=== PATIENT | male | born 1960 | race African-American/Black ===

== ENCOUNTER 2017-03-08 12:58 | Emergency (ER) | payer OTHER, MEDICAID ==
[~2017-03-08] VITALS: Ht 167.6 cm; Wt 99.8 kg
[~2017-03-08 12:58] MED LIST: CIPR-173 PO; ENAL2.5T PO; FLUO10CA15 PO; FUR40T PO; HYDR-4663 PO; TAM04C PO
[2017-03-08 13:25] LABS: Urine Bilirubin Negative (Negative); Urine Blood Negative /uL (Negative); Urine Color Yellow (Yellow); Urine Glucose Normal (Normal); Urine Ketone Negative (Negative); Urine Nitrite Negative (Negative); Urine RBC <1 /hpf (0 - 3); Urine Squamous Epithelial Cell FEW /hpf (<5); Urine Urobilinogen Normal (Negative); Urine pH 6.5 (5.0-8.0)
[2017-03-08] MEDS ORDERED: HYDROmorphone HCL 2 MG/ML VL IM ONE (16:45)
[2017-03-08] MEDS ORDERED: ONDANSETRON HCL 4 MG/2 ML VIAL IM ONE (16:45)
[2017-03-08 18:34] VITALS: BP 109/72
== END 2017-03-08 18:50 | disposition home or self-care (01) ==
LOC: ER 12:59
DX: K62.5 Hemorrhage of anus and rectum (principal); I10 Essential (primary) hypertension; R51 Headache; Z88.6 Allergy status to analgesic agent; Z79.899 Other long term (current) drug therapy
CPT/HCPCS: 74176; 81001; 96372; 99285; J1170; J2405

== ENCOUNTER 2017-06-04 14:15 | Emergency (ER) | payer OTHER, MEDICAID ==
[~2017-06-04] VITALS: Ht 167.6 cm; Wt 90.7 kg
[~2017-06-04 14:15] MED LIST changes: -HYDR-4663 PO; +HYDR-4683 PO
[2017-06-04 18:39] LABS: Basophils # (auto) 0 uL; Basophils % (auto) 0.3 % (0.0-2.0); Eosinophils # (auto) 0.1 uL; Eosinophils % (auto) 1.4 % (0.0-7.0); Hematocrit 49.2 % (41.0-53.0); Lymphocytes # (auto) 2.7 uL; Mean Corpuscular Hemoglobin 30.1 pg (28.0-32.0); Mean Corpuscular Hgb Conc. 32.6 g/dL (32.0-36.0); Mean Corpuscular Volume 92.5 fL (80.0-100.0); Monocytes # (auto) 0.9 uL; Monocytes % (auto) 9.5 % (0.0-12.0); Neutrophils # (auto) 5.9 uL; Neutrophils % (auto) 60.8 % (37.0-80.0); Nucleated Red Blood Cells % 0.1 %; Platelet Count (auto) 263 10^3/uL (140-450); Red Blood Cells 5.31 10^6/uL (4.5-5.90); Red Cell Distribution Width 14.2 % (11.8-14.3); White Blood Cell 9.7 10^3/uL (4.4-10.8)
[2017-06-04 18:58] LABS: Alanine Aminotransferase 25 U/L (16-61); Albumin 3.4 g/dL (3.4-5.0); Alkaline Phosphatase 152 U/L (45-117); Anion Gap 8 (5-15); Aspartate Aminotransferase 19 U/L (15-37); BUN/Creatinine Ratio 8.2; Bilirubin, Total 0.4 mg/dL (0.2-1.0); Blood Urea Nitrogen 7 mg/dL (7-18); Calcium 9.2 mg/dL (8.5-10.1); Carbon Dioxide 27 mmol/L (21-32); Chloride 105 mmol/L (98-107); GFR African American 119 mL/min; GFR Non-African American 99 mL/min; Glucose 89 mg/dL (74-106); Potassium 4.2 mmol/L (3.5-5.1); Sodium 140 mmol/L (136-145); Total Protein 8.5 g/dL (6.4-8.2)
[2017-06-04] MEDS ORDERED: ONDANSETRON ODT 4 MG TAB PO ONE (21:15)
[2017-06-04] MEDS ORDERED: HYDROmorphone HCL 2 MG/ML VL IM ONE ×2 (21:15→22:15)
[2017-06-04] MEDS ORDERED: HYDROcodone-ACET 10/325MG TAB PO ONE (23:00)
[2017-06-04 23:07] VITALS: BP 101/69
== END 2017-06-04 23:24 | disposition home or self-care (01) ==
LOC: ER 14:15
DX: N28.1 Cyst of kidney, acquired (principal); I10 Essential (primary) hypertension; Z88.6 Allergy status to analgesic agent
CPT/HCPCS: 36415; 71020; 74176; 80053; 84484; 85025; 96372; 99285; J1170; Q0162

== ENCOUNTER 2017-06-07 12:26 | Emergency (ER) | payer OTHER, MEDICAID ==
[~2017-06-07] VITALS: Ht 167.6 cm; Wt 91.6 kg
[2017-06-07 12:31] VITALS: BP 127/59
[2017-06-07] MEDS ORDERED: KETOROLAC TROMETH 60MG/2ML VIAL IM ONE (14:45)
[2017-06-07] MEDS ORDERED: diphenhdrAMINE HCL 50 MG/1 ML VL IM ONE (14:45)
== END 2017-06-07 15:18 | disposition home or self-care (01) ==
LOC: ER 12:26
DX: K64.9 Unspecified hemorrhoids (principal); I10 Essential (primary) hypertension; N40.0 Benign prostatic hyperplasia without lower urinary tract symptoms; Z88.8 Allergy status to other drugs, medicaments and biological substances
CPT/HCPCS: 81002; 96372; 99284; J1200; J1885

== ENCOUNTER 2017-09-28 11:19 | Inpatient (IN) | payer OTHER, MEDICAID ==
[~2017-09-28] VITALS: Ht 167.6 cm; Wt 97.8 kg
[2017-09-28 12:03] LABS: Hematocrit 47.5 % (41.0-53.0); Hemoglobin 15.5 g/dL (13.5-17.5); Mean Corpuscular Hemoglobin 29.6 pg (28.0-32.0); Mean Corpuscular Hgb Conc. 32.7 g/dL (32.0-36.0); Mean Corpuscular Volume 90.5 fL (80.0-100.0); Platelet Count (auto) 179 10^3/uL (140-450); Red Blood Cells 5.25 10^6/uL (4.5-5.90); Red Cell Distribution Width 14.5 % (11.8-14.3); White Blood Cell 3.1 10^3/uL (4.4-10.8)
[2017-09-28 12:08] LABS: Band Neutrophils % (manual) 0
[2017-09-28 12:09] LABS: Basophils % (manual) 0 (0.0-2.0); Blast Cells 0; Metamyelocytes % 0; Myelocytes % 0; Promyelocytes % 0; Reactive Lymphocytes 0
[2017-09-28 12:29] LABS: Alanine Aminotransferase 39 U/L (16-61); Alkaline Phosphatase 100 U/L (45-117); Anion Gap 8 (5-15); Aspartate Aminotransferase 38 U/L (15-37); Bilirubin, Total 0.4 mg/dL (0.2-1.0); Blood Urea Nitrogen 16 mg/dL (7-18); Calcium 8.2 mg/dL (8.5-10.1); Carbon Dioxide 24 mmol/L (21-32); Chloride 106 mmol/L (98-107); GFR African American 113 mL/min; GFR Non-African American 94 mL/min; Glucose 108 mg/dL (74-106); Magnesium 2.2 mg/dL (1.6-2.6); Potassium 4.1 mmol/L (3.5-5.1); Sodium 138 mmol/L (136-145); Total Protein 7.4 g/dL (6.4-8.2)
[2017-09-28] MEDS ORDERED: ONDANSETRON HCL 4 MG/2 ML VIAL IV ONE ×2 (13:00→16:15)
[2017-09-28] MEDS ORDERED: MORPHINE SULFATE 4 MG/ML SYR/VIAL IV ONE ×2 (13:00→16:15)
[2017-09-28] MEDS ORDERED: ASPirin 81 mg TAB PO ONE (13:00)
[2017-09-28 13:37] LABS: INR 1.02 (0.9-1.15); Partial Thromboplastin Time 31.1 sec (22.64-33.71); Prothrombin Time 11.1 sec (9.37-12.3)
[2017-09-28 14:14] LABS: Eosinophils % (manual) 3 (0-7); Lymphocytes % (manual) 36 (10.0-50.0); Monocytes % (manual) 21 (0-12)
[2017-09-28] MEDS ORDERED: HYDROcodone-ACET 10/325MG TAB PO ONE (14:30)
[2017-09-28] MEDS ORDERED: NITROGLYCERIN 0.4 MG SL TAB SL PRN (17:00)
[2017-09-28] MEDS ORDERED: PROMETHAZINE HCL 25 MG/ML 1ML IV PRN (17:00)
[2017-09-28] MEDS ORDERED: LORazepam 0.5 MG TAB PO PRN (17:00)
[2017-09-28] MEDS ORDERED: TEMAZEPAM 15 MG CAP PO PRN (17:00)
[2017-09-28] MEDS ORDERED: SODIUM CHLORIDE 0.9% 1,000 ML IV ONE (17:00)
[2017-09-28] MEDS ORDERED: ACETAMINOPHEN 500 MG TAB PO PRN (17:00)
[2017-09-28] MEDS ORDERED: LACTULOSE 20Gm/30ML SOLN PO PRN (17:00)
[2017-09-28] MEDS ORDERED: MORPHINE SULFATE 4 MG/ML SYR/VIAL IV PRN (17:00)
[2017-09-28] MEDS ORDERED: ALBUTEROL SULF 2.5 MG/0.5ML(0.5%) NEB SOLN NEB PRN (17:00)
[2017-09-28] MEDS ORDERED: OSELTAMIVIR 75 MG CAP PO ONE (17:30)
[2017-09-28 18:03] LABS: Alcohol, Urine < 3.0 mg/dL (0-5); Amphetamine Screen, Urine NEGATIVE (NEGATIVE); Barbiturate Scree,Urine NEGATIVE (NEGATIVE); Benzodiazephine Screen, Urine NEGATIVE (NEGATIVE); Cannabinoid Screen, Urine NEGATIVE (NEGATIVE); Cocaine Screen, Urine NEGATIVE (NEGATIVE); Opiate Scree,Urine NEGATIVE (NEGATIVE); Phencyclidine Screen, Urine NEGATIVE (NEGATIVE)
[2017-09-28] MEDS: DOXYCYCLINE HYC 100MG/250ML 250 ML IV SCH (18:03)
[2017-09-28] MEDS: SODIUM CHLORIDE 0.9% 1,000 ML IV SCH (18:03)
[2017-09-28] MEDS: IPRATROPIUM BROM 0.5 MG/2.5ML INH SOL NEB SCH (18:50)
[2017-09-28] MEDS: ALBUTEROL SULF 2.5 MG/0.5ML(0.5%) NEB SOLN NEB SCH (18:50)
[2017-09-28] MEDS: HYDROcodone-ACET 5/325MG TAB PO PRN (19:27)
[2017-09-28] MEDS: MORPHINE SULFATE 4 MG/ML SYR/VIAL IV PRN (21:30)
[2017-09-28] MEDS ORDERED: OSELTAMIVIR 75 MG CAP PO SCH (22:00)
[2017-09-28 22:06] LABS: CRP High Sensitivity 1.25 mg/dL (< 0.3)
[2017-09-28 22:20] VITALS: BP 133/81
[2017-09-28 22:30] VITALS: BP 133/81
[2017-09-28] MEDS: FLUoxetine HCL 10 MG CAP PO SCH (22:37)
[2017-09-28] MEDS: ATORVASTATIN 20 MG TAB PO SCH (22:37)
[2017-09-29] MEDS: ALBUTEROL SULF 2.5 MG/0.5ML(0.5%) NEB SOLN NEB SCH ×4 (00:20→18:41)
[2017-09-29] MEDS: IPRATROPIUM BROM 0.5 MG/2.5ML INH SOL NEB SCH ×4 (00:20→18:41)
[2017-09-29] MEDS: MORPHINE SULFATE 4 MG/ML SYR/VIAL IV PRN ×4 (03:28→20:10)
[2017-09-29] MEDS: SODIUM CHLORIDE 0.9% 1,000 ML IV SCH ×3 (04:35→18:15)
[2017-09-29] MEDS: DOXYCYCLINE HYC 100MG/250ML 250 ML IV SCH ×2 (04:35→17:43)
[2017-09-29 05:00] VITALS: BP 94/51
[2017-09-29 07:01] LABS: Cholesterol 81 mg/dL (< 200); HDL Cholesterol 26 mg/dL (40-59); LDL Cholesterol 52 mg/dL (< 100); Triglycerides 77 mg/dL (< 150)
[2017-09-29 08:00] VITALS: BP 97/66
[2017-09-29 08:41] VITALS: BP 101/52
[2017-09-29 09:13] VITALS: BP 101/52
[2017-09-29] MEDS: ASPirin 81 mg TAB PO SCH (09:55)
[2017-09-29] MEDS: ENOXAPARIN SOD 40 MG/0.4 ML SYRINGE SC SCH (09:55)
[2017-09-29 17:02] VITALS: BP 87/40
[2017-09-29 22:00] VITALS: BP 81/48
[2017-09-29] MEDS: DOXYCYCLINE 100 MG TAB/CAP PO SCH (22:13)
[2017-09-29] MEDS: FLUoxetine HCL 10 MG CAP PO SCH (22:13)
[2017-09-29] MEDS: ATORVASTATIN 20 MG TAB PO SCH (22:13)
[2017-09-29] MEDS: HYDROcodone-ACET 5/325MG TAB PO PRN (23:35)
[2017-09-30] VITALS (8 sets, daily range): BP systolic 87–120; BP diastolic 56–69
[2017-09-30] MEDS: ALBUTEROL SULF 2.5 MG/0.5ML(0.5%) NEB SOLN NEB SCH ×4 (00:40→18:58)
[2017-09-30] MEDS: IPRATROPIUM BROM 0.5 MG/2.5ML INH SOL NEB SCH ×4 (00:40→18:58)
[2017-09-30] MEDS: MORPHINE SULFATE 4 MG/ML SYR/VIAL IV PRN ×4 (00:42→20:11)
[2017-09-30] MEDS: SODIUM CHLORIDE 0.9% 1,000 ML IV SCH ×4 (06:00→20:15)
[2017-09-30] MEDS: HYDROcodone-ACET 5/325MG TAB PO PRN (08:57)
[2017-09-30] MEDS: ASPirin 81 mg TAB PO SCH (08:57)
[2017-09-30] MEDS: DOXYCYCLINE 100 MG TAB/CAP PO SCH ×2 (08:57→21:49)
[2017-09-30] MEDS: ENOXAPARIN SOD 40 MG/0.4 ML SYRINGE SC SCH (09:00)
[2017-09-30] MEDS ORDERED: IOHEXOL 350 MG/ML 100ML IJ ONE (11:22)
[2017-09-30] MEDS: ATORVASTATIN 20 MG TAB PO SCH (21:49)
[2017-09-30] MEDS: FLUoxetine HCL 10 MG CAP PO SCH (21:49)
[2017-10-01] MEDS: ALBUTEROL SULF 2.5 MG/0.5ML(0.5%) NEB SOLN NEB SCH ×2 (01:03→06:49)
[2017-10-01] MEDS: IPRATROPIUM BROM 0.5 MG/2.5ML INH SOL NEB SCH ×2 (01:03→06:49)
[2017-10-01] MEDS: MORPHINE SULFATE 4 MG/ML SYR/VIAL IV PRN (01:23)
[2017-10-01] MEDS: SODIUM CHLORIDE 0.9% 1,000 ML IV SCH (04:14)
[2017-10-01 04:56] VITALS: BP 110/79
[2017-10-01 08:00] VITALS: BP 91/54
[2017-10-01 09:00] VITALS: BP 91/54
[2017-10-01] MEDS: ENOXAPARIN SOD 40 MG/0.4 ML SYRINGE SC SCH (10:00)
[2017-10-01] MEDS: DOXYCYCLINE 100 MG TAB/CAP PO SCH (10:58)
[2017-10-01] MEDS: HYDROcodone-ACET 5/325MG TAB PO PRN (10:59)
[2017-10-01] MEDS: ASPirin 81 mg TAB PO SCH (10:59)
[2017-10-01 12:16] VITALS: BP 104/70
== END 2017-10-01 13:10 | disposition home or self-care (01) | DRG 177 ==
LOC: ER 11:19 → TELE 11:20 → TELE-CENTR 22:25
PROVIDERS: ADMIT Internal Medicine; ATTEND Internal Medicine Pulmonary Disease
DX: J98.51 Mediastinitis (principal); J18.9 Pneumonia, unspecified organism; I95.9 Hypotension, unspecified; J44.0 Chronic obstructive pulmonary disease with (acute) lower respiratory infection; E66.9 Obesity, unspecified; R91.1 Solitary pulmonary nodule; E78.5 Hyperlipidemia, unspecified; G89.29 Other chronic pain; I10 Essential (primary) hypertension; J20.9 Acute bronchitis, unspecified; N40.0 Benign prostatic hyperplasia without lower urinary tract symptoms; Z80.0 Family history of malignant neoplasm of digestive organs; Z82.49 Family history of ischemic heart disease and other diseases of the circulatory system; Z83.3 Family history of diabetes mellitus; Z86.711 Personal history of pulmonary embolism; Z88.5 Allergy status to narcotic agent; Z89.611 Acquired absence of right leg above knee; Z68.34 Body mass index [BMI] 34.0-34.9, adult
CPT/HCPCS: 36415; 36600; 71046; 71275; 80053; 80061; 80307; 82550; 82805; 83735; 83880; 84443; 84484; 85007; 85027; 85379; 85610; 85652; 85730; 86141; 87070; 87205; 87804; 93005; 93306; 94640; 94761; 96361; 96374; 96375; 96376; J2405; J3490

== ENCOUNTER 2018-10-01 12:20 | Emergency (ER) | payer OTHER, MEDICAID ==
[~2018-10-01] VITALS: Ht 167.6 cm; Wt 95.3 kg
[~2018-10-01 12:20] MED LIST changes: -CIPR-173 PO; -FUR40T PO; -TAM04C PO; +ZOLP10TA PO
[2018-10-01 13:17] LABS: Basophils # (auto) 0 uL; Basophils % (auto) 0.4 % (0.0-2.0); Eosinophils # (auto) 0 uL; Eosinophils % (auto) 0.7 % (0.0-7.0); Hematocrit 50.2 % (41.0-53.0); Hemoglobin 16.6 g/dL (13.5-17.5); Lymphocytes # (auto) 1.7 uL; Lymphocytes % (auto) 30.8 % (10.0-50.0); Mean Corpuscular Hemoglobin 30.2 pg (28.0-32.0); Mean Corpuscular Hgb Conc. 33.1 g/dL (32.0-36.0); Mean Corpuscular Volume 91.2 fL (80.0-100.0); Monocytes # (auto) 0.6 uL; Monocytes % (auto) 10.4 % (0.0-12.0); Neutrophils # (auto) 3.2 uL; Neutrophils % (auto) 57.7 % (37.0-80.0); Nucleated Red Blood Cells % 0.1 %; Platelet Count (auto) 259 10^3/uL (140-450); Red Blood Cells 5.51 10^6/uL (4.5-5.90); Red Cell Distribution Width 14.8 % (11.8-14.3); White Blood Cell 5.6 10^3/uL (4.4-10.8)
[2018-10-01 13:32] LABS: Albumin 3.2 g/dL (3.4-5.0); Anion Gap 7 (5-15); BUN/Creatinine Ratio 14.3; Blood Urea Nitrogen 12 mg/dL (7-18); Calcium 8.7 mg/dL (8.5-10.1); Carbon Dioxide 24 mmol/L (21-32); Chloride 106 mmol/L (98-107); GFR African American 121 mL/min; GFR Non-African American 100 mL/min; Glucose 112 mg/dL (74-106); Magnesium 2.5 mg/dL (1.6-2.6); Sodium 137 mmol/L (136-145)
[2018-10-01 13:37] LABS: Alanine Aminotransferase 24 U/L (16-61); Alkaline Phosphatase 105 U/L (45-117); Aspartate Aminotransferase 17 U/L (15-37); Bilirubin, Total 0.5 mg/dL (0.2-1.0)
[2018-10-02] MEDS ORDERED: HYDROcodone-ACET 10/325MG TAB PO ONE (00:45)
[2018-10-02] MEDS ORDERED: ONDANSETRON HCL 4 MG/2 ML VIAL IV ONE (02:00)
[2018-10-02] MEDS ORDERED: MORPHINE SULFATE 4 MG/ML SYR/VIAL IV ONE (02:00)
[2018-10-02 03:47] VITALS: BP 117/72
== END 2018-10-02 04:33 | disposition home or self-care (01) ==
LOC: ER 12:20
DX: R07.89 Other chest pain (principal); R51 Headache; R10.9 Unspecified abdominal pain; I10 Essential (primary) hypertension; E78.5 Hyperlipidemia, unspecified; I25.10 Atherosclerotic heart disease of native coronary artery without angina pectoris; Z88.6 Allergy status to analgesic agent
CPT/HCPCS: 36415; 71046; 80053; 83735; 84484; 85025; 93005; 96374; 96375; 99284; J2270; J2405

== ENCOUNTER 2018-12-11 15:48 | Emergency (ER) | payer MEDICARE, MEDICAID ==
[~2018-12-11] VITALS: Ht 167.6 cm; Wt 90.7 kg
[~2018-12-11 15:48] MED LIST changes: -ENAL2.5T PO; +GAB100C PO; +METF-370 PO
[2018-12-11 16:02] VITALS: BP 147/86
[2018-12-11 16:40] LABS: Basophils # (auto) 0 uL; Basophils % (auto) 0.3 % (0.0-2.0); Eosinophils # (auto) 0.1 uL; Eosinophils % (auto) 3.2 % (0.0-7.0); Hematocrit 48.5 % (41.0-53.0); Hemoglobin 16.2 g/dL (13.5-17.5); Lymphocytes % (auto) 23.2 % (10.0-50.0); Mean Corpuscular Hemoglobin 30.3 pg (28.0-32.0); Mean Corpuscular Hgb Conc. 33.3 g/dL (32.0-36.0); Mean Corpuscular Volume 91.1 fL (80.0-100.0); Monocytes # (auto) 0.5 uL; Monocytes % (auto) 11.1 % (0.0-12.0); Neutrophils # (auto) 2.6 uL; Neutrophils % (auto) 62.2 % (37.0-80.0); Nucleated Red Blood Cells % 0.1 %; Platelet Count (auto) 215 10^3/uL (140-450); Red Blood Cells 5.33 10^6/uL (4.5-5.90); Red Cell Distribution Width 14.3 % (11.8-14.3); White Blood Cell 4.2 10^3/uL (4.4-10.8)
[2018-12-11 16:49] LABS: INR 1.23 (0.9-1.15); Partial Thromboplastin Time 31.5 sec (23.78-33.04)
[2018-12-11 16:54] LABS: Anion Gap 4 (5-15); BUN/Creatinine Ratio 5.8; Blood Urea Nitrogen 5 mg/dL (7-18); Calcium 8.7 mg/dL (8.5-10.1); Carbon Dioxide 26 mmol/L (21-32); Chloride 110 mmol/L (98-107); GFR African American 117 mL/min; GFR Non-African American 97 mL/min; Glucose 84 mg/dL (74-106); Magnesium 1.9 mg/dL (1.6-2.6); Potassium 3.8 mmol/L (3.5-5.1); Sodium 140 mmol/L (136-145)
[2018-12-11 16:59] LABS: Alanine Aminotransferase 67 U/L (16-61); Alkaline Phosphatase 172 U/L (45-117); Aspartate Aminotransferase 108 U/L (15-37); Bilirubin, Total 0.9 mg/dL (0.2-1.0); Total Protein 7.5 g/dL (6.4-8.2)
[2018-12-11] MEDS ORDERED: HYDROcodone-ACET 10/325MG TAB PO ONE (19:00)
== END 2018-12-11 20:59 | disposition left against medical advice (07) ==
LOC: ER 15:48
DX: R07.89 Other chest pain (principal); E11.9 Type 2 diabetes mellitus without complications; I11.0 Hypertensive heart disease with heart failure; I50.9 Heart failure, unspecified; I25.2 Old myocardial infarction; Z98.61 Coronary angioplasty status; Z89.619 Acquired absence of unspecified leg above knee; Z88.6 Allergy status to analgesic agent; Z53.29 Procedure and treatment not carried out because of patient's decision for other reasons
CPT/HCPCS: 36415; 71045; 80053; 83735; 83880; 84484; 85025; 85610; 85730; 93005; 94761

== ENCOUNTER 2019-02-08 11:34 | Emergency (ER) | payer OTHER, MEDICAID ==
[~2019-02-08] VITALS: Ht 167.6 cm; Wt 90.7 kg
[2019-02-08 12:06] LABS: Basophils # (auto) 0 uL; Basophils % (auto) 0.3 % (0.0-2.0); Eosinophils # (auto) 0.2 uL; Eosinophils % (auto) 3.4 % (0.0-7.0); Hematocrit 47.3 % (41.0-53.0); Hemoglobin 15.8 g/dL (13.5-17.5); Lymphocytes # (auto) 1.3 uL; Lymphocytes % (auto) 28.6 % (10.0-50.0); Mean Corpuscular Hemoglobin 30.6 pg (28.0-32.0); Mean Corpuscular Hgb Conc. 33.5 g/dL (32.0-36.0); Mean Corpuscular Volume 91.4 fL (80.0-100.0); Monocytes # (auto) 0.4 uL; Monocytes % (auto) 9.7 % (0.0-12.0); Neutrophils # (auto) 2.7 uL; Nucleated Red Blood Cells % 0.1 %; Platelet Count (auto) 215 10^3/uL (140-450); Red Blood Cells 5.17 10^6/uL (4.5-5.90); Red Cell Distribution Width 15.1 % (11.8-14.3); White Blood Cell 4.6 10^3/uL (4.4-10.8)
[2019-02-08] MEDS ORDERED: SODIUM CHLORIDE 0.9% 1,000 ML IV ONE (12:09)
[2019-02-08 12:28] LABS: Urine Bacteria NONE SEEN /hpf (None Seen); Urine Blood Negative /uL (Negative); Urine Specific Gravity 1.017 (1.001-1.035); Urine WBC 1 /hpf (0 - 3)
[2019-02-08 12:31] LABS: Alanine Aminotransferase 21 U/L (16-61); Albumin 1.4 g/dL (3.4-5.0); Amylase 63 U/L (25-115); Anion Gap 6 (5-15); Blood Urea Nitrogen 13 mg/dL (7-18); Calcium 8.7 mg/dL (8.5-10.1); Carbon Dioxide 24 mmol/L (21-32); Chloride 108 mmol/L (98-107); Glucose 119 mg/dL (74-106); Lipase 358 U/L (73-393); Potassium 4.1 mmol/L (3.5-5.1); Sodium 138 mmol/L (136-145)
[2019-02-08 12:36] LABS: Alkaline Phosphatase 103 U/L (45-117); Aspartate Aminotransferase 15 U/L (15-37); BUN/Creatinine Ratio 17.1; Bilirubin, Total 0.3 mg/dL (0.2-1.0); GFR African American 135 mL/min; GFR Non-African American 112 mL/min; Total Protein 7.7 g/dL (6.4-8.2)
[2019-02-08] MEDS ORDERED: ACETAMINOPHEN 500 MG TAB PO ONE (13:00)
[2019-02-08 14:03] VITALS: BP 101/61
== END 2019-02-08 14:57 | disposition home or self-care (01) ==
LOC: ER 11:36
DX: R10.11 Right upper quadrant pain (principal); I25.10 Atherosclerotic heart disease of native coronary artery without angina pectoris; E11.9 Type 2 diabetes mellitus without complications; I11.0 Hypertensive heart disease with heart failure; I50.9 Heart failure, unspecified; E78.5 Hyperlipidemia, unspecified; Z86.711 Personal history of pulmonary embolism; Z98.61 Coronary angioplasty status; Z89.611 Acquired absence of right leg above knee
CPT/HCPCS: 36415; 71045; 74176; 80053; 81001; 82150; 83690; 84484; 85025; 93005; 96360; 96361; 99284; J7030

== ENCOUNTER 2019-07-03 17:12 | Inpatient (IN) | payer OTHER, MEDICAID ==
[~2019-07-03] VITALS: Ht 167.6 cm; Wt 99.3 kg
[~2019-07-03 17:12] MED LIST changes: -HYDR-4683 PO; +HYDR-4833 PO
[2019-07-03 18:45] LABS: Basophils # (auto) 0 uL; Basophils % (auto) 0.6 % (0.0-2.0); Eosinophils # (auto) 0.1 uL; Eosinophils % (auto) 1.9 % (0.0-7.0); Hematocrit 45.7 % (41.0-53.0); Hemoglobin 15.3 g/dL (13.5-17.5); Lymphocytes # (auto) 1.6 uL; Lymphocytes % (auto) 25.2 % (10.0-50.0); Mean Corpuscular Hgb Conc. 33.4 g/dL (32.0-36.0); Mean Corpuscular Volume 92.8 fL (80.0-100.0); Monocytes # (auto) 0.7 uL; Monocytes % (auto) 11.2 % (0.0-12.0); Neutrophils # (auto) 3.9 uL; Neutrophils % (auto) 61.1 % (37.0-80.0); Nucleated Red Blood Cells % 0.2 %; Platelet Count (auto) 215 10^3/uL (140-450); Red Blood Cells 4.93 10^6/uL (4.5-5.90); Red Cell Distribution Width 14.4 % (11.8-14.3); White Blood Cell 6.4 10^3/uL (4.4-10.8)
[2019-07-03 18:56] LABS: Alanine Aminotransferase 27 U/L (16-61); Albumin 3.1 g/dL (3.4-5.0); Anion Gap 9 (5-15); Aspartate Aminotransferase 15 U/L (15-37); BUN/Creatinine Ratio 16.4; Blood Urea Nitrogen 11 mg/dL (7-18); Calcium 8.4 mg/dL (8.5-10.1); Carbon Dioxide 22 mmol/L (21-32); Chloride 108 mmol/L (98-107); GFR African American 156 mL/min; GFR Non-African American 129 mL/min; Glucose 91 mg/dL (74-106); Potassium 4.2 mmol/L (3.5-5.1); Sodium 139 mmol/L (136-145)
[2019-07-03 19:01] LABS: Alkaline Phosphatase 108 U/L (45-117); Bilirubin, Total 0.3 mg/dL (0.2-1.0); Total Protein 7.4 g/dL (6.4-8.2)
[2019-07-03] MEDS ORDERED: MORPHINE SULF INJ 2 MG/ML SYRINGE 1ML IV ONE (21:00)
[2019-07-03] MEDS ORDERED: ONDANSETRON HCL 4 MG/2 ML VIAL IV ONE (21:00)
[2019-07-03] MEDS ORDERED: TEMAZEPAM 15 MG CAP PO PRN (22:45)
[2019-07-03] MEDS ORDERED: LORazepam 0.5 MG TAB PO PRN (22:45)
[2019-07-03] MEDS ORDERED: DEXTROSE (50%) 50ML SYRG IV PRN (22:45)
[2019-07-03] MEDS ORDERED: DOCUSATE SOD 100 MG CAP PO PRN (22:45)
[2019-07-03] MEDS ORDERED: ONDANSETRON HCL 4 MG/2 ML VIAL IV PRN (22:45)
[2019-07-03] MEDS ORDERED: MORPHINE SULF INJ 2 MG/ML SYRINGE 1ML IV PRN (22:45)
[2019-07-03] MEDS ORDERED: ACETAMINOPHEN 325 MG TAB PO PRN (22:45)
[2019-07-03] MEDS: SODIUM CHLORIDE 0.9% 1,000 ML IV SCH (23:14)
[2019-07-03] MEDS: HYDROcodone-ACET 5/325MG TAB PO PRN (23:14)
[2019-07-04] VITALS (7 sets, daily range): BP systolic 96–123; BP diastolic 57–78
[2019-07-04] MEDS: MORPHINE SULFATE 4 MG/ML SYR/VIAL IV PRN ×6 (00:05→21:18)
[2019-07-04] MEDS: ACCU-CHEK COMFORT CURVE STRIP VI SCH ×4 (00:21→21:22)
[2019-07-04] MEDS: InsuLIN REG 1unit/0.01ml Soln (100units/ml) SC SCH ×4 (03:31→21:22)
--- NOTE | 2019-07-04 08:00 | NUR ---
Opening Shift Note Assumed care of patient, awake, alert and oriented X4. No S/S of distress/SOB, complains of chronic chest pain, 01/05, informed will medicate with prescribed pain medication, verbalized understanding. Tele# 56, sinus rhythm @ 86 bpm. IV to right forearm, 20 gauge, patent and infusing 0.9% NS @ 60 ml/hr. 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 Patient has his own crutches at bedside, informed to call for help if he needs to get up, verbalized understanding. Bed locked, in lowest position, call light within reach. Instructed on POC and to call for assist PRN, verbalized understanding. Will continue to monitor for changes Q1hr and PRN.
[2019-07-04] MEDS ORDERED: metFORMIN HYDROCHLORIDE 500 MG TAB PO SCH (10:00)
[2019-07-04] MEDS ORDERED: InsuLIN REG 1unit/0.01ml Soln (100units/ml) SC SCH (11:30)
[2019-07-04] MEDS ORDERED: ACCU-CHEK COMFORT CURVE STRIP VI SCH (11:30)
--- NOTE | 2019-07-04 14:33 | NUR ---
ROUNDS Dr Daigle at bedside for rounds, new orders received and followed through. Patient updated on plan of care, verbalized understanding.
[2019-07-04] MEDS ORDERED: DEXTROSE (50%) 50ML SYRG IV PRN (15:15)
[2019-07-04] MEDS ORDERED: ASPirin-EC 81 mg tab PO SCH (15:18)
[2019-07-04] MEDS: SODIUM CHLORIDE 0.9% 1,000 ML IV SCH (16:23)
[2019-07-04] MEDS: ASPirin-EC 81 mg tab PO SCH (16:23)
[2019-07-04] MEDS ORDERED: GABAPENTIN 100 MG CAP PO SCH (18:00)
[2019-07-04] MEDS ORDERED: ZOLPIDEM TARTRATE 5 MG TAB PO SCH (18:00)
--- NOTE | 2019-07-04 19:06 | NUR ---
Care endorsed to NADIYA Andino, night nurse.
[2019-07-04] MEDS: FLUoxetine HCL 10 MG CAP PO SCH (21:16)
[2019-07-04] MEDS: ZOLPIDEM TARTRATE 5 MG TAB PO SCH (21:18)
[2019-07-04] MEDS: GABAPENTIN 100 MG CAP PO SCH (21:19)
[2019-07-05] MEDS: MORPHINE SULFATE 4 MG/ML SYR/VIAL IV PRN ×4 (02:29→19:40)
[2019-07-05] MEDS: ACCU-CHEK COMFORT CURVE STRIP VI SCH ×4 (04:39→20:17)
[2019-07-05] MEDS: InsuLIN REG 1unit/0.01ml Soln (100units/ml) SC SCH ×4 (04:40→20:17)
[2019-07-05 05:34] VITALS: BP 117/72
[2019-07-05] MEDS: SODIUM CHLORIDE 0.9% 1,000 ML IV SCH (05:44)
[2019-07-05 06:13] LABS: Potassium 4.7 mmol/L (3.5-5.1)
[2019-07-05 06:25] LABS: BUN/Creatinine Ratio 17.1; Calcium 8.3 mg/dL (8.5-10.1); Magnesium 2.2 mg/dL (1.6-2.6)
--- NOTE | 2019-07-05 08:00 | NUR ---
Opening Shift Note Assumed care of patient, awake, alert and oriented X4. No S/S of distress/SOB, complains of chronic chest pain, 03/07, informed will medicate with prescribed pain medication, verbalized understanding. Tele# 56, sinus rhythm @ 69 bpm. IV to right forearm, 20 gauge, patent and infusing 0.9% NS @ 60 ml/hr. 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 Patient has his own crutches at bedside, informed to call for help if he needs to get up, verbalized understanding. Bed locked, in lowest position, call light within reach. Instructed on POC and to call for assist PRN, verbalized understanding. Will continue to monitor for changes Q1hr and PRN
[2019-07-05 09:00] VITALS: BP 110/64
[2019-07-05] MEDS: ASPirin-EC 81 mg tab PO SCH (09:48)
--- NOTE | 2019-07-05 11:25 | NUR ---
ROUNDS Dr Daigle at bedside for rounds, no new orders at this time. New orders received and followed through. Patient updated on plan of care, verbalized understanding. Message left for Dr Gonzalez for Cardiac clearance for discharge, awaiting return call.
--- NOTE | 2019-07-05 12:12 | NUR ---
Per patient, he's wanting to let Dr Daigle know he's having left lower abdominal pain, 03/07. Informed Dr Daigle, stat abdominal/pelvic CT w/o contrast ordered, if normal, patient may be discharged home. Updated patient on plan of care, verbalized understanding.
[2019-07-05] MEDS ORDERED: KETOROLAC TROMETH 30 MG/ML 1ML VIAL IV ONE (12:15)
--- NOTE | 2019-07-05 12:15 | NUR ---
Call received from CT, per technical support 1 software engineer Kaylynn, patient is 62 lbs over allowed weight for CT. Paged Dr Daigle to inform, awaiting return call.
[2019-07-05 12:30] VITALS: BP 112/72
[2019-07-05] MEDS: HYDROcodone-ACET 5/325MG TAB PO PRN ×2 (15:22→22:45)
--- NOTE | 2019-07-05 16:31 | NUR ---
US Informed Dr Daigle of US results, verbalized understanding. Informed Dr Daigle patient continues to complain of left lower abdominal and back pain. Order to hold discharge until further notice. Patient updated on plan of care, verbalized understanding.
[2019-07-05 17:00] VITALS: BP 120/73
--- NOTE | 2019-07-05 19:05 | NUR ---
Care endorsed to NADIYA Andino, night nurse.
[2019-07-05] MEDS: ZOLPIDEM TARTRATE 5 MG TAB PO SCH (20:13)
[2019-07-05] MEDS: FLUoxetine HCL 10 MG CAP PO SCH (20:14)
[2019-07-05] MEDS: GABAPENTIN 100 MG CAP PO SCH (20:14)
[2019-07-05 22:00] VITALS: BP 105/66
[2019-07-06] MEDS: MORPHINE SULFATE 4 MG/ML SYR/VIAL IV PRN (03:14)
[2019-07-06 05:06] VITALS: BP 109/73
[2019-07-06] MEDS: InsuLIN REG 1unit/0.01ml Soln (100units/ml) SC SCH (05:55)
[2019-07-06] MEDS: ACCU-CHEK COMFORT CURVE STRIP VI SCH (06:00)
[2019-07-06] MEDS: HYDROcodone-ACET 5/325MG TAB PO PRN (06:04)
--- NOTE | 2019-07-06 07:51 | NUR ---
Opening Shift Note Received report on the patient. Awake lying in bed. Patient shows no signs of distress at this time. Discussed plan of care with the patient. Bed in lowest position, side rails up x2, and the call light is within reach. Will continue to monitor
[2019-07-06] MEDS: ASPirin-EC 81 mg tab PO SCH (09:02)
[2019-07-06 09:13] VITALS: BP 108/65
--- NOTE | 2019-07-06 09:45 | NUR ---
md weir rounded on patient explained to pt he is being discharged
--- NOTE | 2019-07-06 10:22 | NUR ---
pt wants to be taken down to er lobby to wait for his ride
--- NOTE | 2019-07-06 10:30 | NUR ---
pt discharged home no repsiratoryu distress noted
== END 2019-07-06 10:30 | disposition home or self-care (01) | DRG 313 ==
LOC: ER 17:12 → TELE 17:13 → TELE-WESTW 23:56
PROVIDERS: ADMIT Hospitalist; ATTEND Internal Medicine
DX: R07.89 Other chest pain (principal); I50.20 Unspecified systolic (congestive) heart failure; E66.01 Morbid (severe) obesity due to excess calories; E11.51 Type 2 diabetes mellitus with diabetic peripheral angiopathy without gangrene; Z95.5 Presence of coronary angioplasty implant and graft; N28.1 Cyst of kidney, acquired; Z88.8 Allergy status to other drugs, medicaments and biological substances; I25.10 Atherosclerotic heart disease of native coronary artery without angina pectoris; I25.2 Old myocardial infarction; Z82.49 Family history of ischemic heart disease and other diseases of the circulatory system; Z83.3 Family history of diabetes mellitus; Z89.619 Acquired absence of unspecified leg above knee; Z68.35 Body mass index [BMI] 35.0-35.9, adult; I11.0 Hypertensive heart disease with heart failure
CPT/HCPCS: 36415; 71045; 76775; 80048; 80053; 82962; 83735; 83880; 84484; 85025; 93005; G0378; J1815; J2405

== ENCOUNTER 2019-10-15 15:41 | Emergency (ER) | payer OTHER, MEDICAID ==
[~2019-10-15] VITALS: Ht 167.6 cm; Wt 108.9 kg
[~2019-10-15 15:41] MED LIST changes: +ASCO500C5 OR; +ENAL5TAB PO; +FURO1TAB33 PO; +HYDR-4798 PO; -HYDR-4833 PO
[2019-10-15 16:17] LABS: Basophils # (auto) 0 10 ^3/uL (0-0.2); Basophils % (auto) 0.5 % (0.0-2.0); Eosinophils # (auto) 0.1 10 ^3/uL (0-0.8); Eosinophils % (auto) 1.9 % (0.0-7.0); Hematocrit 45.9 % (41.0-53.0); Lymphocytes # (auto) 1.6 10 ^3/uL (0.4-5.4); Lymphocytes % (auto) 27.4 % (10.0-50.0); Mean Corpuscular Hemoglobin 30.1 pg (28.0-32.0); Mean Corpuscular Hgb Conc. 32.6 g/dL (32.0-36.0); Mean Corpuscular Volume 92.4 fL (80.0-100.0); Monocytes # (auto) 0.6 10 ^3/uL (0-1.3); Monocytes % (auto) 10.5 % (0.0-12.0); Neutrophils # (auto) 3.5 10 ^3/uL (1.6-8.6); Neutrophils % (auto) 59.7 % (37.0-80.0); Nucleated Red Blood Cells % 0.1 %; Platelet Count (auto) 252 10^3/uL (140-450); Red Blood Cells 4.97 10^6/uL (4.5-5.90); Red Cell Distribution Width 14.3 % (11.8-14.3); White Blood Cell 5.9 10^3/uL (4.4-10.8)
[2019-10-15 16:29] LABS: Albumin 3.2 g/dL (3.4-5.0); Anion Gap 7 (5-15); Blood Urea Nitrogen 28 mg/dL (7-18); Calcium 8.9 mg/dL (8.5-10.1); Carbon Dioxide 24 mmol/L (21-32); Chloride 110 mmol/L (98-107); Glucose 89 mg/dL (74-106); Potassium 4.1 mmol/L (3.5-5.1); Sodium 141 mmol/L (136-145)
[2019-10-15 16:34] LABS: Alanine Aminotransferase 24 U/L (16-61); Alkaline Phosphatase 74 U/L (45-117); Aspartate Aminotransferase 17 U/L (15-37); BUN/Creatinine Ratio 16.1; Bilirubin, Total 0.3 mg/dL (0.2-1.0); GFR African American 52 mL/min; GFR Non-African American 43 mL/min; Total Protein 7.8 g/dL (6.4-8.2)
[2019-10-15] MEDS ORDERED: ONDANSETRON HCL 4 MG/2 ML VIAL IV ONE (17:00)
[2019-10-15] MEDS ORDERED: MORPHINE SULFATE 4 MG/ML SYR/VIAL IV ONE (17:00)
[2019-10-15 17:50] VITALS: BP 130/64
== END 2019-10-15 18:12 | disposition home or self-care (01) ==
LOC: ER 15:41
DX: J20.9 Acute bronchitis, unspecified (principal); E78.5 Hyperlipidemia, unspecified; I11.0 Hypertensive heart disease with heart failure; I50.9 Heart failure, unspecified; J44.9 Chronic obstructive pulmonary disease, unspecified; R11.2 Nausea with vomiting, unspecified; R51 Headache; Z98.61 Coronary angioplasty status
CPT/HCPCS: 36415; 71046; 80053; 83735; 83880; 84484; 85025; 93005; 96374; 96375; 99285; J2270; J2405

== ENCOUNTER 2019-12-24 12:36 | Inpatient (IN) | payer OTHER, MEDICAID ==
[~2019-12-24] VITALS: Ht 165.1 cm; Wt 91.5 kg
[~2019-12-24 12:36] MED LIST changes: -ENAL5TAB PO; +ENAL5TAB10 PO
[2019-12-24] MEDS ORDERED: MORPHINE SULFATE 4 MG/ML SYR/VIAL IV ONE (13:30)
[2019-12-24] MEDS ORDERED: ONDANSETRON HCL 4 MG/2 ML VIAL IV ONE (13:30)
[2019-12-24 14:03] LABS: Basophils # (auto) 0 10 ^3/uL (0-0.2); Basophils % (auto) 0.2 % (0.0-2.0); Eosinophils # (auto) 0.1 10 ^3/uL (0-0.8); Eosinophils % (auto) 1.7 % (0.0-7.0); Hematocrit 44.8 % (41.0-53.0); Hemoglobin 14.8 g/dL (13.5-17.5); Lymphocytes % (auto) 17.1 % (10.0-50.0); Mean Corpuscular Hemoglobin 30.8 pg (28.0-32.0); Mean Corpuscular Hgb Conc. 32.9 g/dL (32.0-36.0); Mean Corpuscular Volume 93.4 fL (80.0-100.0); Monocytes # (auto) 0.5 10 ^3/uL (0-1.3); Monocytes % (auto) 9.2 % (0.0-12.0); Neutrophils # (auto) 4.1 10 ^3/uL (1.6-8.6); Neutrophils % (auto) 71.8 % (37.0-80.0); Nucleated Red Blood Cells % 0.1 %; Platelet Count (auto) 218 10^3/uL (140-450); Red Cell Distribution Width 16.6 % (11.8-14.3); White Blood Cell 5.8 10^3/uL (4.4-10.8)
[2019-12-24 14:23] LABS: Albumin 3.1 g/dL (3.4-5.0); Anion Gap 6 (5-15); Blood Urea Nitrogen 19 mg/dL (7-18); Calcium 8.7 mg/dL (8.5-10.1); Carbon Dioxide 25 mmol/L (21-32); Chloride 107 mmol/L (98-107); Glucose 115 mg/dL (74-106); Potassium 4.2 mmol/L (3.5-5.1); Sodium 138 mmol/L (136-145)
[2019-12-24 14:31] LABS: Alanine Aminotransferase 31 U/L (16-61); Alkaline Phosphatase 86 U/L (45-117); Aspartate Aminotransferase 14 U/L (15-37); BUN/Creatinine Ratio 22.1; Bilirubin, Total 0.3 mg/dL (0.2-1.0); CRP High Sensitivity 1.32 mg/dL (< 0.3); GFR African American 117 mL/min; GFR Non-African American 97 mL/min; Lactate Dehydrogenase 136 U/L (87-241); Total Protein 7.3 g/dL (6.4-8.2)
[2019-12-24 15:25] LABS: Urine Bacteria NONE SEEN /hpf (None Seen); Urine Blood TRACE /uL (Negative); Urine Specific Gravity 1.014 (1.001-1.035); Urine WBC 1 /hpf (0 - 3)
[2019-12-24] MEDS ORDERED: DEXTROSE (50%) 50ML SYRG IV PRN (16:15)
[2019-12-24] MEDS ORDERED: NITROGLYCERIN 0.4 MG SL TAB SL PRN (16:15)
[2019-12-24] MEDS ORDERED: ATOR10TA PO (16:33)
[2019-12-24] MEDS ORDERED: ZOLPIDEM TARTRATE 5 MG TAB PO PRN (16:45)
[2019-12-24] MEDS: HYDROmorphone HCL 2 MG/ML VL IV PRN ×2 (17:32→23:07)
[2019-12-24] MEDS: ACCU-CHEK COMFORT CURVE STRIP VI SCH ×2 (17:38→21:50)
[2019-12-24] MEDS: InsuLIN REG 1unit/0.01ml Soln (100units/ml) SC SCH ×2 (17:45→21:50)
[2019-12-24 17:50] VITALS: BP 123/82
--- NOTE | 2019-12-24 17:50 | NUR ---
Telemetry admit from [facility] admitted to Telemetry unit after SBAR received. Patient oriented to Bhavana Broussard, primary RN, unit, room, bed, and unit policies regarding patient care and visiting hours. Patient now on continuous telemetry monitoring, tele box #2 and telemetry reading on arrival to unit is SR @ 75 BPM. Bed set to lowest position/locked, bedside rails up x2, call light within reach. Instructed patient to call for assistance. Patient verbalized understanding. Will continue to monitor q1hr and prn.
[2019-12-24] MEDS: MORPHINE SULF INJ 2 MG/ML SYRINGE 1ML IV PRN (20:03)
--- NOTE | 2019-12-24 20:03 | NUR ---
patient complains of 8/10 chest pain. ekg done and morphine given at this time. will continue to monitor.
--- NOTE | 2019-12-24 20:17 | NUR ---
patient is negative for covid 19 at this time. patient will transfer to room 250B. report given to Cristian HEARN.
--- NOTE | 2019-12-24 20:33 | NUR ---
pain reassessment patient states pain is 3/10 and feeling better.
[2019-12-24 20:34] VITALS: BP 136/90
--- NOTE | 2019-12-24 20:46 | NUR ---
patient transferred to room 250B via wheel chair. no s/s of distress , sob or pain.
--- NOTE | 2019-12-24 20:56 | NUR ---
pt transfer to 250B. pt arrive awake, alert an oriented x4. pt able to ambulate from wheelchair to bed without issue. pt denies any pain at this time. pt updated on plan of care. pt oriented to this nurse and use of call light. pt bed locked, low and 2x rails up. pt encouraged to call as needed. this nurse to round q1hr and prn.
[2019-12-24] MEDS: PANTOPRAZOLE 40 MG/10 ML VIAL INJ IV SCH (21:50)
[2019-12-24] MEDS: ATORVASTATIN 20 MG TAB PO SCH (21:50)
[2019-12-24] MEDS: FLUoxetine HCL 10 MG CAP PO SCH (21:50)
[2019-12-24] MEDS: GABAPENTIN 100 MG CAP PO SCH (21:50)
[2019-12-24 22:00] VITALS: BP 134/71
[2019-12-25] VITALS (7 sets, daily range): BP systolic 100–119; BP diastolic 62–79
[2019-12-25] MEDS: HYDROmorphone HCL 2 MG/ML VL IV PRN ×5 (03:48→16:44)
[2019-12-25] MEDS: InsuLIN REG 1unit/0.01ml Soln (100units/ml) SC SCH ×4 (06:19→22:00)
[2019-12-25] MEDS: ACCU-CHEK COMFORT CURVE STRIP VI SCH ×4 (06:19→22:00)
--- NOTE | 2019-12-25 07:30 | NUR ---
Opening Shift Note Assumed care of patient, awake and alert. No S/S of distress/SOB or pain on 2 LPM via nasal cannula. Instructed on POC and to call for assist PRN, will continue to monitor for changes Q1hr and PRN. Bed in low and locked position, rails up x2, no-slip sock on, patient own crutches at bedside, patient stated he is independent to bathroom.
[2019-12-25] MEDS: ENALAPRIL MALEATE 2.5 MG TAB PO SCH (10:20)
[2019-12-25] MEDS: metFORMIN HYDROCHLORIDE 500 MG TAB PO SCH (10:20)
[2019-12-25] MEDS: FUROSEMIDE 20 MG TAB PO SCH (10:21)
[2019-12-25] MEDS: PANTOPRAZOLE 40 MG/10 ML VIAL INJ IV SCH (10:21)
--- NOTE | 2019-12-25 20:14 | NUR ---
Pt states that he has hemorrhoids, and that they are causing him pain with blood with BM, small amount, secondary to hemorrhoids which is normal for him. Requesting morphine for the pain, RN paged to clarify pain medication orders, morphine is ordered for CP, pt having rectal pain. Pt is awake and alert with stable VS on RA on desk monitor. NAD. No current rectal bleeding, no abd pain, WCTM.
--- NOTE | 2019-12-25 20:18 | NUR ---
Per MD Cali morphine is to be given for rectal pain. Will medicate as ordered.
[2019-12-25] MEDS: MORPHINE SULF INJ 2 MG/ML SYRINGE 1ML IV PRN (21:27)
[2019-12-25] MEDS: FLUoxetine HCL 10 MG CAP PO SCH (22:00)
[2019-12-26] VITALS (8 sets, daily range): BP systolic 97–129; BP diastolic 61–78
[2019-12-26] MEDS: HYDROmorphone HCL 2 MG/ML VL IV PRN ×7 (00:35→22:57)
[2019-12-26] MEDS: PANTOPRAZOLE 40 MG/10 ML VIAL INJ IV SCH ×3 (00:37→22:03)
[2019-12-26] MEDS: GABAPENTIN 100 MG CAP PO SCH ×2 (00:37→22:03)
[2019-12-26] MEDS: ATORVASTATIN 20 MG TAB PO SCH ×2 (00:37→22:03)
--- NOTE | 2019-12-26 01:01 | NUR ---
FSBS 106. Given sandwich as requested. Medicated as ordered for pain. Tolerated well. VSS. NSR on laboratory monitor. A&Ox4. resp unlabored. Skin warm and dry. States he is feeling more comfortable. WCEVELYN.
--- NOTE | 2019-12-26 06:55 | NUR ---
NSR VSS on monitor. A&Ox4. Respirations unlabored. Skin warm and dry. Linens and gown clean and dry. IV site clear.
[2019-12-26] MEDS: InsuLIN REG 1unit/0.01ml Soln (100units/ml) SC SCH ×4 (07:54→22:00)
[2019-12-26] MEDS: ACCU-CHEK COMFORT CURVE STRIP VI SCH ×4 (07:54→22:04)
--- NOTE | 2019-12-26 07:55 | NUR ---
RECEIVED REPORT AND ASSUMED CARE OF PT. A/OX4. DENIED S/S ACUTE DISTRESS. UPDATE PT WITH POC. BED AT LOWEST POSITION. CALL LIGHT AND BELONGINGS WITHIN REACH. WILL CONT TO MONITOR
[2019-12-26] MEDS: metFORMIN HYDROCHLORIDE 500 MG TAB PO SCH (09:41)
[2019-12-26] MEDS: FUROSEMIDE 20 MG TAB PO SCH (09:42)
[2019-12-26] MEDS: ENALAPRIL MALEATE 2.5 MG TAB PO SCH (09:43)
--- NOTE | 2019-12-26 19:18 | NUR ---
PT RESTING IN BED. NO S/S ACUTE DISTRESS NOTED.ENDORSED CARE TO NIGHT NURSE.
--- NOTE | 2019-12-26 19:25 | NUR ---
Opening Shift Note Assumed care of patient, awake and alert. No S/S of distress/SOB. Patient states 10/10 pain in scrotum due hemorrhoids. Will medicate with Dilaudid .5mg. POC discussed and questions answered. Bed is locked in lowest position with side rails up x2 for safety. Call light is within reach and patient is encouraged to call for assistance as needed, will continue to monitor for changes Q1hr and PRN.
[2019-12-26] MEDS: FLUoxetine HCL 10 MG CAP PO SCH (22:04)
[2019-12-27] MEDS: HYDROmorphone HCL 2 MG/ML VL IV PRN ×7 (02:41→22:29)
[2019-12-27 05:00] VITALS: BP 94/63
[2019-12-27] MEDS: InsuLIN REG 1unit/0.01ml Soln (100units/ml) SC SCH ×4 (06:28→22:36)
[2019-12-27] MEDS: ACCU-CHEK COMFORT CURVE STRIP VI SCH ×4 (06:28→22:06)
[2019-12-27 09:00] VITALS: BP 102/55
[2019-12-27] MEDS: PANTOPRAZOLE 40 MG/10 ML VIAL INJ IV SCH ×2 (09:06→22:18)
[2019-12-27] MEDS: FUROSEMIDE 20 MG TAB PO SCH (09:06)
[2019-12-27] MEDS: metFORMIN HYDROCHLORIDE 500 MG TAB PO SCH (09:06)
[2019-12-27] MEDS: ENALAPRIL MALEATE 2.5 MG TAB PO SCH (09:12)
[2019-12-27 13:00] VITALS: BP 109/66
[2019-12-27 17:00] VITALS: BP 117/69
--- NOTE | 2019-12-27 19:25 | NUR ---
Opening Shift Note Assumed care of patient. Patient is awake, alert, and oriented X 4. No S/S of respiratory distress noted. Patient reports pain in rectum. Pain will be addressed accordingly Dr's order. Pt is on @ LPM O2 via NC. IV in R. forearm is asymptomatic and patent. Bed in low and locked position, rails up x 2, bedside commode near the bed. tele box matches the cardiac monitor technician. Patient was instructed to call for assistance PRN. Will continue to monitor for changes Q1hr and PRN
--- NOTE | 2019-12-27 19:27 | NUR ---
PT RESTING IN BED. NO S/S ACUTE DISTRESS NOTED.ENDORSED CARE TO NIGHT NURSE.
[2019-12-27 20:00] VITALS: BP 109/62
[2019-12-27] MEDS: MORPHINE SULF INJ 2 MG/ML SYRINGE 1ML IV PRN ×2 (20:21→21:10)
[2019-12-27 22:00] VITALS: BP 109/62
--- NOTE | 2019-12-27 22:00 | NUR ---
Chest pain Patient complained on chest pain 9 out of 10 at 2020. Morphine 2 mg was [address] as dr's order states. At 2049 patient was reassessed and reported pain 5 out of 10 and stated that pain is becoming worse. Second dose of morphine 2 mg was given at 2109. At 2139 patient was reassessed for chest pain . He stated that pain is going down and now he has pain in right side of the chest 4 out of 10. At 2149 patient reported pain 2 out of 10. Will continue to monitor and assess patient at least Q1H or as needed. Patient instructed to call and report chest pain immediately.
[2019-12-27] MEDS: FLUoxetine HCL 10 MG CAP PO SCH (22:18)
[2019-12-27] MEDS: ATORVASTATIN 20 MG TAB PO SCH (22:19)
[2019-12-27] MEDS: GABAPENTIN 100 MG CAP PO SCH (22:19)
[2019-12-28] MEDS: HYDROmorphone HCL 2 MG/ML VL IV PRN ×6 (01:43→21:54)
[2019-12-28 05:00] VITALS: BP 125/76
[2019-12-28] MEDS: ACCU-CHEK COMFORT CURVE STRIP VI SCH ×4 (06:51→22:06)
[2019-12-28] MEDS: InsuLIN REG 1unit/0.01ml Soln (100units/ml) SC SCH ×4 (06:51→22:00)
--- NOTE | 2019-12-28 07:25 | NUR ---
ENDORSED CARE TO NIGHT NURSE. PT RESTING IN BED. NO S/S OF RESPIRATORY DISTRESS NOTED.
--- NOTE | 2019-12-28 07:30 | NUR ---
Opening Shift Note Assumed care of patient, patient awake and alert laying in bed in semi fowlers position. No S/S of distress/SOB or pain at this time. Pt is on 2 L NC with even and unlabored respiration. pt reports mild blood with BM yesterday, informed patient to call with next BM so this RN can visualize bloody BM. Pt verbalized understanding. Patient updated on POC, all questions answered. Bed is in lowest position, wheels are locked, side rails up x2, and call light is within reach. Pt encouraged to call for assistance as needed. Will continue to monitor for changes Q1hr and PRN.
[2019-12-28 09:00] VITALS: BP 123/86
[2019-12-28] MEDS: PANTOPRAZOLE 40 MG/10 ML VIAL INJ IV SCH ×2 (10:02→22:06)
[2019-12-28] MEDS: FUROSEMIDE 20 MG TAB PO SCH (10:02)
[2019-12-28] MEDS: metFORMIN HYDROCHLORIDE 500 MG TAB PO SCH (10:03)
[2019-12-28] MEDS: ENALAPRIL MALEATE 2.5 MG TAB PO SCH (10:03)
[2019-12-28 13:00] VITALS: BP 128/65
--- NOTE | 2019-12-28 14:53 | NUR ---
Nutrition Assessment Note please see attached link for complete assessment [employer] Energy needs ABW 77 [id number] kcals (23-25 kcal/kgBW), Est Protein needs: 77-84 gms/day (1.0-1.1 gm/kgBW). Will continue to monitor and reassess prn. Addendum: 12/28/19 at [address] Amended: Links added.
[2019-12-28 17:00] VITALS: BP 107/64
--- NOTE | 2019-12-28 19:00 | NUR ---
OPENING NOTE Received report from day shift RN. Patient is A&O X's 4 with no s/s of distress. Educated patient on POC and to use call light when in need of assistance. Patient verbalized understanding. Bed is in lowest/locked position with side rails up X's 2 and call light is within reach of patient. Crutches are at bedside. Will continue care.
[2019-12-28 22:00] VITALS: BP 95/61
[2019-12-28] MEDS: ATORVASTATIN 20 MG TAB PO SCH (22:06)
[2019-12-28] MEDS: GABAPENTIN 100 MG CAP PO SCH (22:06)
[2019-12-28] MEDS: FLUoxetine HCL 10 MG CAP PO SCH (22:06)
[2019-12-28] MEDS: WITCH HAZEL-GLYCERIN PAD TOP PRN (22:39)
[2019-12-29] MEDS: HYDROmorphone HCL 2 MG/ML VL IV PRN ×6 (03:34→21:16)
--- NOTE | 2019-12-29 04:12 | NUR ---
PAIN REASSESSMENT Patient resting in bed. no s/s of distress or discomfort.
[2019-12-29 05:00] VITALS: BP 121/74
[2019-12-29] MEDS: InsuLIN REG 1unit/0.01ml Soln (100units/ml) SC SCH ×4 (06:22→21:25)
[2019-12-29] MEDS: ACCU-CHEK COMFORT CURVE STRIP VI SCH ×4 (06:23→21:26)
--- NOTE | 2019-12-29 07:45 | NUR ---
Opening Note Received report from shift mechanic RN. Patient is awake, alert and oriented x4. No signs or symptoms of distress noted at this time. Patient complains of pain to rectum 8/10 and is requesting pain medications, will medicate per orders. Patient is on 2L NC, respirations even and unlabored. Reviewed plan of care with patient, patient verbalized understanding. Bed in low and locked position, call light within reach. Will continue to monitor Q1 hour and PRN.
--- NOTE | 2019-12-29 08:05 | NUR ---
Pain Patient states pain is 8/10 to rectum and is requesting pain medications, will medicate per orders. Will continue to monitor Q1 hour and PRN.
--- NOTE | 2019-12-29 08:35 | NUR ---
Pain reassessment Patient continues to complain of pain 8/10. Patient states he does not feel any relief from the pain medications. Offered patient ice packs, and tucks pads. Will continue to monitor Q1 hour and PRN.
[2019-12-29 09:00] VITALS: BP 110/73
[2019-12-29] MEDS: PANTOPRAZOLE 40 MG/10 ML VIAL INJ IV SCH ×2 (10:06→21:15)
[2019-12-29] MEDS: ENALAPRIL MALEATE 2.5 MG TAB PO SCH (10:07)
[2019-12-29] MEDS: FUROSEMIDE 20 MG TAB PO SCH (10:07)
[2019-12-29] MEDS: metFORMIN HYDROCHLORIDE 500 MG TAB PO SCH (10:07)
[2019-12-29 13:00] VITALS: BP 96/62
[2019-12-29 17:00] VITALS: BP 107/69
--- NOTE | 2019-12-29 19:03 | NUR ---
Closing Note Report given to night clerk auditor RN. No signs or symptoms of distress noted at this time,
[2019-12-29] MEDS: WITCH HAZEL-GLYCERIN PAD TOP PRN (19:07)
[2019-12-29] MEDS: GABAPENTIN 100 MG CAP PO SCH (21:15)
[2019-12-29] MEDS: ATORVASTATIN 20 MG TAB PO SCH (21:15)
[2019-12-29] MEDS: FLUoxetine HCL 10 MG CAP PO SCH (21:16)
[2019-12-29 21:48] VITALS: BP 100/61
[2019-12-30 05:00] VITALS: BP 107/74
[2019-12-30] MEDS: InsuLIN REG 1unit/0.01ml Soln (100units/ml) SC SCH ×4 (06:37→22:00)
[2019-12-30] MEDS: HYDROmorphone HCL 2 MG/ML VL IV PRN ×5 (06:38→22:26)
[2019-12-30] MEDS: ACCU-CHEK COMFORT CURVE STRIP VI SCH ×4 (06:38→22:26)
--- NOTE | 2019-12-30 07:28 | NUR ---
Received report from [facility] shift RN. Patient awake, alert and oriented x4. complaining of 9/10 pain. Denies chest pain or SOB. Plan of care discussed. Encouraged to call for assistance PRN. Bed in lowest and locked position. Will continue to monitor q1hr and prn.
[2019-12-30 08:00] VITALS: BP 123/70
[2019-12-30] MEDS: DOCUSATE SOD 100 MG CAP PO SCH ×2 (10:33→22:24)
[2019-12-30] MEDS: metFORMIN HYDROCHLORIDE 500 MG TAB PO SCH (10:35)
[2019-12-30] MEDS: PANTOPRAZOLE 40 MG/10 ML VIAL INJ IV SCH ×2 (10:39→22:24)
[2019-12-30] MEDS: ENALAPRIL MALEATE 2.5 MG TAB PO SCH (10:39)
[2019-12-30] MEDS: FUROSEMIDE 20 MG TAB PO SCH (10:39)
[2019-12-30] MEDS: HYDROcodone-ACET 5/325MG TAB PO PRN (11:55)
[2019-12-30 12:00] VITALS: BP 110/77
--- NOTE | 2019-12-30 14:02 | NUR ---
IV access infiltrated. will resume medications once new line is established
--- NOTE | 2019-12-30 15:15 | NUR ---
New IV: 22g Right upper chest inserted.
[2019-12-30 17:00] VITALS: BP 99/60
--- NOTE | 2019-12-30 20:00 | NUR ---
Opening Shift Note Assumed care of patient. Awake, alert and oriented. No S/S of distress/SOB or pain. Instructed on POC and to call for assist PRN. Bed locked, in lowest position, call light within reach, side rails up x2. Will continue to monitor for changes Q1hr and PRN.
[2019-12-30] MEDS: GABAPENTIN 100 MG CAP PO SCH (22:25)
[2019-12-30] MEDS: ATORVASTATIN 20 MG TAB PO SCH (22:25)
[2019-12-30] MEDS: FLUoxetine HCL 10 MG CAP PO SCH (22:25)
--- NOTE | 2019-12-30 22:26 | NUR ---
Pain assessment Patient complaining of pain 9/10 in his buttocks area. Medicated for pain as ordered. Will continue to monitor
--- NOTE | 2019-12-30 23:00 | NUR ---
Pain reassessment Patient stating his pain level is a 6/10. Will continue to monitor
[2019-12-31] VITALS (7 sets, daily range): BP systolic 90–133; BP diastolic 54–86
--- NOTE | 2019-12-31 00:03 | NUR ---
Enema completed Three tap water enema carried out as ordered. Patient tolerated procedure well. Patient had a large amount of semi solid stool after procedure. Will continue to monitor
--- NOTE | 2019-12-31 01:42 | NUR ---
Pain assessment Patient complaining of pain 04/07. Medicated for pain as ordered. Will continue to monitor
[2019-12-31] MEDS: HYDROmorphone HCL 2 MG/ML VL IV PRN ×6 (01:43→22:20)
--- NOTE | 2019-12-31 02:15 | NUR ---
Pain reassessment Patient reporting pain at 6/10. Patient resting comfortably. Will continue to monitor
[2019-12-31 06:29] LABS: Basophils # (auto) 0 10 ^3/uL (0-0.2); Basophils % (auto) 0.5 % (0.0-2.0); Eosinophils # (auto) 0.2 10 ^3/uL (0-0.8); Eosinophils % (auto) 3.1 % (0.0-7.0); Hematocrit 41.4 % (41.0-53.0); Hemoglobin 13.9 g/dL (13.5-17.5); Lymphocytes # (auto) 1.3 10 ^3/uL (0.4-5.4); Lymphocytes % (auto) 25.3 % (10.0-50.0); Mean Corpuscular Hemoglobin 31.4 pg (28.0-32.0); Mean Corpuscular Hgb Conc. 33.5 g/dL (32.0-36.0); Mean Corpuscular Volume 93.7 fL (80.0-100.0); Monocytes # (auto) 0.7 10 ^3/uL (0-1.3); Monocytes % (auto) 13.2 % (0.0-12.0); Neutrophils # (auto) 2.9 10 ^3/uL (1.6-8.6); Neutrophils % (auto) 57.9 % (37.0-80.0); Nucleated Red Blood Cells % 0.1 %; Platelet Count (auto) 232 10^3/uL (140-450); Red Blood Cells 4.42 10^6/uL (4.5-5.90); Red Cell Distribution Width 15.3 % (11.8-14.3); White Blood Cell 5.1 10^3/uL (4.4-10.8)
[2019-12-31 06:41] LABS: INR 1.07 (0.9-1.15)
[2019-12-31] MEDS: InsuLIN REG 1unit/0.01ml Soln (100units/ml) SC SCH ×4 (06:42→22:00)
[2019-12-31] MEDS: ACCU-CHEK COMFORT CURVE STRIP VI SCH ×4 (06:43→22:19)
[2019-12-31 06:50] LABS: Calcium 8.7 mg/dL (8.5-10.1); Potassium 4.2 mmol/L (3.5-5.1)
[2019-12-31 06:56] LABS: BUN/Creatinine Ratio 15.8; Bilirubin, Total 0.5 mg/dL (0.2-1.0); Total Protein 7.3 g/dL (6.4-8.2)
--- NOTE | 2019-12-31 07:24 | NUR ---
Closing Note Endorsed care to day shift nurse. No S/S of distress, SOB, or pain
--- NOTE | 2019-12-31 07:38 | NUR ---
Opening Shift Note Assumed care of patient from noc shift rn. Awake, alert and oriented x4, reports 9/10 pain, requesting for Dilaudid PRN. Denies SOB or chest pain. Plan of care discussed, encouraged to call for assistance PRN. Bed locked, in lowest position, call light within reach, side rails up x2, bed alarm on. Will continue to monitor for changes Q1hr and PRN.
[2019-12-31] MEDS ORDERED: SODIUM CHLORIDE LOCK 10 ML ONE (08:21)
[2019-12-31] MEDS ORDERED: diphenhdrAMINE HCL 50 MG/1 ML VL ONE (08:22)
--- NOTE | 2019-12-31 08:41 | NUR ---
Patient given IV Dilaudid PRN for 9/10 pain. Will continue to reassess and provide comfort.
--- NOTE | 2019-12-31 09:45 | NUR ---
PATIENT OFF UNIT FOR SIGMOIDOSCOPY PROCEDURE WITH DR. FERNANDES WILL RESUME SCHEDULED MEDICATIONS UPON RETURN TO UNIT.
[2019-12-31] MEDS: MIDAZOLAM HCL 5 MG/ML-1ML VIAL ONE ×2 (10:04→10:08)
[2019-12-31] MEDS: fentaNYL CITRATE 100 MCG/2 ML VL ONE ×2 (10:04→10:08)
[2019-12-31] MEDS: DOCUSATE SOD 100 MG CAP PO SCH ×2 (11:29→22:16)
[2019-12-31] MEDS: FUROSEMIDE 20 MG TAB PO SCH (11:29)
[2019-12-31] MEDS: PANTOPRAZOLE 40 MG/10 ML VIAL INJ IV SCH ×2 (11:29→22:16)
[2019-12-31] MEDS: metFORMIN HYDROCHLORIDE 500 MG TAB PO SCH (11:30)
[2019-12-31] MEDS: ENALAPRIL MALEATE 2.5 MG TAB PO SCH (11:30)
--- NOTE | 2019-12-31 11:36 | NUR ---
Nutrition Followup Note Wt 91.5 kg Pt is s/p colonoscopy. Pt is back on oral diet after NPO for test. Pt intake is adequate aeb pt 100% po intake 12/27-12/29 per RN doc. Est Energy needs ABW 77 [id number] kcals (23-25 kcal/kgBW), Est Protein needs: 77-84 gms/day (1.0-1.1 gm/kgBW). Will continue to monitor and reassess prn. Labs: Alb 3.0L Skins: Bs 18 mod risk BM: 1 BM 12/30 per RN doc PES: Altered nutrition related lab values r/t current chronic medical condition aeb hyperglycemia Comments 1)refer to CDE on DC 2) continue current plan of care Expected Outcomes/Goals: pt po intake >75% pt will have improved labs pt will not gain any more wt F/u mod 3-5 days
--- NOTE | 2019-12-31 18:58 | NUR ---
CARE ENDORSED TO CERTIFIED LACTATION COUNSELOR RN. PATIENT REMAINS ALERT AND ORIENTED X4.
--- NOTE | 2019-12-31 20:00 | NUR ---
Opening Shift Note Assumed care of patient. Awake, alert and oriented x4. No S/S of distress/SOB or pain. Instructed on POC and to call for assist PRN. Bed locked, in lowest position, call light within reach, side rails up x2. Will continue to monitor for changes Q1hr and PRN.
--- NOTE | 2019-12-31 22:05 | NUR ---
Dr. Cali at bedside Discussed POC with patient. Patient verbalized understanding.
[2019-12-31] MEDS: ATORVASTATIN 20 MG TAB PO SCH (22:16)
[2019-12-31] MEDS: FLUoxetine HCL 10 MG CAP PO SCH (22:17)
[2019-12-31] MEDS: GABAPENTIN 100 MG CAP PO SCH (22:17)
[2020-01-01] MEDS: HYDROmorphone HCL 2 MG/ML VL IV PRN ×2 (01:29→04:46)
[2020-01-01 05:00] VITALS: BP 106/73
[2020-01-01] MEDS: ACCU-CHEK COMFORT CURVE STRIP VI SCH ×2 (06:30→11:30)
[2020-01-01] MEDS: InsuLIN REG 1unit/0.01ml Soln (100units/ml) SC SCH ×2 (06:30→11:30)
--- NOTE | 2020-01-01 07:30 | NUR ---
Opening Shift Note Assumed care of patient, awake and alert. No S/S of distress/SOB or pain. Instructed on POC and to call for assist PRN, will continue to monitor for changes Q1hr and PRN.
[2020-01-01 09:01] VITALS: BP 127/80
[2020-01-01 09:07] VITALS: BP 112/80
[2020-01-01] MEDS: DOCUSATE SOD 100 MG CAP PO SCH (09:44)
[2020-01-01] MEDS: FUROSEMIDE 20 MG TAB PO SCH (09:44)
[2020-01-01] MEDS: ENALAPRIL MALEATE 2.5 MG TAB PO SCH (09:45)
[2020-01-01] MEDS: metFORMIN HYDROCHLORIDE 500 MG TAB PO SCH (09:45)
[2020-01-01] MEDS: PANTOPRAZOLE 40 MG/10 ML VIAL INJ IV SCH (09:46)
[2020-01-01] MEDS: HYDROcodone-ACET 5/325MG TAB PO PRN (10:26)
== END 2020-01-01 11:30 | disposition home or self-care (01) | DRG 394 ==
LOC: ER 12:36 → TELE 12:37 → TELE-EAST 18:07
PROVIDERS: ADMIT Specialist; ATTEND Specialist
PROC: 0DJD8ZZ Inspection of Lower Intestinal Tract, Via Natural or Artificial Opening Endoscopic (ICD-10-PCS; principal; 2019-12-31 10:00)
DX: K62.89 Other specified diseases of anus and rectum (principal); I24.9 Acute ischemic heart disease, unspecified; I25.10 Atherosclerotic heart disease of native coronary artery without angina pectoris; I50.9 Heart failure, unspecified; J44.9 Chronic obstructive pulmonary disease, unspecified; K64.8 Other hemorrhoids; E11.51 Type 2 diabetes mellitus with diabetic peripheral angiopathy without gangrene; E66.9 Obesity, unspecified; I11.0 Hypertensive heart disease with heart failure; K60.2 Anal fissure, unspecified; F32.9 Major depressive disorder, single episode, unspecified; F41.9 Anxiety disorder, unspecified; Z20.828 Contact with and (suspected) exposure to other viral communicable diseases; Z82.49 Family history of ischemic heart disease and other diseases of the circulatory system; Z83.3 Family history of diabetes mellitus; Z79.84 Long term (current) use of oral hypoglycemic drugs; Z68.36 Body mass index [BMI] 36.0-36.9, adult
CPT/HCPCS: 36415; 45330; 71045; 74176; 80053; 81001; 82728; 82962; 83605; 83615; 83880; 84484; 85025; 85379; 85610; 86141; 87040; 87070; 87804; 87880; 93005; 96374; 96375; 96376; C9113; G0378; J1815; J2250; J2405

== ENCOUNTER → 2020-08-18 | Emergency (ER) | payer OTHER, MEDICAID ==
[~2020-08-18] VITALS: Ht 167.6 cm; Wt 95.3 kg
[~2020-08-18] MED LIST changes: +ASPirin 81 mg TAB PO ONE; +ATOR10TA PO; +MORPHINE SULF INJ 2 MG/ML SYRINGE 1ML IV ONE
[2020-08-18 10:19] LABS: Anion Gap 4 (5-15); Blood Urea Nitrogen 16 mg/dL (7-18); Carbon Dioxide 24 mmol/L (21-32); Chloride 107 mmol/L (98-107); Glucose 111 mg/dL (74-106); Magnesium 2.3 mg/dL (1.6-2.6); Potassium 4.1 mmol/L (3.5-5.1); Sodium 135 mmol/L (136-145)
[2020-08-18 10:23] LABS: Alanine Aminotransferase 39 U/L (16-61); Alkaline Phosphatase 107 U/L (45-117); Aspartate Aminotransferase 25 U/L (15-37); Bilirubin, Total 0.4 mg/dL (0.2-1.0); GFR African American 127 mL/min; GFR Non-African American 105 mL/min; Total Protein 7.8 g/dL (6.4-8.2)
[2020-08-18 10:28] LABS: INR 1.05 (0.9-1.15)
[2020-08-18 10:44] LABS: Basophils # (auto) 0 10 ^3/uL (0-0.2); Basophils % (auto) 0.5 % (0.0-2.0); Eosinophils # (auto) 0.1 10 ^3/uL (0-0.8); Eosinophils % (auto) 1.9 % (0.0-7.0); Hematocrit 42.9 % (41.0-53.0); Hemoglobin 14.2 g/dL (13.5-17.5); Lymphocytes # (auto) 0.9 10 ^3/uL (0.4-5.4); Lymphocytes % (auto) 18.1 % (10.0-50.0); Mean Corpuscular Hemoglobin 29.6 pg (28.0-32.0); Mean Corpuscular Hgb Conc. 33.2 g/dL (32.0-36.0); Mean Corpuscular Volume 89.1 fL (80.0-100.0); Monocytes # (auto) 0.6 10 ^3/uL (0-1.3); Monocytes % (auto) 11.1 % (0.0-12.0); Neutrophils # (auto) 3.4 10 ^3/uL (1.6-8.6); Neutrophils % (auto) 68.4 % (37.0-80.0); Nucleated Red Blood Cells % 0.1 %; Platelet Count (auto) 252 10^3/uL (140-450); Red Blood Cells 4.81 10^6/uL (4.5-5.90); Red Cell Distribution Width 15.4 % (11.8-14.3)
[2020-08-18 13:30] VITALS: BP 134/77
== END | disposition home or self-care (01) ==
LOC: ER 09:02
DX: I11.0 Hypertensive heart disease with heart failure (principal); I50.9 Heart failure, unspecified; E11.65 Type 2 diabetes mellitus with hyperglycemia; J44.9 Chronic obstructive pulmonary disease, unspecified; E78.5 Hyperlipidemia, unspecified; Z88.6 Allergy status to analgesic agent
CPT/HCPCS: 36415; 71045; 80053; 83735; 84484; 85025; 85610; 93005; 96374; 96376; 99285; J2270

== ENCOUNTER 2020-10-01 10:36 | Emergency (ER) | payer OTHER, MEDICAID ==
[~2020-10-01] VITALS: Ht 170.2 cm; Wt 95.3 kg
[~2020-10-01 10:36] MED LIST changes: -ASPirin 81 mg TAB PO ONE; -MORPHINE SULF INJ 2 MG/ML SYRINGE 1ML IV ONE
[2020-10-01 10:37] VITALS: BP 136/87
[2020-10-01] MEDS ORDERED: PROMETHAZINE HCL 25 MG/ML 1ML IM ONE (12:45)
[2020-10-01] MEDS ORDERED: MORPHINE SULFATE 10 MG/ML INJ 1ML SDV IM ONE (12:45)
[2020-10-01] MEDS ORDERED: MORPHINE SULFATE 4 MG/ML SYR/VIAL ONE (12:51)
== END 2020-10-01 13:13 | disposition home or self-care (01) ==
LOC: ER 10:36
DX: S76.011A Strain of muscle, fascia and tendon of right hip, initial encounter (principal); W01.0XXA Fall on same level from slipping, tripping and stumbling without subsequent striking against object, initial encounter; Y93.89 Activity, other specified; Y92.89 Other specified places as the place of occurrence of the external cause; Y99.8 Other external cause status; S20.211A Contusion of right front wall of thorax, initial encounter; W18.39XA Other fall on same level, initial encounter; I11.0 Hypertensive heart disease with heart failure; I50.9 Heart failure, unspecified; J44.9 Chronic obstructive pulmonary disease, unspecified; E11.9 Type 2 diabetes mellitus without complications; E78.5 Hyperlipidemia, unspecified
CPT/HCPCS: 71101; 73502; 96372; 99284; J2270; J2550

== ENCOUNTER 2020-10-04 13:08 | Emergency (ER) | payer OTHER, MEDICAID ==
[~2020-10-04] VITALS: Ht 167.6 cm; Wt 95.3 kg
[2020-10-04] MEDS ORDERED: HYDROcodone-ACET 10/325MG TAB PO ONE (13:30)
[2020-10-04 13:56] LABS: Basophils # (auto) 0 10 ^3/uL (0-0.2); Basophils % (auto) 0.5 % (0.0-2.0); Eosinophils # (auto) 0.1 10 ^3/uL (0-0.8); Eosinophils % (auto) 2.2 % (0.0-7.0); Hematocrit 42.1 % (41.0-53.0); Hemoglobin 14.1 g/dL (13.5-17.5); Lymphocytes # (auto) 1.1 10 ^3/uL (0.4-5.4); Lymphocytes % (auto) 16.9 % (10.0-50.0); Mean Corpuscular Hemoglobin 30.3 pg (28.0-32.0); Mean Corpuscular Hgb Conc. 33.4 g/dL (32.0-36.0); Mean Corpuscular Volume 90.8 fL (80.0-100.0); Monocytes # (auto) 0.4 10 ^3/uL (0-1.3); Monocytes % (auto) 7.2 % (0.0-12.0); Neutrophils # (auto) 4.6 10 ^3/uL (1.6-8.6); Neutrophils % (auto) 73.2 % (37.0-80.0); Nucleated Red Blood Cells % 0.1 %; Platelet Count (auto) 232 10^3/uL (140-450); Red Blood Cells 4.64 10^6/uL (4.5-5.90); Red Cell Distribution Width 14.7 % (11.8-14.3); White Blood Cell 6.2 10^3/uL (4.4-10.8)
[2020-10-04 14:26] LABS: Albumin 3.1 g/dL (3.4-5.0); Calcium 9.4 mg/dL (8.5-10.1); Potassium 4.1 mmol/L (3.5-5.1)
[2020-10-04 14:30] LABS: BUN/Creatinine Ratio 15.6; Bilirubin, Total 0.2 mg/dL (0.2-1.0); Total Protein 7.7 g/dL (6.4-8.2)
[2020-10-04 15:29] VITALS: BP 148/80
== END 2020-10-04 15:41 | disposition home or self-care (01) ==
LOC: ER 13:08
DX: S30.0XXA Contusion of lower back and pelvis, initial encounter (principal); I11.0 Hypertensive heart disease with heart failure; I50.9 Heart failure, unspecified; E11.9 Type 2 diabetes mellitus without complications; E78.5 Hyperlipidemia, unspecified; Z79.899 Other long term (current) drug therapy; W19.XXXA Unspecified fall, initial encounter; Y93.89 Activity, other specified; Y92.89 Other specified places as the place of occurrence of the external cause; Y99.8 Other external cause status
CPT/HCPCS: 36415; 72192; 80053; 85025

== ENCOUNTER 2021-04-26 18:25 | Emergency (ER) | payer OTHER, MEDICAID ==
[~2021-04-26] VITALS: Ht 167.6 cm; Wt 95.3 kg
[2021-04-26 18:57] LABS: Basophils # (auto) 0 10 ^3/uL (0-0.2); Basophils % (auto) 0.4 % (0.0-2.0); Eosinophils # (auto) 0.1 10 ^3/uL (0-0.8); Eosinophils % (auto) 2.3 % (0.0-7.0); Hematocrit 45.6 % (41.0-53.0); Lymphocytes # (auto) 1.2 10 ^3/uL (0.4-5.4); Lymphocytes % (auto) 19.5 % (10.0-50.0); Mean Corpuscular Hemoglobin 30.4 pg (28.0-32.0); Mean Corpuscular Hgb Conc. 32.9 g/dL (32.0-36.0); Mean Corpuscular Volume 92.5 fL (80.0-100.0); Monocytes # (auto) 0.5 10 ^3/uL (0-1.3); Monocytes % (auto) 7.8 % (0.0-12.0); Neutrophils # (auto) 4.3 10 ^3/uL (1.6-8.6); Nucleated Red Blood Cells % 0.1 %; Red Blood Cells 4.93 10^6/uL (4.5-5.90); Red Cell Distribution Width 14.1 % (11.8-14.3); White Blood Cell 6.2 10^3/uL (4.4-10.8)
[2021-04-26 19:18] LABS: Chloride 107 mmol/L (98-107); Potassium 4.3 mmol/L (3.5-5.1); Sodium 140 mmol/L (136-145)
[2021-04-26 19:22] LABS: Alanine Aminotransferase 37 U/L (16-61); Albumin 2.9 g/dL (3.4-5.0); Anion Gap 8 (5-15); Aspartate Aminotransferase 22 U/L (15-37); BUN/Creatinine Ratio 15.9; Blood Urea Nitrogen 18 mg/dL (7-18); Calcium 9.2 mg/dL (8.5-10.1); Carbon Dioxide 25 mmol/L (21-32); GFR African American 85 mL/min; GFR Non-African American 70 mL/min; Glucose 153 mg/dL (74-106)
[2021-04-26 19:24] LABS: Alkaline Phosphatase 101 U/L (45-117); Bilirubin, Total 0.4 mg/dL (0.2-1.0); Total Protein 7.4 g/dL (6.4-8.2)
[2021-04-27] MEDS ORDERED: NITROGLYCERIN 0.4 MG SL TAB SL ONE (01:15)
[2021-04-27] MEDS ORDERED: ASPirin 325 MG TAB PO ONE (01:15)
[2021-04-27] MEDS ORDERED: MORPHINE SULFATE 4 MG/ML SYR/VIAL IV ONE (01:45)
[2021-04-27] MEDS ORDERED: ONDANSETRON HCL 4 MG/2 ML VIAL IV ONE (01:45)
[2021-04-27 05:14] VITALS: BP 103/51
== END 2021-04-27 05:20 | disposition home or self-care (01) ==
LOC: ER 18:27
DX: R07.89 Other chest pain (principal); E11.9 Type 2 diabetes mellitus without complications; E78.5 Hyperlipidemia, unspecified; I11.0 Hypertensive heart disease with heart failure; I50.9 Heart failure, unspecified; Z86.73 Personal history of transient ischemic attack (TIA), and cerebral infarction without residual deficits; Z98.61 Coronary angioplasty status; Z79.899 Other long term (current) drug therapy; Z88.6 Allergy status to analgesic agent
CPT/HCPCS: 36415; 71045; 80053; 84484; 85025; 93005; 96374; 96375; 99285; J2270; J2405

== ENCOUNTER 2021-05-08 11:00 | Inpatient (IN) | payer OTHER, MEDICAID ==
[~2021-05-08] VITALS: Ht 167.6 cm; Wt 99.4 kg
[2021-05-08 12:19] LABS: Basophils # (auto) 0 10 ^3/uL (0-0.2); Basophils % (auto) 0.3 % (0.0-2.0); Eosinophils # (auto) 0.1 10 ^3/uL (0-0.8); Eosinophils % (auto) 1.7 % (0.0-7.0); Hematocrit 47.6 % (41.0-53.0); Hemoglobin 15.2 g/dL (13.5-17.5); Lymphocytes # (auto) 1.1 10 ^3/uL (0.4-5.4); Lymphocytes % (auto) 17.6 % (10.0-50.0); Mean Corpuscular Hemoglobin 30.1 pg (28.0-32.0); Mean Corpuscular Volume 94.2 fL (80.0-100.0); Monocytes # (auto) 0.7 10 ^3/uL (0-1.3); Monocytes % (auto) 10.2 % (0.0-12.0); Neutrophils # (auto) 4.5 10 ^3/uL (1.6-8.6); Neutrophils % (auto) 70.2 % (37.0-80.0); Nucleated Red Blood Cells % 0.1 %; Red Blood Cells 5.05 10^6/uL (4.5-5.90); Red Cell Distribution Width 13.9 % (11.8-14.3); White Blood Cell 6.4 10^3/uL (4.4-10.8)
[2021-05-08 12:37] LABS: Anion Gap 5 (5-15); Blood Urea Nitrogen 21 mg/dL (7-18); Calcium 9.2 mg/dL (8.5-10.1); Carbon Dioxide 22 mmol/L (21-32); Chloride 109 mmol/L (98-107); Glucose 98 mg/dL (74-106); Potassium 4.5 mmol/L (3.5-5.1); Sodium 136 mmol/L (136-145)
[2021-05-08 12:40] LABS: Alanine Aminotransferase 46 U/L (16-61); Alkaline Phosphatase 135 U/L (45-117); Aspartate Aminotransferase 30 U/L (15-37); BUN/Creatinine Ratio 25.3; Bilirubin, Total 0.1 mg/dL (0.2-1.0); GFR African American 121 mL/min; GFR Non-African American 100 mL/min; Total Protein 7.7 g/dL (6.4-8.2)
[2021-05-08] MEDS ORDERED: MORPHINE SULFATE 4 MG/ML SYR/VIAL IV ONE (14:15)
[2021-05-08] MEDS ORDERED: ONDANSETRON HCL 4 MG/2 ML VIAL IV ONE (14:15)
[2021-05-08] MEDS ORDERED: NITROGLYCERIN 0.4 MG SL TAB SL PRN (18:00)
[2021-05-08] MEDS ORDERED: DEXTROSE (50%) 50ML SYRG IV PRN (18:15)
[2021-05-08] MEDS ORDERED: hydrALAZINE HCL 20 MG/ML VL IV PRN (18:15)
[2021-05-08] MEDS: InsuLIN REG 1unit/0.01ml Soln (100units/ml) SC SCH (22:00)
[2021-05-09] MEDS: ATORVASTATIN 20 MG TAB PO SCH ×2 (01:05→22:14)
[2021-05-09] MEDS: ACCU-CHEK COMFORT CURVE STRIP VI SCH ×5 (01:06→22:14)
[2021-05-09] MEDS: FLUoxetine HCL 10 MG CAP PO SCH ×2 (01:06→22:14)
[2021-05-09] MEDS: MORPHINE SULFATE INJECTION 2 MG/ML SYRG IV PRN ×2 (02:24→09:05)
[2021-05-09] MEDS ORDERED: CHOL200021 PO (05:12)
[2021-05-09] MEDS ORDERED: FLUO20CA90 PO (05:12)
[2021-05-09] MEDS ORDERED: ATOR20TA50 PO (05:12)
[2021-05-09 05:56] VITALS: BP_SYST 124; BP_SYST 138; BP_DIAS 82; BP_DIAS 84
[2021-05-09] MEDS: InsuLIN REG 1unit/0.01ml Soln (100units/ml) SC SCH ×4 (06:27→22:00)
[2021-05-09 09:00] VITALS: BP 132/83
[2021-05-09] MEDS: ENALAPRIL MALEATE 2.5 MG TAB PO SCH (10:08)
[2021-05-09] MEDS: ASCORBIC ACID 500 MG TAB PO SCH (10:09)
[2021-05-09 13:00] VITALS: BP 112/82
[2021-05-09 17:00] VITALS: BP 90/64
[2021-05-09 17:21] LABS: Urine Bacteria NONE SEEN /hpf (None Seen); Urine Blood Negative /uL (Negative); Urine Specific Gravity 1.019 (1.001-1.035); Urine WBC 1 /hpf (0 - 3)
[2021-05-09] MEDS: GABAPENTIN 100 MG CAP PO SCH (17:30)
[2021-05-09 17:50] LABS: Amphetamine Screen, Urine NEGATIVE (NEGATIVE); Barbiturate Scree,Urine NEGATIVE (NEGATIVE); Benzodiazephine Screen, Urine NEGATIVE (NEGATIVE); Cannabinoid Screen, Urine NEGATIVE (NEGATIVE); Cocaine Screen, Urine NEGATIVE (NEGATIVE); Opiate Scree,Urine POSITIVE (NEGATIVE); Phencyclidine Screen, Urine NEGATIVE (NEGATIVE)
[2021-05-09 18:12] LABS: Alcohol, Urine < 3.0 mg/dL (0-10)
[2021-05-09] MEDS: HYDROcodone-ACET 5/325MG TAB PO PRN (20:17)
[2021-05-09 22:00] VITALS: BP 95/66
[2021-05-10] MEDS: HYDROcodone-ACET 5/325MG TAB PO PRN ×3 (04:20→21:31)
[2021-05-10 05:00] VITALS: BP 121/79
[2021-05-10] MEDS: ACCU-CHEK COMFORT CURVE STRIP VI SCH ×4 (06:13→21:30)
[2021-05-10] MEDS: InsuLIN REG 1unit/0.01ml Soln (100units/ml) SC SCH ×4 (06:17→21:30)
[2021-05-10 09:00] VITALS: BP 134/86
[2021-05-10] MEDS: ENALAPRIL MALEATE 2.5 MG TAB PO SCH (09:54)
[2021-05-10] MEDS: ASCORBIC ACID 500 MG TAB PO SCH (09:54)
[2021-05-10 13:00] VITALS: BP 106/73
[2021-05-10 17:00] VITALS: BP 100/66
[2021-05-10] MEDS: GABAPENTIN 100 MG CAP PO SCH (17:14)
[2021-05-10] MEDS: FLUoxetine HCL 10 MG CAP PO SCH (21:30)
[2021-05-10 22:00] VITALS: BP 112/73
[2021-05-10] MEDS ORDERED: ATORVASTATIN 20 MG TAB PO SCH (22:00)
[2021-05-11] MEDS: MORPHINE SULFATE INJECTION 2 MG/ML SYRG IV PRN ×2 (02:26→12:16)
[2021-05-11 05:00] VITALS: BP 110/69
[2021-05-11] MEDS: InsuLIN REG 1unit/0.01ml Soln (100units/ml) SC SCH ×2 (06:32→11:30)
[2021-05-11] MEDS: ACCU-CHEK COMFORT CURVE STRIP VI SCH ×2 (06:32→11:40)
[2021-05-11] MEDS: HYDROcodone-ACET 5/325MG TAB PO PRN (08:54)
[2021-05-11 09:00] VITALS: BP 118/58
[2021-05-11] MEDS ORDERED: ASPirin-EC 81 mg tab PO SCH (10:00)
[2021-05-11] MEDS: ASCORBIC ACID 500 MG TAB PO SCH (10:00)
[2021-05-11] MEDS: ENALAPRIL MALEATE 2.5 MG TAB PO SCH (10:01)
[2021-05-11 13:00] VITALS: BP 100/69
[2021-05-11 13:41] LABS: Basophils # (auto) 0 10 ^3/uL (0-0.2); Basophils % (auto) 0.8 % (0.0-2.0); Eosinophils # (auto) 0.2 10 ^3/uL (0-0.8); Eosinophils % (auto) 4.4 % (0.0-7.0); Lymphocytes # (auto) 1.2 10 ^3/uL (0.4-5.4); Lymphocytes % (auto) 21.6 % (10.0-50.0); Mean Corpuscular Hemoglobin 30.4 pg (28.0-32.0); Mean Corpuscular Hgb Conc. 32.7 g/dL (32.0-36.0); Mean Corpuscular Volume 92.9 fL (80.0-100.0); Monocytes # (auto) 0.5 10 ^3/uL (0-1.3); Monocytes % (auto) 8.9 % (0.0-12.0); Neutrophils # (auto) 3.7 10 ^3/uL (1.6-8.6); Neutrophils % (auto) 64.3 % (37.0-80.0); Nucleated Red Blood Cells % 0.2 %; Red Blood Cells 4.96 10^6/uL (4.5-5.90); White Blood Cell 5.7 10^3/uL (4.4-10.8)
[2021-05-11 15:51] VITALS: BP 100/69
== END 2021-05-11 17:00 | disposition home or self-care (01) | DRG 303 ==
LOC: ER 11:00 → TELE 17:50 → TELE-WESTW 05-09 04:57
PROVIDERS: ADMIT Nurse Practitioner Acute Care; ATTEND Internal Medicine
DX: I25.110 Atherosclerotic heart disease of native coronary artery with unstable angina pectoris (principal); E66.9 Obesity, unspecified; E11.9 Type 2 diabetes mellitus without complications; E78.5 Hyperlipidemia, unspecified; G89.4 Chronic pain syndrome; I11.0 Hypertensive heart disease with heart failure; Z20.822 Contact with and (suspected) exposure to COVID-19; F32.A Depression, unspecified; I50.9 Heart failure, unspecified; F41.9 Anxiety disorder, unspecified; Z80.9 Family history of malignant neoplasm, unspecified; Z82.49 Family history of ischemic heart disease and other diseases of the circulatory system; Z83.3 Family history of diabetes mellitus; Z89.611 Acquired absence of right leg above knee; Z95.5 Presence of coronary angioplasty implant and graft; Z88.8 Allergy status to other drugs, medicaments and biological substances; Z68.33 Body mass index [BMI] 33.0-33.9, adult; Z79.84 Long term (current) use of oral hypoglycemic drugs
CPT/HCPCS: 36415; 71045; 80053; 80307; 81001; 82962; 83036; 83880; 84484; 85025; 87081; 87426; 93005; 93306; 96374; 96375; G0378; J1815; J2405

== ENCOUNTER 2021-05-28 18:33 | Emergency (ER) | payer OTHER, MEDICAID ==
[~2021-05-28] VITALS: Ht 167.6 cm; Wt 95.3 kg
[~2021-05-28 18:33] MED LIST changes: +ATOR20TA50 PO; +CHOL200021 PO; +FLUO20CA90 PO
[2021-05-28 20:26] LABS: Hemoglobin 15.5 g/dL (13.5-17.5); Mean Corpuscular Hemoglobin 30.4 pg (28.0-32.0); Mean Corpuscular Hgb Conc. 32.4 g/dL (32.0-36.0); Red Blood Cells 5.11 10^6/uL (4.5-5.90); Red Cell Distribution Width 14.6 % (11.8-14.3)
[2021-05-28 20:32] LABS: Band Neutrophils % (manual) 0; Basophils % (manual) 0 (0.0-2.0); Blast Cells 0; Metamyelocytes % 0; Myelocytes % 0; Promyelocytes % 0; Reactive Lymphocytes 0
[2021-05-28 20:44] LABS: Albumin 3.1 g/dL (3.4-5.0); Calcium 9.1 mg/dL (8.5-10.1); Potassium 4.7 mmol/L (3.5-5.1)
[2021-05-28 20:48] LABS: Bilirubin, Total 0.3 mg/dL (0.2-1.0); Total Protein 7.8 g/dL (6.4-8.2)
[2021-05-28] MEDS ORDERED: HYDROcodone-ACET 10/325MG TAB PO ONE (21:00)
[2021-05-28 21:30] LABS: Eosinophils % (manual) 2 (0-7); Lymphocytes % (manual) 34 (10.0-50.0); Monocytes % (manual) 9 (0-12)
[2021-05-28 23:00] VITALS: BP 154/69
== END 2021-05-29 00:22 | disposition home or self-care (01) ==
LOC: ER 18:34
DX: R07.89 Other chest pain (principal); I11.0 Hypertensive heart disease with heart failure; I50.9 Heart failure, unspecified; J44.9 Chronic obstructive pulmonary disease, unspecified; E11.9 Type 2 diabetes mellitus without complications; E78.5 Hyperlipidemia, unspecified; Z88.6 Allergy status to analgesic agent
CPT/HCPCS: 36415; 80053; 84484; 85007; 85027; 93005

== ENCOUNTER 2021-05-29 12:38 | Inpatient (IN) | payer OTHER, MEDICAID ==
[~2021-05-29] VITALS: Ht 162.6 cm; Wt 99.2 kg
[2021-05-29] MEDS ORDERED: MORPHINE SULFATE 4 MG/ML SYR/VIAL IV ONE (13:30)
[2021-05-29] MEDS ORDERED: ONDANSETRON HCL 4 MG/2 ML VIAL IV ONE (13:30)
[2021-05-29] MEDS ORDERED: ASPirin 81 mg TAB PO ONE (13:30)
[2021-05-29 15:30] LABS: Basophils # (auto) 0 10 ^3/uL (0-0.2); Basophils % (auto) 0.4 % (0.0-2.0); Eosinophils # (auto) 0.1 10 ^3/uL (0-0.8); Eosinophils % (auto) 1.8 % (0.0-7.0); Hemoglobin 14.8 g/dL (13.5-17.5); Lymphocytes # (auto) 1.2 10 ^3/uL (0.4-5.4); Lymphocytes % (auto) 18.7 % (10.0-50.0); Mean Corpuscular Hemoglobin 30.3 pg (28.0-32.0); Mean Corpuscular Hgb Conc. 32.9 g/dL (32.0-36.0); Mean Corpuscular Volume 92.3 fL (80.0-100.0); Monocytes # (auto) 0.7 10 ^3/uL (0-1.3); Neutrophils # (auto) 4.5 10 ^3/uL (1.6-8.6); Neutrophils % (auto) 68.1 % (37.0-80.0); Red Blood Cells 4.87 10^6/uL (4.5-5.90); Red Cell Distribution Width 14.1 % (11.8-14.3); White Blood Cell 6.6 10^3/uL (4.4-10.8)
[2021-05-29 15:34] LABS: Albumin 2.9 g/dL (3.4-5.0); Calcium 9.1 mg/dL (8.5-10.1); Potassium 4.7 mmol/L (3.5-5.1)
[2021-05-29 15:38] LABS: Bilirubin, Total 0.3 mg/dL (0.2-1.0); Total Protein 7.7 g/dL (6.4-8.2)
[2021-05-29] MEDS ORDERED: NITROGLYCERIN 0.4 MG SL TAB SL PRN (18:30)
[2021-05-29] MEDS ORDERED: MORPHINE SULFATE INJECTION 2 MG/ML SYRG IV PRN (18:30)
[2021-05-29] MEDS ORDERED: PROMETHAZINE HCL 25 MG/ML 1ML IV PRN (19:15)
[2021-05-29] MEDS ORDERED: traMADol HCL 50 MG TAB PO PRN (19:15)
[2021-05-29] MEDS ORDERED: ALBUTEROL SULF 2.5 MG/0.5ML(0.5%) NEB SOLN NEB PRN (19:15)
[2021-05-29] MEDS: SODIUM CHLORIDE 0.9% 1,000 ML IV SCH (19:15)
[2021-05-29] MEDS ORDERED: DEXTROSE (50%) 50ML SYRG IV PRN (19:15)
[2021-05-29] MEDS ORDERED: LACTULOSE 20Gm/30ML SOLN PO PRN (19:15)
[2021-05-29] MEDS ORDERED: ACETAMINOPHEN 500 MG TAB PO PRN (19:15)
[2021-05-29] MEDS: ACCU-CHEK COMFORT CURVE STRIP VI SCH (22:00)
[2021-05-29] MEDS: InsuLIN REG 1unit/0.01ml Soln (100units/ml) SC SCH (22:00)
[2021-05-29] MEDS: MORPHINE SULFATE INJECTION 2 MG/ML SYRG IV PRN (22:53)
[2021-05-30] VITALS (8 sets, daily range): BP systolic 91–137; BP diastolic 32–72
[2021-05-30] MEDS: ALBUTEROL SULF 2.5 MG/0.5ML(0.5%) NEB SOLN NEB SCH ×4 (00:24→19:16)
[2021-05-30] MEDS: IPRATROPIUM BROM 0.5 MG/2.5ML INH SOL NEB SCH ×4 (00:25→19:16)
[2021-05-30] MEDS: METOPROLOL TARTRATE 25 MG TAB PO SCH ×3 (01:09→21:44)
[2021-05-30] MEDS: MORPHINE SULFATE INJECTION 2 MG/ML SYRG IV PRN ×3 (03:14→20:34)
[2021-05-30 06:31] LABS: Cholesterol 115 mg/dL (< 200); HDL Cholesterol 47 mg/dL (40-59); LDL Cholesterol 62 mg/dL (< 100); Triglycerides 161 mg/dL (< 150)
[2021-05-30] MEDS: ACCU-CHEK COMFORT CURVE STRIP VI SCH ×4 (07:00→21:45)
[2021-05-30] MEDS: InsuLIN REG 1unit/0.01ml Soln (100units/ml) SC SCH ×4 (07:01→21:44)
[2021-05-30] MEDS: SODIUM CHLORIDE 0.9% 1,000 ML IV SCH (09:53)
[2021-05-30] MEDS: ASPirin 81 mg TAB PO SCH (09:54)
[2021-05-30] MEDS: ENOXAPARIN SOD 40 MG/0.4 ML SYRINGE SC SCH (09:55)
[2021-05-30] MEDS ORDERED: ENALAPRIL MALEATE 10 MG TAB PO SCH (10:00)
[2021-05-30] MEDS ORDERED: NITROGLYCERIN 0.2MG/HR TOPICAL PATCH TD SCH (10:00)
[2021-05-30] MEDS ORDERED: ADENOSINE 83 MG in GIVE UN-DILUTED 0 ML IV ONE (13:15)
[2021-05-30] MEDS ORDERED: IOHEXOL 300 MG/ML 100ML BOTTLE IJ ONE (14:00)
[2021-05-31] MEDS: MORPHINE SULFATE INJECTION 2 MG/ML SYRG IV PRN ×6 (00:36→22:12)
[2021-05-31] MEDS: IPRATROPIUM BROM 0.5 MG/2.5ML INH SOL NEB SCH ×4 (00:39→19:12)
[2021-05-31] MEDS: ALBUTEROL SULF 2.5 MG/0.5ML(0.5%) NEB SOLN NEB SCH ×4 (00:39→19:12)
[2021-05-31 05:00] VITALS: BP 100/68
[2021-05-31] MEDS: InsuLIN REG 1unit/0.01ml Soln (100units/ml) SC SCH ×4 (06:04→22:00)
[2021-05-31] MEDS: ACCU-CHEK COMFORT CURVE STRIP VI SCH ×4 (06:04→22:01)
[2021-05-31 06:08] LABS: Basophils # (auto) 0 10 ^3/uL (0-0.2); Basophils % (auto) 0.4 % (0.0-2.0); Eosinophils # (auto) 0.2 10 ^3/uL (0-0.8); Eosinophils % (auto) 3.7 % (0.0-7.0); Hematocrit 41.4 % (41.0-53.0); Hemoglobin 13.8 g/dL (13.5-17.5); Lymphocytes # (auto) 1.4 10 ^3/uL (0.4-5.4); Lymphocytes % (auto) 30.2 % (10.0-50.0); Mean Corpuscular Hemoglobin 30.8 pg (28.0-32.0); Mean Corpuscular Hgb Conc. 33.4 g/dL (32.0-36.0); Mean Corpuscular Volume 92.1 fL (80.0-100.0); Monocytes # (auto) 0.6 10 ^3/uL (0-1.3); Monocytes % (auto) 13.8 % (0.0-12.0); Neutrophils # (auto) 2.4 10 ^3/uL (1.6-8.6); Neutrophils % (auto) 51.9 % (37.0-80.0); Red Blood Cells 4.49 10^6/uL (4.5-5.90); Red Cell Distribution Width 14.5 % (11.8-14.3); White Blood Cell 4.7 10^3/uL (4.4-10.8)
[2021-05-31 06:41] LABS: BUN/Creatinine Ratio 18.2; Calcium 8.8 mg/dL (8.5-10.1)
[2021-05-31 08:00] VITALS: BP 113/75
[2021-05-31 09:00] VITALS: BP 113/75
[2021-05-31] MEDS: ASPirin 81 mg TAB PO SCH (09:55)
[2021-05-31] MEDS: METOPROLOL TARTRATE 25 MG TAB PO SCH (09:55)
[2021-05-31] MEDS: ENOXAPARIN SOD 40 MG/0.4 ML SYRINGE SC SCH (09:56)
[2021-05-31 13:07] VITALS: BP 105/78
[2021-05-31 16:38] VITALS: BP 107/68
[2021-05-31 21:57] VITALS: BP 102/55
[2021-06-01] MEDS: ALBUTEROL SULF 2.5 MG/0.5ML(0.5%) NEB SOLN NEB SCH ×4 (01:11→19:28)
[2021-06-01] MEDS: IPRATROPIUM BROM 0.5 MG/2.5ML INH SOL NEB SCH ×4 (01:11→19:28)
[2021-06-01] MEDS: MORPHINE SULFATE INJECTION 2 MG/ML SYRG IV PRN ×5 (02:15→23:10)
[2021-06-01 04:57] VITALS: BP 115/72
[2021-06-01] MEDS: InsuLIN REG 1unit/0.01ml Soln (100units/ml) SC SCH ×4 (05:54→21:37)
[2021-06-01] MEDS: ACCU-CHEK COMFORT CURVE STRIP VI SCH ×4 (05:54→21:32)
[2021-06-01 06:26] LABS: INR 1.03 (0.9-1.15); Partial Thromboplastin Time 27.8 sec (23.6-33.0)
[2021-06-01 09:00] VITALS: BP 114/78
[2021-06-01] MEDS: ENOXAPARIN SOD 40 MG/0.4 ML SYRINGE SC SCH (10:14)
[2021-06-01] MEDS: ASPirin 81 mg TAB PO SCH (10:15)
[2021-06-01 13:00] VITALS: BP 107/72
[2021-06-01 16:36] VITALS: BP 104/71
[2021-06-01 22:00] VITALS: BP 116/76
[2021-06-02 01:08] LABS: INR 1.03 (0.9-1.15); Partial Thromboplastin Time 27.7 sec (23.6-33.0)
[2021-06-02] MEDS: ALBUTEROL SULF 2.5 MG/0.5ML(0.5%) NEB SOLN NEB SCH ×4 (02:08→18:03)
[2021-06-02] MEDS: IPRATROPIUM BROM 0.5 MG/2.5ML INH SOL NEB SCH ×4 (02:08→18:03)
[2021-06-02 02:50] VITALS: BP 119/77
[2021-06-02] MEDS: MORPHINE SULFATE INJECTION 2 MG/ML SYRG IV PRN ×3 (03:24→21:52)
[2021-06-02 05:00] VITALS: BP 130/95
[2021-06-02] MEDS: InsuLIN REG 1unit/0.01ml Soln (100units/ml) SC SCH ×4 (06:32→21:51)
[2021-06-02] MEDS: ACCU-CHEK COMFORT CURVE STRIP VI SCH ×4 (06:32→21:51)
[2021-06-02] MEDS ORDERED: IODIXANOL 320MG/ML 100ML BTL IV ONE ×4 (07:19→10:28)
[2021-06-02] MEDS ORDERED: LIDOCAINE 2%HCL (LOCAL ANESTH.) INJ 20ML MDV ONE ×2 (07:19→09:48)
[2021-06-02] MEDS ORDERED: fentaNYL CITRATE 100 MCG/2 ML VL ONE ×2 (07:44→13:06)
[2021-06-02] MEDS ORDERED: ANGIOMAX 250 MG VIAL IV ONE (07:44)
[2021-06-02] MEDS ORDERED: MIDAZOLAM HCL 2MG/2ML 2ml VIAL (1mg/ml) ONE (07:45)
[2021-06-02] MEDS ORDERED: SODIUM CHL 0.9% 0 ML ONE (07:45)
[2021-06-02] MEDS: ASPirin 81 mg TAB PO SCH (10:00)
[2021-06-02] MEDS: ENOXAPARIN SOD 40 MG/0.4 ML SYRINGE SC SCH (10:00)
[2021-06-02 13:10] VITALS: BP 152/92
[2021-06-02 16:00] VITALS: BP 133/73
[2021-06-02 22:00] VITALS: BP 147/84
[2021-06-03] MEDS: ALBUTEROL SULF 2.5 MG/0.5ML(0.5%) NEB SOLN NEB SCH ×3 (00:11→12:00)
[2021-06-03] MEDS: IPRATROPIUM BROM 0.5 MG/2.5ML INH SOL NEB SCH ×3 (00:11→12:00)
[2021-06-03] MEDS: MORPHINE SULFATE INJECTION 2 MG/ML SYRG IV PRN ×2 (02:22→08:29)
[2021-06-03 05:00] VITALS: BP 129/63
[2021-06-03] MEDS: ACCU-CHEK COMFORT CURVE STRIP VI SCH ×3 (05:59→17:00)
[2021-06-03] MEDS: InsuLIN REG 1unit/0.01ml Soln (100units/ml) SC SCH ×3 (06:01→17:00)
[2021-06-03] MEDS: ASPirin 81 mg TAB PO SCH (08:28)
[2021-06-03 09:00] VITALS: BP 147/78
[2021-06-03 12:54] VITALS: BP 103/88
[2021-06-03 14:47] VITALS: BP 103/88
== END 2021-06-03 17:37 | disposition home or self-care (01) | DRG 253 ==
LOC: ER 12:38 → TELE 18:18 → TELE-WESTW 23:14
PROVIDERS: ADMIT Internal Medicine; ATTEND Internal Medicine
PROC: 05H933Z Insertion of Infusion Device into Right Brachial Vein, Percutaneous Approach (ICD-10-PCS; 2021-05-30)
PROC: B54MZZA Ultrasonography of Right Upper Extremity Veins, Guidance (ICD-10-PCS; 2021-05-30)
PROC: 05783ZZ Dilation of Left Axillary Vein, Percutaneous Approach (ICD-10-PCS; principal; 2021-06-02)
PROC: 05763ZZ Dilation of Left Subclavian Vein, Percutaneous Approach (ICD-10-PCS; 2021-06-02)
PROC: 05JY3ZZ Inspection of Upper Vein, Percutaneous Approach (ICD-10-PCS; 2021-06-02)
PROC: B543ZZA Ultrasonography of Right Jugular Veins, Guidance (ICD-10-PCS; 2021-06-02)
PROC: B54CZZA Ultrasonography of Left Lower Extremity Veins, Guidance (ICD-10-PCS; 2021-06-02)
PROC: B54NZZA Ultrasonography of Left Upper Extremity Veins, Guidance (ICD-10-PCS; 2021-06-02)
PROC: B51CYZZ Fluoroscopy of Left Lower Extremity Veins using Other Contrast (ICD-10-PCS; 2021-06-02)
PROC: B51NYZZ Fluoroscopy of Left Upper Extremity Veins using Other Contrast (ICD-10-PCS; 2021-06-02)
DX: I87.1 Compression of vein (principal); I82.B13 Acute embolism and thrombosis of subclavian vein, bilateral; I82.290 Acute embolism and thrombosis of other thoracic veins; R07.89 Other chest pain; E11.9 Type 2 diabetes mellitus without complications; I25.10 Atherosclerotic heart disease of native coronary artery without angina pectoris; R91.8 Other nonspecific abnormal finding of lung field; F41.9 Anxiety disorder, unspecified; F32.A Depression, unspecified; E03.9 Hypothyroidism, unspecified; J44.9 Chronic obstructive pulmonary disease, unspecified; E78.5 Hyperlipidemia, unspecified; I11.0 Hypertensive heart disease with heart failure; Z20.822 Contact with and (suspected) exposure to COVID-19; E66.01 Morbid (severe) obesity due to excess calories; Z95.5 Presence of coronary angioplasty implant and graft; Z68.37 Body mass index [BMI] 37.0-37.9, adult; Z79.84 Long term (current) use of oral hypoglycemic drugs; Z80.9 Family history of malignant neoplasm, unspecified; Z82.49 Family history of ischemic heart disease and other diseases of the circulatory system; Z83.3 Family history of diabetes mellitus; Z86.711 Personal history of pulmonary embolism; Z89.611 Acquired absence of right leg above knee; Z95.1 Presence of aortocoronary bypass graft
CPT/HCPCS: 36415; 37248; 37249; 71046; 71250; 71260; 75820; 75822; 76000; 76942; 78452; 80048; 80053; 80061; 82962; 83735; 83880; 84443; 84484; 85025; 85379; 85610; 85652; 85730; 86850; 86900; 86901; 87081; 87426; 93005; 93017; 94640; 96361; 96374; 96375; 99152; 99153; G0378; J0153; J1815; J2250; J2405; Q9967

== ENCOUNTER 2022-02-24 12:50 | Inpatient (IN) | payer OTHER, MEDICAID ==
[~2022-02-24] VITALS: Ht 167.6 cm; Wt 92.8 kg
[2022-02-24 13:48] LABS: Urine WBC None Seen /hpf (0 - 3)
[2022-02-24 13:58] LABS: Urine Bacteria NONE SEEN /hpf (None Seen); Urine Blood Negative /uL (Negative); Urine Specific Gravity 1.019 (1.001-1.035)
[2022-02-24 14:22] LABS: Calcium 8.9 mg/dL (8.5-10.1); Magnesium 2.3 mg/dL (1.6-2.6); Potassium 4.6 mmol/L (3.5-5.1)
[2022-02-24 14:24] LABS: Basophils # (auto) 0 10 ^3/uL (0-0.2); Basophils % (auto) 0.4 % (0.0-2.0); Eosinophils # (auto) 0.1 10 ^3/uL (0-0.8); Eosinophils % (auto) 1.5 % (0.0-7.0); Hematocrit 42.9 % (41.0-53.0); Hemoglobin 13.3 g/dL (13.5-17.5); Mean Corpuscular Hemoglobin 27.1 pg (28.0-32.0); Mean Corpuscular Volume 87.2 fL (80.0-100.0); Monocytes # (auto) 0.6 10 ^3/uL (0-1.3); Monocytes % (auto) 14.4 % (0.0-12.0); Neutrophils # (auto) 2.6 10 ^3/uL (1.6-8.6); Neutrophils % (auto) 60.7 % (37.0-80.0); Nucleated Red Blood Cells % 0.1 %; Red Blood Cells 4.92 10^6/uL (4.5-5.90); Red Cell Distribution Width 15.8 % (11.8-14.3); White Blood Cell 4.2 10^3/uL (4.4-10.8)
[2022-02-24 14:26] LABS: BUN/Creatinine Ratio 16.3; Bilirubin, Total 0.3 mg/dL (0.2-1.0); Total Protein 7.5 g/dL (6.4-8.2)
[2022-02-24] MEDS ORDERED: HYDROcodone-ACET 10/325MG TAB PO ONE (21:00)
[2022-02-24] MEDS ORDERED: NITROGLYCERIN 0.4 MG SL TAB SL PRN (22:15)
[2022-02-24] MEDS ORDERED: HYDROcodone-ACET 5/325MG TAB PO PRN (22:15)
[2022-02-24] MEDS ORDERED: DEXTROSE (50%) 50ML SYRG IV PRN (22:15)
[2022-02-24] MEDS ORDERED: DOCUSATE SOD 100 MG CAP PO PRN (22:15)
[2022-02-24] MEDS ORDERED: ONDANSETRON HCL 4 MG/2 ML VIAL IV PRN (22:15)
[2022-02-24] MEDS ORDERED: ACETAMINOPHEN 325 MG TAB PO PRN (22:15)
[2022-02-24] MEDS: InsuLIN REG 1unit/0.01ml Soln (100units/ml) SC SCH (23:25)
[2022-02-24] MEDS: ACCU-CHEK COMFORT CURVE STRIP VI SCH (23:28)
[2022-02-24] MEDS: MORPHINE SULFATE INJ 2 MG/ml SYRG IV PRN ×2 (23:29→23:48)
[2022-02-25 00:08] VITALS: BP 140/87
[2022-02-25] MEDS: MORPHINE SULFATE INJ 2 MG/ml SYRG IV PRN ×4 (04:05→20:15)
[2022-02-25 05:00] VITALS: BP 119/73
[2022-02-25 06:10] LABS: Basophils # (auto) 0 10 ^3/uL (0-0.2); Eosinophils # (auto) 0.1 10 ^3/uL (0-0.8); Eosinophils % (auto) 3.1 % (0.0-7.0); Hematocrit 39.7 % (41.0-53.0); Hemoglobin 12.6 g/dL (13.5-17.5); Lymphocytes % (auto) 24.7 % (10.0-50.0); Mean Corpuscular Hemoglobin 27.3 pg (28.0-32.0); Mean Corpuscular Hgb Conc. 31.7 g/dL (32.0-36.0); Monocytes # (auto) 0.6 10 ^3/uL (0-1.3); Neutrophils # (auto) 2.3 10 ^3/uL (1.6-8.6); Neutrophils % (auto) 56.2 % (37.0-80.0); Nucleated Red Blood Cells % 0.1 %; Red Blood Cells 4.62 10^6/uL (4.5-5.90); Red Cell Distribution Width 15.3 % (11.8-14.3); White Blood Cell 4.1 10^3/uL (4.4-10.8)
[2022-02-25 06:29] LABS: Albumin 2.7 g/dL (3.4-5.0); Calcium 8.5 mg/dL (8.5-10.1); Potassium 4.4 mmol/L (3.5-5.1)
[2022-02-25 06:32] LABS: Bilirubin, Total 0.3 mg/dL (0.2-1.0); Total Protein 6.8 g/dL (6.4-8.2)
[2022-02-25] MEDS: CARVEDILOL 3.125 MG TAB PO SCH ×2 (08:54→21:58)
[2022-02-25] MEDS: PANTOPRAZOLE 40 MG/10 ML VIAL INJ IV SCH ×2 (08:54→21:34)
[2022-02-25] MEDS: FUROSEMIDE 20 MG/2 ML VIAL IV SCH (08:55)
[2022-02-25 09:00] VITALS: BP 131/81
[2022-02-25] MEDS ORDERED: ASPirin 81 mg TAB PO SCH (10:00)
[2022-02-25] MEDS: ACCU-CHEK COMFORT CURVE STRIP VI SCH ×3 (11:11→21:54)
[2022-02-25] MEDS: InsuLIN REG 1unit/0.01ml Soln (100units/ml) SC SCH ×3 (11:12→21:50)
[2022-02-25 13:00] VITALS: BP 123/71
[2022-02-25] MEDS ORDERED: PROMETHAZINE HCL 25 MG/ML 1ML IV PRN (16:30)
[2022-02-25] MEDS ORDERED: ACETAMINOPHEN 500 MG TAB PO PRN (16:30)
[2022-02-25 17:00] VITALS: BP 108/54
[2022-02-25 18:35] LABS: Hematocrit 43.5 % (41.0-53.0); Hemoglobin 13.6 g/dL (13.5-17.5)
[2022-02-25] MEDS: ATORVASTATIN 20 MG TAB PO SCH (21:34)
[2022-02-25] MEDS: metroNIDAZOLE 500MG/100ML 100 ML IV SCH (21:35)
[2022-02-25 22:00] VITALS: BP 102/61
[2022-02-26] MEDS: MORPHINE SULFATE INJ 2 MG/ml SYRG IV PRN ×4 (00:50→23:26)
[2022-02-26 03:18] LABS: Hematocrit 40.6 % (41.0-53.0)
[2022-02-26 04:58] VITALS: BP 110/62
[2022-02-26] MEDS: metroNIDAZOLE 500MG/100ML 100 ML IV SCH ×3 (05:19→21:32)
[2022-02-26 05:32] LABS: Hematocrit 41.2 % (41.0-53.0)
[2022-02-26 05:46] LABS: Albumin 2.8 g/dL (3.4-5.0); Potassium 4.4 mmol/L (3.5-5.1)
[2022-02-26 05:47] LABS: INR 1.01 (0.9-1.15); Partial Thromboplastin Time 27.7 sec (24.6-33.4)
[2022-02-26 05:52] LABS: BUN/Creatinine Ratio 16.3; Bilirubin, Total 0.4 mg/dL (0.2-1.0); Calcium 8.7 mg/dL (8.5-10.1); Total Protein 6.3 g/dL (6.4-8.2)
[2022-02-26] MEDS: InsuLIN REG 1unit/0.01ml Soln (100units/ml) SC SCH ×4 (06:43→21:27)
[2022-02-26] MEDS: ACCU-CHEK COMFORT CURVE STRIP VI SCH ×4 (06:43→21:27)
[2022-02-26] MEDS: FUROSEMIDE 20 MG/2 ML VIAL IV SCH (09:50)
[2022-02-26] MEDS: PANTOPRAZOLE 40 MG/10 ML VIAL INJ IV SCH ×2 (09:50→21:32)
[2022-02-26] MEDS: HYDROcodone-ACET 10/325MG TAB PO PRN ×2 (09:51→15:45)
[2022-02-26] MEDS: CARVEDILOL 3.125 MG TAB PO SCH (09:51)
[2022-02-26 10:47] VITALS: BP 91/60
[2022-02-26 14:37] VITALS: BP 106/55
[2022-02-26 17:25] VITALS: BP 102/68
[2022-02-26] MEDS: ATORVASTATIN 20 MG TAB PO SCH (21:32)
[2022-02-26 22:00] VITALS: BP 96/52
[2022-02-27 05:00] VITALS: BP 101/55
[2022-02-27] MEDS: MORPHINE SULFATE INJ 2 MG/ml SYRG IV PRN ×5 (05:09→23:19)
[2022-02-27 05:59] LABS: Basophils # (auto) 0 10 ^3/uL (0-0.2); Basophils % (auto) 1.1 % (0.0-2.0); Eosinophils # (auto) 0.1 10 ^3/uL (0-0.8); Eosinophils % (auto) 2.7 % (0.0-7.0); Hemoglobin 12.6 g/dL (13.5-17.5); Lymphocytes % (auto) 21.6 % (10.0-50.0); Mean Corpuscular Hemoglobin 28.1 pg (28.0-32.0); Mean Corpuscular Hgb Conc. 32.4 g/dL (32.0-36.0); Mean Corpuscular Volume 86.7 fL (80.0-100.0); Monocytes # (auto) 0.6 10 ^3/uL (0-1.3); Monocytes % (auto) 14.1 % (0.0-12.0); Neutrophils # (auto) 2.7 10 ^3/uL (1.6-8.6); Neutrophils % (auto) 60.5 % (37.0-80.0); Nucleated Red Blood Cells % 0.2 %; White Blood Cell 4.4 10^3/uL (4.4-10.8)
[2022-02-27 06:15] LABS: BUN/Creatinine Ratio 19.1; Calcium 8.9 mg/dL (8.5-10.1); Potassium 4.5 mmol/L (3.5-5.1)
[2022-02-27] MEDS: ACCU-CHEK COMFORT CURVE STRIP VI SCH ×4 (06:33→21:11)
[2022-02-27] MEDS: InsuLIN REG 1unit/0.01ml Soln (100units/ml) SC SCH ×4 (06:36→21:12)
[2022-02-27] MEDS: metroNIDAZOLE 500MG/100ML 100 ML IV SCH (06:39)
[2022-02-27] MEDS: HYDROcodone-ACET 10/325MG TAB PO PRN (07:59)
[2022-02-27 09:00] VITALS: BP 111/62
[2022-02-27] MEDS: GABAPENTIN 100 MG CAP PO SCH (09:15)
[2022-02-27] MEDS: PANTOPRAZOLE 40 MG/10 ML VIAL INJ IV SCH (09:15)
[2022-02-27 13:00] VITALS: BP 106/61
[2022-02-27] MEDS: HYDROCORTISONE ACET 25 MG RECTAL SUPP PR ONE ×2 (13:15→17:30)
[2022-02-27 17:00] VITALS: BP 103/53
[2022-02-27] MEDS ORDERED: ENAL10TA13 PO (17:29)
[2022-02-27] MEDS ORDERED: APIX5TAB PO (17:29)
[2022-02-27] MEDS ORDERED: ASPI-543 PO (17:29)
[2022-02-27] MEDS ORDERED: ATOR20TA PO (17:29)
[2022-02-27] MEDS ORDERED: POTA10TA51 PO (17:29)
[2022-02-27] MEDS ORDERED: POTA10TA32 PO (19:20)
[2022-02-27] MEDS ORDERED: MAGNESIUM CITRATE SOLUTION 300 ML BTL PO ONE (19:45)
[2022-02-27] MEDS ORDERED: GOLYTELY 4L KIT PO ONE (20:30)
[2022-02-27] MEDS: HYDROCORTISONE ACET 25 MG RECTAL SUPP PR SCH (21:11)
[2022-02-27] MEDS: ATORVASTATIN 20 MG TAB PO SCH (21:11)
[2022-02-27 22:00] VITALS: BP 153/88
[2022-02-27] MEDS ORDERED: DOCUSATE SOD 100 MG CAP PO ONE (23:00)
[2022-02-28] MEDS: MORPHINE SULFATE INJ 2 MG/ml SYRG IV PRN ×3 (03:52→13:20)
[2022-02-28 05:00] VITALS: BP 115/71
[2022-02-28] MEDS ORDERED: GOLYTELY 4L KIT PO ONE (06:00)
[2022-02-28] MEDS ORDERED: MAGNESIUM CITRATE SOLUTION 300 ML BTL PO ONE (06:00)
[2022-02-28] MEDS: ACCU-CHEK COMFORT CURVE STRIP VI SCH ×4 (06:15→21:39)
[2022-02-28] MEDS: InsuLIN REG 1unit/0.01ml Soln (100units/ml) SC SCH ×4 (06:15→21:42)
[2022-02-28 09:00] VITALS: BP 132/75
[2022-02-28] MEDS: PANTOPRAZOLE 40 MG TAB PO SCH (09:14)
[2022-02-28] MEDS: GABAPENTIN 100 MG CAP PO SCH (09:14)
[2022-02-28] MEDS: HYDROCORTISONE ACET 25 MG RECTAL SUPP PR SCH ×2 (09:15→21:43)
[2022-02-28] MEDS ORDERED: SODIUM CHLORIDE LOCK 10 ML ONE (10:18)
[2022-02-28] MEDS ORDERED: MIDAZOLAM HCL 5 MG/ML-1ML VIAL ONE (10:19)
[2022-02-28] MEDS ORDERED: fentaNYL CITRATE 100 MCG/2 ML VL ONE (10:19)
[2022-02-28 13:00] VITALS: BP 99/65
[2022-02-28] MEDS: diphenhdrAMINE HCL 50 MG/1 ML VL ONE ×2 (16:55→16:57)
[2022-02-28] MEDS: HYDROcodone-ACET 10/325MG TAB PO PRN (21:43)
[2022-02-28] MEDS: ATORVASTATIN 20 MG TAB PO SCH (21:43)
[2022-02-28 22:00] VITALS: BP 99/60
[2022-03-01 05:00] VITALS: BP 101/62
[2022-03-01] MEDS: ACCU-CHEK COMFORT CURVE STRIP VI SCH ×2 (06:01→12:01)
[2022-03-01] MEDS: InsuLIN REG 1unit/0.01ml Soln (100units/ml) SC SCH ×2 (06:03→12:03)
[2022-03-01 09:00] VITALS: BP 103/57
[2022-03-01] MEDS: GABAPENTIN 100 MG CAP PO SCH (09:58)
[2022-03-01] MEDS: HYDROCORTISONE ACET 25 MG RECTAL SUPP PR SCH (09:58)
[2022-03-01] MEDS: PANTOPRAZOLE 40 MG TAB PO SCH (09:58)
[2022-03-01] MEDS: HYDROcodone-ACET 10/325MG TAB PO PRN (10:56)
[2022-03-01 12:41] VITALS: BP 103/57
[2022-03-01 13:00] VITALS: BP 111/73
== END 2022-03-01 14:38 | disposition home or self-care (01) | DRG 394 ==
LOC: ER 12:50 → TELE 22:02 → TELE-EAST 23:35 → EAST 03-01 08:57
PROVIDERS: ADMIT Nurse Practitioner Family; ATTEND Internal Medicine
PROC: 0DJD8ZZ Inspection of Lower Intestinal Tract, Via Natural or Artificial Opening Endoscopic (ICD-10-PCS; principal; 2022-02-28 16:50)
DX: K64.8 Other hemorrhoids (principal); E44.1 Mild protein-calorie malnutrition; I24.9 Acute ischemic heart disease, unspecified; E78.5 Hyperlipidemia, unspecified; I50.9 Heart failure, unspecified; D72.819 Decreased white blood cell count, unspecified; E66.01 Morbid (severe) obesity due to excess calories; F41.9 Anxiety disorder, unspecified; I25.10 Atherosclerotic heart disease of native coronary artery without angina pectoris; Z20.822 Contact with and (suspected) exposure to COVID-19; I11.0 Hypertensive heart disease with heart failure; E03.9 Hypothyroidism, unspecified; E11.65 Type 2 diabetes mellitus with hyperglycemia; J44.9 Chronic obstructive pulmonary disease, unspecified; Z88.8 Allergy status to other drugs, medicaments and biological substances; Z95.5 Presence of coronary angioplasty implant and graft; Z86.711 Personal history of pulmonary embolism; Z68.32 Body mass index [BMI] 32.0-32.9, adult; Z83.3 Family history of diabetes mellitus; Z82.49 Family history of ischemic heart disease and other diseases of the circulatory system; Z80.9 Family history of malignant neoplasm, unspecified; Z89.611 Acquired absence of right leg above knee; K57.30 Diverticulosis of large intestine without perforation or abscess without bleeding
CPT/HCPCS: 36415; 45378; 71045; 74176; 80048; 80053; 81001; 82270; 82378; 82962; 83036; 83735; 83880; 84443; 84484; 85014; 85018; 85025; 85045; 85379; 85610; 85652; 85730; 86850; 86900; 86901; 87493; 93005; 93306; 96374; 96375; C9113; G0378; J1815; J2250; J3490

== ENCOUNTER 2022-04-11 16:40 | Inpatient (IN) | payer OTHER, MEDICAID ==
[~2022-04-11] VITALS: Ht 167.6 cm; Wt 101.2 kg
[~2022-04-11 16:40] MED LIST changes: +APIX5TAB PO; -ASCO500C5 OR; +ASPI-543 PO; -ATOR10TA PO; +ENAL10TA13 PO; -ENAL5TAB10 PO; -FLUO10CA15 PO; -FLUO20CA90 PO; -GAB100C PO; +POTA10TA32 PO; -ZOLP10TA PO
[2022-04-11] MEDS ORDERED: ONDANSETRON HCL 4 MG/2 ML VIAL IV ONE (17:45)
[2022-04-11] MEDS ORDERED: MORPHINE SULFATE 4 MG/ML SYR/VIAL IV ONE (17:45)
[2022-04-11 17:46] LABS: Basophils # (auto) 0 10 ^3/uL (0-0.2); Eosinophils # (auto) 0.1 10 ^3/uL (0-0.8); Hemoglobin 12.9 g/dL (13.5-17.5); Mean Corpuscular Hemoglobin 26.8 pg (28.0-32.0); Neutrophils # (auto) 2.8 10 ^3/uL (1.6-8.6); Nucleated Red Blood Cells % 0.1 %
[2022-04-11 17:47] LABS: Basophils % (auto) 0.8 % (0.0-2.0); Eosinophils % (auto) 2.3 % (0.0-7.0); Hematocrit 41.4 % (41.0-53.0); Lymphocytes # (auto) 1.3 10 ^3/uL (0.4-5.4); Lymphocytes % (auto) 26.8 % (10.0-50.0); Mean Corpuscular Volume 86.4 fL (80.0-100.0); Monocytes # (auto) 0.7 10 ^3/uL (0-1.3); Monocytes % (auto) 13.3 % (0.0-12.0); Neutrophils % (auto) 56.8 % (37.0-80.0); Red Cell Distribution Width 15.6 % (11.8-14.3); White Blood Cell 4.9 10^3/uL (4.4-10.8)
[2022-04-11 18:01] LABS: BUN/Creatinine Ratio 13.2; Calcium 8.3 mg/dL (8.5-10.1); Potassium 4.1 mmol/L (3.5-5.1)
[2022-04-11 18:08] LABS: Bilirubin, Total 0.2 mg/dL (0.2-1.0); Total Protein 6.6 g/dL (6.4-8.2)
[2022-04-11 19:01] LABS: INR 0.95 (0.9-1.15)
[2022-04-11] MEDS ORDERED: ACETAMINOPHEN 325 MG TAB PO PRN (22:00)
[2022-04-11] MEDS ORDERED: DEXTROSE (50%) 50ML SYRG IV PRN (22:00)
[2022-04-11] MEDS ORDERED: ONDANSETRON HCL 4 MG/2 ML VIAL IV PRN (22:00)
[2022-04-12] MEDS: ATORVASTATIN 20 MG TAB PO SCH ×2 (01:33→21:43)
[2022-04-12] MEDS: APIXABAN 5 MG TAB PO SCH ×2 (01:34→10:40)
[2022-04-12] MEDS: MORPHINE SULFATE INJ 2 MG/ml SYRG IV PRN ×5 (01:43→19:50)
[2022-04-12] MEDS: NITROGLYCERIN 0.4 MG SL TAB SL PRN ×2 (04:56→14:02)
[2022-04-12 06:14] LABS: Basophils # (auto) 0 10 ^3/uL (0-0.2); Basophils % (auto) 0.5 % (0.0-2.0); Eosinophils # (auto) 0.1 10 ^3/uL (0-0.8); Eosinophils % (auto) 2.6 % (0.0-7.0); Hematocrit 40.9 % (41.0-53.0); Hemoglobin 13.2 g/dL (13.5-17.5); Lymphocytes # (auto) 1.2 10 ^3/uL (0.4-5.4); Lymphocytes % (auto) 22.1 % (10.0-50.0); Mean Corpuscular Hgb Conc. 32.3 g/dL (32.0-36.0); Mean Corpuscular Volume 86.7 fL (80.0-100.0); Monocytes # (auto) 0.8 10 ^3/uL (0-1.3); Monocytes % (auto) 14.3 % (0.0-12.0); Neutrophils # (auto) 3.2 10 ^3/uL (1.6-8.6); Neutrophils % (auto) 60.5 % (37.0-80.0); Nucleated Red Blood Cells % 0.2 %; Red Blood Cells 4.72 10^6/uL (4.5-5.90); Red Cell Distribution Width 15.4 % (11.8-14.3); White Blood Cell 5.2 10^3/uL (4.4-10.8)
[2022-04-12 06:31] LABS: Calcium 8.7 mg/dL (8.5-10.1); Potassium 4.4 mmol/L (3.5-5.1)
[2022-04-12 06:33] LABS: BUN/Creatinine Ratio 14.6
[2022-04-12] MEDS: InsuLIN REG 1unit/0.01ml Soln (100units/ml) SC SCH ×5 (08:07→23:06)
[2022-04-12] MEDS: ACCU-CHEK COMFORT CURVE STRIP VI SCH ×5 (08:09→23:05)
[2022-04-12] MEDS: PANTOPRAZOLE 40 MG TAB PO SCH (10:38)
[2022-04-12] MEDS: ASPirin 81 mg TAB PO SCH (10:38)
[2022-04-12] MEDS: ENALAPRIL MALEATE 10 MG TAB PO SCH (10:40)
[2022-04-12] MEDS: FUROSEMIDE 20 MG TAB PO SCH (10:40)
[2022-04-12] MEDS ORDERED: IOHEXOL 350 MG/ML 100ML IJ ONE (13:47)
[2022-04-12] MEDS: KETOROLAC TROMETH 30 MG/ML 1ML VIAL IV PRN (18:17)
[2022-04-12 21:47] VITALS: BP 110/71
[2022-04-12] MEDS: HYDROcodone-ACET 10/325MG TAB PO PRN (23:06)
[2022-04-12] MEDS: TEMAZEPAM 15 MG CAP PO PRN (23:30)
[2022-04-13] VITALS (10 sets, daily range): BP systolic 97–118; BP diastolic 56–78
[2022-04-13 00:43] LABS: Urine Bacteria NONE SEEN /hpf (None Seen); Urine Blood Negative /uL (Negative); Urine WBC 1 /hpf (0 - 3)
[2022-04-13 00:44] LABS: Urine Specific Gravity 1.023 (1.001-1.035)
[2022-04-13] MEDS: KETOROLAC TROMETH 30 MG/ML 1ML VIAL IV PRN (03:10)
[2022-04-13] MEDS: ACCU-CHEK COMFORT CURVE STRIP VI SCH ×3 (05:22→17:04)
[2022-04-13] MEDS: InsuLIN REG 1unit/0.01ml Soln (100units/ml) SC SCH ×3 (05:32→17:09)
[2022-04-13 06:02] LABS: Basophils # (auto) 0 10 ^3/uL (0-0.2); Basophils % (auto) 0.5 % (0.0-2.0); Eosinophils # (auto) 0.1 10 ^3/uL (0-0.8); Eosinophils % (auto) 3.1 % (0.0-7.0); Hematocrit 43.1 % (41.0-53.0); Hemoglobin 13.8 g/dL (13.5-17.5); Lymphocytes # (auto) 1.2 10 ^3/uL (0.4-5.4); Lymphocytes % (auto) 28.1 % (10.0-50.0); Mean Corpuscular Hemoglobin 27.7 pg (28.0-32.0); Mean Corpuscular Hgb Conc. 31.9 g/dL (32.0-36.0); Mean Corpuscular Volume 86.9 fL (80.0-100.0); Monocytes # (auto) 0.6 10 ^3/uL (0-1.3); Monocytes % (auto) 13.6 % (0.0-12.0); Neutrophils # (auto) 2.3 10 ^3/uL (1.6-8.6); Neutrophils % (auto) 54.7 % (37.0-80.0); Nucleated Red Blood Cells % 0.1 %; Red Blood Cells 4.96 10^6/uL (4.5-5.90); Red Cell Distribution Width 15.2 % (11.8-14.3); White Blood Cell 4.3 10^3/uL (4.4-10.8)
[2022-04-13 06:18] LABS: BUN/Creatinine Ratio 21.8; Calcium 8.4 mg/dL (8.5-10.1); INR 0.97 (0.9-1.15); Partial Thromboplastin Time 30.8 sec (24.6-33.4); Potassium 5.5 mmol/L (3.5-5.1)
[2022-04-13] MEDS: PANTOPRAZOLE 40 MG TAB PO SCH (08:24)
[2022-04-13] MEDS: ASPirin 81 mg TAB PO SCH (08:24)
[2022-04-13] MEDS: HYDROcodone-ACET 10/325MG TAB PO PRN ×2 (08:25→17:54)
[2022-04-13] MEDS: ENALAPRIL MALEATE 10 MG TAB PO SCH (08:26)
[2022-04-13] MEDS: FUROSEMIDE 20 MG TAB PO SCH (08:27)
[2022-04-13] MEDS ORDERED: MORPHINE SULFATE 4 MG/ML SYR/VIAL IV ONE (10:15)
[2022-04-13] MEDS ORDERED: VERAPAMIL 2.5MG/ML INJ 2ML VIAL IV ONE (12:44)
[2022-04-13] MEDS ORDERED: ANGIOMAX 250 MG VIAL IV ONE (12:44)
[2022-04-13] MEDS ORDERED: SODIUM CHL 0.9% 0 ML ONE (12:44)
[2022-04-13] MEDS ORDERED: fentaNYL CITRATE 100 MCG/2 ML VL ONE (12:44)
[2022-04-13] MEDS ORDERED: MIDAZOLAM HCL 2MG/2ML 2ml VIAL (1mg/ml) ONE (12:44)
[2022-04-13] MEDS ORDERED: LIDOCAINE 2%HCL (LOCAL ANESTH.) INJ 20ML MDV ONE (12:46)
[2022-04-13] MEDS ORDERED: IOHEXOL 350 MG/ML 100ML IJ ONE (12:46)
[2022-04-13] MEDS ORDERED: HEPARIN SODIUM (PORCINE) 5000 UNITS/ML 1ML VIAL ONE (12:51)
[2022-04-13] MEDS: MORPHINE SULFATE INJ 2 MG/ml SYRG IV PRN (14:13)
[2022-04-13] MEDS: ATORVASTATIN 20 MG TAB PO SCH (21:16)
[2022-04-13] MEDS ORDERED: MORPHINE SULFATE INJ 2 MG/ml SYRG IV ONE (21:30)
[2022-04-14] MEDS: ACCU-CHEK COMFORT CURVE STRIP VI SCH ×2 (00:56→06:01)
[2022-04-14] MEDS: InsuLIN REG 1unit/0.01ml Soln (100units/ml) SC SCH ×2 (00:57→06:02)
[2022-04-14] MEDS: TEMAZEPAM 15 MG CAP PO PRN (00:59)
[2022-04-14 04:48] VITALS: BP 114/52
[2022-04-14] MEDS: HYDROcodone-ACET 10/325MG TAB PO PRN (06:02)
[2022-04-14] MEDS ORDERED: HYDR-4798 PO (08:19)
[2022-04-14] MEDS: ASPirin 81 mg TAB PO SCH (08:55)
[2022-04-14] MEDS: PANTOPRAZOLE 40 MG TAB PO SCH (08:55)
[2022-04-14] MEDS: ENALAPRIL MALEATE 10 MG TAB PO SCH (08:56)
[2022-04-14] MEDS: FUROSEMIDE 20 MG TAB PO SCH (08:56)
[2022-04-14] MEDS: MORPHINE SULFATE INJ 2 MG/ml SYRG IV PRN (09:17)
[2022-04-14 09:57] VITALS: BP 126/72
[2022-04-14 10:21] VITALS: BP 126/72
== END 2022-04-14 11:17 | disposition home or self-care (01) | DRG 286 ==
LOC: ER 16:40 → TELE 21:54 → TELE-EAST 04-12 19:12
PROVIDERS: ADMIT Nurse Practitioner; ATTEND Family Medicine
PROC: 4A023N7 Measurement of Cardiac Sampling and Pressure, Left Heart, Percutaneous Approach (ICD-10-PCS; principal; 2022-04-13)
PROC: B2111ZZ Fluoroscopy of Multiple Coronary Arteries using Low Osmolar Contrast (ICD-10-PCS; 2022-04-13)
PROC: B2151ZZ Fluoroscopy of Left Heart using Low Osmolar Contrast (ICD-10-PCS; 2022-04-13)
DX: I20.0 Unstable angina (principal); I50.43 Acute on chronic combined systolic (congestive) and diastolic (congestive) heart failure; J44.1 Chronic obstructive pulmonary disease with (acute) exacerbation; E44.0 Moderate protein-calorie malnutrition; E11.21 Type 2 diabetes mellitus with diabetic nephropathy; E11.40 Type 2 diabetes mellitus with diabetic neuropathy, unspecified; E66.01 Morbid (severe) obesity due to excess calories; I11.0 Hypertensive heart disease with heart failure; E03.9 Hypothyroidism, unspecified; E78.5 Hyperlipidemia, unspecified; Z20.822 Contact with and (suspected) exposure to COVID-19; F32.A Depression, unspecified; E78.00 Pure hypercholesterolemia, unspecified; F41.9 Anxiety disorder, unspecified; G89.29 Other chronic pain; I25.2 Old myocardial infarction; Z82.49 Family history of ischemic heart disease and other diseases of the circulatory system; Z86.711 Personal history of pulmonary embolism; Z95.828 Presence of other vascular implants and grafts; Z68.36 Body mass index [BMI] 36.0-36.9, adult; Z83.3 Family history of diabetes mellitus; Z89.611 Acquired absence of right leg above knee; Z95.0 Presence of cardiac pacemaker; Z98.61 Coronary angioplasty status; Z88.8 Allergy status to other drugs, medicaments and biological substances; Z79.01 Long term (current) use of anticoagulants
CPT/HCPCS: 36415; 71045; 71275; 80048; 80053; 81001; 82962; 83735; 83880; 84484; 85025; 85379; 85610; 85730; 86850; 86900; 86901; 93005; 93971; 96372; 96374; 96375; 96376; G0378; J1815; J1885; J2250; J2405

== ENCOUNTER 2022-05-28 13:00 | Emergency (ER) | payer OTHER, MEDICAID ==
[~2022-05-28] VITALS: Ht 167.6 cm; Wt 95.4 kg
[2022-05-28] MEDS ORDERED: HYDROcodone-ACET 10/325MG TAB PO ONE (13:30)
[2022-05-28] MEDS ORDERED: IBUPROFEN 800 MG TAB PO ONE (13:30)
[2022-05-28 13:59] LABS: Basophils # (auto) 0 10 ^3/uL (0-0.2); Basophils % (auto) 0.2 % (0.0-2.0); Eosinophils # (auto) 0 10 ^3/uL (0-0.8); Eosinophils % (auto) 0.6 % (0.0-7.0); Hematocrit 45.2 % (41.0-53.0); Hemoglobin 14.5 g/dL (13.5-17.5); Lymphocytes # (auto) 1.2 10 ^3/uL (0.4-5.4); Lymphocytes % (auto) 18.1 % (10.0-50.0); Mean Corpuscular Hemoglobin 27.7 pg (28.0-32.0); Mean Corpuscular Hgb Conc. 32.1 g/dL (32.0-36.0); Mean Corpuscular Volume 86.2 fL (80.0-100.0); Monocytes # (auto) 0.7 10 ^3/uL (0-1.3); Monocytes % (auto) 10.5 % (0.0-12.0); Neutrophils # (auto) 4.5 10 ^3/uL (1.6-8.6); Neutrophils % (auto) 70.6 % (37.0-80.0); Red Blood Cells 5.24 10^6/uL (4.5-5.90); Red Cell Distribution Width 15.7 % (11.8-14.3); White Blood Cell 6.3 10^3/uL (4.4-10.8)
[2022-05-28 14:18] LABS: Albumin 3.2 g/dL (3.4-5.0); Calcium 9.2 mg/dL (8.5-10.1); Potassium 4.4 mmol/L (3.5-5.1)
[2022-05-28 14:22] LABS: BUN/Creatinine Ratio 17.5
[2022-05-28 14:23] LABS: Bilirubin, Total 0.6 mg/dL (0.2-1.0); INR 1.08 (0.9-1.15); Partial Thromboplastin Time 31.6 sec (24.6-33.4); Total Protein 7.3 g/dL (6.4-8.2)
[2022-05-28 14:28] LABS: Urine Bacteria NONE SEEN /hpf (None Seen); Urine Blood Negative /uL (Negative); Urine Specific Gravity 1.017 (1.001-1.035); Urine WBC 1 /hpf (0 - 3)
[2022-05-28 15:15] VITALS: BP 150/80
== END 2022-05-28 15:20 | disposition home or self-care (01) ==
LOC: ER 13:00
DX: R10.32 Left lower quadrant pain (principal); I11.0 Hypertensive heart disease with heart failure; I50.9 Heart failure, unspecified; J44.9 Chronic obstructive pulmonary disease, unspecified; E78.5 Hyperlipidemia, unspecified; I25.2 Old myocardial infarction
CPT/HCPCS: 36415; 74176; 80053; 81001; 84484; 85025; 85610; 85730; 93005

== ENCOUNTER 2022-09-21 12:52 | Inpatient (IN) | payer OTHER, MEDICAID ==
[~2022-09-21] VITALS: Ht 167.6 cm; Wt 101.1 kg
[2022-09-21] MEDS: KETOROLAC TROMETH 60MG/2ML VIAL IM ONE ×2 (14:26→14:30)
[2022-09-21] MEDS ORDERED: HYDROcodone-ACET 10/325MG TAB PO ONE (14:45)
[2022-09-21 15:09] LABS: Basophils # (auto) 0 10 ^3/uL (0-0.2); Basophils % (auto) 0.6 % (0.0-2.0); Eosinophils # (auto) 0.1 10 ^3/uL (0-0.8); Hematocrit 44.7 % (41.0-53.0); Hemoglobin 14.7 g/dL (13.5-17.5); Lymphocytes # (auto) 1.3 10 ^3/uL (0.4-5.4); Lymphocytes % (auto) 20.2 % (10.0-50.0); Mean Corpuscular Hemoglobin 29.4 pg (28.0-32.0); Mean Corpuscular Hgb Conc. 32.9 g/dL (32.0-36.0); Mean Corpuscular Volume 89.3 fL (80.0-100.0); Monocytes # (auto) 0.6 10 ^3/uL (0-1.3); Monocytes % (auto) 9.8 % (0.0-12.0); Neutrophils # (auto) 4.3 10 ^3/uL (1.6-8.6); Neutrophils % (auto) 68.4 % (37.0-80.0); Nucleated Red Blood Cells % 0.1 %; Red Blood Cells 5.01 10^6/uL (4.5-5.90); Red Cell Distribution Width 14.9 % (11.8-14.3); White Blood Cell 6.3 10^3/uL (4.4-10.8)
[2022-09-21 15:28] LABS: Alanine Aminotransferase 39 U/L (16-61); Albumin 3.3 g/dL (3.4-5.0); Anion Gap 8 (5-15); Aspartate Aminotransferase 27 U/L (15-37); BUN/Creatinine Ratio 16.7; Blood Urea Nitrogen 16 mg/dL (7-18); Calcium 9.4 mg/dL (8.5-10.1); Carbon Dioxide 24 mmol/L (21-32); Chloride 103 mmol/L (98-107); GFR African American 102 mL/min; GFR Non-African American 84 mL/min; Magnesium 2.1 mg/dL (1.6-2.6); Potassium 4.5 mmol/L (3.5-5.1); Sodium 135 mmol/L (136-145)
[2022-09-21 15:30] LABS: Alkaline Phosphatase 157 U/L (45-117); Bilirubin, Total 0.2 mg/dL (0.2-1.0); Total Protein 7.3 g/dL (6.4-8.2)
[2022-09-21 15:33] LABS: INR 0.97 (0.9-1.15); Partial Thromboplastin Time 27.6 sec (24.6-33.4)
[2022-09-21 15:36] LABS: Glucose 410 mg/dL (74-106)
[2022-09-21 15:38] LABS: Urine Bacteria NONE SEEN /hpf (None Seen); Urine Blood Negative /uL (Negative); Urine Specific Gravity 1.033 (1.001-1.035); Urine WBC 1 /hpf (0 - 3)
[2022-09-21] MEDS ORDERED: INSULIN LISPRO (HUMAN) 100 UNITS/ML ML SC ONE ×2 (16:15→17:30)
[2022-09-21] MEDS ORDERED: HYDROmorphone HCL 2 MG/ML VL/or syr IM ONE ×2 (16:15→20:45)
[2022-09-21] MEDS ORDERED: IOHEXOL 300 MG/ML 100ML BOTTLE IJ ONE (17:46)
[2022-09-21] MEDS ORDERED: ACETAMINOPHEN 325 MG TAB PO PRN (22:30)
[2022-09-21] MEDS ORDERED: ONDANSETRON HCL 4 MG/2 ML VIAL IV PRN (22:30)
[2022-09-21] MEDS ORDERED: ALBUMIN 25% 100 ML IV ONE (22:30)
[2022-09-21] MEDS ORDERED: DEXTROSE (50%) 50ML SYRG IV PRN (22:30)
[2022-09-21] MEDS ORDERED: DOCUSATE SOD 100 MG CAP PO PRN (22:30)
[2022-09-21] MEDS ORDERED: MORPHINE SULFATE INJ 2 MG/ml SYRG IV PRN (23:45)
[2022-09-21] MEDS ORDERED: NITROGLYCERIN 0.4 MG SL TAB SL PRN (23:45)
[2022-09-22] VITALS (7 sets, daily range): BP systolic 84–118; BP diastolic 56–67
[2022-09-22] MEDS: ACCU-CHEK COMFORT CURVE STRIP VI SCH ×7 (00:28→23:09)
[2022-09-22] MEDS: InsuLIN REG 1unit/0.01ml Soln (100units/ml) SC SCH ×7 (00:29→23:21)
[2022-09-22] MEDS: SODIUM CHLOR 0.9% PF (SALINE LOCK) 10ML VIAL/SYR IV SCH ×3 (06:09→22:08)
[2022-09-22 06:39] LABS: Albumin 3.2 g/dL (3.4-5.0); Calcium 8.7 mg/dL (8.5-10.1); Potassium 4.3 mmol/L (3.5-5.1)
[2022-09-22 06:44] LABS: Bilirubin, Total 0.4 mg/dL (0.2-1.0); Total Protein 7.3 g/dL (6.4-8.2)
[2022-09-22] MEDS: HYDROmorphone HCL 2 MG/ML VL/or syr IV PRN ×3 (07:34→23:23)
[2022-09-22] MEDS: APIXABAN 5 MG TAB PO SCH ×2 (08:58→22:08)
[2022-09-22] MEDS: ASPirin 81 mg TAB PO SCH (08:59)
[2022-09-22 09:14] LABS: Basophils # (auto) 0 10 ^3/uL (0-0.2); Basophils % (auto) 0.7 % (0.0-2.0); Eosinophils # (auto) 0.1 10 ^3/uL (0-0.8); Eosinophils % (auto) 1.8 % (0.0-7.0); Hematocrit 42.9 % (41.0-53.0); Hemoglobin 14.3 g/dL (13.5-17.5); Lymphocytes # (auto) 1.2 10 ^3/uL (0.4-5.4); Mean Corpuscular Hemoglobin 29.7 pg (28.0-32.0); Mean Corpuscular Hgb Conc. 33.3 g/dL (32.0-36.0); Mean Corpuscular Volume 89.2 fL (80.0-100.0); Monocytes # (auto) 0.6 10 ^3/uL (0-1.3); Monocytes % (auto) 11.3 % (0.0-12.0); Neutrophils # (auto) 3.1 10 ^3/uL (1.6-8.6); Neutrophils % (auto) 62.2 % (37.0-80.0); Nucleated Red Blood Cells % 0.1 %; Red Blood Cells 4.81 10^6/uL (4.5-5.90); Red Cell Distribution Width 15.2 % (11.8-14.3); White Blood Cell 5.1 10^3/uL (4.4-10.8)
[2022-09-22] MEDS ORDERED: ENALAPRIL MALEATE 10 MG TAB PO ONE (14:30)
[2022-09-22] MEDS ORDERED: LIDOCAINE HCL 5 % TOP OINT 35 GM TOP PRN (16:45)
[2022-09-22] MEDS: TAMSULOSIN HYDROCHLORIDE 0.4 MG CAP PO SCH (17:58)
[2022-09-22] MEDS: HYDROcodone-ACET 5/325MG TAB PO PRN (20:38)
[2022-09-22] MEDS: MUPIROCIN 2% OINT 15gm or 22gm TOP SCH (22:00)
[2022-09-23 01:53] VITALS: BP 77/40
[2022-09-23] MEDS: ACCU-CHEK COMFORT CURVE STRIP VI SCH ×5 (04:12→20:31)
[2022-09-23] MEDS: InsuLIN REG 1unit/0.01ml Soln (100units/ml) SC SCH ×5 (04:16→20:34)
[2022-09-23] MEDS: HYDROmorphone HCL 2 MG/ML VL/or syr IV PRN ×3 (04:41→21:52)
[2022-09-23 05:00] VITALS: BP 94/59
[2022-09-23] MEDS: SODIUM CHLOR 0.9% PF (SALINE LOCK) 10ML VIAL/SYR IV SCH ×3 (05:34→21:51)
[2022-09-23 07:51] LABS: Basophils # (auto) 0 10 ^3/uL (0-0.2); Basophils % (auto) 0.3 % (0.0-2.0); Eosinophils # (auto) 0.1 10 ^3/uL (0-0.8); Eosinophils % (auto) 1.9 % (0.0-7.0); Hemoglobin 13.7 g/dL (13.5-17.5); Lymphocytes # (auto) 0.9 10 ^3/uL (0.4-5.4); Lymphocytes % (auto) 17.9 % (10.0-50.0); Mean Corpuscular Hemoglobin 29.3 pg (28.0-32.0); Mean Corpuscular Hgb Conc. 32.6 g/dL (32.0-36.0); Mean Corpuscular Volume 89.7 fL (80.0-100.0); Monocytes # (auto) 0.6 10 ^3/uL (0-1.3); Monocytes % (auto) 10.7 % (0.0-12.0); Neutrophils # (auto) 3.6 10 ^3/uL (1.6-8.6); Neutrophils % (auto) 69.2 % (37.0-80.0); Nucleated Red Blood Cells % 0.1 %; Red Blood Cells 4.69 10^6/uL (4.5-5.90); Red Cell Distribution Width 14.9 % (11.8-14.3); White Blood Cell 5.1 10^3/uL (4.4-10.8)
[2022-09-23 08:19] LABS: Albumin 3.2 g/dL (3.4-5.0); BUN/Creatinine Ratio 22.7; Calcium 8.7 mg/dL (8.5-10.1); Potassium 4.5 mmol/L (3.5-5.1)
[2022-09-23 08:22] LABS: Bilirubin, Total 0.4 mg/dL (0.2-1.0); Total Protein 6.5 g/dL (6.4-8.2)
[2022-09-23] MEDS: APIXABAN 5 MG TAB PO SCH ×2 (08:26→21:51)
[2022-09-23] MEDS: ASPirin 81 mg TAB PO SCH (08:26)
[2022-09-23] MEDS: HYDROcodone-ACET 5/325MG TAB PO PRN (08:27)
[2022-09-23] MEDS: ENALAPRIL MALEATE 10 MG TAB PO SCH (08:31)
[2022-09-23] MEDS: MUPIROCIN 2% OINT 15gm or 22gm TOP SCH ×2 (08:32→21:51)
[2022-09-23 09:12] VITALS: BP 105/64
[2022-09-23 12:30] VITALS: BP 94/58
[2022-09-23 16:48] VITALS: BP 117/51
[2022-09-23] MEDS: TAMSULOSIN HYDROCHLORIDE 0.4 MG CAP PO SCH (19:08)
[2022-09-23 22:00] VITALS: BP 100/52
[2022-09-24] MEDS: ACCU-CHEK COMFORT CURVE STRIP VI SCH ×6 (00:06→20:28)
[2022-09-24] MEDS: InsuLIN REG 1unit/0.01ml Soln (100units/ml) SC SCH ×6 (00:08→20:32)
[2022-09-24 04:04] VITALS: BP 110/75
[2022-09-24] MEDS: HYDROmorphone HCL 2 MG/ML VL/or syr IV PRN ×4 (04:04→17:41)
[2022-09-24 05:00] VITALS: BP 103/59
[2022-09-24] MEDS: SODIUM CHLOR 0.9% PF (SALINE LOCK) 10ML VIAL/SYR IV SCH ×3 (05:42→21:58)
[2022-09-24 06:09] LABS: Basophils # (auto) 0 10 ^3/uL (0-0.2); Basophils % (auto) 0.2 % (0.0-2.0); Eosinophils # (auto) 0.1 10 ^3/uL (0-0.8); Eosinophils % (auto) 2.3 % (0.0-7.0); Hematocrit 40.3 % (41.0-53.0); Hemoglobin 13.2 g/dL (13.5-17.5); Lymphocytes # (auto) 0.9 10 ^3/uL (0.4-5.4); Lymphocytes % (auto) 22.1 % (10.0-50.0); Mean Corpuscular Hemoglobin 29.4 pg (28.0-32.0); Mean Corpuscular Hgb Conc. 32.6 g/dL (32.0-36.0); Monocytes # (auto) 0.5 10 ^3/uL (0-1.3); Monocytes % (auto) 13.2 % (0.0-12.0); Neutrophils # (auto) 2.6 10 ^3/uL (1.6-8.6); Neutrophils % (auto) 62.2 % (37.0-80.0); Nucleated Red Blood Cells % 0.1 %; Red Blood Cells 4.48 10^6/uL (4.5-5.90); Red Cell Distribution Width 15.2 % (11.8-14.3); White Blood Cell 4.2 10^3/uL (4.4-10.8)
[2022-09-24 06:17] LABS: Potassium 4.4 mmol/L (3.5-5.1)
[2022-09-24 06:27] LABS: Albumin 3.2 g/dL (3.4-5.0); BUN/Creatinine Ratio 22.9; Bilirubin, Total 0.5 mg/dL (0.2-1.0); Calcium 8.5 mg/dL (8.5-10.1); Total Protein 6.5 g/dL (6.4-8.2)
[2022-09-24 08:13] VITALS: BP 122/75
[2022-09-24] MEDS: ENALAPRIL MALEATE 10 MG TAB PO SCH (08:25)
[2022-09-24] MEDS: ASPirin 81 mg TAB PO SCH (08:26)
[2022-09-24] MEDS: MUPIROCIN 2% OINT 15gm or 22gm TOP SCH ×2 (08:26→21:59)
[2022-09-24] MEDS: APIXABAN 5 MG TAB PO SCH (08:26)
[2022-09-24] MEDS: ENOXAPARIN SOD 100 MG/1 ML SYRINGE SC SCH ×2 (10:40→21:58)
[2022-09-24 13:00] VITALS: BP 120/69
[2022-09-24 14:36] LABS: Urine Bacteria FEW /hpf (None Seen); Urine Blood Negative /uL (Negative); Urine Specific Gravity 1.007 (1.001-1.035); Urine WBC <1 /hpf (0 - 3)
[2022-09-24 17:00] VITALS: BP 100/48
[2022-09-24] MEDS: TAMSULOSIN HYDROCHLORIDE 0.4 MG CAP PO SCH (17:35)
[2022-09-24 22:00] VITALS: BP 98/56
[2022-09-24] MEDS ORDERED: ATORVASTATIN 20 MG TAB PO SCH (22:00)
[2022-09-25] MEDS: ACCU-CHEK COMFORT CURVE STRIP VI SCH ×5 (00:20→17:14)
[2022-09-25] MEDS: InsuLIN REG 1unit/0.01ml Soln (100units/ml) SC SCH ×5 (00:27→17:24)
[2022-09-25 02:08] VITALS: BP 105/72
[2022-09-25] MEDS: HYDROmorphone HCL 2 MG/ML VL/or syr IV PRN ×3 (02:08→13:59)
[2022-09-25 05:00] VITALS: BP 118/55
[2022-09-25] MEDS: SODIUM CHLOR 0.9% PF (SALINE LOCK) 10ML VIAL/SYR IV SCH ×2 (05:29→13:07)
[2022-09-25 06:04] LABS: Basophils # (auto) 0 10 ^3/uL (0-0.2); Basophils % (auto) 0.3 % (0.0-2.0); Eosinophils # (auto) 0.1 10 ^3/uL (0-0.8); Eosinophils % (auto) 2.1 % (0.0-7.0); Hematocrit 42.2 % (41.0-53.0); Hemoglobin 13.8 g/dL (13.5-17.5); Lymphocytes % (auto) 25.7 % (10.0-50.0); Mean Corpuscular Hemoglobin 29.4 pg (28.0-32.0); Mean Corpuscular Hgb Conc. 32.8 g/dL (32.0-36.0); Mean Corpuscular Volume 89.7 fL (80.0-100.0); Monocytes # (auto) 0.5 10 ^3/uL (0-1.3); Monocytes % (auto) 12.3 % (0.0-12.0); Neutrophils # (auto) 2.2 10 ^3/uL (1.6-8.6); Neutrophils % (auto) 59.6 % (37.0-80.0); Nucleated Red Blood Cells % 0.1 %; White Blood Cell 3.8 10^3/uL (4.4-10.8)
[2022-09-25 06:26] LABS: Potassium 4.3 mmol/L (3.5-5.1)
[2022-09-25 06:34] LABS: BUN/Creatinine Ratio 23.9; Bilirubin, Total 0.4 mg/dL (0.2-1.0); Calcium 8.8 mg/dL (8.5-10.1); Total Protein 6.8 g/dL (6.4-8.2)
[2022-09-25] MEDS: ENOXAPARIN SOD 100 MG/1 ML SYRINGE SC SCH (08:30)
[2022-09-25] MEDS: ASPirin 81 mg TAB PO SCH (08:30)
[2022-09-25] MEDS: MUPIROCIN 2% OINT 15gm or 22gm TOP SCH (08:31)
[2022-09-25 09:00] VITALS: BP 109/68
[2022-09-25 13:00] VITALS: BP 99/55
[2022-09-25] MEDS ORDERED: CLOTRIMAZOLE 1 % CREAM 15GM TOP ONE (13:15)
[2022-09-25] MEDS ORDERED: HYDROCORTONE 1% TOPICAL CREAM 30 GM TUBE TOP ONE (13:15)
[2022-09-25] MEDS ORDERED: CLOT1CRE56 TOP (13:17)
[2022-09-25] MEDS ORDERED: TAM04C PO (13:17)
[2022-09-25 14:16] VITALS: BP 109/69
[2022-09-25 17:04] VITALS: BP 112/67
[2022-09-25] MEDS: TAMSULOSIN HYDROCHLORIDE 0.4 MG CAP PO SCH (17:14)
[2022-09-25] MEDS ORDERED: metFORMIN HYDROCHLORIDE 500 MG TAB PO SCH (18:00)
[2022-09-25] MEDS ORDERED: HYDROCORTONE 1% TOPICAL CREAM 30 GM TUBE TOP SCH (22:00)
[2022-09-25] MEDS ORDERED: CLOTRIMAZOLE 1 % CREAM 15GM TOP SCH (22:00)
== END 2022-09-25 19:53 | disposition home or self-care (01) | DRG 728 ==
LOC: ER 12:52 → TELE 23:44 → TELE-EAST 09-22 03:41
PROVIDERS: ADMIT Nurse Practitioner Family; ATTEND Student in an Organized Health Care Education/Training Program
DX: N47.6 Balanoposthitis (principal); C78.00 Secondary malignant neoplasm of unspecified lung; R33.9 Retention of urine, unspecified; E03.9 Hypothyroidism, unspecified; E11.65 Type 2 diabetes mellitus with hyperglycemia; E66.01 Morbid (severe) obesity due to excess calories; I95.9 Hypotension, unspecified; E78.5 Hyperlipidemia, unspecified; Z20.822 Contact with and (suspected) exposure to COVID-19; I11.0 Hypertensive heart disease with heart failure; J44.9 Chronic obstructive pulmonary disease, unspecified; I25.10 Atherosclerotic heart disease of native coronary artery without angina pectoris; Z88.8 Allergy status to other drugs, medicaments and biological substances; Z95.0 Presence of cardiac pacemaker; Z95.5 Presence of coronary angioplasty implant and graft; Z91.199 Patient's noncompliance with other medical treatment and regimen due to unspecified reason; Z88.6 Allergy status to analgesic agent; Z89.611 Acquired absence of right leg above knee; Z87.891 Personal history of nicotine dependence; Z86.711 Personal history of pulmonary embolism; Z83.3 Family history of diabetes mellitus; Z82.49 Family history of ischemic heart disease and other diseases of the circulatory system; Z80.9 Family history of malignant neoplasm, unspecified; Z79.899 Other long term (current) drug therapy; Z79.84 Long term (current) use of oral hypoglycemic drugs; Z79.01 Long term (current) use of anticoagulants; I25.2 Old myocardial infarction; Z68.36 Body mass index [BMI] 36.0-36.9, adult
CPT/HCPCS: 36415; 36600; 71045; 71260; 74176; 80053; 81001; 82805; 82962; 83036; 83735; 83880; 84154; 84443; 84484; 85007; 85025; 85027; 85610; 85730; 87086; 87426; 93005; 93306; 96365; 96372; 96375; G0378; J1815; J1885; P9047

== ENCOUNTER 2022-10-31 13:32 | Inpatient (IN) | payer OTHER, MEDICAID ==
[~2022-10-31] VITALS: Ht 167.6 cm; Wt 96.3 kg
[~2022-10-31 13:32] MED LIST changes: +CLOT1CRE56 TOP; +TAM04C PO
[2022-10-31 14:36] LABS: Basophils # (auto) 0 10 ^3/uL (0-0.2); Basophils % (auto) 0.6 % (0.0-2.0); Eosinophils # (auto) 0.1 10 ^3/uL (0-0.8); Eosinophils % (auto) 0.9 % (0.0-7.0); Hematocrit 48.7 % (41.0-53.0); Hemoglobin 15.7 g/dL (13.5-17.5); Lymphocytes # (auto) 1.3 10 ^3/uL (0.4-5.4); Lymphocytes % (auto) 23.7 % (10.0-50.0); Mean Corpuscular Hemoglobin 29.1 pg (28.0-32.0); Mean Corpuscular Hgb Conc. 32.3 g/dL (32.0-36.0); Monocytes # (auto) 0.4 10 ^3/uL (0-1.3); Monocytes % (auto) 7.8 % (0.0-12.0); Neutrophils # (auto) 3.8 10 ^3/uL (1.6-8.6); Nucleated Red Blood Cells % 0.2 %; Red Blood Cells 5.41 10^6/uL (4.5-5.90); Red Cell Distribution Width 14.6 % (11.8-14.3); White Blood Cell 5.7 10^3/uL (4.4-10.8)
[2022-10-31 15:02] LABS: Albumin 3.2 g/dL (3.4-5.0); BUN/Creatinine Ratio 13.6 (10.0-20.0); Calcium 9.7 mg/dL (8.5-10.1); Potassium 3.9 mmol/L (3.5-5.1)
[2022-10-31 15:05] LABS: Bilirubin, Total 0.3 mg/dL (0.2-1.0); Total Protein 7.6 g/dL (6.4-8.2)
[2022-10-31 15:21] LABS: Partial Thromboplastin Time 26.5 sec (24.6-33.4)
[2022-10-31] MEDS ORDERED: MORPHINE SULFATE INJ 2 MG/ml SYRG IM ONE (15:30)
[2022-10-31] MEDS ORDERED: ONDANSETRON ODT 4 MG TAB PO ONE (15:30)
[2022-10-31 17:16] LABS: Urine Bacteria NONE SEEN /hpf (None Seen); Urine Blood Negative /uL (Negative); Urine Specific Gravity 1.042 (1.001-1.035); Urine WBC 1 /hpf (0 - 3)
[2022-10-31] MEDS ORDERED: NITROGLYCERIN 0.4 MG SL TAB SL PRN (19:30)
[2022-10-31] MEDS ORDERED: ACETAMINOPHEN 325 MG TAB PO PRN (19:30)
[2022-10-31] MEDS ORDERED: DEXTROSE (50%) 50ML SYRG IV PRN (19:30)
[2022-10-31] MEDS ORDERED: PANTOPRAZOLE 40 MG/10 ML VIAL INJ IV ONE (20:45)
[2022-10-31] MEDS: ATORVASTATIN 20 MG TAB PO SCH (22:33)
[2022-10-31] MEDS: LACTATED RINGER'S 1,000 ML IV SCH (22:33)
[2022-10-31] MEDS: MORPHINE SULFATE INJ 2 MG/ml SYRG IV PRN (23:05)
[2022-10-31] MEDS: ONDANSETRON HCL 4 MG/2 ML VIAL IV PRN (23:05)
[2022-11-01] MEDS: ACCU-CHEK COMFORT CURVE STRIP VI SCH ×5 (00:20→23:33)
[2022-11-01] MEDS: InsuLIN REG 1unit/0.01ml Soln (100units/ml) SC SCH ×5 (00:29→23:33)
[2022-11-01 01:14] LABS: Hematocrit 46.2 % (41.0-53.0); Hemoglobin 15.1 g/dL (13.5-17.5)
[2022-11-01] MEDS: MORPHINE SULFATE INJ 2 MG/ml SYRG IV PRN ×3 (02:58→14:52)
[2022-11-01 06:18] LABS: Basophils # (auto) 0 10 ^3/uL (0-0.2); Basophils % (auto) 0.3 % (0.0-2.0); Eosinophils # (auto) 0.1 10 ^3/uL (0-0.8); Eosinophils % (auto) 1.3 % (0.0-7.0); Hematocrit 43.8 % (41.0-53.0); Hemoglobin 14.7 g/dL (13.5-17.5); Lymphocytes # (auto) 1.4 10 ^3/uL (0.4-5.4); Lymphocytes % (auto) 32.4 % (10.0-50.0); Mean Corpuscular Hemoglobin 30.3 pg (28.0-32.0); Mean Corpuscular Hgb Conc. 33.6 g/dL (32.0-36.0); Mean Corpuscular Volume 90.2 fL (80.0-100.0); Monocytes # (auto) 0.4 10 ^3/uL (0-1.3); Monocytes % (auto) 10.1 % (0.0-12.0); Neutrophils # (auto) 2.4 10 ^3/uL (1.6-8.6); Neutrophils % (auto) 55.9 % (37.0-80.0); Red Blood Cells 4.86 10^6/uL (4.5-5.90); Red Cell Distribution Width 14.8 % (11.8-14.3); White Blood Cell 4.2 10^3/uL (4.4-10.8)
[2022-11-01 06:36] LABS: Potassium 4.1 mmol/L (3.5-5.1)
[2022-11-01 06:46] LABS: Albumin 2.9 g/dL (3.4-5.0); Bilirubin, Total 0.4 mg/dL (0.2-1.0); Calcium 9.1 mg/dL (8.5-10.1); Total Protein 6.5 g/dL (6.4-8.2)
[2022-11-01] MEDS: ONDANSETRON HCL 4 MG/2 ML VIAL IV PRN ×2 (08:57→14:52)
[2022-11-01] MEDS: LACTATED RINGER'S 1,000 ML IV SCH (10:01)
[2022-11-01] MEDS: PANTOPRAZOLE 40 MG/10 ML VIAL INJ IV SCH (10:07)
[2022-11-01] MEDS: ENALAPRIL MALEATE 10 MG TAB PO SCH (10:07)
[2022-11-01] MEDS: CHOLECALCIFEROL (VITD3) 2,000 UNIT CAP/TAB PO SCH (10:08)
[2022-11-01] MEDS: FUROSEMIDE 20 MG TAB PO SCH (10:08)
[2022-11-01 12:12] LABS: Hematocrit 47.5 % (41.0-53.0); Hemoglobin 15.4 g/dL (13.5-17.5)
[2022-11-01 17:00] VITALS: BP 88/45
[2022-11-01] MEDS: TAMSULOSIN HYDROCHLORIDE 0.4 MG CAP PO SCH (18:12)
[2022-11-01] MEDS: DICYCLOMINE HCL 10 MG CAP PO SCH ×2 (18:12→21:57)
[2022-11-01 18:17] LABS: Hematocrit 45.7 % (41.0-53.0); Hemoglobin 14.6 g/dL (13.5-17.5)
[2022-11-01] MEDS: HYDROCORTISONE ACET 25 MG RECTAL SUPP PR SCH (21:56)
[2022-11-01] MEDS: ATORVASTATIN 20 MG TAB PO SCH (21:56)
[2022-11-01] MEDS: MUPIROCIN 2% OINT 15gm or 22gm TOP SCH (21:57)
[2022-11-01] MEDS: ACETAMINOPHEN 325 MG TAB PO PRN (21:57)
[2022-11-01 22:00] VITALS: BP 99/64
[2022-11-02] MEDS: MORPHINE SULFATE INJ 2 MG/ml SYRG IV PRN ×2 (04:09→20:38)
[2022-11-02 05:00] VITALS: BP 108/67
[2022-11-02] MEDS: ACCU-CHEK COMFORT CURVE STRIP VI SCH ×4 (06:08→23:30)
[2022-11-02] MEDS: DICYCLOMINE HCL 10 MG CAP PO SCH ×4 (06:09→22:31)
[2022-11-02] MEDS: InsuLIN REG 1unit/0.01ml Soln (100units/ml) SC SCH ×4 (06:12→23:32)
[2022-11-02 09:00] VITALS: BP 99/63
[2022-11-02] MEDS: ACETAMINOPHEN 325 MG TAB PO PRN (09:59)
[2022-11-02] MEDS: FUROSEMIDE 20 MG TAB PO SCH (10:00)
[2022-11-02] MEDS: CHOLECALCIFEROL (VITD3) 2,000 UNIT CAP/TAB PO SCH (10:00)
[2022-11-02] MEDS: HYDROCORTISONE ACET 25 MG RECTAL SUPP PR SCH ×2 (10:00→22:31)
[2022-11-02] MEDS: PANTOPRAZOLE 40 MG/10 ML VIAL INJ IV SCH (10:00)
[2022-11-02] MEDS: ENALAPRIL MALEATE 10 MG TAB PO SCH (10:00)
[2022-11-02] MEDS: MUPIROCIN 2% OINT 15gm or 22gm TOP SCH ×2 (10:00→22:32)
[2022-11-02] MEDS ORDERED: KETOROLAC TROMETH 30 MG/ML 1ML VIAL IV ONE (10:15)
[2022-11-02] MEDS: SODIUM CHLORIDE 0.9% 1,000 ML IV SCH ×2 (11:51→22:38)
[2022-11-02] MEDS: PHENAZOPYRIDINE HCL 100 MG TAB PO SCH ×2 (11:58→17:37)
[2022-11-02] MEDS: INSULIN LANTUS (GLARGINE) 1 /0.01ml (100units/ml) SC SCH (12:02)
[2022-11-02 13:00] VITALS: BP 93/68
[2022-11-02 16:56] VITALS: BP 99/60
[2022-11-02] MEDS: TAMSULOSIN HYDROCHLORIDE 0.4 MG CAP PO SCH (17:37)
[2022-11-02 22:00] VITALS: BP 127/70
[2022-11-02] MEDS: ATORVASTATIN 20 MG TAB PO SCH (22:32)
[2022-11-03] MEDS: ACETAMINOPHEN 325 MG TAB PO PRN (02:57)
[2022-11-03] MEDS: DICYCLOMINE HCL 10 MG CAP PO SCH ×4 (05:19→21:26)
[2022-11-03] MEDS: ACCU-CHEK COMFORT CURVE STRIP VI SCH ×4 (05:20→23:55)
[2022-11-03] MEDS: MORPHINE SULFATE INJ 2 MG/ml SYRG IV PRN ×4 (05:26→18:31)
[2022-11-03 05:29] VITALS: BP 105/55
[2022-11-03] MEDS: InsuLIN REG 1unit/0.01ml Soln (100units/ml) SC SCH ×4 (05:30→23:56)
[2022-11-03 06:22] LABS: Basophils # (auto) 0 10 ^3/uL (0-0.2); Basophils % (auto) 0.5 % (0.0-2.0); Eosinophils # (auto) 0 10 ^3/uL (0-0.8); Eosinophils % (auto) 0.6 % (0.0-7.0); Hematocrit 40.2 % (41.0-53.0); Hemoglobin 13.4 g/dL (13.5-17.5); Lymphocytes # (auto) 0.9 10 ^3/uL (0.4-5.4); Lymphocytes % (auto) 22.3 % (10.0-50.0); Mean Corpuscular Hemoglobin 29.7 pg (28.0-32.0); Mean Corpuscular Hgb Conc. 33.4 g/dL (32.0-36.0); Mean Corpuscular Volume 88.8 fL (80.0-100.0); Monocytes # (auto) 0.5 10 ^3/uL (0-1.3); Monocytes % (auto) 11.3 % (0.0-12.0); Neutrophils # (auto) 2.7 10 ^3/uL (1.6-8.6); Neutrophils % (auto) 65.3 % (37.0-80.0); Nucleated Red Blood Cells % 0.1 %; Red Blood Cells 4.53 10^6/uL (4.5-5.90); Red Cell Distribution Width 14.9 % (11.8-14.3); White Blood Cell 4.1 10^3/uL (4.4-10.8)
[2022-11-03 06:37] LABS: Calcium 8.4 mg/dL (8.5-10.1); Potassium 4.1 mmol/L (3.5-5.1)
[2022-11-03 08:00] VITALS: BP 127/81
[2022-11-03] MEDS: SODIUM CHLORIDE 0.9% 1,000 ML IV SCH ×2 (08:30→15:45)
[2022-11-03] MEDS ORDERED: CHOLECALCIFEROL (VITD3) 2,000 UNIT CAP/TAB PO SCH (10:00)
[2022-11-03] MEDS: PHENAZOPYRIDINE HCL 100 MG TAB PO SCH ×3 (10:17→18:10)
[2022-11-03] MEDS: HYDROCORTISONE ACET 25 MG RECTAL SUPP PR SCH ×2 (10:17→21:27)
[2022-11-03] MEDS: PANTOPRAZOLE 40 MG/10 ML VIAL INJ IV SCH (10:17)
[2022-11-03] MEDS: MUPIROCIN 2% OINT 15gm or 22gm TOP SCH ×2 (10:17→21:26)
[2022-11-03] MEDS: INSULIN LANTUS (GLARGINE) 1 /0.01ml (100units/ml) SC SCH (11:00)
[2022-11-03 12:00] VITALS: BP 123/80
[2022-11-03 16:00] VITALS: BP 124/74
[2022-11-03] MEDS: TAMSULOSIN HYDROCHLORIDE 0.4 MG CAP PO SCH (18:10)
[2022-11-03] MEDS: ATORVASTATIN 20 MG TAB PO SCH (21:26)
[2022-11-03 22:00] VITALS: BP 117/68
[2022-11-03] MEDS ORDERED: OXYBUTYNIN CHL 5 MG TAB PO SCH (22:00)
[2022-11-04] MEDS: MORPHINE SULFATE INJ 2 MG/ml SYRG IV PRN ×2 (00:37→08:46)
[2022-11-04] MEDS: SODIUM CHLORIDE 0.9% 1,000 ML IV SCH (03:05)
[2022-11-04 05:00] VITALS: BP 131/78
[2022-11-04] MEDS: DICYCLOMINE HCL 10 MG CAP PO SCH (05:07)
[2022-11-04] MEDS: ACCU-CHEK COMFORT CURVE STRIP VI SCH (05:08)
[2022-11-04] MEDS: InsuLIN REG 1unit/0.01ml Soln (100units/ml) SC SCH (05:10)
[2022-11-04] MEDS ORDERED: OXYB5TAB24 PO (08:33)
[2022-11-04] MEDS: PHENAZOPYRIDINE HCL 100 MG TAB PO SCH (08:46)
[2022-11-04 09:00] VITALS: BP 104/59
== END 2022-11-04 10:33 | disposition home or self-care (01) | DRG 394 ==
LOC: ER 13:32 → TELE 19:50 → TELE-CENTR 11-01 16:00
PROVIDERS: ADMIT Nurse Practitioner Family; ATTEND Nurse Practitioner Acute Care
DX: K64.8 Other hemorrhoids (principal); E44.1 Mild protein-calorie malnutrition; K62.5 Hemorrhage of anus and rectum; E11.65 Type 2 diabetes mellitus with hyperglycemia; Z20.822 Contact with and (suspected) exposure to COVID-19; E66.9 Obesity, unspecified; E78.5 Hyperlipidemia, unspecified; I11.0 Hypertensive heart disease with heart failure; I50.9 Heart failure, unspecified; J44.9 Chronic obstructive pulmonary disease, unspecified; F41.9 Anxiety disorder, unspecified; E03.9 Hypothyroidism, unspecified; I25.10 Atherosclerotic heart disease of native coronary artery without angina pectoris; Z80.9 Family history of malignant neoplasm, unspecified; Z82.49 Family history of ischemic heart disease and other diseases of the circulatory system; Z83.3 Family history of diabetes mellitus; Z88.6 Allergy status to analgesic agent; Z68.34 Body mass index [BMI] 34.0-34.9, adult; E11.42 Type 2 diabetes mellitus with diabetic polyneuropathy
CPT/HCPCS: 36415; 71045; 71250; 74176; 80048; 80053; 81001; 82270; 82378; 82962; 83036; 83690; 84443; 84484; 85014; 85018; 85025; 85610; 85730; 86850; 86900; 86901; 87086; 87426; 93005; 93971; 96372; C9113; G0378; J1815; J2405; Q0162

== ENCOUNTER 2022-11-07 16:39 | Inpatient (IN) | payer OTHER, MEDICAID ==
[~2022-11-07] VITALS: Ht 167.6 cm; Wt 90.6 kg
[~2022-11-07 16:39] MED LIST changes: +OXYB5TAB24 PO
[2022-11-07 17:16] LABS: Basophils # (auto) 0 10 ^3/uL (0-0.2); Basophils % (auto) 0.3 % (0.0-2.0); Eosinophils # (auto) 0.1 10 ^3/uL (0-0.8); Eosinophils % (auto) 1.4 % (0.0-7.0); Hematocrit 46.9 % (41.0-53.0); Lymphocytes # (auto) 1.3 10 ^3/uL (0.4-5.4); Lymphocytes % (auto) 25.8 % (10.0-50.0); Mean Corpuscular Hemoglobin 29.3 pg (28.0-32.0); Mean Corpuscular Hgb Conc. 32.1 g/dL (32.0-36.0); Mean Corpuscular Volume 91.2 fL (80.0-100.0); Monocytes # (auto) 0.5 10 ^3/uL (0-1.3); Monocytes % (auto) 9.9 % (0.0-12.0); Neutrophils # (auto) 3.1 10 ^3/uL (1.6-8.6); Neutrophils % (auto) 62.6 % (37.0-80.0); Nucleated Red Blood Cells % 0.2 %; Red Blood Cells 5.14 10^6/uL (4.5-5.90); White Blood Cell 4.9 10^3/uL (4.4-10.8)
[2022-11-07 17:33] LABS: INR 0.98 (0.9-1.15); Partial Thromboplastin Time 26.6 sec (24.6-33.4)
[2022-11-07 18:32] LABS: Albumin 3.1 g/dL (3.4-5.0); BUN/Creatinine Ratio 8.3 (10.0-20.0); Calcium 9.3 mg/dL (8.5-10.1); Potassium 4.3 mmol/L (3.5-5.1)
[2022-11-07 18:40] LABS: Bilirubin, Total 0.2 mg/dL (0.2-1.0); Total Protein 6.8 g/dL (6.4-8.2)
[2022-11-07] MEDS ORDERED: HYDROcodone-ACET 5/325MG TAB PO ONE (19:15)
[2022-11-07] MEDS ORDERED: LACTATED RINGER'S 1,000 ML IV ONE (19:15)
[2022-11-07] MEDS ORDERED: DexAMETHasone SOD PHOS 10MG/1ML VIAL INJ IV ONE (19:15)
[2022-11-07] MEDS ORDERED: MAGNESIUM SULFATE 1GM/100ML 100 ML IV ONE (19:15)
[2022-11-07] MEDS ORDERED: METOCLOPRAMIDE HCL 5MG/ml INJ 2ml VIAL IV ONE (19:15)
[2022-11-07] MEDS ORDERED: diphenhdrAMINE HCL 50 MG/1 ML VL IV ONE (19:15)
[2022-11-07] MEDS ORDERED: ASPirin 81 mg TAB PO ONE (20:00)
[2022-11-07] MEDS ORDERED: ONDANSETRON HCL 4 MG/2 ML VIAL IV PRN (21:45)
[2022-11-07] MEDS ORDERED: DEXTROSE (50%) 50ML SYRG IV PRN ×2 (21:45→23:45)
[2022-11-07] MEDS ORDERED: NITROGLYCERIN 0.4 MG SL TAB SL PRN (21:45)
[2022-11-07] MEDS ORDERED: ACETAMINOPHEN 325 MG TAB PO PRN (21:45)
[2022-11-07] MEDS ORDERED: InsuLIN REG 1unit/0.01ml Soln (100units/ml) SC SCH (22:00)
[2022-11-07] MEDS ORDERED: ACCU-CHEK COMFORT CURVE STRIP VI SCH (22:00)
[2022-11-07] MEDS: APIXABAN 5 MG TAB PO SCH (23:30)
[2022-11-07] MEDS: ATORVASTATIN 20 MG TAB PO SCH (23:30)
[2022-11-08] MEDS: ACCU-CHEK COMFORT CURVE STRIP VI SCH ×5 (00:43→23:06)
[2022-11-08] MEDS: InsuLIN REG 1unit/0.01ml Soln (100units/ml) SC SCH ×5 (00:44→23:09)
[2022-11-08] MEDS: HYDROcodone-ACET 5/325MG TAB PO PRN ×3 (01:16→23:00)
[2022-11-08 05:15] LABS: Basophils # (auto) 0 10 ^3/uL (0-0.2); Basophils % (auto) 0.2 % (0.0-2.0); Eosinophils # (auto) 0 10 ^3/uL (0-0.8); Hematocrit 44.9 % (41.0-53.0); Hemoglobin 15.2 g/dL (13.5-17.5); Lymphocytes # (auto) 0.4 10 ^3/uL (0.4-5.4); Lymphocytes % (auto) 7.6 % (10.0-50.0); Mean Corpuscular Hemoglobin 30.2 pg (28.0-32.0); Mean Corpuscular Hgb Conc. 33.8 g/dL (32.0-36.0); Mean Corpuscular Volume 89.2 fL (80.0-100.0); Monocytes # (auto) 0 10 ^3/uL (0-1.3); Monocytes % (auto) 0.9 % (0.0-12.0); Neutrophils # (auto) 4.8 10 ^3/uL (1.6-8.6); Neutrophils % (auto) 91.3 % (37.0-80.0); Red Blood Cells 5.03 10^6/uL (4.5-5.90); Red Cell Distribution Width 14.8 % (11.8-14.3); White Blood Cell 5.2 10^3/uL (4.4-10.8)
[2022-11-08 05:33] LABS: Albumin 2.9 g/dL (3.4-5.0); Calcium 9.2 mg/dL (8.5-10.1); Potassium 4.3 mmol/L (3.5-5.1)
[2022-11-08 05:36] LABS: BUN/Creatinine Ratio 15.8 (10.0-20.0); Bilirubin, Total 0.3 mg/dL (0.2-1.0); Total Protein 7.2 g/dL (6.4-8.2)
[2022-11-08] MEDS: MORPHINE SULFATE INJ 2 MG/ml SYRG IV PRN ×3 (06:28→16:59)
[2022-11-08] MEDS: ASPirin 81 mg TAB PO SCH (09:17)
[2022-11-08] MEDS: FUROSEMIDE 20 MG TAB PO SCH (09:18)
[2022-11-08] MEDS: PANTOPRAZOLE 40 MG TAB PO SCH (09:18)
[2022-11-08] MEDS: ENALAPRIL MALEATE 2.5 MG TAB PO SCH (09:19)
[2022-11-08] MEDS: APIXABAN 5 MG TAB PO SCH ×2 (09:21→23:01)
[2022-11-08] MEDS ORDERED: KETOROLAC TROMETH 30 MG/ML 1ML VIAL IV ONE (21:15)
[2022-11-08] MEDS: ATORVASTATIN 20 MG TAB PO SCH (23:00)
[2022-11-08] MEDS: TEMAZEPAM 15 MG CAP PO PRN (23:01)
[2022-11-08 23:31] VITALS: BP 139/81
[2022-11-08] MEDS ORDERED: ZOLP10TA PO (23:50)
[2022-11-09 02:14] LABS: Urine Bacteria NONE SEEN /hpf (None Seen); Urine Blood Negative /uL (Negative); Urine Specific Gravity 1.031 (1.001-1.035); Urine WBC 1 /hpf (0 - 3)
[2022-11-09 05:00] VITALS: BP 112/64
[2022-11-09] MEDS: MORPHINE SULFATE INJ 2 MG/ml SYRG IV PRN ×5 (05:10→22:59)
[2022-11-09] MEDS: ACCU-CHEK COMFORT CURVE STRIP VI SCH ×3 (05:11→18:09)
[2022-11-09] MEDS: InsuLIN REG 1unit/0.01ml Soln (100units/ml) SC SCH ×3 (05:17→18:10)
[2022-11-09 08:10] VITALS: BP 114/80
[2022-11-09 09:00] VITALS: BP 114/80
[2022-11-09] MEDS: PANTOPRAZOLE 40 MG TAB PO SCH (10:02)
[2022-11-09] MEDS: ASPirin 81 mg TAB PO SCH (10:02)
[2022-11-09] MEDS: ENALAPRIL MALEATE 2.5 MG TAB PO SCH (10:02)
[2022-11-09] MEDS: APIXABAN 5 MG TAB PO SCH (10:03)
[2022-11-09] MEDS: FUROSEMIDE 20 MG TAB PO SCH (10:03)
[2022-11-09 13:00] VITALS: BP 90/56
[2022-11-09 16:34] VITALS: BP 107/70
[2022-11-09 22:00] VITALS: BP 110/68
[2022-11-09] MEDS: ATORVASTATIN 20 MG TAB PO SCH (22:56)
[2022-11-09] MEDS: ENOXAPARIN SOD 100 MG/1 ML SYRINGE SC SCH (22:57)
[2022-11-10] MEDS: ACCU-CHEK COMFORT CURVE STRIP VI SCH ×5 (00:28→23:20)
[2022-11-10] MEDS: InsuLIN REG 1unit/0.01ml Soln (100units/ml) SC SCH ×5 (00:30→23:28)
[2022-11-10] MEDS: MORPHINE SULFATE INJ 2 MG/ml SYRG IV PRN ×4 (04:21→22:57)
[2022-11-10 05:00] VITALS: BP 108/68
[2022-11-10 08:10] VITALS: BP 92/63
[2022-11-10 08:58] VITALS: BP 92/63
[2022-11-10] MEDS: FUROSEMIDE 20 MG TAB PO SCH (09:50)
[2022-11-10] MEDS: PANTOPRAZOLE 40 MG TAB PO SCH (09:50)
[2022-11-10] MEDS: ENALAPRIL MALEATE 2.5 MG TAB PO SCH (09:50)
[2022-11-10] MEDS: ENOXAPARIN SOD 100 MG/1 ML SYRINGE SC SCH ×2 (09:51→22:00)
[2022-11-10] MEDS ORDERED: IOHEXOL 350 MG/ML 100ML IJ ONE (12:08)
[2022-11-10 13:07] VITALS: BP_SYST 68
[2022-11-10 16:52] VITALS: BP 92/58
[2022-11-10] MEDS ORDERED: SODIUM CHLORIDE 0.9% 500 ML IV ONE (18:15)
[2022-11-10] MEDS: PANTOPRAZOLE 40mg/50ML NS AE 50 ML IV SCH ×2 (18:58→22:57)
[2022-11-10 19:04] LABS: Hematocrit 46.9 % (41.0-53.0); Hemoglobin 15.5 g/dL (13.5-17.5)
[2022-11-10 22:00] VITALS: BP 99/56
[2022-11-10] MEDS: ATORVASTATIN 20 MG TAB PO SCH (22:57)
[2022-11-11] VITALS (7 sets, daily range): BP systolic 91–119; BP diastolic 45–73
[2022-11-11] MEDS: ACCU-CHEK COMFORT CURVE STRIP VI SCH ×3 (03:55→17:49)
[2022-11-11] MEDS: PANTOPRAZOLE 40mg/50ML NS AE 50 ML IV SCH ×4 (03:55→20:09)
[2022-11-11] MEDS: MORPHINE SULFATE INJ 2 MG/ml SYRG IV PRN ×4 (03:56→18:43)
[2022-11-11] MEDS: InsuLIN REG 1unit/0.01ml Soln (100units/ml) SC SCH ×3 (06:30→17:52)
[2022-11-11] MEDS: FUROSEMIDE 20 MG TAB PO SCH (09:57)
[2022-11-11] MEDS: ENALAPRIL MALEATE 2.5 MG TAB PO SCH (09:57)
[2022-11-11] MEDS: ENOXAPARIN SOD 100 MG/1 ML SYRINGE SC SCH ×3 (09:59→22:00)
[2022-11-11] MEDS: ATORVASTATIN 20 MG TAB PO SCH (22:00)
[2022-11-12] MEDS: TEMAZEPAM 15 MG CAP PO PRN (00:21)
[2022-11-12] MEDS: InsuLIN REG 1unit/0.01ml Soln (100units/ml) SC SCH ×5 (00:21→23:51)
[2022-11-12] MEDS: PANTOPRAZOLE 40mg/50ML NS AE 50 ML IV SCH ×2 (00:23→05:17)
[2022-11-12] MEDS: MORPHINE SULFATE INJ 2 MG/ml SYRG IV PRN ×3 (02:45→23:53)
[2022-11-12 04:45] VITALS: BP 87/51
[2022-11-12] MEDS: ACCU-CHEK COMFORT CURVE STRIP VI SCH ×5 (05:15→23:46)
[2022-11-12 05:25] VITALS: BP 93/66
[2022-11-12] MEDS: HYDROcodone-ACET 5/325MG TAB PO PRN ×4 (08:27→23:37)
[2022-11-12] MEDS: ENOXAPARIN SOD 100 MG/1 ML SYRINGE SC SCH ×2 (08:29→19:30)
[2022-11-12 09:00] VITALS: BP 101/61
[2022-11-12] MEDS: FUROSEMIDE 20 MG TAB PO SCH (10:00)
[2022-11-12] MEDS: ENALAPRIL MALEATE 2.5 MG TAB PO SCH (10:00)
[2022-11-12 13:00] VITALS: BP 117/70
[2022-11-12 16:41] VITALS: BP 101/55
[2022-11-12 22:00] VITALS: BP 103/64
[2022-11-12] MEDS: ATORVASTATIN 20 MG TAB PO SCH (22:00)
[2022-11-12] MEDS ORDERED: LIDOCAINE 2% (LOCAL ANESTH.) PF 5ml SDV ONE (23:13)
[2022-11-12] MEDS ORDERED: LIDOCAINE 2%HCL (LOCAL ANESTH.) INJ 10ml MDV IJ ONE (23:45)
[2022-11-13 05:00] VITALS: BP 104/71
[2022-11-13] MEDS: InsuLIN REG 1unit/0.01ml Soln (100units/ml) SC SCH ×4 (05:14→23:01)
[2022-11-13] MEDS: ACCU-CHEK COMFORT CURVE STRIP VI SCH ×4 (05:14→23:01)
[2022-11-13] MEDS: HYDROcodone-ACET 5/325MG TAB PO PRN ×3 (05:16→20:27)
[2022-11-13 09:00] VITALS: BP 98/64
[2022-11-13] MEDS ORDERED: LIDOCAINE 2%HCL (LOCAL ANESTH.) INJ 10ml MDV ONE (09:14)
[2022-11-13] MEDS: ENOXAPARIN SOD 100 MG/1 ML SYRINGE SC SCH ×2 (10:00→22:45)
[2022-11-13] MEDS: ENALAPRIL MALEATE 2.5 MG TAB PO SCH (10:50)
[2022-11-13] MEDS: FUROSEMIDE 20 MG TAB PO SCH (10:51)
[2022-11-13 13:00] VITALS: BP 93/60
[2022-11-13 14:10] LABS: CSF White Blood Cells 1 CUMM (0-5)
[2022-11-13] MEDS: MORPHINE SULFATE INJ 2 MG/ml SYRG IV PRN ×2 (15:08)
[2022-11-13 16:32] LABS: Protein, CSF 70.6 mg/dL (15-45)
[2022-11-13 16:43] VITALS: BP 110/65
[2022-11-13] MEDS: SODIUM CHLORIDE 0.9% 1,000 ML IV SCH (19:55)
[2022-11-13 22:00] VITALS: BP 121/77
[2022-11-13] MEDS: ATORVASTATIN 20 MG TAB PO SCH (22:45)
[2022-11-13] MEDS: TEMAZEPAM 15 MG CAP PO PRN (23:01)
[2022-11-14] MEDS: HYDROcodone-ACET 5/325MG TAB PO PRN (04:14)
[2022-11-14 05:00] VITALS: BP 98/58
[2022-11-14] MEDS: SODIUM CHLORIDE 0.9% 1,000 ML IV SCH (05:44)
[2022-11-14] MEDS: ACCU-CHEK COMFORT CURVE STRIP VI SCH ×2 (06:28→12:09)
[2022-11-14] MEDS: InsuLIN REG 1unit/0.01ml Soln (100units/ml) SC SCH ×2 (06:32→12:07)
[2022-11-14 09:00] VITALS: BP 127/78
[2022-11-14] MEDS: MORPHINE SULFATE INJ 2 MG/ml SYRG IV PRN (09:01)
[2022-11-14] MEDS: ENALAPRIL MALEATE 2.5 MG TAB PO SCH (10:47)
[2022-11-14] MEDS: FUROSEMIDE 20 MG TAB PO SCH (10:47)
[2022-11-14] MEDS: ENOXAPARIN SOD 100 MG/1 ML SYRINGE SC SCH (10:47)
[2022-11-14 12:30] VITALS: BP 110/65
[2022-11-14 12:32] VITALS: BP 120/77
== END 2022-11-14 14:17 | disposition home or self-care (01) | DRG 103 ==
LOC: ER 16:39 → TELE 21:45 → TELE-WESTW 11-08 22:00
PROVIDERS: ADMIT Nurse Practitioner; ATTEND Family Medicine
PROC: 009U3ZX Drainage of Spinal Canal, Percutaneous Approach, Diagnostic (ICD-10-PCS; principal; 2022-11-13)
DX: R51.9 Headache, unspecified (principal); I25.110 Atherosclerotic heart disease of native coronary artery with unstable angina pectoris; K62.5 Hemorrhage of anus and rectum; I24.9 Acute ischemic heart disease, unspecified; F41.9 Anxiety disorder, unspecified; F32.A Depression, unspecified; E03.9 Hypothyroidism, unspecified; E11.65 Type 2 diabetes mellitus with hyperglycemia; E66.01 Morbid (severe) obesity due to excess calories; I11.0 Hypertensive heart disease with heart failure; I50.9 Heart failure, unspecified; J44.9 Chronic obstructive pulmonary disease, unspecified; E11.42 Type 2 diabetes mellitus with diabetic polyneuropathy; E78.00 Pure hypercholesterolemia, unspecified; I65.22 Occlusion and stenosis of left carotid artery; Z91.199 Patient's noncompliance with other medical treatment and regimen due to unspecified reason; Z86.711 Personal history of pulmonary embolism; Z79.01 Long term (current) use of anticoagulants; Z95.5 Presence of coronary angioplasty implant and graft; Z79.84 Long term (current) use of oral hypoglycemic drugs; Z80.9 Family history of malignant neoplasm, unspecified; Z82.49 Family history of ischemic heart disease and other diseases of the circulatory system; Z88.6 Allergy status to analgesic agent; Z83.3 Family history of diabetes mellitus; Z95.0 Presence of cardiac pacemaker; Z89.611 Acquired absence of right leg above knee; Z68.32 Body mass index [BMI] 32.0-32.9, adult
CPT/HCPCS: 36415; 62272; 70450; 70496; 71045; 80053; 81001; 82270; 82945; 82962; 83735; 83880; 84157; 84484; 85014; 85018; 85025; 85610; 85652; 85730; 86850; 86900; 86901; 87081; 87426; 89051; 93005; 96374; 96375; G0378; J1100; J1815; J2001

== ENCOUNTER 2023-01-06 12:40 | Emergency (ER) | payer OTHER, MEDICAID ==
[~2023-01-06] VITALS: Ht 167.6 cm; Wt 82.8 kg
[~2023-01-06 12:40] MED LIST changes: -ENAL10TA13 PO; +ENAL1TAB47 PO; +POTA-228 PO; -POTA10TA32 PO; -TAM04C PO; +TAMS-35 PO; +ZOLP10TA PO
[2023-01-06 13:27] VITALS: BP 112/56
[2023-01-06] MEDS ORDERED: HYDROcodone-ACET 5/325MG TAB PO ONE (14:30)
[2023-01-06] MEDS ORDERED: SODIUM CHLORIDE 0.9% 1,000 ML IV ONE (14:45)
[2023-01-06] MEDS ORDERED: DexAMETHasone SOD PHOS 10MG/1ML VIAL INJ IV ONE (14:45)
[2023-01-06] MEDS ORDERED: GABAPENTIN 300 MG CAP PO ONE (14:45)
[2023-01-06] MEDS ORDERED: METOCLOPRAMIDE HCL 5MG/ml INJ 2ml VIAL IV ONE (14:45)
[2023-01-06] MEDS ORDERED: diphenhdrAMINE HCL 50 MG/1 ML VL IV ONE (14:45)
[2023-01-06 14:54] LABS: Albumin 3.3 g/dL (3.4-5.0); Calcium 8.7 mg/dL (8.5-10.1); Potassium 4.6 mmol/L (3.5-5.1)
[2023-01-06 14:57] LABS: BUN/Creatinine Ratio 16.3 (10.0-20.0); Bilirubin, Total 0.2 mg/dL (0.2-1.0); Total Protein 6.8 g/dL (6.4-8.2)
[2023-01-06 15:25] LABS: Basophils # (auto) 0 10 ^3/uL (0-0.2); Basophils % (auto) 0.5 % (0.0-2.0); Eosinophils # (auto) 0.1 10 ^3/uL (0-0.8); Eosinophils % (auto) 1.4 % (0.0-7.0); Hemoglobin 14.5 g/dL (13.5-17.5); Lymphocytes # (auto) 1.5 10 ^3/uL (0.4-5.4); Mean Corpuscular Hemoglobin 30.2 pg (28.0-32.0); Mean Corpuscular Hgb Conc. 33.1 g/dL (32.0-36.0); Mean Corpuscular Volume 91.3 fL (80.0-100.0); Monocytes # (auto) 0.6 10 ^3/uL (0-1.3); Monocytes % (auto) 9.5 % (0.0-12.0); Neutrophils # (auto) 3.9 10 ^3/uL (1.6-8.6); Neutrophils % (auto) 63.6 % (37.0-80.0); Nucleated Red Blood Cells % 0.1 %; Red Blood Cells 4.82 10^6/uL (4.5-5.90); Red Cell Distribution Width 14.7 % (11.8-14.3); White Blood Cell 6.1 10^3/uL (4.4-10.8)
[2023-01-06] MEDS ORDERED: MORPHINE SULFATE INJ 2 MG/ml SYRG IV ONE (17:45)
== END 2023-01-06 19:13 | disposition home or self-care (01) ==
LOC: ER 12:40
DX: R51.9 Headache, unspecified (principal); I11.0 Hypertensive heart disease with heart failure; I50.9 Heart failure, unspecified; F41.9 Anxiety disorder, unspecified; I25.10 Atherosclerotic heart disease of native coronary artery without angina pectoris; J44.9 Chronic obstructive pulmonary disease, unspecified; F32.9 Major depressive disorder, single episode, unspecified; E11.9 Type 2 diabetes mellitus without complications; E78.5 Hyperlipidemia, unspecified; I25.2 Old myocardial infarction; Z86.711 Personal history of pulmonary embolism; Z89.611 Acquired absence of right leg above knee; Z95.0 Presence of cardiac pacemaker; Z98.61 Coronary angioplasty status
CPT/HCPCS: 36415; 70450; 80053; 83690; 84484; 85025; 85652; 86141; 93005; 96361; 96374; 96375; 99285; J1100; J1200; J2765; J7030

== ENCOUNTER 2023-01-08 10:42 | Inpatient (IN) | payer OTHER, MEDICAID ==
[~2023-01-08] VITALS: Ht 167.6 cm; Wt 86.6 kg
[2023-01-08] MEDS ORDERED: HYDROmorphone HCL 2 MG/ML VL/or syr IV ONE (12:30)
[2023-01-08] MEDS ORDERED: PROMETHAZINE HCL 25 MG/ML 1ML IV ONE (12:30)
[2023-01-08 13:01] LABS: Basophils # (auto) 0 10 ^3/uL (0-0.2); Basophils % (auto) 0.4 % (0.0-2.0); Eosinophils # (auto) 0 10 ^3/uL (0-0.8); Eosinophils % (auto) 0.8 % (0.0-7.0); Hematocrit 43.2 % (41.0-53.0); Hemoglobin 14.2 g/dL (13.5-17.5); Lymphocytes # (auto) 1.3 10 ^3/uL (0.4-5.4); Lymphocytes % (auto) 29.1 % (10.0-50.0); Mean Corpuscular Hemoglobin 30.2 pg (28.0-32.0); Mean Corpuscular Volume 91.4 fL (80.0-100.0); Monocytes # (auto) 0.4 10 ^3/uL (0-1.3); Monocytes % (auto) 9.1 % (0.0-12.0); Neutrophils # (auto) 2.7 10 ^3/uL (1.6-8.6); Neutrophils % (auto) 60.6 % (37.0-80.0); Nucleated Red Blood Cells % 0.3 %; Red Blood Cells 4.72 10^6/uL (4.5-5.90); White Blood Cell 4.4 10^3/uL (4.4-10.8)
[2023-01-08 13:20] LABS: Albumin 3.1 g/dL (3.4-5.0); Potassium 4.2 mmol/L (3.5-5.1)
[2023-01-08 13:23] LABS: BUN/Creatinine Ratio 16.7 (10.0-20.0); Bilirubin, Total 0.4 mg/dL (0.2-1.0); CRP High Sensitivity 0.67 mg/dL (< 0.3); Total Protein 7.2 g/dL (6.4-8.2)
[2023-01-08] MEDS ORDERED: HYDROmorphone HCL 2 MG/ML VL/or syr IM ONE (13:30)
[2023-01-08] MEDS ORDERED: PROMETHAZINE HCL 25 MG/ML 1ML IM ONE (13:30)
[2023-01-08] MEDS ORDERED: ASPirin 325 MG TAB PO ONE (15:15)
[2023-01-08] MEDS ORDERED: NITROGLYCERIN 0.4 MG SL TAB SL PRN (16:00)
[2023-01-08] MEDS ORDERED: DEXTROSE (50%) 50ML SYRG IV PRN (16:00)
[2023-01-08] MEDS ORDERED: SODIUM CHLORIDE 0.9% 1,000 ML IV ONE (16:30)
[2023-01-08] MEDS ORDERED: ACETAMINOPHEN/CODEINE#3 (300/30mg) TAB PO ONE (16:30)
[2023-01-08] MEDS: ACCU-CHEK COMFORT CURVE STRIP VI SCH ×2 (17:00→22:00)
[2023-01-08] MEDS ORDERED: fentaNYL CITRATE 100 MCG/2 ML VL IV ONE (17:30)
[2023-01-08] MEDS: TAMSULOSIN HYDROCHLORIDE 0.4 MG CAP PO SCH (18:44)
[2023-01-08] MEDS: InsuLIN REG 1unit/0.01ml Soln (100units/ml) SC SCH ×2 (18:45→22:43)
[2023-01-08] MEDS: APIXABAN 5 MG TAB PO SCH (22:42)
[2023-01-08] MEDS: ATORVASTATIN 20 MG TAB PO SCH (22:42)
[2023-01-08] MEDS: GABAPENTIN 100 MG CAP PO SCH (22:42)
[2023-01-09] MEDS: GABAPENTIN 100 MG CAP PO SCH ×3 (06:32→22:56)
[2023-01-09] MEDS: InsuLIN REG 1unit/0.01ml Soln (100units/ml) SC SCH ×4 (06:33→23:03)
[2023-01-09] MEDS: ACCU-CHEK COMFORT CURVE STRIP VI SCH ×4 (06:33→22:57)
[2023-01-09 07:35] LABS: Basophils # (auto) 0 10 ^3/uL (0-0.2); Basophils % (auto) 0.4 % (0.0-2.0); Eosinophils # (auto) 0.1 10 ^3/uL (0-0.8); Eosinophils % (auto) 2.1 % (0.0-7.0); Hematocrit 44.4 % (41.0-53.0); Hemoglobin 14.9 g/dL (13.5-17.5); Lymphocytes # (auto) 1.3 10 ^3/uL (0.4-5.4); Lymphocytes % (auto) 34.9 % (10.0-50.0); Mean Corpuscular Hemoglobin 30.6 pg (28.0-32.0); Mean Corpuscular Hgb Conc. 33.6 g/dL (32.0-36.0); Mean Corpuscular Volume 91.3 fL (80.0-100.0); Monocytes # (auto) 0.4 10 ^3/uL (0-1.3); Monocytes % (auto) 9.5 % (0.0-12.0); Neutrophils % (auto) 53.1 % (37.0-80.0); Nucleated Red Blood Cells % 0.6 %; Red Blood Cells 4.87 10^6/uL (4.5-5.90); Red Cell Distribution Width 15.1 % (11.8-14.3); White Blood Cell 3.7 10^3/uL (4.4-10.8)
[2023-01-09 07:53] LABS: Albumin 3.2 g/dL (3.4-5.0); BUN/Creatinine Ratio 18.9 (10.0-20.0); Bilirubin, Total 0.4 mg/dL (0.2-1.0); Calcium 8.8 mg/dL (8.5-10.1)
[2023-01-09] MEDS ORDERED: LORazepam 2MG/ML-1ML VIAL IV PRN (08:45)
[2023-01-09] MEDS: DexAMETHasone INJECTION 10 MG in D5W 5% 50 ML IV SCH (10:00)
[2023-01-09] MEDS: ASPirin-EC 81 mg tab PO SCH (11:54)
[2023-01-09] MEDS: PANTOPRAZOLE 40 MG TAB PO SCH (11:55)
[2023-01-09] MEDS: APIXABAN 5 MG TAB PO SCH ×2 (11:55→22:56)
[2023-01-09 13:11] VITALS: BP 119/70
[2023-01-09] MEDS: ACETAMINOPHEN 325 MG TAB PO PRN ×2 (16:26→22:56)
[2023-01-09 17:04] VITALS: BP 108/71
[2023-01-09] MEDS: TAMSULOSIN HYDROCHLORIDE 0.4 MG CAP PO SCH (17:38)
[2023-01-09 22:00] VITALS: BP 103/63
[2023-01-09] MEDS: ATORVASTATIN 20 MG TAB PO SCH (22:56)
[2023-01-10] MEDS ORDERED: HYDROcodone-ACET 5/325MG TAB PO PRN (03:45)
[2023-01-10 05:00] VITALS: BP 110/75
[2023-01-10 05:46] LABS: Basophils # (auto) 0 10 ^3/uL (0-0.2); Basophils % (auto) 0.1 % (0.0-2.0); Eosinophils # (auto) 0.1 10 ^3/uL (0-0.8); Hematocrit 40.7 % (41.0-53.0); Hemoglobin 13.4 g/dL (13.5-17.5); Lymphocytes % (auto) 26.6 % (10.0-50.0); Mean Corpuscular Hemoglobin 30.4 pg (28.0-32.0); Mean Corpuscular Hgb Conc. 32.9 g/dL (32.0-36.0); Mean Corpuscular Volume 92.2 fL (80.0-100.0); Monocytes # (auto) 0.5 10 ^3/uL (0-1.3); Neutrophils # (auto) 2.3 10 ^3/uL (1.6-8.6); Neutrophils % (auto) 59.3 % (37.0-80.0); Nucleated Red Blood Cells % 0.1 %; Red Blood Cells 4.41 10^6/uL (4.5-5.90); Red Cell Distribution Width 14.8 % (11.8-14.3); White Blood Cell 3.8 10^3/uL (4.4-10.8)
[2023-01-10 05:51] LABS: BUN/Creatinine Ratio 14.8 (10.0-20.0); Calcium 8.7 mg/dL (8.5-10.1)
[2023-01-10] MEDS: GABAPENTIN 100 MG CAP PO SCH ×3 (06:02→21:23)
[2023-01-10] MEDS: ACCU-CHEK COMFORT CURVE STRIP VI SCH ×4 (06:03→21:27)
[2023-01-10] MEDS: InsuLIN REG 1unit/0.01ml Soln (100units/ml) SC SCH ×4 (06:04→21:30)
[2023-01-10] MEDS: ACETAMINOPHEN 325 MG TAB PO PRN (06:06)
[2023-01-10 09:26] VITALS: BP 104/74
[2023-01-10] MEDS: PANTOPRAZOLE 40 MG TAB PO SCH (09:33)
[2023-01-10] MEDS: ASPirin-EC 81 mg tab PO SCH (09:33)
[2023-01-10] MEDS: APIXABAN 5 MG TAB PO SCH ×2 (09:33→21:23)
[2023-01-10] MEDS ORDERED: DEXTROSE (50%) 50ML SYRG IV PRN (10:00)
[2023-01-10] MEDS: MORPHINE SULFATE INJ 2 MG/ml SYRG IV PRN ×5 (10:38→23:47)
[2023-01-10 12:00] VITALS: BP 117/78
[2023-01-10] MEDS: DexAMETHasone INJECTION 10 MG in D5W 5% 50 ML IV SCH (12:12)
[2023-01-10 17:40] VITALS: BP 120/77
[2023-01-10] MEDS: TAMSULOSIN HYDROCHLORIDE 0.4 MG CAP PO SCH (17:42)
[2023-01-10] MEDS: ATORVASTATIN 20 MG TAB PO SCH (21:23)
[2023-01-10 22:00] VITALS: BP 101/68
[2023-01-11 05:00] VITALS: BP 113/76
[2023-01-11] MEDS: GABAPENTIN 100 MG CAP PO SCH ×2 (06:20→14:37)
[2023-01-11] MEDS: ACCU-CHEK COMFORT CURVE STRIP VI SCH ×4 (06:22→22:48)
[2023-01-11 06:33] LABS: Basophils # (auto) 0 10 ^3/uL (0-0.2); Basophils % (auto) 0.1 % (0.0-2.0); Eosinophils # (auto) 0 10 ^3/uL (0-0.8); Eosinophils % (auto) 0.6 % (0.0-7.0); Hematocrit 40.6 % (41.0-53.0); Hemoglobin 13.5 g/dL (13.5-17.5); Lymphocytes # (auto) 1.2 10 ^3/uL (0.4-5.4); Lymphocytes % (auto) 16.5 % (10.0-50.0); Mean Corpuscular Hemoglobin 30.4 pg (28.0-32.0); Mean Corpuscular Hgb Conc. 33.3 g/dL (32.0-36.0); Mean Corpuscular Volume 91.1 fL (80.0-100.0); Monocytes # (auto) 0.6 10 ^3/uL (0-1.3); Monocytes % (auto) 7.6 % (0.0-12.0); Neutrophils # (auto) 5.5 10 ^3/uL (1.6-8.6); Neutrophils % (auto) 75.2 % (37.0-80.0); Nucleated Red Blood Cells % 0.1 %; Red Blood Cells 4.46 10^6/uL (4.5-5.90); Red Cell Distribution Width 14.9 % (11.8-14.3); White Blood Cell 7.3 10^3/uL (4.4-10.8)
[2023-01-11] MEDS: INSULIN LANTUS (GLARGINE) 1 /0.01ml (100units/ml) SC SCH (06:33)
[2023-01-11] MEDS: InsuLIN REG 1unit/0.01ml Soln (100units/ml) SC SCH ×4 (06:33→22:55)
[2023-01-11 06:47] LABS: BUN/Creatinine Ratio 20.6 (10.0-20.0); Calcium 8.9 mg/dL (8.5-10.1); Potassium 4.1 mmol/L (3.5-5.1)
[2023-01-11] MEDS: MORPHINE SULFATE INJ 2 MG/ml SYRG IV PRN ×3 (08:57→22:52)
[2023-01-11 09:00] VITALS: BP 117/77
[2023-01-11] MEDS: ASPirin-EC 81 mg tab PO SCH (09:22)
[2023-01-11] MEDS: APIXABAN 5 MG TAB PO SCH ×2 (09:22→22:48)
[2023-01-11] MEDS: PANTOPRAZOLE 40 MG TAB PO SCH (09:22)
[2023-01-11] MEDS: DexAMETHasone INJECTION 10 MG in D5W 5% 50 ML IV SCH (09:26)
[2023-01-11 10:59] LABS: BUN/Creatinine Ratio 16.3 (10.0-20.0); Calcium 8.6 mg/dL (8.5-10.1)
[2023-01-11 11:01] LABS: Potassium 4.4 mmol/L (3.5-5.1)
[2023-01-11 13:00] VITALS: BP 109/71
[2023-01-11 17:00] VITALS: BP 110/70
[2023-01-11] MEDS: TAMSULOSIN HYDROCHLORIDE 0.4 MG CAP PO SCH (17:34)
[2023-01-11 22:00] VITALS: BP 111/68
[2023-01-11] MEDS: ATORVASTATIN 20 MG TAB PO SCH (22:48)
[2023-01-11] MEDS: AMITRIPTYLINE HCL 10 MG TAB PO SCH (22:49)
[2023-01-12] MEDS: MORPHINE SULFATE INJ 2 MG/ml SYRG IV PRN ×3 (06:26→18:58)
[2023-01-12] MEDS: InsuLIN REG 1unit/0.01ml Soln (100units/ml) SC SCH ×4 (06:29→22:39)
[2023-01-12] MEDS: ACCU-CHEK COMFORT CURVE STRIP VI SCH ×4 (06:30→22:00)
[2023-01-12] MEDS: INSULIN LANTUS (GLARGINE) 1 /0.01ml (100units/ml) SC SCH (06:30)
[2023-01-12 06:49] LABS: Basophils # (auto) 0 10 ^3/uL (0-0.2); Basophils % (auto) 0.5 % (0.0-2.0); Eosinophils # (auto) 0 10 ^3/uL (0-0.8); Eosinophils % (auto) 0.4 % (0.0-7.0); Hematocrit 39.4 % (41.0-53.0); Hemoglobin 13.2 g/dL (13.5-17.5); Lymphocytes # (auto) 1.4 10 ^3/uL (0.4-5.4); Lymphocytes % (auto) 20.1 % (10.0-50.0); Mean Corpuscular Hgb Conc. 33.6 g/dL (32.0-36.0); Mean Corpuscular Volume 92.2 fL (80.0-100.0); Monocytes # (auto) 0.6 10 ^3/uL (0-1.3); Monocytes % (auto) 8.9 % (0.0-12.0); Neutrophils # (auto) 4.9 10 ^3/uL (1.6-8.6); Neutrophils % (auto) 70.1 % (37.0-80.0); Nucleated Red Blood Cells % 0.1 %; Red Blood Cells 4.28 10^6/uL (4.5-5.90)
[2023-01-12 07:30] VITALS: BP 110/0
[2023-01-12] MEDS: ASPirin-EC 81 mg tab PO SCH (08:39)
[2023-01-12] MEDS: APIXABAN 5 MG TAB PO SCH ×2 (08:39→22:14)
[2023-01-12] MEDS: DexAMETHasone INJECTION 10 MG in D5W 5% 50 ML IV SCH (08:39)
[2023-01-12] MEDS: PANTOPRAZOLE 40 MG TAB PO SCH (08:39)
[2023-01-12 09:00] VITALS: BP 110/70
[2023-01-12 13:00] VITALS: BP 113/74
[2023-01-12 17:00] VITALS: BP 107/71
[2023-01-12] MEDS ORDERED: ACCU-CHEK COMFORT CURVE STRIP VI SCH (18:15)
[2023-01-12] MEDS ORDERED: DEXTROSE (50%) 50ML SYRG IV PRN (18:15)
[2023-01-12] MEDS: TAMSULOSIN HYDROCHLORIDE 0.4 MG CAP PO SCH (18:30)
[2023-01-12 22:00] VITALS: BP 129/68
[2023-01-12] MEDS ORDERED: InsuLIN REG 1unit/0.01ml Soln (100units/ml) SC SCH (22:00)
[2023-01-12] MEDS ORDERED: INSULIN LANTUS (GLARGINE) 1 /0.01ml (100units/ml) SC SCH (22:00)
[2023-01-12] MEDS: ATORVASTATIN 20 MG TAB PO SCH (22:14)
[2023-01-12] MEDS: AMITRIPTYLINE HCL 10 MG TAB PO SCH (22:15)
[2023-01-13] MEDS: MORPHINE SULFATE INJ 2 MG/ml SYRG IV PRN ×4 (01:35→22:17)
[2023-01-13 05:00] VITALS: BP 119/78
[2023-01-13] MEDS: ACCU-CHEK COMFORT CURVE STRIP VI SCH ×4 (06:08→22:14)
[2023-01-13] MEDS: InsuLIN REG 1unit/0.01ml Soln (100units/ml) SC SCH ×4 (06:09→22:18)
[2023-01-13] MEDS ORDERED: InsuLIN REG 1unit/0.01ml Soln (100units/ml) SC SCH (07:00)
[2023-01-13 09:00] VITALS: BP 108/71
[2023-01-13] MEDS: PANTOPRAZOLE 40 MG TAB PO SCH (09:50)
[2023-01-13] MEDS: APIXABAN 5 MG TAB PO SCH ×2 (09:50→22:13)
[2023-01-13] MEDS: ASPirin-EC 81 mg tab PO SCH (09:50)
[2023-01-13] MEDS: INSULIN LANTUS (GLARGINE) 1 /0.01ml (100units/ml) SC SCH ×2 (09:57→22:19)
[2023-01-13] MEDS: DexAMETHasone INJECTION 10 MG in D5W 5% 50 ML IV SCH (09:57)
[2023-01-13 13:00] VITALS: BP 136/80
[2023-01-13 17:00] VITALS: BP 125/56
[2023-01-13] MEDS: TAMSULOSIN HYDROCHLORIDE 0.4 MG CAP PO SCH (17:46)
[2023-01-13 22:00] VITALS: BP 110/66
[2023-01-13] MEDS: ATORVASTATIN 20 MG TAB PO SCH (22:12)
[2023-01-13] MEDS: AMITRIPTYLINE HCL 10 MG TAB PO SCH (22:13)
[2023-01-14 05:00] VITALS: BP 125/80
[2023-01-14] MEDS: MORPHINE SULFATE INJ 2 MG/ml SYRG IV PRN ×3 (05:36→22:25)
[2023-01-14 06:16] LABS: Basophils # (auto) 0 10 ^3/uL (0-0.2); Basophils % (auto) 0.3 % (0.0-2.0); Eosinophils # (auto) 0 10 ^3/uL (0-0.8); Eosinophils % (auto) 0.2 % (0.0-7.0); Hematocrit 43.4 % (41.0-53.0); Hemoglobin 14.3 g/dL (13.5-17.5); Lymphocytes # (auto) 1.4 10 ^3/uL (0.4-5.4); Lymphocytes % (auto) 15.5 % (10.0-50.0); Mean Corpuscular Hemoglobin 30.8 pg (28.0-32.0); Mean Corpuscular Volume 93.2 fL (80.0-100.0); Monocytes # (auto) 0.9 10 ^3/uL (0-1.3); Monocytes % (auto) 9.6 % (0.0-12.0); Neutrophils # (auto) 6.7 10 ^3/uL (1.6-8.6); Neutrophils % (auto) 74.4 % (37.0-80.0); Nucleated Red Blood Cells % 0.1 %; Red Blood Cells 4.66 10^6/uL (4.5-5.90); Red Cell Distribution Width 14.9 % (11.8-14.3); White Blood Cell 9.1 10^3/uL (4.4-10.8)
[2023-01-14 06:32] LABS: Calcium 8.7 mg/dL (8.5-10.1); Chloride 107 mmol/L (98-107); Sodium 140 mmol/L (136-145)
[2023-01-14] MEDS: ACCU-CHEK COMFORT CURVE STRIP VI SCH ×4 (06:34→22:27)
[2023-01-14] MEDS: InsuLIN REG 1unit/0.01ml Soln (100units/ml) SC SCH ×4 (06:35→22:31)
[2023-01-14 06:36] LABS: Alanine Aminotransferase 26 U/L (16-61); Albumin 2.6 g/dL (3.4-5.0); Anion Gap 7 (5-15); Aspartate Aminotransferase 12 U/L (15-37); BUN/Creatinine Ratio 16.7 (10.0-20.0); Blood Urea Nitrogen 12 mg/dL (7-18); Carbon Dioxide 26 mmol/L (21-32); GFR African American 142 mL/min; GFR Non-African American 118 mL/min; Glucose 203 mg/dL (74-106)
[2023-01-14 06:38] LABS: Alkaline Phosphatase 113 U/L (45-117); Bilirubin, Total 0.2 mg/dL (0.2-1.0); Total Protein 6.6 g/dL (6.4-8.2)
[2023-01-14 08:00] VITALS: BP 132/74
[2023-01-14 09:00] VITALS: BP_SYST 113; BP_SYST 132; BP_DIAS 74; BP_DIAS 79
[2023-01-14] MEDS: INSULIN LANTUS (GLARGINE) 1 /0.01ml (100units/ml) SC SCH ×2 (10:00→22:30)
[2023-01-14] MEDS: ASPirin-EC 81 mg tab PO SCH (10:10)
[2023-01-14] MEDS: APIXABAN 5 MG TAB PO SCH ×2 (10:11→22:24)
[2023-01-14] MEDS: PANTOPRAZOLE 40 MG TAB PO SCH (10:11)
[2023-01-14] MEDS: DexAMETHasone INJECTION 10 MG in D5W 5% 50 ML IV SCH (10:11)
[2023-01-14] MEDS ORDERED: DEX4T PO (10:25)
[2023-01-14] MEDS ORDERED: AMIT25TA20 PO (10:25)
[2023-01-14] MEDS ORDERED: METF-370 PO (12:46)
[2023-01-14] MEDS ORDERED: INSLANTI SC (13:40)
[2023-01-14] MEDS ORDERED: INSREGI SC (13:40)
[2023-01-14 17:00] VITALS: BP 101/69
[2023-01-14] MEDS: TAMSULOSIN HYDROCHLORIDE 0.4 MG CAP PO SCH (18:25)
[2023-01-14 22:00] VITALS: BP 104/54
[2023-01-14] MEDS: ATORVASTATIN 20 MG TAB PO SCH (22:24)
[2023-01-14] MEDS: AMITRIPTYLINE HCL 10 MG TAB PO SCH (22:24)
[2023-01-15 05:00] VITALS: BP 115/69
[2023-01-15] MEDS: MORPHINE SULFATE INJ 2 MG/ml SYRG IV PRN (05:53)
[2023-01-15] MEDS: ACCU-CHEK COMFORT CURVE STRIP VI SCH ×2 (05:57→11:35)
[2023-01-15] MEDS: InsuLIN REG 1unit/0.01ml Soln (100units/ml) SC SCH ×2 (05:59→11:36)
[2023-01-15 08:00] VITALS: BP 112/69
[2023-01-15] MEDS: PANTOPRAZOLE 40 MG TAB PO SCH (10:00)
[2023-01-15 10:58] VITALS: BP 112/69
[2023-01-15] MEDS: ASPirin-EC 81 mg tab PO SCH (11:00)
[2023-01-15] MEDS: APIXABAN 5 MG TAB PO SCH (11:01)
[2023-01-15] MEDS: INSULIN LANTUS (GLARGINE) 1 /0.01ml (100units/ml) SC SCH (11:34)
== END 2023-01-15 12:30 | disposition home or self-care (01) | DRG 315 ==
LOC: ER 10:42 → TELE 16:01 → EAST 01-09 13:38 → TELE-EAST 01-11 15:45
PROVIDERS: ADMIT Nurse Practitioner Family; ATTEND Internal Medicine Pulmonary Disease
DX: I95.9 Hypotension, unspecified (principal); E44.1 Mild protein-calorie malnutrition; E11.65 Type 2 diabetes mellitus with hyperglycemia; I25.10 Atherosclerotic heart disease of native coronary artery without angina pectoris; I50.9 Heart failure, unspecified; J44.9 Chronic obstructive pulmonary disease, unspecified; F32.A Depression, unspecified; F41.9 Anxiety disorder, unspecified; E66.01 Morbid (severe) obesity due to excess calories; N40.0 Benign prostatic hyperplasia without lower urinary tract symptoms; E78.5 Hyperlipidemia, unspecified; I11.0 Hypertensive heart disease with heart failure; I25.2 Old myocardial infarction; Z79.899 Other long term (current) drug therapy; Z82.49 Family history of ischemic heart disease and other diseases of the circulatory system; Z83.3 Family history of diabetes mellitus; Z86.711 Personal history of pulmonary embolism; Z88.6 Allergy status to analgesic agent; Z89.611 Acquired absence of right leg above knee; Z95.0 Presence of cardiac pacemaker; Z95.5 Presence of coronary angioplasty implant and graft; Z68.30 Body mass index [BMI] 30.0-30.9, adult
CPT/HCPCS: 36415; 70450; 80048; 80053; 82962; 83036; 83880; 84484; 85025; 85652; 86141; 93005; 96372; G0378; J1100; J1815; J7060

== ENCOUNTER 2023-01-17 10:21 | Emergency (ER) | payer OTHER, MEDICAID ==
[~2023-01-17] VITALS: Ht 167.6 cm; Wt 83.0 kg
[~2023-01-17 10:21] MED LIST changes: +AMIT25TA20 PO; +DEX4T PO; +INSLANTI SC; +INSREGI SC
[2023-01-17 11:17] LABS: Urine Bacteria NONE SEEN /hpf (None Seen); Urine Blood Negative /uL (Negative); Urine Specific Gravity 1.019 (1.001-1.035); Urine WBC 1 /hpf (0 - 3)
[2023-01-17 11:51] LABS: Basophils # (auto) 0 10 ^3/uL (0-0.2); Basophils % (auto) 0.3 % (0.0-2.0); Eosinophils # (auto) 0 10 ^3/uL (0-0.8); Hematocrit 44.1 % (41.0-53.0); Hemoglobin 14.4 g/dL (13.5-17.5); Lymphocytes % (auto) 21.3 % (10.0-50.0); Mean Corpuscular Hemoglobin 30.4 pg (28.0-32.0); Mean Corpuscular Hgb Conc. 32.7 g/dL (32.0-36.0); Mean Corpuscular Volume 92.9 fL (80.0-100.0); Monocytes # (auto) 0.7 10 ^3/uL (0-1.3); Monocytes % (auto) 14.1 % (0.0-12.0); Neutrophils % (auto) 63.3 % (37.0-80.0); Nucleated Red Blood Cells % 0.1 %; Red Blood Cells 4.75 10^6/uL (4.5-5.90); White Blood Cell 4.7 10^3/uL (4.4-10.8)
[2023-01-17 11:52] LABS: Amphetamine Screen, Urine NEGATIVE (NEGATIVE); Barbiturate Scree,Urine NEGATIVE (NEGATIVE); Benzodiazephine Screen, Urine NEGATIVE (NEGATIVE); Cannabinoid Screen, Urine NEGATIVE (NEGATIVE); Cocaine Screen, Urine NEGATIVE (NEGATIVE); Opiate Scree,Urine NEGATIVE (NEGATIVE); Phencyclidine Screen, Urine NEGATIVE (NEGATIVE)
[2023-01-17 12:07] LABS: Albumin 2.7 g/dL (3.4-5.0); Calcium 8.7 mg/dL (8.5-10.1); Magnesium 2.2 mg/dL (1.6-2.6); Potassium 4.1 mmol/L (3.5-5.1)
[2023-01-17 12:15] LABS: BUN/Creatinine Ratio 18.2 (10.0-20.0); Bilirubin, Total 0.4 mg/dL (0.2-1.0); CRP High Sensitivity 8.29 mg/dL (< 0.3); Total Protein 6.8 g/dL (6.4-8.2)
[2023-01-17] MEDS ORDERED: HYDROcodone-ACET 5/325MG TAB PO ONE (12:45)
[2023-01-17] MEDS ORDERED: cefTRIAXone 1GM/50ML D5W 50 ML IV ONE (12:45)
[2023-01-17] MEDS ORDERED: CIPROFLOXACIN 0.3%OPTH(EYE) SOL 5ML EACHEYE ONE (12:45)
[2023-01-17] MEDS ORDERED: IOHEXOL 300 MG/ML 100ML BOTTLE IJ ONE (13:10)
[2023-01-17] MEDS ORDERED: MORPHINE SULFATE INJ 2 MG/ml SYRG IV ONE (16:30)
[2023-01-17] MEDS ORDERED: MORPHINE SULFATE INJ 2 MG/ml SYRG IM ONE (17:45)
[2023-01-17] MEDS ORDERED: HYDR1TAB97 PO (17:51)
[2023-01-17] MEDS ORDERED: SODIUM CHLORIDE 0.9% 1,000 ML IV ONE (18:00)
[2023-01-17 18:23] VITALS: BP 102/69
== END 2023-01-17 18:23 | disposition home or self-care (01) ==
LOC: ER 10:21
DX: H10.33 Unspecified acute conjunctivitis, bilateral (principal); R51.9 Headache, unspecified; J44.9 Chronic obstructive pulmonary disease, unspecified; I11.0 Hypertensive heart disease with heart failure; I50.9 Heart failure, unspecified; E11.9 Type 2 diabetes mellitus without complications; E78.5 Hyperlipidemia, unspecified; Z79.899 Other long term (current) drug therapy
CPT/HCPCS: 36415; 70450; 70481; 80053; 80307; 81001; 82962; 83735; 85025; 85652; 86141; 96374; 99285; J0696; J7030; Q9967

== ENCOUNTER 2023-07-08 12:51 | Emergency (ER) | payer OTHER, MEDICAID ==
[~2023-07-08] VITALS: Ht 167.6 cm; Wt 86.3 kg
[~2023-07-08 12:51] MED LIST changes: +HYDR1TAB97 PO
[2023-07-08 13:11] VITALS: BP 101/72; RESP 20; O2SAT 90
[2023-07-08 13:33] LABS: Basophils # (auto) 0 10 ^3/uL (0-0.2); Basophils % (auto) 0.6 % (0.0-2.0); Eosinophils # (auto) 0 10 ^3/uL (0-0.8); Eosinophils % (auto) 0.8 % (0.0-7.0); Hematocrit 46.7 % (41.0-53.0); Hemoglobin 15.3 g/dL (13.5-17.5); Lymphocytes # (auto) 1.2 10 ^3/uL (0.4-5.4); Lymphocytes % (auto) 23.3 % (10.0-50.0); Mean Corpuscular Hemoglobin 31.3 pg (28.0-32.0); Mean Corpuscular Hgb Conc. 32.8 g/dL (32.0-36.0); Mean Corpuscular Volume 95.4 fL (80.0-100.0); Monocytes # (auto) 0.4 10 ^3/uL (0-1.3); Monocytes % (auto) 8.4 % (0.0-12.0); Neutrophils # (auto) 3.5 10 ^3/uL (1.6-8.6); Neutrophils % (auto) 66.9 % (37.0-80.0); Nucleated Red Blood Cells % 0.2 %; Red Cell Distribution Width 14.1 % (11.8-14.3); White Blood Cell 5.3 10^3/uL (4.4-10.8)
[2023-07-08 13:48] LABS: Alanine Aminotransferase 18 U/L (7-40); Albumin 4.4 g/dL (3.2-4.8); Alkaline Phosphatase 136 U/L (46-116); Anion Gap 8 (5-15); Aspartate Aminotransferase 13 U/L (13-40); Bilirubin, Total 0.5 mg/dL (0.2-1.0); Calcium 9.8 mg/dL (8.5-10.1); Carbon Dioxide 28 mmol/L (20-30); Chloride 101 mmol/L (98-107); Glucose 293 mg/dL (74-106); Potassium 3.9 mmol/L (3.5-5.1); Sodium 137 mmol/L (136-145); Total Protein 7.4 g/dL (5.7-8.2)
[2023-07-08 13:52] LABS: BUN/Creatinine Ratio 6.4 (10.0-20.0); Blood Urea Nitrogen < 5 mg/dL (9-23)
[2023-07-08 15:50] VITALS: PULSE 94
== END 2023-07-08 23:06 | disposition home or self-care (01) ==
LOC: ER 12:51
DX: S70.01XA Contusion of right hip, initial encounter (principal); R07.89 Other chest pain; I11.0 Hypertensive heart disease with heart failure; I50.9 Heart failure, unspecified; E78.5 Hyperlipidemia, unspecified; J44.9 Chronic obstructive pulmonary disease, unspecified; E11.9 Type 2 diabetes mellitus without complications; Z88.6 Allergy status to analgesic agent; X50.9XXA Other and unspecified overexertion or strenuous movements or postures, initial encounter; Y93.89 Activity, other specified; Y92.89 Other specified places as the place of occurrence of the external cause; Y99.8 Other external cause status
CPT/HCPCS: 36415; 71045; 72192; 80053; 83880; 84484; 85025; 93005

== ENCOUNTER 2024-10-21 13:57 | Inpatient (IN) | payer OTHER, MEDICAID, MEDICARE ==
[~2024-10-21] VITALS: Ht 167.6 cm; Wt 85.1 kg
--- NOTE | 2024-10-21 14:26 | ED.PDOC ---
HPI Comments 64-year-old male who comes in with chief complaint of chest pain. The patient states that the symptoms started at approximately 10:30 a.m. in the morning. The patient states that he was just laying down when the chest pain started. He states that the pain is a 10/10. The chest pain is associated with headache as well as numbness to the hands and lightheadedness. The patient denies any nausea or vomiting. The patient states that he recently moved to [place] for several months but he did not get consistent care so he came back for further evaluation. Chief Complaint: Chest Pain Time Seen by MD: 14:04 Primary Care Provider: UNKNOWN Reviewed Notes: Nurses Notes, Medications, Allergies (Allergies to ibuprofen) Allergies: Coded Allergies: Ibuprofen (Verified Allergy, Unknown, RASH, 12/14/15) Home Meds Active Scripts Hydrocodone-Acetaminophen (Hydrocodone/Acetaminophen 5-325 mg) 1 Tab Tab, 1 TAB PO L18PAMD PRN for 5 Days, #10 TAB Prov:NAVEEN LAN DO 01/17/23 Insulin Regular (Human) (Novolin R) 100 Unit/Ml Inj, 0 UNITS SC AC for 30 Days, #30 INJ As per aggressive sliding scale Prov:ELENA JAVIER MD 01/14/23 Insulin Glargine (Lantus) 100 Unit/Ml Inj, 15 UNIT SC DAILY for 30 Days, #30 INJ Prov:ELENA JAVIER MD 01/14/23 Metformin Hydrochloride (Metformin Hcl) 500 Mg Tab, 2 TAB PO BID, #120 TAB 3 Refills Prov:ELENA JAVIER MD 01/14/23 Amitriptyline Hcl (Amitriptyline Hcl) 25 Mg Tab, 1 TAB PO QPM, #30 TAB 5 Refills Prov:ELENA JAVIER MD 01/14/23 Dexamethasone (Decadron) 4 Mg Tb, 4 TAB PO DAILY, #8 TAB Prov:ELENA JAVIER MD 01/14/23 Oxybutynin Chloride (Ditropan Xl) 5 Mg Tab, 5 MG PO BID, #60 TAB Prov:NISHANT JANE MD 11/04/22 Tamsulosin Hcl (Flomax) 0.4 Mg Cap, 0.4 MG PO QPM for 30 Days, #30 CAP Prov:ANTOINE PETERSON MD 09/25/22 Clotrimazole (Lotrimin) 1 Applic Ap, 1 APPLIC TOP Q12HR for 7 Days, #1 APPLIC Prov:ANTOINE PETERSON MD 09/25/22 Reported Medications Zolpidem Tartrate (Ambien) 10 Mg Tab, 1 TAB PO QPM, #30 TAB 5 Refills 11/08/22 Potassium Chloride (Potassium Chloride ER) 10 Meq Tab, 10 MEQ PO BID, TAB 02/27/22 Aspirin (Aspir-Low) 81 Mg Tab, 81 MG PO DAILY, MG 02/27/22 Apixaban Base (ELIQUIS) 5 Mg Tab, 5 MG PO BID, TAB 02/27/22 Enalapril Maleate (Enalapril Maleate) 10 Mg Tab, 5 MG PO DAILY, TAB 02/27/22 Atorvastatin Calcium (ATORVASTATIN CALCIUM) 20 Mg Tab, 1 TAB PO HS 05/09/21 Cholecalciferol (D3) 2,000 Unit Tab, 1 TAB PO DAILY 05/09/21 Furosemide (Lasix) 20 Mg Tb, 10 MG PO DAILY, #90 TAB 3 Refills 08/07/19 Hydrocodone-Acetaminophen (Hydrocodone Bitartrate/AC 10-325 mg) 1 Tab Tab, 1 TAB PO Q6HP PRN for PAIN, TAB FOR CHRONIC ACUTE TO SEVERE PAIN 08/07/19 Information Source: Patient Mode of Arrival: Ambulatory Severity: Moderate Timing: Hours Duration: Since onset Prehospital treatment: None Location: Substernal Radiation: Arm (R), Arm (L) Quality: Squeezing, Pressure Onset: At Rest Cardiac Risk Factors: Hyperlipidemia, HTN, Diabetes PE Risk Factors: None History of: Similar pain in past, Angina Modifying Factors: Nothing Associated Signs and Symptoms: SOB Past Medical History PAST MEDICAL HISTORY: Anxiety, CAD, CHF, COPD, Depression, DM, High Lipids, HTN, [place], PE, Thyroid Surgical History: AKA, Pacemaker, PTCA Family History Family History: Reviewed,noncontributory to illness, Family hx of DM, Family hx of Cancer, Family hx of HTN Social History Smoker: Non-Smoker Alcohol: Occasionally Drugs: Denies Drug Use Lives In: Home Constitutional: reports: others (Lightheadedness); denies: chills, diaphoresis, fatigue, fever, malaise, sweats, weakness EENTM: denies: blurred vision, double vision, ear bleeding, ear discharge, ear drainage, ear pain, ear ringing, eye pain, eye redness, hearing loss, mouth pain, mouth swelling, nasal discharge, nose bleeding, nose congestion, nose pain , photophobia, tearing, throat pain, throat swelling, voice changes, others Respiratory: denies: cough, hemoptysis, orthopnea, SOB at rest, shortness of breath, SOB with excertion, stridor, wheezing, others Cardiovascular: reports: chest pain; denies: dizzy spells, diaphoresis, Dyspnea on exertion, edema, irregular heart beat, left arm pain, lightheadedness, palpitations, PND, syncope, others Gastrointestinal: denies: abdomen distended, abdominal pain, blood streaked bowels, constipated, diarrhea, dysphagia, difficulty swallowing, hematemesis, melena, nausea, poor appetite, poor fluid intake, rectal bleeding, rectal pain, vomiting, others Genitourinary: denies: burning, dysuria, flank pain, frequency, hematuria, incontinence, penile discharge, penile sore, pain, testicle pain, testicle swelling, urgency, others Neurological: reports: headache, others (Numbness to both hands); denies: dizziness, fainting, left sided numbness, left sided weakness, numbness, paresthesia, pre-existing deficit, right sided numbness, right sided weakness, seizure, speech problems, tingling, tremors, weakness Musculoskeletal: denies: back pain, gout, joint pain, joint swelling, muscle pain, muscle stiffness, neck pain, others Integumetry: denies: bruises, change in color, change in hair/nails, dryness, laceration, lesions, lumps, rash, wounds, others Allergic/Immunocompromised: denies: Difficulty Healing, Frequent Infections, Hives, Itching, others Hematologic/Lymphatic: denies: anemia, blood clots, easy bleeding, easy bruising, swollen glands, others Endocrine: denies: excessive hunger, excessive sweating, excessive thirst, excessive urination, flushing, intolerance to cold, intolerance to heat, unexplained weight gain, unexplained weight loss, others Psychiatric: denies: anxiety, bipolar disorder, depression, hopeless, panic disorder, schizophrenia, sleepless, suicidal, others Physical Exam General Appearance: Moderate Distress HEENT: Normal ENT Inspection, Pharynx Normal, TMs Normal Neck: Full Range of Motion, Non-Tender, Normal, Normal Inspection Respiratory: Chest Non-Tender, Lungs Clear, No Accessory Muscle Use, No Respiratory Distress, Normal Breath Sounds Cardiovascular: No Edema, No JVD, No Murmur, No Gallop, Normal Peripheral Pulses, Regular Rate/Rhythm, Other (Pacemaker in place) Breast Exam: Deferred Gastrointestinal: No Organomegaly, Non Tender, No Pulsatile Mass, Normal Bowel Sounds, Soft Genitalia: Deferred Pelvic: Deferred Rectal: Deferred Extremities: No calf tenderness, Normal capillary refill, No pedal edema, Other (Right AKA) Musculoskeletal : Apperance: Normal Neurologic: Alert, cardiac technician II-XII nml as Tested, No Motor Deficits, Normal Affect, Normal Mood, No Sensory Deficits Cerebellar Function: Normal Reflexes: Normal Skin: Dry, Normal Color, Warm Lymphatic: No Adenopathy EKG EKG : Pulse Rate (adult): 89 [place]: Normal Cardiac Rhythm: NSR Hypertrophy: LAE, LVH Was a procedure done? Was a procedure done?: No CP Differential Dx Differential Diagnosis: Angina, [place], Pulmonary Embolus Differential Diagnosis: CHF Differential Diagnosis: Pericarditis X-Ray, Labs, Meds, VS Vital Signs Date Time Temp Pulse Resp B/P (MAP) Pulse Ox O2 Delivery O2 Flow Rate FiO2 10/21/24 14:26 89 10/21/24 14:04 89 10/21/24 14:00 98.7 85 18 113/66 (82) 98 98.7 Lab Test 10/21/24 14:10 Range/Units White Blood Count 5.1 4.4-10.8 10^3/uL Red Blood Count 5.15 4.5-5.90 10^6/uL Hemoglobin 15.7 13.5-17.5 g/dL Hematocrit 48.4 41.0-53.0 % Mean Corpuscular Volume 94.0 80.0-100.0 fL Mean Corpuscular Hemoglobin 30.5 28.0-32.0 pg Mean Corpuscular Hemoglobin Concent 32.5 32.0-36.0 g/dL Red Cell Distribution Width 14.0 11.8-14.3 % Platelet Count 197 140-450 10^3/uL Mean Platelet Volume 6.5 L 6.9-10.8 fL Neutrophils (%) (Auto) 48.5 37.0-80.0 % Lymphocytes (%) (Auto) 38.2 10.0-50.0 % Monocytes (%) (Auto) 11.8 0.0-12.0 % Eosinophils (%) (Auto) 0.7 0.0-7.0 % Basophils (%) (Auto) 0.8 0.0-2.0 % Neutrophils # (Auto) 2.5 1.6-8.6 10 ^3/uL Lymphocytes # (Auto) 2.0 0.4-5.4 10 ^3/uL Monocytes # (Auto) 0.6 0-1.3 10 ^3/uL Eosinophils # (Auto) 0 0-0.8 10 ^3/uL Basophils # (Auto) 0 0-0.2 10 ^3/uL Nucleated Red Blood Cells 0.1 % Sodium Level 142 136-145 mmol/L Potassium Level 4.4 3.5-5.1 mmol/L Chloride Level 107 98-107 mmol/L Carbon Dioxide Level 27 20-31 mmol/L Anion Gap 8 5-15 Blood Urea Nitrogen 11 9-23 mg/dL Creatinine 0.77 0.700-1.30 mg/dL Glomerular Filtration Rate Calc 100 >90 mL/min BUN/Creatinine Ratio 14.3 10.0-20.0 Serum Glucose 99 74-106 mg/dL Calcium Level 10.2 8.7-10.4 mg/dL Troponin I High Sensitivity 3 L </=54 ng/L B-Type Natriuretic Peptide 27.83 0-100 pg/mL Chest X-Ray Impression: Trace left pleural effusion. Left retrocardiac opacity. Findings are unchanged compared prior exam. The patient's CBC is within normal limits The chemistry panel is within normal limits The troponin level is negative The BNP is within normal limits An IV Hep-Lock was established. The patient was given aspirin here in the emergency department's The patient was being admitted at this time. Images Reviewed?: Images reviewed and evaluated by me Time of 1ST Reevaluation: 14:25 Reevaluation 1ST: Unchanged Patient Education/Counseling: Diagnosis, Treatment, Prognosis Family Education/Counseling: No Family Present Departure 1 Departure Time of Disposition: 14:58 Impression: Primary Impression: Acute myocardial ischemia Disposition: 09 ADMITTED INPATIENT Admit to: [facility] Condition: Fair Critical Care Note Critical Care Time?: Yes (45 min-critical care time only) Stability Stability form required: Yes Unstable for transfer: Telemetry monitoring (Telemetry monitoring required), ED Physician Assesment (Clinical assesment) Heart Score Heart Score: Heart Score Response (Comments) Value History Moderate Suspicious 1 EKG Repolarization Disturb 1 Age 45-64 1 Risk Factors >3 or Hx ASHD 2 Troponin Normal limit 0 Total 5 I personally scribed for BRYAN DAVID MD ([email or web address]) on 10/21/24 at 14:43. Electronically submitted by Liu Petty ([email or web address]). BRYAN DAVID MD Oct 21, 2024 14:26
[2024-10-21 14:27] LABS: Basophils # (auto) 0 10 ^3/uL (0-0.2); Basophils % (auto) 0.8 % (0.0-2.0); Eosinophils # (auto) 0 10 ^3/uL (0-0.8); Eosinophils % (auto) 0.7 % (0.0-7.0); Hematocrit 48.4 % (41.0-53.0); Hemoglobin 15.7 g/dL (13.5-17.5); Lymphocytes % (auto) 38.2 % (10.0-50.0); Mean Corpuscular Hemoglobin 30.5 pg (28.0-32.0); Mean Corpuscular Hgb Conc. 32.5 g/dL (32.0-36.0); Monocytes # (auto) 0.6 10 ^3/uL (0-1.3); Monocytes % (auto) 11.8 % (0.0-12.0); Neutrophils # (auto) 2.5 10 ^3/uL (1.6-8.6); Neutrophils % (auto) 48.5 % (37.0-80.0); Nucleated Red Blood Cells % 0.1 %; Platelet Count (auto) 197 10^3/uL (140-450); Red Blood Cells 5.15 10^6/uL (4.5-5.90); White Blood Cell 5.1 10^3/uL (4.4-10.8)
[2024-10-21 14:36] LABS: Potassium 4.4 mmol/L (3.5-5.1); Sodium 142 mmol/L (136-145)
[2024-10-21 14:37] LABS: Anion Gap 8 (5-15); Calcium 10.2 mg/dL (8.7-10.4); Carbon Dioxide 27 mmol/L (20-31)
--- NOTE | 2024-10-21 14:40 | DVH ---
EXAM: XY CHEST TWO VIEWS ROUTINE CLINICAL HISTORY: cp COMPARISON: None TECHNIQUE: Frontal and lateral view of the chest was obtained FINDINGS: Lines and Tubes: Vascular stent projects over left upper chest. Cardiac loop recorder device projects over the upper mediastinum. Lungs: Multiple calcific granulomas project over the left lung. Pleura: Trace left pleural effusion. No pneumothorax. Cardiomediastinal contours: Unremarkable Bones: No acute osseous abnormality. IMPRESSION: Trace left pleural effusion. Left retrocardiac opacity. Findings are unchanged compared prior exam.
[2024-10-21 14:42] LABS: BUN/Creatinine Ratio 14.3 (10.0-20.0); Blood Urea Nitrogen 11 mg/dL (9-23); Glucose 99 mg/dL (74-106)
[2024-10-21 14:44] LABS: Chloride 107 mmol/L (98-107)
[2024-10-21 16:19] VITALS: PULSE 77; RESP 16; O2SAT 100
[2024-10-21] MEDS: MORPHINE SULFATE 4 MG/ML SYR/VIAL IV ONE ×2 (16:25→18:46)
[2024-10-21] MEDS: ONDANSETRON HCL 4 MG/2 ML VIAL IV ONE ×2 (16:27→18:44)
[2024-10-21] MEDS: ASPirin 81 mg TAB PO ONE ×2 (16:31→16:32)
--- NOTE | 2024-10-21 18:49 | ECG ---
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
[2024-10-21] MEDS ORDERED: ONDANSETRON HCL 4 MG/2 ML VIAL IV PRN (22:00)
[2024-10-21] MEDS ORDERED: DEXTROSE (50%) 50ML SYRG IV PRN (22:00)
[2024-10-21] MEDS ORDERED: hydrALAZINE HCL 20 MG/ML VL IV PRN (22:00)
[2024-10-21] MEDS: ACCU-CHEK COMFORT CURVE STRIP VI SCH (23:25)
[2024-10-21] MEDS: MORPHINE SULFATE INJ 2 MG/ml SYRG IV PRN (23:30)
[2024-10-21] MEDS: InsuLIN REG 1unit/0.01ml Soln (100units/ml) SC SCH (23:40)
[2024-10-22] VITALS (9 sets, daily range): BP systolic 97–135; BP diastolic 61–79; PULSE 67–74; RESP 16–19; TEMP 97.5–98; O2SAT 96–99
[2024-10-22] MEDS: MORPHINE SULFATE INJ 2 MG/ml SYRG IV PRN (01:47)
--- NOTE | 2024-10-22 02:12 | DVHHP2 ---
RAKAN LEON BOTTOM SAW OPERATOR 10/22/24 0212: History of Present Illness Reason for Visit: Chest pain History of Present Illness 64-year-old male with past medical history of DM, CHF, hypertension, hyperl ipidemia, CAD, mi, presents with complaints of chest pain that began at 10:30 a.m. prior to going to the emergency department. Patient endorsed chest pain is substernal 05/07. Also endorses headache and pain to the right arm. At this time patient denies any fevers, chills, dizziness, shortness of breath, nausea, vomiting, abdominal pain, leg edema. Cardiovascular: CAD, CHF, HTN, hyperipidemia Endocrine: Diabetes Smoke: No ALCOHOL: none Drugs: None Lives: with Family Review of Systems Constitutional: No: Fever, Chills, Sweats, Weakness, Malaise, Other Eyes: No: Pain, Vision change, Conjunctivae inflammation, Eyelid inflammation, Other, Redness ENT: No: Ear pain, Ear discharge, Nose pain, Nose discharge, Nose congestion, Mouth pain, Mouth swelling, Throat pain, Throat swelling, Other Respiratory: No: Cough, Dry, Shortness of breath, SOB with excertion, Wheezing, Hemoptysis, Pleuritic Pain, Sputum, Wheezing, Other Cardiovascular: Chest Pain; No: Palpitations, Orthopnea, Paroxysmal Noc. Dyspnea, Edema, Lt Headedness, Other Gastrointestinal: No: Nausea, Vomiting, Abdominal Pain, Diarrhea, Constipation, Melena, Hematochezia, Other Genitourinary: No Dysuria, No Frequency, No Incontinence, No Hematuria, No Rete ntion, No Other Musculoskeletal: arm pain; No: other, neck pain, shoulder pain, back pain, hand pain, leg pain, foot pain Skin: No: Rash, Lesions, Jaundice, Bruising, Other Neurological: No: Weakness, Numbness, Incoordination, Change in speech, Confusion, Seizures, Other Allergies: Coded Allergies: Ibuprofen (Verified Allergy, Unknown, RASH, 12/14/15) Medications Current Medications Medications Dose Ordered Sig/Mikel Route Start Time Stop Time Status Last Admin Dose Admin Acetaminophen 650 mg Q6HP PRN PO 10/21/24 22:00 Acetaminophen/ Hydrocodone Bitart 1 tab Q6HPRN PRN PO 10/21/24 22:00 Ondansetron HCl 4 mg Q4HP PRN IV 10/21/24 22:00 Morphine Sulfate 2 mg Q4HPRN PRN IV 10/21/24 22:00 10/21/24 23:30 2 MG Enoxaparin Sodium 40 mg DAILY SC 10/22/24 10:00 Nitroglycerin 0.4 mg Q5MINP PRN SL 10/21/24 22:00 Morphine Sulfate 2 mg Q30M PRN IV 10/21/24 22:00 10/22/24 01:47 2 MG Aspirin 81 mg DAILY PO 10/22/24 10:00 Atorvastatin Calcium 20 mg DAILY PO 10/22/24 10:00 Hydralazine HCl 10 mg Q4HPRN PRN IV 10/21/24 22:00 Diagnostic Test (Pha) 1 strip ACHS 10/21/24 22:00 10/21/24 23:25 1 STRIP Insulin Human Regular ACHS SC 10/21/24 22:00 10/21/24 23:40 3 UNITS Dextrose 50 ml UD PRN IV 10/21/24 22:00 Exam Vital Signs Vital Signs Date Time Temp Pulse Resp B/P (MAP) Pulse Ox O2 Delivery O2 Flow Rate FiO2 10/22/24 01:47 75 18 102/66 10/22/24 00:30 99 Room Air* 0 21 10/22/24 00:30 97.5 97.5 General Appearance: Alert, Oriented X3, Cooperative HEENT: Atraumatic, PERRLA, EOMI Respiratory: Clear to auscultation, Normal air movement Cardiovascular: Regular rate, Normal S1, Normal S2 Abdominal: Normal bowel sounds, Soft, No tenderness Extremities: No clubbing, No cyanosis, No edema Skin: No rashes, No breakdown Neuro: Normal speech, Strength at 5/5 X4 ext Psych/Mental Status: Mental status NL, Mood NL Labs/Xrays Labs Test 10/21/24 23:16 10/21/24 15:20 10/21/24 14:10 Range/Units POC Glucose 161 H 70-106 mg/dl Troponin I High Sensitivity 4 </=54 ng/L White Blood Count 5.1 4.4-10.8 10^3/uL Red Blood Count 5.15 4.5-5.90 10^6/uL Hemoglobin 15.7 13.5-17.5 g/dL Hematocrit 48.4 41.0-53.0 % Mean Corpuscular Volume 94.0 80.0-100.0 fL Mean Corpuscular Hemoglobin 30.5 28.0-32.0 pg Mean Corpuscular Hemoglobin Concent 32.5 32.0-36.0 g/dL Red Cell Distribution Width 14.0 11.8-14.3 % Platelet Count 197 140-450 10^3/uL Mean Platelet Volume 6.5 L 6.9-10.8 fL Neutrophils (%) (Auto) 48.5 37.0-80.0 % Lymphocytes (%) (Auto) 38.2 10.0-50.0 % Monocytes (%) (Auto) 11.8 0.0-12.0 % Eosinophils (%) (Auto) 0.7 0.0-7.0 % Basophils (%) (Auto) 0.8 0.0-2.0 % Neutrophils # (Auto) 2.5 1.6-8.6 10 ^3/uL Lymphocytes # (Auto) 2.0 0.4-5.4 10 ^3/uL Monocytes # (Auto) 0.6 0-1.3 10 ^3/uL Eosinophils # (Auto) 0 0-0.8 10 ^3/uL Basophils # (Auto) 0 0-0.2 10 ^3/uL Nucleated Red Blood Cells 0.1 % Sodium Level 142 136-145 mmol/L Potassium Level 4.4 3.5-5.1 mmol/L Chloride Level 107 98-107 mmol/L Carbon Dioxide Level 27 20-31 mmol/L Anion Gap 8 5-15 Blood Urea Nitrogen 11 9-23 mg/dL Creatinine 0.77 0.700-1.30 mg/dL Glomerular Filtration Rate Calc 100 >90 mL/min BUN/Creatinine Ratio 14.3 10.0-20.0 Serum Glucose 99 74-106 mg/dL Calcium Level 10.2 8.7-10.4 mg/dL B-Type Natriuretic Peptide 27.83 0-100 pg/mL Assessment/Plan Assessment/Plan Chest pain (moderate heart score) Hypertension DM Hx right AKA Plan Admit telemetry Cardiology consult. Echocardiogram. ASA, statin, continue home medication. As needed anti-hypertensive for optimal BP management. Blood glucose check ACHS with regular insulin sliding scale coverage Fall precautions GI ppx pepcid / DVT ppx lovenox Plan discussed with: Patient My Orders Orders - LEON,RAKAN BOTTOM SAW OPERATOR Procedure Category Date Status Time Admit ADMIT 10/21/24 Transmitted 21:50 Code Status CODE 10/21/24 Transmitted 21:50 Vital Signs LISA 10/21/24 In Process 21:50 Review Orders With LISA 10/21/24 In Process Adm. 21:50 Encourage Activity As LISA 10/21/24 In Process Tolerate 21:50 Consistent DIET 10/22/24 Transmitted Carb(Ccho)Diabetes Breakfast Oxygen By Face Mask RT 10/21/24 Transmitted 21:50 Acetaminophen Tablet PHA 10/21/24 In Process (Tylenol Tablet) 22:00 Notify Of Changes LISA 10/21/24 In Process From Base 21:50 Advance Directive LISA 10/21/24 In Process 21:50 Echo 2d Mode Cardiac US 10/21/24 Logged DOP 21:50 Basic Metabolic Panel LAB 10/22/24 Logged 05:00 Basic Metabolic Panel LAB 10/23/24 Verified 05:00 Basic Metabolic Panel LAB 10/24/24 Verified 05:00 Basic Metabolic Panel LAB 10/25/24 Verified 05:00 Complete Blood Count LAB 10/22/24 Logged 05:00 Complete Blood Count LAB 10/23/24 Verified 05:00 Complete Blood Count LAB 10/24/24 Verified 05:00 Complete Blood Count LAB 10/25/24 Verified 05:00 Patient Condition ORDERS 10/21/24 Transmitted 21:50 Allergies LISA 10/21/24 In Process 21:50 Hydrocodone-Acet PHA 10/21/24 In Process 5/325mg Tab ([place] 22:00 Ondansetron Hcl PHA 10/21/24 In Process (Zofran) 22:00 Morphine Sulfate PHA 10/21/24 In Process Injection 22:00 Enoxaparin Sodium PHA 10/22/24 In Process (Lovenox) 10:00 Nitroglycerin PHA 10/21/24 In Process Sublingual (Ntrostat 22:00 Morphine Sulfate PHA 10/21/24 In Process Injection 22:00 Stat Ekg For Chest LISA 10/21/24 In Process Pain 21:50 Notify Md Of Changes LISA 10/21/24 In Process From Base 21:50 Systems Admin For LISA 10/21/24 In Process 24 Hours 21:50 Emergency Dysrhythmia LISA 10/21/24 In Process Protocol 21:50 Rhythm Strips Once LISA 10/21/24 In Process Every Shift 21:50 Oxygen By Nasal RT 10/21/24 Transmitted Cannula 21:50 * Cardiology Consult CONS 10/21/24 Transmitted 21:50 Aspirin Tablet PHA 10/22/24 In Process 10:00 Atorvastatin (Lipitor) PHA 10/22/24 In Process 10:00 Hydralazine Injection PHA 10/21/24 In Process (Apresoline Inject 22:00 Glucose Blood PHA 10/21/24 In Process (Accu-Chek Comfort 22:00 Insulin R (Human) PHA 10/21/24 In Process (Insulin R) 22:00 Dextrose 50% Syringe PHA 10/21/24 In Process 22:00 Date of Service: Oct 22, 2024 Billing Provider: OVIDIO GONSALVES MD Common Visit Codes: NOT BILLABLE OVIDIO GONSALVES MD 10/22/24 1605: Review of Systems Allergies: Coded Allergies: Ibuprofen (Verified Allergy, Unknown, RASH, 12/14/15) Additional Comments Additional Comments Additional Comments Patient was seen and evaluated by me. I agree with the assessment and plan as outlined by my nurse practitioner. RAKAN LEON NP Oct 22, 2024 02:12 OVIDIO GONSALVES MD Oct 22, 2024 16:05
[2024-10-22 02:41] LABS: Urine Bacteria None Seen /hpf (None Seen)
[2024-10-22 02:54] LABS: Urine Blood Negative /uL (Negative); Urine Clarity Clear (Clear); Urine Color Yellow (Yellow); Urine Mucus FEW (None Seen); Urine Protein, UAD Negative (Negative); Urine Specific Gravity 1.024 (1.001-1.035); Urine Squamous Epithelial Cell FEW /hpf (<5); Urine Urobilinogen Normal (Negative); Urine WBC 1 /HPF (0-3); Urine pH 5.5 (5.0-9.0)
[2024-10-22] MEDS: HYDROcodone-ACET 5/325MG TAB PO PRN (04:11)
[2024-10-22] MEDS: NITROGLYCERIN 0.4 MG SL TAB SL PRN (04:35)
[2024-10-22 07:49] LABS: Basophils # (auto) 0 10 ^3/uL (0-0.2); Basophils % (auto) 0.4 % (0.0-2.0); Eosinophils # (auto) 0.1 10 ^3/uL (0-0.8); Eosinophils % (auto) 1.9 % (0.0-7.0); Hematocrit 43.3 % (41.0-53.0); Hemoglobin 14.6 g/dL (13.5-17.5); Lymphocytes # (auto) 1.5 10 ^3/uL (0.4-5.4); Lymphocytes % (auto) 31.3 % (10.0-50.0); Mean Corpuscular Hgb Conc. 33.6 g/dL (32.0-36.0); Mean Corpuscular Volume 95.3 fL (80.0-100.0); Monocytes # (auto) 0.6 10 ^3/uL (0-1.3); Monocytes % (auto) 12.5 % (0.0-12.0); Neutrophils # (auto) 2.5 10 ^3/uL (1.6-8.6); Neutrophils % (auto) 53.9 % (37.0-80.0); Nucleated Red Blood Cells % 0.1 %; Platelet Count (auto) 172 10^3/uL (140-450); Red Blood Cells 4.54 10^6/uL (4.5-5.90); Red Cell Distribution Width 13.6 % (11.8-14.3); White Blood Cell 4.7 10^3/uL (4.4-10.8)
[2024-10-22 07:55] LABS: Chloride 106 mmol/L (98-107); Potassium 4.5 mmol/L (3.5-5.1); Sodium 140 mmol/L (136-145)
[2024-10-22 07:56] LABS: Anion Gap 8 (5-15); Calcium 9.4 mg/dL (8.7-10.4); Carbon Dioxide 26 mmol/L (20-31)
[2024-10-22 08:01] LABS: BUN/Creatinine Ratio 11.5 (10.0-20.0); Blood Urea Nitrogen 12 mg/dL (9-23)
[2024-10-22 08:04] LABS: Glucose 134 mg/dL (74-106)
[2024-10-22] MEDS ORDERED: KEP500T PO ×3 (08:25→16:45)
[2024-10-22] MEDS: ACETAMINOPHEN 325 MG TAB PO PRN (08:27)
[2024-10-22] MEDS: ASPirin 81 mg TAB PO SCH (08:41)
[2024-10-22] MEDS: ATORVASTATIN 20 MG TAB PO SCH (08:41)
[2024-10-22] MEDS: ENOXAPARIN SOD 40 MG/0.4 ML SYRINGE SC SCH (08:42)
--- NOTE | 2024-10-22 09:11 | ECG ---
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
--- NOTE | 2024-10-22 09:17 | ECG ---
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
[2024-10-22] MEDS ORDERED: levETIRAcetam 500 MG TAB PO ONE (16:15)
[2024-10-22] MEDS: levETIRAcetam 500 MG TAB PO SCH (21:43)
[2024-10-22] MEDS ORDERED: levETIRAcetam 500 MG TAB PO SCH (22:00)
--- NOTE | 2024-10-22 22:13 | DVHINCON2 ---
Date of service: Oct 22, 2024 Referring Physician Juan Carlos Reason for Consultation Chest pain History of Present Illness This is a 64-year-old male with a PMH of anxiety, CAD, CHF, COPD, Depression, DM, HLD, HTN, [place], PE who presented to the ED with complaints of chest pain since yesterday morning. The patient states that he was just laying down when the chest pain started. He states that the pain is a 10/10. Patient reports an associated with headache as well as numbness to the hands and lightheadedness. Patient states that he recently moved to [place] for several months but he did not get consistent care so he came back for further evaluation. Chest x-ray showed trace left pleural effusion, left retrocardiac opacity. EKG shows NSR at 89. Patient was admitted to the hospital. I am asked to consult on this patient. Family History: Cardiovascular disease G8 FATHER FH: cancer of digestive organ G8 MOTHER, Onset:60 years & older FH: uterine cancer Hypertension G8 FATHER Allergies: Coded Allergies: Ibuprofen (Verified Allergy, Unknown, RASH, 12/14/15) Home Meds Active Scripts Hydrocodone-Acetaminophen (Hydrocodone/Acetaminophen 5-325 mg) 1 Tab Tab, 1 TAB PO [id number] PRN for 5 Days, #10 TAB Prov:NAVEEN LAN DO 01/17/23 Insulin Regular (Human) (Novolin R) 100 Unit/Ml Inj, 0 UNITS SC AC for 30 Days, #30 INJ As per aggressive sliding scale Prov:ELENA JAVIER MD 01/14/23 Insulin Glargine (Lantus) 100 Unit/Ml Inj, 15 UNIT SC DAILY for 30 Days, #30 INJ Prov:ELENA JAVIER MD 01/14/23 Metformin Hydrochloride (Metformin Hcl) 500 Mg Tab, 2 TAB PO BID, #120 TAB 3 Refills Prov:ELENA JAVIER MD 01/14/23 Amitriptyline Hcl (Amitriptyline Hcl) 25 Mg Tab, 1 TAB PO QPM, #30 TAB 5 Refills Prov:ELENA JAVIER MD 01/14/23 Dexamethasone (Decadron) 4 Mg Tb, 4 TAB PO DAILY, #8 TAB Prov:ELENA JAVIER MD 01/14/23 Oxybutynin Chloride (Ditropan Xl) 5 Mg Tab, 5 MG PO BID, #60 TAB Prov:NISHANT JANE MD 11/04/22 Tamsulosin Hcl (Flomax) 0.4 Mg Cap, 0.4 MG PO QPM for 30 Days, #30 CAP Prov:ANTOINE PETERSON MD 09/25/22 Clotrimazole (Lotrimin) 1 Applic Ap, 1 APPLIC TOP Q12HR for 7 Days, #1 APPLIC Prov:ANTOINE PETERSON MD 09/25/22 Reported Medications Levetiracetam (KEPPRA TABLET) 500 Mg Tb, 750 MG PO BID, TAB 10/22/24 Zolpidem Tartrate (Ambien) 10 Mg Tab, 1 TAB PO QPM, #30 TAB 5 Refills 11/08/22 Potassium Chloride (Potassium Chloride ER) 10 Meq Tab, 10 MEQ PO BID, TAB 02/27/22 Aspirin (Aspir-Low) 81 Mg Tab, 81 MG PO DAILY, MG 02/27/22 Apixaban Base (ELIQUIS) 5 Mg Tab, 5 MG PO BID, TAB 02/27/22 Enalapril Maleate (Enalapril Maleate) 10 Mg Tab, 5 MG PO DAILY, TAB 02/27/22 Atorvastatin Calcium (ATORVASTATIN CALCIUM) 20 Mg Tab, 1 TAB PO HS 05/09/21 Cholecalciferol (D3) 2,000 Unit Tab, 1 TAB PO DAILY 05/09/21 Furosemide (Lasix) 20 Mg Tb, 10 MG PO DAILY, #90 TAB 3 Refills 08/07/19 Hydrocodone-Acetaminophen (Hydrocodone Bitartrate/AC 10-325 mg) 1 Tab Tab, 1 TAB PO Q6HP PRN for PAIN, TAB FOR CHRONIC ACUTE TO SEVERE PAIN 08/07/19 Discontinued Reported Medications Levetiracetam (KEPPRA TABLET) 500 Mg Tb, 500 MG PO DAILY, TAB 10/22/24 Current Medications Current Medications Medications (Trade) Dose Ordered Sig/Mikel Route PRN Reason Start Time Stop Time Status Last Admin Acetaminophen (Tylenol Tablet) 650 mg Q6HP PRN PO PAIN SCALE 1-3 OR TEMP>100.4 10/21/24 22:00 10/22/24 08:27 Acetaminophen/ Hydrocodone Bitart ([place] 5/325MG Tab) 1 tab Q6HPRN PRN PO MODERATE PAIN (4-6 PAIN SCALE) 10/21/24 22:00 10/22/24 04:11 Ondansetron HCl (Zofran) 4 mg Q4HP PRN IV NAUSEA / VOMITING 10/21/24 22:00 Morphine Sulfate 2 mg Q4HPRN PRN IV SEVERE PAIN (7-10 PAIN SCALE) 10/21/24 22:00 10/22/24 08:42 Enoxaparin Sodium (Lovenox) 40 mg DAILY SC 10/22/24 10:00 10/22/24 08:42 Nitroglycerin (Ntrostat Sublingual) 0.4 mg Q5MINP PRN SL FOR CHEST PAIN 10/21/24 22:00 10/22/24 06:31 Morphine Sulfate 2 mg Q30M PRN IV FOR CHEST PAIN 10/21/24 22:00 10/22/24 01:47 Aspirin 81 mg DAILY PO 10/22/24 10:00 10/22/24 08:41 Atorvastatin Calcium (Lipitor) 20 mg DAILY PO 10/22/24 10:00 10/22/24 08:41 Hydralazine HCl (Apresoline Injection) 10 mg Q4HPRN PRN IV SBP > 160 10/21/24 22:00 Diagnostic Test (Pha) (Accu-Chek Comfort Curve T) 1 strip ACHS 10/21/24 22:00 10/22/24 07:00 Insulin Human Regular (InsuLIN R) ACHS SC 10/21/24 22:00 10/22/24 06:51 Dextrose 50 ml UD PRN IV Blood Sugar LESS THAN 60 10/21/24 22:00 Review of Systems Constitutional: reports: others (Lightheadedness); denies: chills, diaphoresis, fatigue, fever, malaise, sweats, weakness EENTM: denies: blurred vision, double vision, ear bleeding, ear discharge, ear drainage, ear pain, ear ringing, eye pain, eye redness, hearing loss, mouth pain, mouth swelling, nasal discharge, nose bleeding, nose congestion, nose pain, photophobia, tearing, throat pain, throat swelling, voice changes, others Respiratory: denies: cough, hemoptysis, orthopnea, SOB at rest, shortness of breath, SOB with excertion, stridor, wheezing, others Cardiovascular: reports: chest pain; denies: dizzy spells, diaphoresis, Dyspnea on exertion, edema, irregular heart beat, left arm pain, lightheadedness, palpitations, PND, syncope, others Gastrointestinal: denies: abdomen distended, abdominal pain, blood streaked bowels, constipated, diarrhea, dysphagia, difficulty swallowing, hematemesis, melena, nausea, poor appetite, poor fluid intake, rectal bleeding, rectal pain, vomiting, others Genitourinary: denies: burning, dysuria, flank pain, frequency, hematuria, incontinence, penile discharge, penile sore, pain, testicle pain, testicle swell ing, urgency, others Neurological: reports: headache, others (Numbness to both hands); denies: dizziness, fainting, left sided numbness, left sided weakness, numbness, paresthesia, pre-existing deficit, right sided numbness, right sided weakness, seizure, speech problems, tingling, tremors, weakness Musculoskeletal: denies: back pain, gout, joint pain, joint swelling, muscle pain, muscle stiffness, neck pain, others Integumetry: denies: bruises, change in color, change in hair/nails, dryness, laceration, lesions, lumps, rash, wounds, others Allergic/Immunocompromised: denies: Difficulty Healing, Frequent Infections, Hives, Itching, others Hematologic/Lymphatic: denies: anemia, blood clots, easy bleeding, easy bruising, swollen glands, others Endocrine: denies: excessive hunger, excessive sweating, excessive thirst, excessive urination, flushing, intolerance to cold, intolerance to heat, unexplained weight gain, unexplained weight loss, others Psychiatric: denies: anxiety, bipolar disorder, depression, hopeless, panic disorder, schizophrenia, sleepless, suicidal, others Vital Signs Vital Signs Date Time Temp Pulse Resp B/P (MAP) Pulse Ox O2 Delivery O2 Flow Rate FiO2 10/22/24 08:42 64 19 107/76 10/22/24 08:34 98.0 98 98.0 10/22/24 00:30 Room Air* 0 21 Physical Exam GENERAL: Awake, alert, oriented. LUNGS: Clear. CARDIOVASCULAR: Heart sounds are good. ABDOMEN: Soft. EXT: Right AKA. Labs/Diagnostic Data Labs Test 10/22/24 07:30 10/22/24 06:34 10/22/24 02:00 10/21/24 15:20 Range/Units White Blood Count 4.7 4.4-10.8 10^3/uL Red Blood Count 4.54 4.5-5.90 10^6/uL Hemoglobin 14.6 13.5-17.5 g/dL Hematocrit 43.3 # 41.0-53.0 % Mean Corpuscular Volume 95.3 80.0-100.0 fL Mean Corpuscular Hemoglobin 32.0 28.0-32.0 pg Mean Corpuscular Hemoglobin Concent 33.6 32.0-36.0 g/dL Red Cell Distribution Width 13.6 11.8-14.3 % Platelet Count 172 140-450 10^3/uL Mean Platelet Volume 6.2 L 6.9-10.8 fL Neutrophils (%) (Auto) 53.9 37.0-80.0 % Lymphocytes (%) (Auto) 31.3 10.0-50.0 % Monocytes (%) (Auto) 12.5 H 0.0-12.0 % Eosinophils (%) (Auto) 1.9 0.0-7.0 % Basophils (%) (Auto) 0.4 0.0-2.0 % Neutrophils # (Auto) 2.5 1.6-8.6 10 ^3/uL Lymphocytes # (Auto) 1.5 0.4-5.4 10 ^3/uL Monocytes # (Auto) 0.6 0-1.3 10 ^3/uL Eosinophils # (Auto) 0.1 0-0.8 10 ^3/uL Basophils # (Auto) 0 0-0.2 10 ^3/uL Nucleated Red Blood Cells 0.1 % Sodium Level 140 136-145 mmol/L Potassium Level 4.5 3.5-5.1 mmol/L Chloride Level 106 98-107 mmol/L Carbon Dioxide Level 26 20-31 mmol/L Anion Gap 8 5-15 Blood Urea Nitrogen 12 9-23 mg/dL Creatinine 1.04 0.700-1.30 mg/dL Glomerular Filtration Rate Calc 80 >90 mL/min BUN/Creatinine Ratio 11.5 10.0-20.0 Serum Glucose 134 H 74-106 mg/dL Calcium Level 9.4 8.7-10.4 mg/dL POC Glucose 147 H 70-106 mg/dl Urine Color Yellow Yellow Urine Clarity Clear Clear Urine pH 5.5 5.0-9.0 Urine Specific [place] 1.024 1.001-1.035 Urine Protein Negative Negative Urine Ketones Trace Negative Urine Blood Negative Negative /uL Urine Nitrite Negative Negative Urine Bilirubin Negative Negative Urine Urobilinogen Normal Negative mg/dL Urine Leukocyte Esterase Negative Negative /uL Urine RBC <1 0 - 3 /hpf Urine Microscopic WBC 1 0-3 /HPF Urine Squamous Epithelial Cells Few <5 /hpf Urine Bacteria None seen None Seen /hpf Urine Mucus Few None Seen Urine Glucose Normal Normal mg/dL Troponin I High Sensitivity 4 </=54 ng/L Test 10/21/24 14:10 Range/Units B-Type Natriuretic Peptide 27.83 0-100 pg/mL Assessment Chest pain. Hypertension. DM. History of right AKA. Plan/Recommendation I agree with your ongoing assessment and care of plan. Telemetry reviewed. Echocardiogram. Morphine and [place] for pain management. Aspirin, Lipitor. DVT prophylactics. IV Hydralazine for an SBP > 160. Additional plan as per the hospital course. A total of 45 minutes was spent reviewing the patient record, examining the patient, making a diagnostic and therapeutic plan, discussing this plan with medical personnel, following up on diagnostic studies and following the patient for clinical stability excluding any and all procedures. At least 50% of this time was spent in direct, [id number] contact. Plan discussed with: Patient ANURAG HERNÁNDEZ MD Oct 22, 2024 12:11
[2024-10-23] VITALS (8 sets, daily range): BP systolic 101–124; BP diastolic 55–72; PULSE 63–80; RESP 16–19; TEMP 97.3–97.9; O2SAT 95–99
[2024-10-23 06:48] LABS: Anion Gap 7 (5-15); Calcium 9.2 mg/dL (8.7-10.4); Carbon Dioxide 26 mmol/L (20-31); Chloride 106 mmol/L (98-107); Potassium 4.4 mmol/L (3.5-5.1); Sodium 139 mmol/L (136-145)
[2024-10-23 06:54] LABS: BUN/Creatinine Ratio 20.5 (10.0-20.0); Basophils # (auto) 0 10 ^3/uL (0-0.2); Basophils % (auto) 0.3 % (0.0-2.0); Blood Urea Nitrogen 17 mg/dL (9-23); Eosinophils # (auto) 0.1 10 ^3/uL (0-0.8); Eosinophils % (auto) 1.9 % (0.0-7.0); Hematocrit 41.7 % (41.0-53.0); Hemoglobin 13.8 g/dL (13.5-17.5); Lymphocytes # (auto) 1.4 10 ^3/uL (0.4-5.4); Lymphocytes % (auto) 38.6 % (10.0-50.0); Mean Corpuscular Hemoglobin 31.6 pg (28.0-32.0); Mean Corpuscular Hgb Conc. 33.1 g/dL (32.0-36.0); Mean Corpuscular Volume 95.5 fL (80.0-100.0); Monocytes # (auto) 0.4 10 ^3/uL (0-1.3); Monocytes % (auto) 11.4 % (0.0-12.0); Neutrophils # (auto) 1.7 10 ^3/uL (1.6-8.6); Neutrophils % (auto) 47.8 % (37.0-80.0); Nucleated Red Blood Cells % 0.2 %; Platelet Count (auto) 181 10^3/uL (140-450); Red Blood Cells 4.37 10^6/uL (4.5-5.90); Red Cell Distribution Width 13.7 % (11.8-14.3); White Blood Cell 3.5 10^3/uL (4.4-10.8)
[2024-10-23 06:56] LABS: Glucose 164 mg/dL (74-106)
[2024-10-23] MEDS: GABAPENTIN 100 MG CAP PO SCH (09:29)
--- NOTE | 2024-10-23 16:54 | DVHPN2 ---
Subjective Overnight events noted. Patient complaining of chest pain as well as shoulder pain and right upper extremity numbness. Reviewed: Care Plan Changes from previous H/P or p: No Changes Eyes: No Pain, No Vision change, No Conjunctivae inflammation, No Eyelid inflammation, No Other, No Redness ENT: No Ear pain, No Ear discharge, No Nose pain, No Nose discharge, No Nose congestion, No Mouth pain, No Mouth swelling, No Throat pain, No Throat swelling, No Other Cardiovascular: Chest Pain Respiratory: No Cough, No Dry, No Shortness of breath, No SOB with excertion, No Wheezing, No Hemoptysis, No Pleuritic Pain, No Sputum, No Other Gastrointestinal: No Nausea, No Vomiting, No Abdominal Pain, No Diarrhea, No Constipation, No Melena, No Hematochezia, No Other Genitourinary: No Dysuria, No Frequency, No Incontinence, No Hematuria, No Retention, No Other Musculoskeletal: arm pain Skin: No Rash, No Lesions, No Jaundice, No Bruising, No Other Objective Vitals Vital Signs Date Time Temp Pulse Resp B/P (MAP) Pulse Ox O2 Delivery O2 Flow Rate FiO2 10/23/24 14:04 87 17 108/64 10/23/24 13:00 97.5 96 97.5 10/23/24 08:00 Room Air* 0 21 Intake/Output Intake and Output 10/23/24 07:00 Intake Total 2000 ml Output Total 900 ml Balance 1100 ml Intake Oral 2000 ml Output Urine Total 900 ml # Voids 4 Exam HEENT pupils are reactive Neck is supple CVS S1-S2 regular rate gentleman Respiratory diminished BS on bases GI positive bowel sound 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 Medications Current Medications Medications Dose Ordered Sig/Mikel Route Start Time Stop Time Status Last Admin Dose Admin Acetaminophen 650 mg Q6HP PRN PO 10/21/24 22:00 10/23/24 08:45 650 MG Acetaminophen/ Hydrocodone Bitart 1 tab Q6HPRN PRN PO 10/21/24 22:00 10/22/24 04:11 1 TAB Ondansetron HCl 4 mg Q4HP PRN IV 10/21/24 22:00 Morphine Sulfate 2 mg Q4HPRN PRN IV 10/21/24 22:00 10/23/24 13:34 2 MG Enoxaparin Sodium 40 mg DAILY SC 10/22/24 10:00 10/23/24 09:29 40 MG Nitroglycerin 0.4 mg Q5MINP PRN SL 10/21/24 22:00 10/22/24 06:31 0.4 MG Morphine Sulfate 2 mg Q30M PRN IV 10/21/24 22:00 10/22/24 01:47 2 MG Aspirin 81 mg DAILY PO 10/22/24 10:00 10/23/24 09:29 81 MG Atorvastatin Calcium 20 mg DAILY PO 10/22/24 10:00 10/23/24 09:29 20 MG Hydralazine HCl 10 mg Q4HPRN PRN IV 10/21/24 22:00 Diagnostic Test (Pha) 1 strip ACHS 10/21/24 22:00 10/23/24 10:55 1 STRIP Insulin Human Regular ACHS SC 10/21/24 22:00 10/23/24 10:55 3 UNITS Dextrose 50 ml UD PRN IV 10/21/24 22:00 Levetiracetam 500 mg BID PO 10/22/24 22:00 Cancel Gabapentin 100 mg DAILY PO 10/23/24 10:00 10/23/24 09:29 100 MG Levetiracetam 750 mg BID PO 10/22/24 22:00 10/23/24 09:29 750 MG Laboratory Results Laboratory Tests 10/23/24 04:48 Chemistry Test 10/23/24 04:48 Calcium Level 9.2 mg/dL (8.7-10.4) Urinalysis Test 10/22/24 02:00 Urine Color Yellow (Yellow) Urine Clarity Clear (Clear) Urine pH 5.5 (5.0-9.0) Urine Specific [place] 1.024 (1.001-1.035) Urine Protein Negative (Negative) Urine Ketones Trace (Negative) Urine Blood Negative /uL (Negative) Urine Nitrite Negative (Negative) Urine Bilirubin Negative (Negative) Urine Urobilinogen Normal mg/dL (Negative) Urine Leukocyte Esterase Negative /uL (Negative) Urine RBC <1 /hpf (0 - 3) Urine Microscopic WBC 1 /HPF (0-3) Urine Squamous Epithelial Cells Few /hpf (<5) Urine Bacteria None seen /hpf (None Seen) Urine Mucus Few (None Seen) Urine Glucose Normal mg/dL (Normal) Assessment/Plan Assessment/Plan 64-year-old male with known history of diabetes mellitus type 2, hypertension, coronary artery disease, congestive heart failure, COPD, chronic insomnia who initially presented to the hospice chest pain as well as right shoulder pain and right upper extremity numbness found to have 1. Chest pain rule out OR 2. Right shoulder pain with upper extremity numbness rule out cervical myelopathy 3. Right shoulder pain possibly degenerative joint disease 4. Diabetes mellitus type 2 5. Hypertension 6. Chronic insomnia -CT head noncontrast, CT of the shortly C-spine -follow cardiology recommendations Plan discussed with: Patient My Orders Orders - OVIDIO GONSALVES MD Procedure Category Date Status Time * [place] [employer] CONS 10/22/24 Transmitted Consult Head Without Contrast CT 10/23/24 Logged 16:45 Cervical Wo W Contrast CT 10/23/24 Logged 16:45 Ct R Shoulder Wo CT 10/23/24 Logged Contrast 16:45 (Nf) [place] PHA 10/23/24 Transmitted 19:00 Date of Service: Oct 23, 2024 Billing Provider: OVIDIO GONSALVES MD Common Visit Codes: NOT BILLABLE OVIDIO GONSALVES MD Oct 23, 2024 16:54
[2024-10-23] MEDS: IOHEXOL 300 MG/ML 100ML BOTTLE IJ ONE (18:29)
[2024-10-23] MEDS ORDERED: APIXABAN 5 MG TAB PO SCH (19:00)
--- NOTE | 2024-10-23 19:15 | DVH ---
Exam: CT HEAD WITHOUT CONTRAST History: Headache Technique: [address] images through the posterior fossa and the supratentorial compart ment were acquired without contrast and imaged using soft tissue and bone algorithms. RADIATION DOSE: DLP 1073.28 mGy.cm; CTDI vol 69.49 mGy. Comparison: CT HEAD WITHOUT CONTRAST on DOS: 01/17/23, CT HEAD WITHOUT CONTRAST on DOS: 01/08/23, CT HE AD WITHOUT CONTRAST on DOS: 01/06/23 Findings: There is no evidence of an intracranial hemorrhage, acute large vessel infarct, mass effect, or midli ne shift. There is no significant cerebral atrophy. Mild calcification of the carotid siphons. The calvarium, orbits, paranasal sinuses, sella, middle ears, and mastoids are unremarkable. The superficial soft tissues are within normal limits. Impression: 1. No acute intracranial abnormality.
--- NOTE | 2024-10-23 19:44 | DVH ---
EXAM: CT CT R SHOULDER WO CONTRAST INDICATION: Right shoulder pain with diminished range of motions EXAM DATE: 10/23/2024 06:27 PM COMPARISON: None TECHNIQUE: Multiple axial CT images of the right shoulder were obtained using bone algorithm. Axial a nd coronal reformatting was done. Bone and soft tissue windows were reviewed. Radiation Dose Information: CT Dose: CTDI volume is 33.1 mGy. Dose-length product is 842.41 mGy*cm Findings/Impression: There is no evidence of an acute fracture, dislocation, blastic, or lytic lesions. No radiopaque foreign bodies. No joint effusion or superficial soft tissue abnormalities. Calcific tendinopathy of the right supraspinatus tendon.
--- NOTE | 2024-10-23 19:57 | DVH ---
EXAM: CT CERVICAL WO W CONTRAST HISTORY: Neck pain with numbness to the right upper extremity rule ou COMPARISON: None CTDIvol 26.76 mGy, DLP 1249.77 mGy*cm. TECHNIQUE: Multiple axial CT images of the spine were obtained using bone algorithm. Axial and coron al reformatting was done. Bone and soft tissue windows were reviewed. FINDINGS: No CT evidence of acute fracture, spinal dislocation, or acute subluxation. Mild multilevel degenerative disc change. Schmorl's node in the C7 superior endplate. Possible osteop hyte versus mild focal ossification of the posterior longitudinal ligament at the level of C6. Fusion of the C2-C3 facets. Mild multilevel spinal canal narrowing likely secondary to congenital short ped icles. No definite high grade spinal stenosis. Mild multilevel neural foraminal narrowing without ronak dence of high-grade stenosis. The visualized paraspinal soft tissues are grossly unremarkable. Small subpleural blebs at the right lung apex. Subcentimeter low-density nodule in the left lobe of the thyroid does not require further evaluation. Vascular stent in the left brachiocephalic vein. There is a 1.9 x 1.8 x 1.6 cm rim calcif ied structure at the left lung apex. This is unchanged from chest x-ray on 07/08/2023. IMPRESSION: 1. No evidence of acute fracture or subluxation in the cervical spine. 2. Mild multilevel spinal canal and neural foraminal narrowing. No evidence of osseous high-grade st enosis. Please note that MRI is more sensitive for evaluation of disc disease and cord abnormalities. 3. Tracheal debris. This may be related to aspiration.
--- NOTE | 2024-10-23 21:20 | DVHPN2 ---
Progress Note - Dictate Date Seen: Oct 23, 2024 Medical Necessity Reason Pt with a Central, PICC or Fol: No Subjective Patient was seen and evaluated in follow up. Patient is complaining of chest pain as well as shoulder pain and right upper extremity numbness. Echocardiogram is ordered and pending. Telemetry reviewed. vital signs Vital Sign Date Time Temp Pulse Resp B/P (MAP) Pulse Ox O2 Delivery O2 Flow Rate FiO2 10/23/24 09:00 97.8 66 17 123/72 (89) 97 97.8 10/22/24 20:00 Room Air* 0 21 Total Intake and Output 10/22/24 10/22/24 10/23/24 15:00 23:00 07:00 Intake Total 800 ml 1200 ml Output Total 900 ml Balance 800 ml 300 ml medications Current Medications Medications Dose Ordered Sig/Mikel Route Start Time Stop Time Status Last Admin Dose Admin Acetaminophen 650 mg Q6HP PRN PO 10/21/24 22:00 10/23/24 08:45 650 MG Acetaminophen/ Hydrocodone Bitart 1 tab Q6HPRN PRN PO 10/21/24 22:00 10/22/24 04:11 1 TAB Ondansetron HCl 4 mg Q4HP PRN IV 10/21/24 22:00 Morphine Sulfate 2 mg Q4HPRN PRN IV 10/21/24 22:00 10/23/24 06:10 2 MG Enoxaparin Sodium 40 mg DAILY SC 10/22/24 10:00 10/23/24 09:29 40 MG Nitroglycerin 0.4 mg Q5MINP PRN SL 10/21/24 22:00 10/22/24 06:31 0.4 MG Morphine Sulfate 2 mg Q30M PRN IV 10/21/24 22:00 10/22/24 01:47 2 MG Aspirin 81 mg DAILY PO 10/22/24 10:00 10/23/24 09:29 81 MG Atorvastatin Calcium 20 mg DAILY PO 10/22/24 10:00 10/23/24 09:29 20 MG Hydralazine HCl 10 mg Q4HPRN PRN IV 10/21/24 22:00 Diagnostic Test (Pha) 1 strip ACHS 10/21/24 22:00 10/23/24 10:55 1 STRIP Insulin Human Regular ACHS SC 10/21/24 22:00 10/23/24 10:55 3 UNITS Dextrose 50 ml UD PRN IV 10/21/24 22:00 Levetiracetam 500 mg BID PO 10/22/24 22:00 Cancel Gabapentin 100 mg DAILY PO 10/23/24 10:00 10/23/24 09:29 100 MG Levetiracetam 750 mg BID PO 10/22/24 22:00 10/23/24 09:29 750 MG objective GENERAL: Awake, alert, oriented. LUNGS: Clear. CARDIOVASCULAR: Heart sounds are good. ABDOMEN: Soft. EXT: Right AKA. laboratory and microbiology Laboratory Tests 10/23/24 04:48 Test 10/23/24 04:48 Range/Units Serum Glucose 164 H 74-106 mg/dL Problem List Chest pain. Right shoulder pain with upper extremity numbness. Hypertension. Diabetes mellitus type 2. History of right AKA. Chronic insomnia. Assessment/Plan Continued all current supportive medical care. Echocardiogram. Morphine and [place] for pain management. Aspirin, Lipitor. DVT prophylactics. IV Hydralazine for an SBP > 160. Additional plan as per the hospital course. Plan discussed with: Patient ANURAG HERNÁNDEZ MD Oct 23, 2024 13:19
[2024-10-24] VITALS (8 sets, daily range): BP systolic 93–113; BP diastolic 58–76; PULSE 63–79; RESP 12–99; TEMP 97.4–97.8; O2SAT 95–99
[2024-10-24 05:47] LABS: Basophils # (auto) 0 10 ^3/uL (0-0.2); Basophils % (auto) 0.4 % (0.0-2.0); Eosinophils # (auto) 0.1 10 ^3/uL (0-0.8); Eosinophils % (auto) 1.9 % (0.0-7.0); Hematocrit 44.3 % (41.0-53.0); Hemoglobin 14.5 g/dL (13.5-17.5); Lymphocytes # (auto) 1.3 10 ^3/uL (0.4-5.4); Lymphocytes % (auto) 31.9 % (10.0-50.0); Mean Corpuscular Hemoglobin 31.3 pg (28.0-32.0); Mean Corpuscular Hgb Conc. 32.8 g/dL (32.0-36.0); Mean Corpuscular Volume 95.5 fL (80.0-100.0); Monocytes # (auto) 0.6 10 ^3/uL (0-1.3); Monocytes % (auto) 13.5 % (0.0-12.0); Neutrophils # (auto) 2.1 10 ^3/uL (1.6-8.6); Neutrophils % (auto) 52.3 % (37.0-80.0); Nucleated Red Blood Cells % 0.2 %; Platelet Count (auto) 173 10^3/uL (140-450); Red Blood Cells 4.64 10^6/uL (4.5-5.90); Red Cell Distribution Width 13.5 % (11.8-14.3); White Blood Cell 4.1 10^3/uL (4.4-10.8)
[2024-10-24 06:00] LABS: Chloride 107 mmol/L (98-107); Potassium 4.6 mmol/L (3.5-5.1); Sodium 140 mmol/L (136-145)
[2024-10-24 06:01] LABS: Calcium 9.4 mg/dL (8.7-10.4)
[2024-10-24 06:03] LABS: Anion Gap 4 (5-15); Carbon Dioxide 29 mmol/L (20-31)
[2024-10-24 06:06] LABS: BUN/Creatinine Ratio 18.2 (10.0-20.0); Blood Urea Nitrogen 14 mg/dL (9-23); Glucose 118 mg/dL (74-106)
--- NOTE | 2024-10-24 11:32 | ECG ---
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
--- NOTE | 2024-10-24 15:54 | DVHPN2 ---
Subjective Overnight events noted. Patient complaining of chest pain as well as shoulder pain and right upper extremity numbness. Reviewed: Care Plan Changes from previous H/P or p: Changes Eyes: No Pain, No Vision change, No Conjunctivae inflammation, No Eyelid inflammation, No Other, No Redness ENT: No Ear pain, No Ear discharge, No Nose pain, No Nose discharge, No Nose congestion, No Mouth pain, No Mouth swelling, No Throat pain, No Throat swelling, No Other Cardiovascular: Chest Pain Respiratory: No Cough, No Dry, No Shortness of breath, No SOB with excertion, No Wheezing, No Hemoptysis, No Pleuritic Pain, No Sputum, No Other Gastrointestinal: No Nausea, No Vomiting, No Abdominal Pain, No Diarrhea, No Constipation, No Melena, No Hematochezia, No Other Genitourinary: No Dysuria, No Frequency, No Incontinence, No Hematuria, No Retention, No Other Musculoskeletal: arm pain Skin: No Rash, No Lesions, No Jaundice, No Bruising, No Other Objective Vitals Vital Signs Date Time Temp Pulse Resp B/P (MAP) Pulse Ox O2 Delivery O2 Flow Rate FiO2 10/24/24 13:00 97.4 79 20 94/62 (73) 97 97.4 10/24/24 08:00 Nasal Cannula* 2 28 Intake/Output Intake and Output 10/24/24 07:00 Intake Total 3677 ml Output Total 2100 ml Balance 1577 ml Intake Oral 3677 ml Output Urine Total 2100 ml # Voids 5 Exam HEENT pupils are reactive Neck is supple CVS S1-S2 regular rate gentleman Respiratory diminished BS on bases GI positive bowel sound Extremity no edema 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 Medications Current Medications Medications Dose Ordered Sig/Mikel Route Start Time Stop Time Status Last Admin Dose Admin Acetaminophen 650 mg Q6HP PRN PO 10/21/24 22:00 10/23/24 08:45 650 MG Acetaminophen/ Hydrocodone Bitart 1 tab Q6HPRN PRN PO 10/21/24 22:00 10/23/24 11:30 1 TAB Ondansetron HCl 4 mg Q4HP PRN IV 10/21/24 22:00 Morphine Sulfate 2 mg Q4HPRN PRN IV 10/21/24 22:00 10/24/24 10:10 2 MG Enoxaparin Sodium 40 mg DAILY SC 10/22/24 10:00 10/24/24 10:09 40 MG Nitroglycerin 0.4 mg Q5MINP PRN SL 10/21/24 22:00 10/22/24 06:31 0.4 MG Morphine Sulfate 2 mg Q30M PRN IV 10/21/24 22:00 10/22/24 01:47 2 MG Aspirin 81 mg DAILY PO 10/22/24 10:00 10/24/24 10:08 81 MG Atorvastatin Calcium 20 mg DAILY PO 10/22/24 10:00 10/24/24 10:08 20 MG Hydralazine HCl 10 mg Q4HPRN PRN IV 10/21/24 22:00 Diagnostic Test (Pha) 1 strip ACHS 10/21/24 22:00 10/24/24 12:06 1 STRIP Insulin Human Regular ACHS SC 10/21/24 22:00 10/24/24 12:05 3 UNITS Dextrose 50 ml UD PRN IV 10/21/24 22:00 Levetiracetam 500 mg BID PO 10/22/24 22:00 Cancel Gabapentin 100 mg DAILY PO 10/23/24 10:00 10/24/24 10:09 100 MG Levetiracetam 750 mg BID PO 10/22/24 22:00 10/24/24 10:09 750 MG Apixaban 5 mg BIDPC PO 10/23/24 19:00 Hold Laboratory Results Laboratory Tests 10/24/24 05:18 Chemistry Test 10/24/24 05:18 Calcium Level 9.4 mg/dL (8.7-10.4) Urinalysis Test 10/22/24 02:00 Urine Color Yellow (Yellow) Urine Clarity Clear (Clear) Urine pH 5.5 (5.0-9.0) Urine Specific [place] 1.024 (1.001-1.035) Urine Protein Negative (Negative) Urine Ketones Trace (Negative) Urine Blood Negative /uL (Negative) Urine Nitrite Negative (Negative) Urine Bilirubin Negative (Negative) Urine Urobilinogen Normal mg/dL (Negative) Urine Leukocyte Esterase Negative /uL (Negative) Urine RBC <1 /hpf (0 - 3) Urine Microscopic WBC 1 /HPF (0-3) Urine Squamous Epithelial Cells Few /hpf (<5) Urine Bacteria None seen /hpf (None Seen) Urine Mucus Few (None Seen) Urine Glucose Normal mg/dL (Normal) Assessment/Plan Assessment/Plan 64-year-old male with known history of diabetes mellitus type 2, hypertension, coronary artery disease, congestive heart failure, COPD, chronic insomnia who initially presented to the hospice chest pain as well as right shoulder pain and right upper extremity numbness found to have 1. Chest pain rule out MA 2. Right shoulder pain with upper extremity numbness rule out cervical myelopathy 3. Right shoulder pain possibly degenerative joint disease 4. Diabetes mellitus type 2 5. Hypertension 6. Chronic insomnia -CT angio to rule out PE although suspicion is low. -follow cardiology recommendations Plan discussed with: Patient My Orders Orders - OVIDIO GONSALVES MD Procedure Category Date Status Time Head Without Contrast CT 10/23/24 Resulted 16:45 Cervical Wo W Contrast CT 10/23/24 Resulted 16:45 Ct R Shoulder Wo CT 10/23/24 Resulted Contrast 16:45 Apixaban (Eliquis) PHA 10/23/24 In Process 19:[address] 10/24/24 Logged Contrast 14:31 Npo (Nothing By DIET 10/24/24 Transmitted Mouth) Diet Dinner Date of Service: Oct 24, 2024 Billing Provider: OVIDIO GONSALVES MD Common Visit Codes: NOT BILLABLE OVIDIO GONSALVES MD Oct 24, 2024 15:54
--- NOTE | 2024-10-24 18:40 | ECG ---
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
[2024-10-24] MEDS: IOHEXOL 350 MG/ML 100ML IJ ONE (20:18)
--- NOTE | 2024-10-24 22:24 | DVH ---
Procedure: CT CT ANGIO CHEST CONTRAST Reason for study/Clinical History: R/O PE Comparison Study: None available at time of dictation. Exam Date: 10/24/2024 08:22 PM Radiation Dose Information: CT Dose: CTDI volume is 26.94 mGy. Dose-length product is 2148.95 mGy*cm Contrast: Type of contrast: Omnipaque 350 Contrast inject: 100 mL Contrast wasted:0 TECHNIQUE: After the uneventful administration of intravenous contrast intravenously, CT imaging was performed through the chest. Coronal and sagittal reformations were performed by the technologist. FINDINGS: Lower Neck: Visualized portions of the thyroid gland are unremarkable. Aorta and Vasculature: Normal caliber of thoracic aorta. There are no filling defects in the pulmonar y arteries or enlargement of the pulmonary artery to suggest pulmonary artery hypertension. Stent in the left brachiocephalic vein and superior vena cava. Lymph Nodes: No enlarged intrathoracic lymph nodes. Mediastinum: Heart size is normal. There is no pericardial effusion. The esophagus is unremarkable. Lungs: There are multiple pulmonary nodules throughout the left chest. There are no pulmonary nodule s in the right chest. Musculoskeletal: No acute osseous abnormality. Upper abdomen: Limited portions of the upper abdomen are unremarkable. IMPRESSION: 1. No findings to suggest pulmonary emboli or pulmonary artery hypertension. 2. Multiple pulmonary nodules throughout the left chest possible metastatic disease. 3. Extensive collateral circulation noted over the chest and in the soft tissues. 4. All CT scans at this medical facility are performed using dose modulation techniques as appropriate t o a performed exam including the following: Automated exposure control was utilized; adjustment of th e MA and/or KV according to patient size; and use of iterative reconstruction technique. HS:Y
--- NOTE | 2024-10-24 23:51 | DVHPN2 ---
Progress Note - Dictate Date Seen: Oct 24, 2024 Medical Necessity Reason Pt with a Central, PICC or Fol: No Subjective Patient was seen and evaluated in follow up. Patient is complaining of chest pain with radiation to the RUE. CT right shoulder shows calcific tendinopathy of the right supraspinatus tendon. Telemetry reviewed. vital signs Vital Sign Date Time Temp Pulse Resp B/P (MAP) Pulse Ox O2 Delivery O2 Flow Rate FiO2 10/24/24 10:10 64 17 132/79 10/24/24 08:56 97.8 99 97.8 10/24/24 08:00 Nasal Cannula* 2 28 Total Intake and Output 10/23/24 10/23/24 10/24/24 15:00 23:00 07:00 Intake Total 3000 ml 677 ml Output Total 800 ml 1300 ml Balance 2200 ml -623 ml medications Current Medications Medications Dose Ordered Sig/Mikel Route Start Time Stop Time Status Last Admin Dose Admin Acetaminophen 650 mg Q6HP PRN PO 10/21/24 22:00 10/23/24 08:45 650 MG Acetaminophen/ Hydrocodone Bitart 1 tab Q6HPRN PRN PO 10/21/24 22:00 10/23/24 11:30 1 TAB Ondansetron HCl 4 mg Q4HP PRN IV 10/21/24 22:00 Morphine Sulfate 2 mg Q4HPRN PRN IV 10/21/24 22:00 10/24/24 10:10 2 MG Enoxaparin Sodium 40 mg DAILY SC 10/22/24 10:00 10/24/24 10:09 40 MG Nitroglycerin 0.4 mg Q5MINP PRN SL 10/21/24 22:00 10/22/24 06:31 0.4 MG Morphine Sulfate 2 mg Q30M PRN IV 10/21/24 22:00 10/22/24 01:47 2 MG Aspirin 81 mg DAILY PO 10/22/24 10:00 10/24/24 10:08 81 MG Atorvastatin Calcium 20 mg DAILY PO 10/22/24 10:00 10/24/24 10:08 20 MG Hydralazine HCl 10 mg Q4HPRN PRN IV 10/21/24 22:00 Diagnostic Test (Pha) 1 strip ACHS 10/21/24 22:00 10/24/24 12:06 1 STRIP Insulin Human Regular ACHS SC 10/21/24 22:00 10/24/24 12:05 3 UNITS Dextrose 50 ml UD PRN IV 10/21/24 22:00 Levetiracetam 500 mg BID PO 10/22/24 22:00 Cancel Gabapentin 100 mg DAILY PO 10/23/24 10:00 10/24/24 10:09 100 MG Levetiracetam 750 mg BID PO 10/22/24 22:00 10/24/24 10:09 750 MG Apixaban 5 mg BIDPC PO 10/23/24 19:00 Hold objective GENERAL: Awake, alert, oriented. LUNGS: Clear. CARDIOVASCULAR: Heart sounds are good. ABDOMEN: Soft. EXT: Right AKA. laboratory and microbiology Laboratory Tests 10/24/24 05:18 Test 10/24/24 05:18 Range/Units Serum Glucose 118 H 74-106 mg/dL Problem List Chest pain. Right shoulder pain with upper extremity numbness. Hypertension. Diabetes mellitus type 2. History of right AKA. Chronic insomnia. Assessment/Plan Continued all current supportive medical care. Echocardiogram. Morphine and [place] for pain management. Aspirin, Lipitor. DVT prophylactics. IV Hydralazine for an SBP > 160. Additional plan as per the hospital course. Plan discussed with: Patient ANURAG HERNÁNDEZ MD Oct 24, 2024 12:41
[2024-10-25] VITALS (9 sets, daily range): BP systolic 88–123; BP diastolic 57–79; PULSE 65–93; RESP 12–18; TEMP 97.6–98.2; O2SAT 95–99
--- NOTE | 2024-10-25 00:42 | DVHSR ---
APPROVED REPORT EXAM: Two-dimensional and M-mode echocardiogram with Doppler and color Doppler. Blood Pressure: 109/74 mmHg INDICATION Chest Pain Surgery/Intervention Pacemaker: RISK FACTORS Obesity: Height: 5'6, Weight: 174 DIMENSIONS LVDd3.7 (3.8-5.7cm)LA (2D)3.1 (1.9-4.0cm)Aortic Root3.4 (2.0-3.7cm) LVDs2.2 (2.5-4.0cm)LA (MM) (1.9-4.0cm)Aortic Cusp Exc1.3 (1.5-2.0cm) EF (%) 60.0 (55-70%)Rt. Atrium5.4 (1.9-4.0cm)Asc. 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
[2024-10-25 06:53] LABS: Chloride 104 mmol/L (98-107); Potassium 4.4 mmol/L (3.5-5.1); Sodium 137 mmol/L (136-145)
[2024-10-25 06:54] LABS: Anion Gap 8 (5-15); Calcium 9.5 mg/dL (8.7-10.4); Carbon Dioxide 25 mmol/L (20-31)
[2024-10-25 06:59] LABS: BUN/Creatinine Ratio 20.3 (10.0-20.0); Blood Urea Nitrogen 14 mg/dL (9-23)
[2024-10-25 07:01] LABS: Glucose 127 mg/dL (74-106)
[2024-10-25 10:54] LABS: Basophils # (auto) 0 10 ^3/uL (0-0.2); Basophils % (auto) 0.5 % (0.0-2.0); Eosinophils # (auto) 0.1 10 ^3/uL (0-0.8); Eosinophils % (auto) 1.5 % (0.0-7.0); Hematocrit 45.1 % (41.0-53.0); Hemoglobin 14.7 g/dL (13.5-17.5); Lymphocytes # (auto) 1.4 10 ^3/uL (0.4-5.4); Lymphocytes % (auto) 31.1 % (10.0-50.0); Mean Corpuscular Hemoglobin 30.8 pg (28.0-32.0); Mean Corpuscular Hgb Conc. 32.5 g/dL (32.0-36.0); Mean Corpuscular Volume 94.7 fL (80.0-100.0); Monocytes # (auto) 0.7 10 ^3/uL (0-1.3); Monocytes % (auto) 15.8 % (0.0-12.0); Neutrophils # (auto) 2.3 10 ^3/uL (1.6-8.6); Neutrophils % (auto) 51.1 % (37.0-80.0); Nucleated Red Blood Cells % 0.1 %; Platelet Count (auto) 178 10^3/uL (140-450); Red Blood Cells 4.76 10^6/uL (4.5-5.90); Red Cell Distribution Width 13.7 % (11.8-14.3); White Blood Cell 4.6 10^3/uL (4.4-10.8)
--- NOTE | 2024-10-25 12:07 | ECG ---
[facility] Test Date: 2024-10-22 Test Time: 01:59:33 Pat Name: MAX ROPER Department: Respiratoy Room: 0223T A Gender: M Electroplater: GP : 1960 Requested By: OVIDIO GONSALVES Order Number: [id number] Reading MD: Franklyn Randhawa Measurements Intervals [place] Rate: 74 P: 73 OR: 197 QRS: 70 QRSD: 104 T: 61 QT: 388 QTc: 431 Interpretive Statements Sinus rhythm RSR' in V1 or V2, right VCD or RVH Electronically Signed On 10-28-2024 20:45:06 PDT by Franklyn Randhawa Please click the below link to view image of tracing.
--- NOTE | 2024-10-25 14:44 | DVHPN2 ---
Subjective Overnight events noted. CT angio shows no evidence of PE but there are left- sided pulmonary nodules. Patient did say that he lost weight quite a bit but his appetite is good. Patient primary physician is Dr. Ryan patient was who is the oncologist. Patient was recommended to have lung nodule workup as an outpatient NARESH. Reviewed: Care Plan Changes from previous H/P or p: No Changes Eyes: No Pain, No Vision change, No Conjunctivae inflammation, No Eyelid inflammation, No Other, No Redness ENT: No Ear pain, No Ear discharge, No Nose pain, No Nose discharge, No Nose congestion, No Mouth pain, No Mouth swelling, No Throat pain, No Throat swelling, No Other Cardiovascular: Chest Pain Respiratory: No Cough, No Dry, No Shortness of breath, No SOB with excertion, No Wheezing, No Hemoptysis, No Pleuritic Pain, No Sputum, No Other Gastrointestinal: No Nausea, No Vomiting, No Abdominal Pain, No Diarrhea, No Constipation, No Melena, No Hematochezia, No Other Genitourinary: No Dysuria, No Frequency, No Incontinence, No Hematuria, No Retention, No Other Musculoskeletal: arm pain Skin: No Rash, No Lesions, No Jaundice, No Bruising, No Other Objective Vitals Vital Signs Date Time Temp Pulse Resp B/P (MAP) Pulse Ox O2 Delivery O2 Flow Rate FiO2 10/25/24 14:30 88 16 122/70 10/25/24 13:00 97.9 97 97.9 10/25/24 08:00 Room Air* 0 21 Intake/Output Intake and Output 10/25/24 07:00 Intake Total 3100 ml Output Total 1775 ml Balance 1325 ml Intake Oral 3100 ml Output Urine Total 1775 ml # Voids 3 # Bowel Movements 1 Exam HEENT pupils are reactive Neck is supple CVS S1-S2 regular rate gentleman Respiratory diminished BS on bases GI positive bowel sound Extremity no edema 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 Medications Current Medications Medications Dose Ordered Sig/Mikel Route Start Time Stop Time Status Last Admin Dose Admin Acetaminophen 650 mg Q6HP PRN PO 10/21/24 22:00 10/23/24 08:45 650 MG Acetaminophen/ Hydrocodone Bitart 1 tab Q6HPRN PRN PO 10/21/24 22:00 10/24/24 15:58 1 TAB Ondansetron HCl 4 mg Q4HP PRN IV 10/21/24 22:00 Morphine Sulfate 2 mg Q4HPRN PRN IV 10/21/24 22:00 10/25/24 14:30 2 MG Enoxaparin Sodium 40 mg DAILY SC 10/22/24 10:00 10/25/24 09:24 40 MG Nitroglycerin 0.4 mg Q5MINP PRN SL 10/21/24 22:00 10/22/24 06:31 0.4 MG Morphine Sulfate 2 mg Q30M PRN IV 10/21/24 22:00 10/22/24 01:47 2 MG Aspirin 81 mg DAILY PO 10/22/24 10:00 10/25/24 09:24 81 MG Atorvastatin Calcium 20 mg DAILY PO 10/22/24 10:00 10/25/24 09:24 20 MG Hydralazine HCl 10 mg Q4HPRN PRN IV 10/21/24 22:00 Diagnostic Test (Pha) 1 strip ACHS 10/21/24 22:00 10/25/24 11:17 1 STRIP Insulin Human Regular ACHS SC 10/21/24 22:00 10/25/24 11:17 3 UNITS Dextrose 50 ml UD PRN IV 10/21/24 22:00 Levetiracetam 500 mg BID PO 10/22/24 22:00 Cancel Gabapentin 100 mg DAILY PO 10/23/24 10:00 10/25/24 09:24 100 MG Levetiracetam 750 mg BID PO 10/22/24 22:00 10/25/24 09:24 750 MG Apixaban 5 mg BIDPC PO 10/23/24 19:00 Hold Laboratory Results Laboratory Tests 10/25/24 06:23 10/25/24 10:09 Chemistry Test 10/25/24 06:23 Calcium Level 9.5 mg/dL (8.7-10.4) Urinalysis Test 10/22/24 02:00 Urine Color Yellow (Yellow) Urine Clarity Clear (Clear) Urine pH 5.5 (5.0-9.0) Urine Specific [place] 1.024 (1.001-1.035) Urine Protein Negative (Negative) Urine Ketones Trace (Negative) Urine Blood Negative /uL (Negative) Urine Nitrite Negative (Negative) Urine Bilirubin Negative (Negative) Urine Urobilinogen Normal mg/dL (Negative) Urine Leukocyte Esterase Negative /uL (Negative) Urine RBC <1 /hpf (0 - 3) Urine Microscopic WBC 1 /HPF (0-3) Urine Squamous Epithelial Cells Few /hpf (<5) Urine Bacteria None seen /hpf (None Seen) Urine Mucus Few (None Seen) Urine Glucose Normal mg/dL (Normal) Assessment/Plan Assessment/Plan 64-year-old male with known history of diabetes mellitus type 2, hypertension, coronary artery disease, congestive heart failure, COPD, chronic insomnia who initially presented to the hospice chest pain as well as right shoulder pain and right upper extremity numbness found to have 1. Chest pain ruled out OK 2. Right shoulder pain with upper extremity numbness rule out cervical myelopathy 3. Right shoulder pain possibly degenerative joint disease 4. Diabetes mellitus type 2 5. Hypertension 6. Chronic insomnia 7. Lung nodules, -lung nodules workup, pulmonary consultation -CT angio to ruled out PE . -aids social worker consultation for discharge plan. Plan discussed with: Patient My Orders Orders - OVIDIO GONSALVES MD Procedure Category Date Status Time *Consult CONS 10/25/24 Transmitted / 13:35 Date of Service: Oct 25, 2024 Billing Provider: OVIDIO GONSALVES MD Common Visit Codes: NOT BILLABLE OVIDIO GONSALVES MD Oct 25, 2024 14:44
--- NOTE | 2024-10-25 23:36 | DVHINCON2 ---
Date of service: Oct 25, 2024 Referring Physician Bijan Polk NP Reason for Consultation Pulmonary nodules History of Present Illness A 64-year-old man with past medical history of COPD, pulmonary embolism, diabetes, CHF, CAD, PR, hypertension, hyperlipidemia, depression and anxiety who presented to ED on 10/21/24 with complaints of chest pain that began at 10:30 AM on day of presentation. Chest pain was described as substernal, 05/07. He also had associated symptoms of headache and pain to the right arm. He denied any fevers, chills, dizziness, shortness of breath, nausea, vomiting, abdominal pain or leg edema. CT angio showed no e/o pulmonary embolism but demonstrated multiple pulmonary nodules. Patient was admitted for further care. Pulmonary consultation is requested for evaluation and management due to the above findings. Review of Systems: 14-point review of systems negative unless otherwise noted above. Past Medical History: COPD, hx of PE, diabetes mellitus, thyroid disease, CHF, CAD, PR, hypertension, hyperlipidemia, depression and anxiety. Past Surgical History: AKA, Pacemaker, PTCA Medications: Reviewed. Allergies: Ibuprofen Family History: Heart disease, hypertension, and cancer. Social History: Nonsmoker. Occasional alcohol use. No illicit drug use. Family History: Cardiovascular disease G8 FATHER FH: cancer of digestive organ G8 MOTHER, Onset:60 years & older FH: uterine cancer Hypertension G8 FATHER Allergies: Coded Allergies: Ibuprofen (Verified Allergy, Unknown, RASH, 12/14/15) Home Meds Active Scripts Hydrocodone-Acetaminophen (Hydrocodone/Acetaminophen 5-325 mg) 1 Tab Tab, 1 TAB PO [id number] PRN for 5 Days, #10 TAB Prov:NAVEEN LAN DO 01/17/23 Insulin Regular (Human) (Novolin R) 100 Unit/Ml Inj, 0 UNITS SC AC for 30 Days, #30 INJ As per aggressive sliding scale Prov:ELEAN JAVIER MD 01/14/23 Insulin Glargine (Lantus) 100 Unit/Ml Inj, 15 UNIT SC DAILY for 30 Days, #30 INJ Prov:ELENA JAVIER MD 01/14/23 Metformin Hydrochloride (Metformin Hcl) 500 Mg Tab, 2 TAB PO BID, #120 TAB 3 Refills Prov:ELENA JAVIER MD 01/14/23 Amitriptyline Hcl (Amitriptyline Hcl) 25 Mg Tab, 1 TAB PO QPM, #30 TAB 5 Refills Prov:ELENA JAVIER MD 01/14/23 Dexamethasone (Decadron) 4 Mg Tb, 4 TAB PO DAILY, #8 TAB Prov:ELENA JAVIER MD 01/14/23 Oxybutynin Chloride (Ditropan Xl) 5 Mg Tab, 5 MG PO BID, #60 TAB Prov:NISHANT JANE MD 11/04/22 Tamsulosin Hcl (Flomax) 0.4 Mg Cap, 0.4 MG PO QPM for 30 Days, #30 CAP Prov:ANTOINE PETERSON MD 09/25/22 Clotrimazole (Lotrimin) 1 Applic Ap, 1 APPLIC TOP Q12HR for 7 Days, #1 APPLIC Prov:ANTOINE PETERSON MD 09/25/22 Reported Medications Levetiracetam (KEPPRA TABLET) 500 Mg Tb, 750 MG PO BID, TAB 10/22/24 Zolpidem Tartrate (Ambien) 10 Mg Tab, 1 TAB PO QPM, #30 TAB 5 Refills 11/08/22 Potassium Chloride (Potassium Chloride ER) 10 Meq Tab, 10 MEQ PO BID, TAB 02/27/22 Aspirin (Aspir-Low) 81 Mg Tab, 81 MG PO DAILY, MG 02/27/22 Apixaban Base (ELIQUIS) 5 Mg Tab, 5 MG PO BID, TAB 02/27/22 Enalapril Maleate (Enalapril Maleate) 10 Mg Tab, 5 MG PO DAILY, TAB 02/27/22 Atorvastatin Calcium (ATORVASTATIN CALCIUM) 20 Mg Tab, 1 TAB PO HS 05/09/21 Cholecalciferol (D3) 2,000 Unit Tab, 1 TAB PO DAILY 05/09/21 Furosemide (Lasix) 20 Mg Tb, 10 MG PO DAILY, #90 TAB 3 Refills 08/07/19 Hydrocodone-Acetaminophen (Hydrocodone Bitartrate/AC 10-325 mg) 1 Tab Tab, 1 TAB PO Q6HP PRN for PAIN, TAB FOR CHRONIC ACUTE TO SEVERE PAIN 08/07/19 Discontinued Reported Medications Levetiracetam (KEPPRA TABLET) 500 Mg Tb, 500 MG PO DAILY, TAB 10/22/24 Vital Signs Vital Signs Date Time Temp Pulse Resp B/P (MAP) Pulse Ox O2 Delivery O2 Flow Rate FiO2 10/25/24 21:00 98.1 69 18 123/79 (94) 99 98.1 10/25/24 20:00 Room Air* 0 21 Physical Exam Gen.: Patient lying in bed in no apparent distress. Breathing on room air. Head: Normocephalic, atraumatic. Eyes: EOMI/PERRLA. Ears: Normal hearing. Normal anatomy. Neck/trachea: Trachea midline, supple. Nose: Normal external anatomy. Mouth: Moist mucous membranes. Chest: Decreased air entry bilaterally. No wheezing or rhonchi. Cardiovascular: Positive S1, positive S2. Regular rate and rhythm. Abdomen: Positive bowel sounds in all 4 quadrants. Soft, non-tender, non- distended. : Deferred. Rectal: Deferred. Skin: Warm, dry. Intact. Extremities: 2+ radial pulses bilaterally. Right AKA. No lower extremity edema on left. Neuro: Awake, alert, oriented x3. No gross motor or sensory deficits. Cranial nerves II through XII intact. Gait not assessed. Labs/Diagnostic Data Labs Test 10/25/24 21:41 10/25/24 10:09 10/25/24 06:23 10/22/24 02:00 Range/Units POC Glucose 172 H 70-106 mg/dl White Blood Count 4.6 4.4-10.8 10^3/uL Red Blood Count 4.76 4.5-5.90 10^6/uL Hemoglobin 14.7 13.5-17.5 g/dL Hematocrit 45.1 41.0-53.0 % Mean Corpuscular Volume 94.7 80.0-100.0 fL Mean Corpuscular Hemoglobin 30.8 28.0-32.0 pg Mean Corpuscular Hemoglobin Concent 32.5 32.0-36.0 g/dL Red Cell Distribution Width 13.7 11.8-14.3 % Platelet Count 178 140-450 10^3/uL Mean Platelet Volume 6.6 L 6.9-10.8 fL Neutrophils (%) (Auto) 51.1 37.0-80.0 % Lymphocytes (%) (Auto) 31.1 10.0-50.0 % Monocytes (%) (Auto) 15.8 H 0.0-12.0 % Eosinophils (%) (Auto) 1.5 0.0-7.0 % Basophils (%) (Auto) 0.5 0.0-2.0 % Neutrophils # (Auto) 2.3 1.6-8.6 10 ^3/uL Lymphocytes # (Auto) 1.4 0.4-5.4 10 ^3/uL Monocytes # (Auto) 0.7 0-1.3 10 ^3/uL Eosinophils # (Auto) 0.1 0-0.8 10 ^3/uL Basophils # (Auto) 0 0-0.2 10 ^3/uL Nucleated Red Blood Cells 0.1 % Sodium Level 137 136-145 mmol/L Potassium Level 4.4 3.5-5.1 mmol/L Chloride Level 104 98-107 mmol/L Carbon Dioxide Level 25 20-31 mmol/L Anion Gap 8 5-15 Blood Urea Nitrogen 14 9-23 mg/dL Creatinine 0.69 L 0.700-1.30 mg/dL Glomerular Filtration Rate Calc 103 >90 mL/min BUN/Creatinine Ratio 20.3 H 10.0-20.0 Serum Glucose 127 H 74-106 mg/dL Calcium Level 9.5 8.7-10.4 mg/dL Urine Color Yellow Yellow Urine Clarity Clear Clear Urine pH 5.5 5.0-9.0 Urine Specific [place] 1.024 1.001-1.035 Urine Protein Negative Negative Urine Ketones Trace Negative Urine Blood Negative Negative /uL Urine Nitrite Negative Negative Urine Bilirubin Negative Negative Urine Urobilinogen Normal Negative mg/dL Urine Leukocyte Esterase Negative Negative /uL Urine RBC <1 0 - 3 /hpf Urine Microscopic WBC 1 0-3 /HPF Urine Squamous Epithelial Cells Few <5 /hpf Urine Bacteria None seen None Seen /hpf Urine Mucus Few None Seen Urine Glucose Normal Normal mg/dL Test 10/21/24 15:20 10/21/24 14:10 Range/Units Troponin I High Sensitivity 4 </=54 ng/L B-Type Natriuretic Peptide 27.83 0-100 pg/mL Assessment Impression: Chest pain Pulmonary nodules DM type II Hyperlipidemia Obesity, BMI 30.6 History of right AKA. Plan: Supplemental oxygen PRN Titrate to keep O2 sats above 92%. CT angio demonstrated no pulmonary embolism. Multiple pulmonary nodules throughout the left chest, possible metastatic disease. See report for full details. Consult IR for pulmonary nodules, possible lung biopsy Follow up Echo - mild diastolic dysfunction Follow up Cardiology recommendations On statin Accu-Cheks, ISS. Monitor renal function. Monitor electrolytes. Supplement as necessary. Monitor ins and outs. Diet and lifestyle modifications for weight reduction Obesity - complicates all care DVT prophylaxis - Lovenox SC. Prognosis: Poor given patient's multiple co-morbidities. Rest of plan per hospitalist and other consultants. Thank you, MARIA LUISA Polk, for allowing me to participate in this patient's care. Further recommendations will depend on the patient's clinical course. Please do not hesitate to contact me if you have any questions or concerns. This medical document was created using an electronic medical record system with [employer] dictation system. Although these documentations are being carefully reviewed, there may still be some phonetic and typographical changes. The errors are purely typographical, due to imperfection on the software program, and do not reflect any compromise in the patient's medical care. Plan discussed with: Patient, Other (NADIYA Kruse/MARIA LUISA Polk/) JOHNNY WILDE MD Oct 25, 2024 23:36
--- NOTE | 2024-10-25 23:59 | DVHPN2 ---
Progress Note - Dictate Date Seen: Oct 25, 2024 Medical Necessity Reason Pt with a Central, PICC or Fol: No Subjective Patient was seen and evaluated in follow up. Patient is complaining of 8/10 chest pain with radiation to the RUE. BS are WNL. Telemetry reviewed. vital signs Vital Sign Date Time Temp Pulse Resp B/P (MAP) Pulse Ox O2 Delivery O2 Flow Rate FiO2 10/25/24 14:30 88 16 122/70 10/25/24 13:00 97.9 97 97.9 10/25/24 08:00 Room Air* 0 21 Total Intake and Output 10/24/24 10/24/24 10/25/24 15:00 23:00 07:00 Intake Total 1920 ml 1180 ml Output Total 575 ml 1200 ml Balance 1345 ml -20 ml medications Current Medications Medications Dose Ordered Sig/Mikel Route Start Time Stop Time Status Last Admin Dose Admin Acetaminophen 650 mg Q6HP PRN PO 10/21/24 22:00 10/23/24 08:45 650 MG Acetaminophen/ Hydrocodone Bitart 1 tab Q6HPRN PRN PO 10/21/24 22:00 10/24/24 15:58 1 TAB Ondansetron HCl 4 mg Q4HP PRN IV 10/21/24 22:00 Morphine Sulfate 2 mg Q4HPRN PRN IV 10/21/24 22:00 10/25/24 14:30 2 MG Enoxaparin Sodium 40 mg DAILY SC 10/22/24 10:00 10/25/24 09:24 40 MG Nitroglycerin 0.4 mg Q5MINP PRN SL 10/21/24 22:00 10/22/24 06:31 0.4 MG Morphine Sulfate 2 mg Q30M PRN IV 10/21/24 22:00 10/22/24 01:47 2 MG Aspirin 81 mg DAILY PO 10/22/24 10:00 10/25/24 09:24 81 MG Atorvastatin Calcium 20 mg DAILY PO 10/22/24 10:00 10/25/24 09:24 20 MG Hydralazine HCl 10 mg Q4HPRN PRN IV 10/21/24 22:00 Diagnostic Test (Pha) 1 strip ACHS 10/21/24 22:00 10/25/24 11:17 1 STRIP Insulin Human Regular ACHS SC 10/21/24 22:00 10/25/24 11:17 3 UNITS Dextrose 50 ml UD PRN IV 10/21/24 22:00 Levetiracetam 500 mg BID PO 10/22/24 22:00 Cancel Gabapentin 100 mg DAILY PO 10/23/24 10:00 10/25/24 09:24 100 MG Levetiracetam 750 mg BID PO 10/22/24 22:00 10/25/24 09:24 750 MG Apixaban 5 mg BIDPC PO 10/23/24 19:00 Hold objective GENERAL: Awake, alert, oriented. LUNGS: Clear. CARDIOVASCULAR: Heart sounds are good. ABDOMEN: Soft. EXT: Right AKA. laboratory and microbiology Laboratory Tests 10/25/24 10:09 10/25/24 06:23 Test 10/25/24 06:23 Range/Units Serum Glucose 127 H 74-106 mg/dL Problem List Chest pain. Right shoulder pain with upper extremity numbness. Hypertension. Diabetes mellitus type 2. History of right AKA. Chronic insomnia. Assessment/Plan Continued all current supportive medical care. Echocardiogram. Morphine and [place] for pain management. Aspirin, Lipitor. DVT prophylactics. IV Hydralazine for an SBP > 160. Additional plan as per the hospital course. Dietary Evaluation Review Recommendations by RD: Dietary education by RD Comments: 1) Continue to encourage optimal PO intake 2) Collect HbA1c d/t elevated POC glucose 3) Follow-up with cardiology 4) Refer to outpatient RD/CDCES for weight management 5) Continue to monitor I&O, labs, and skin integrity Expected Outcomes/Goals: 1) appetite and labs to improve 2) diet to advance 3) f/u in 2-3 days Plan discussed with: Patient ANURAG HERNÁNDEZ MD Oct 25, 2024 14:36
[2024-10-26] VITALS (8 sets, daily range): BP systolic 106–134; BP diastolic 58–71; PULSE 63–75; RESP 18; TEMP 97.5–98.3; O2SAT 95–100
[2024-10-26 09:04] LABS: INR 1.01 (0.9-1.15); Partial Thromboplastin Time 22.2 SEC (24.5-34.5); Prothrombin Time 10.7 sec (9.3-11.8)
[2024-10-26] MEDS: MIDAZOLAM HCL 2MG/2ML 2ml VIAL (1mg/ml) IV ONE (11:15)
[2024-10-26] MEDS: fentaNYL CITRATE 100 MCG/2 ML VL IV ONE (11:15)
[2024-10-26] MEDS: LIDOCAINE 2%HCL (LOCAL ANESTH.) INJ 10ml MDV ONE (11:16)
--- NOTE | 2024-10-26 16:22 | DVHPN2 ---
Subjective Overnight events noted. CT angio shows no evidence of PE but there are left- sided pulmonary nodules. Patient did say that he lost weight quite a bit but his appetite is good. Patient primary physician is Dr. Ryan patient was who is the oncologist. Patient was recommended to have lung nodule workup as an outpatient NARESH. Reviewed: Care Plan Changes from previous H/P or p: No Changes Eyes: No Pain, No Vision change, No Conjunctivae inflammation, No Eyelid inflammation, No Other, No Redness ENT: No Ear pain, No Ear discharge, No Nose pain, No Nose discharge, No Nose congestion, No Mouth pain, No Mouth swelling, No Throat pain, No Throat swelling, No Other Cardiovascular: Chest Pain Respiratory: No Cough, No Dry, No Shortness of breath, No SOB with excertion, No Wheezing, No Hemoptysis, No Pleuritic Pain, No Sputum, No Other Gastrointestinal: No Nausea, No Vomiting, No Abdominal Pain, No Diarrhea, No Constipation, No Melena, No Hematochezia, No Other Genitourinary: No Dysuria, No Frequency, No Incontinence, No Hematuria, No Retention, No Other Musculoskeletal: arm pain Skin: No Rash, No Lesions, No Jaundice, No Bruising, No Other Objective Vitals Vital Signs Date Time Temp Pulse Resp B/P (MAP) Pulse Ox O2 Delivery O2 Flow Rate FiO2 10/26/24 13:48 72 20 112/66 10/26/24 13:30 97.5 98 97.5 10/26/24 08:00 Room Air* 0 21 Intake/Output Intake and Output 10/26/24 07:00 Intake Total 2400 ml Output Total 1751 ml Balance 649 ml Intake Oral 2400 ml Output Urine Total 1750 ml Stool Total 1 ml Exam HEENT pupils are reactive Neck is supple CVS S1-S2 regular rate gentleman Respiratory diminished BS on bases GI positive bowel sound Extremity no edema PREP COOK no motor deficits Medications Current Medications Medications Dose Ordered Sig/Mikel Route Start Time Stop Time Status Last Admin Dose Admin Acetaminophen 650 mg Q6HP PRN PO 10/21/24 22:00 10/23/24 08:45 650 MG Acetaminophen/ Hydrocodone Bitart 1 tab Q6HPRN PRN PO 10/21/24 22:00 10/26/24 00:56 1 TAB Ondansetron HCl 4 mg Q4HP PRN IV 10/21/24 22:00 Morphine Sulfate 2 mg Q4HPRN PRN IV 10/21/24 22:00 10/26/24 13:48 2 MG Enoxaparin Sodium 40 mg DAILY SC 10/22/24 10:00 10/25/24 09:24 40 MG Nitroglycerin 0.4 mg Q5MINP PRN SL 10/21/24 22:00 10/22/24 06:31 0.4 MG Morphine Sulfate 2 mg Q30M PRN IV 10/21/24 22:00 10/22/24 01:47 2 MG Aspirin 81 mg DAILY PO 10/22/24 10:00 10/25/24 09:24 81 MG Atorvastatin Calcium 20 mg DAILY PO 10/22/24 10:00 10/26/24 12:10 20 MG Hydralazine HCl 10 mg Q4HPRN PRN IV 10/21/24 22:00 Diagnostic Test (Pha) 1 strip ACHS 10/21/24 22:00 10/26/24 11:30 1 STRIP Insulin Human Regular ACHS SC 10/21/24 22:00 10/25/24 21:50 3 UNITS Dextrose 50 ml UD PRN IV 10/21/24 22:00 Levetiracetam 500 mg BID PO 10/22/24 22:00 Cancel Gabapentin 100 mg DAILY PO 10/23/24 10:00 10/26/24 09:12 100 MG Levetiracetam 750 mg BID PO 10/22/24 22:00 10/26/24 12:10 750 MG Apixaban 5 mg BIDPC PO 10/23/24 19:00 Hold Laboratory Results Laboratory Tests 10/25/24 06:23 10/25/24 10:09 Coagulation Test 10/26/24 08:31 Prothrombin Time 10.7 sec (9.3-11.8) Prothrombin Time INR 1.01 (0.9-1.15) Activated Partial Thromboplast Time 22.2 SEC (24.5-34.5) L Urinalysis Test 10/22/24 02:00 Urine Color Yellow (Yellow) Urine Clarity Clear (Clear) Urine pH 5.5 (5.0-9.0) Urine Specific [place] 1.024 (1.001-1.035) Urine Protein Negative (Negative) Urine Ketones Trace (Negative) Urine Blood Negative /uL (Negative) Urine Nitrite Negative (Negative) Urine Bilirubin Negative (Negative) Urine Urobilinogen Normal mg/dL (Negative) Urine Leukocyte Esterase Negative /uL (Negative) Urine RBC <1 /hpf (0 - 3) Urine Microscopic WBC 1 /HPF (0-3) Urine Squamous Epithelial Cells Few /hpf (<5) Urine Bacteria None seen /hpf (None Seen) Urine Mucus Few (None Seen) Urine Glucose Normal mg/dL (Normal) Assessment/Plan Assessment/Plan 64-year-old male with known history of diabetes mellitus type 2, hypertension, coronary artery disease, congestive heart failure, COPD, chronic insomnia who initially presented to the hospice chest pain as well as right shoulder pain and right upper extremity numbness found to have 1. Chest pain ruled out CA 2. Right shoulder pain with upper extremity numbness rule out cervical myelopathy 3. Right shoulder pain possibly degenerative joint disease 4. Diabetes mellitus type 2 5. Hypertension 6. Chronic insomnia 7. Lung nodules, -lung biopsy by IR on Saturday. -lung nodules workup, pulmonary consultation -CT angio ruled out PE . -hospice social worker consultation for discharge plan. Plan discussed with: Patient My Orders Orders - OVIDIO GONSALVES MD Procedure Category Date Status Time * Radiologist Consult CONS 10/26/24 Transmitted 14:40 Date of Service: Oct 26, 2024 Billing Provider: OVIDIO GONSALVES MD Common Visit Codes: NOT BILLABLE OVIDIO GONSALVES MD Oct 26, 2024 16:22
--- NOTE | 2024-10-26 19:13 | DVHPN2 ---
Progress Note - Dictate Date Seen: Oct 26, 2024 Medical Necessity Reason Pt with a Central, PICC or Fol: No Subjective Patient seen and examined at bedside. Breathing comfortably on room air. Overnight events reviewed. vital signs Vital Sign Date Time Temp Pulse Resp B/P (MAP) Pulse Ox O2 Delivery O2 Flow Rate FiO2 10/26/24 18:10 74 18 107/68 10/26/24 16:30 97.8 97 97.8 10/26/24 08:00 Room Air* 0 21 Total Intake and Output 10/25/24 10/25/24 10/26/24 15:00 23:00 07:00 Intake Total 1600 ml 800 ml Output Total 550 ml 1201 ml Balance 1050 ml -401 ml medications Current Medications Medications Dose Ordered Sig/Mikel Route Start Time Stop Time Status Last Admin Dose Admin Acetaminophen 650 mg Q6HP PRN PO 10/21/24 22:00 10/23/24 08:45 650 MG Acetaminophen/ Hydrocodone Bitart 1 tab Q6HPRN PRN PO 10/21/24 22:00 10/26/24 00:56 1 TAB Ondansetron HCl 4 mg Q4HP PRN IV 10/21/24 22:00 Morphine Sulfate 2 mg Q4HPRN PRN IV 10/21/24 22:00 10/26/24 18:10 2 MG Enoxaparin Sodium 40 mg DAILY SC 10/22/24 10:00 10/25/24 09:24 40 MG Nitroglycerin 0.4 mg Q5MINP PRN SL 10/21/24 22:00 10/22/24 06:31 0.4 MG Morphine Sulfate 2 mg Q30M PRN IV 10/21/24 22:00 10/22/24 01:47 2 MG Aspirin 81 mg DAILY PO 10/22/24 10:00 10/25/24 09:24 81 MG Atorvastatin Calcium 20 mg DAILY PO 10/22/24 10:00 10/26/24 12:10 20 MG Hydralazine HCl 10 mg Q4HPRN PRN IV 10/21/24 22:00 Diagnostic Test (Pha) 1 strip ACHS 10/21/24 22:00 10/26/24 17:00 1 STRIP Insulin Human Regular ACHS SC 10/21/24 22:00 10/26/24 18:16 3 UNITS Dextrose 50 ml UD PRN IV 10/21/24 22:00 Levetiracetam 500 mg BID PO 10/22/24 22:00 Cancel Gabapentin 100 mg DAILY PO 10/23/24 10:00 10/26/24 09:12 100 MG Levetiracetam 750 mg BID PO 10/22/24 22:00 10/26/24 12:10 750 MG Apixaban 5 mg BIDPC PO 10/23/24 19:00 Hold objective Gen.: Patient lying in bed in no apparent distress. Breathing on room air. Head: Normocephalic, atraumatic. Eyes: EOMI/PERRLA. Ears: Normal hearing. Normal anatomy. Neck/trachea: Trachea midline, supple. Nose: Normal external anatomy. Mouth: Moist mucous membranes. Chest: Decreased air entry bilaterally. No wheezing or rhonchi. Cardiovascular: Positive S1, positive S2. Regular rate and rhythm. Abdomen: Positive bowel sounds in all 4 quadrants. Soft, non-tender, non- distended. : Deferred. Rectal: Deferred. Skin: Warm, dry. Intact. Extremities: 2+ radial pulses bilaterally. Right AKA. No lower extremity edema on left. Neuro: Awake, alert, oriented x3. No gross motor or sensory deficits. Cranial nerves II through XII intact. Gait not assessed. laboratory and microbiology Laboratory Tests 10/25/24 10:09 10/25/24 06:23 Test 10/25/24 06:23 Range/Units Serum Glucose 127 H 74-106 mg/dL Assessment/Plan Impression: Chest pain Pulmonary nodules DM type II Hyperlipidemia Obesity, BMI 30.6 History of right AKA. Events: Breathing comfortably on room air Supplemental oxygen PRN Awaiting lung biopsy by IR on Saturday Incentive spirometry Pain control Avoid oversedation Labs and imaging reviewed. Rest of plan as noted below. Plan: Supplemental oxygen PRN Titrate to keep O2 sats above 92%. CT angio demonstrated no pulmonary embolism. Multiple pulmonary nodules throughout the left chest, possible metastatic disease. See report for full details. Consulted IR for pulmonary nodules - awaiting lung biopsy on Saturday Echo reviewed Cardiology recommendations appreciated On statin Accu-Cheks, ISS. Monitor renal function. Monitor electrolytes. Supplement as necessary. Monitor ins and outs. Diet and lifestyle modifications for weight reduction Obesity - complicates all care DVT prophylaxis - Lovenox SC. Prognosis: Poor given patient's multiple co-morbidities. Rest of plan per hospitalist and other consultants. Thank you, MARIA LUISA Polk, for allowing me to participate in this patient's care. Further recommendations will depend on the patient's clinical course. Please do not hesitate to contact me if you have any questions or concerns. This medical document was created using an electronic medical record system with [employer] dictation system. Although these documentations are being carefully reviewed, there may still be some phonetic and typographical changes. The errors are purely typographical, due to imperfection on the software program, and do not reflect any compromise in the patient's medical care. Dietary Evaluation Review Recommendations by RD: Dietary education by RD Comments: 1) Continue to encourage optimal PO intake 2) Collect HbA1c d/t elevated POC glucose 3) Follow-up with cardiology 4) Refer to outpatient RD/CDCES for weight management 5) Continue to monitor I&O, labs, and skin integrity Expected Outcomes/Goals: 1) appetite and labs to improve 2) diet to advance 3) f/u in 2-3 days Plan discussed with: Patient, Other (NADIYA Aguero) JOHNNY WILDE MD Oct 26, 2024 19:13
--- NOTE | 2024-10-26 22:27 | DVHPN2 ---
Progress Note - Dictate Date Seen: Oct 26, 2024 Medical Necessity Reason Pt with a Central, PICC or Fol: No Subjective Patient was seen and evaluated in follow up. Patient is complaining of generalized pain. CT angio shows no evidence of PE but there are left-sided pulmonary nodules. BS are int he 230s.Echocardiogram shows an EF of 65%. Pending IR consult. Telemetry reviewed. vital signs Vital Sign Date Time Temp Pulse Resp B/P (MAP) Pulse Ox O2 Delivery O2 Flow Rate FiO2 10/26/24 21:00 98.2 75 18 109/64 (79) 97 98.2 10/26/24 20:00 Room Air* 0 21 Total Intake and Output 10/25/24 10/25/24 10/26/24 15:00 23:00 07:00 Intake Total 1600 ml 800 ml Output Total 550 ml 1201 ml Balance 1050 ml -401 ml medications Current Medications Medications Dose Ordered Sig/Mikel Route Start Time Stop Time Status Last Admin Dose Admin Acetaminophen 650 mg Q6HP PRN PO 10/21/24 22:00 10/23/24 08:45 650 MG Acetaminophen/ Hydrocodone Bitart 1 tab Q6HPRN PRN PO 10/21/24 22:00 10/26/24 00:56 1 TAB Ondansetron HCl 4 mg Q4HP PRN IV 10/21/24 22:00 Morphine Sulfate 2 mg Q4HPRN PRN IV 10/21/24 22:00 10/26/24 18:10 2 MG Enoxaparin Sodium 40 mg DAILY SC 10/22/24 10:00 10/25/24 09:24 40 MG Nitroglycerin 0.4 mg Q5MINP PRN SL 10/21/24 22:00 10/22/24 06:31 0.4 MG Morphine Sulfate 2 mg Q30M PRN IV 10/21/24 22:00 10/22/24 01:47 2 MG Aspirin 81 mg DAILY PO 10/22/24 10:00 10/25/24 09:24 81 MG Atorvastatin Calcium 20 mg DAILY PO 10/22/24 10:00 10/26/24 12:10 20 MG Hydralazine HCl 10 mg Q4HPRN PRN IV 10/21/24 22:00 Diagnostic Test (Pha) 1 strip ACHS 10/21/24 22:00 10/26/24 21:27 1 STRIP Insulin Human Regular ACHS SC 10/21/24 22:00 10/26/24 21:25 4 UNITS Dextrose 50 ml UD PRN IV 10/21/24 22:00 Levetiracetam 500 mg BID PO 10/22/24 22:00 Cancel Gabapentin 100 mg DAILY PO 10/23/24 10:00 10/26/24 09:12 100 MG Levetiracetam 750 mg BID PO 10/22/24 22:00 10/26/24 21:27 750 MG Apixaban 5 mg BIDPC PO 10/23/24 19:00 Hold objective GENERAL: Awake, alert, oriented. LUNGS: Clear. CARDIOVASCULAR: Heart sounds are good. ABDOMEN: Soft. EXT: Right AKA. laboratory and microbiology Laboratory Tests 10/25/24 10:09 10/25/24 06:23 Test 10/25/24 06:23 Range/Units Serum Glucose 127 H 74-106 mg/dL Problem List Chest pain. Right shoulder pain with upper extremity numbness. Hypertension. Diabetes mellitus type 2. History of right AKA. Chronic insomnia. Assessment/Plan Continued all current supportive medical care. Morphine and [place] for pain management. Aspirin, Lipitor. DVT prophylactics. IV Hydralazine for an SBP > 160. Additional plan as per the hospital course. Dietary Evaluation Review Recommendations by RD: Dietary education by RD Comments: 1) Continue to encourage optimal PO intake 2) Collect HbA1c d/t elevated POC glucose 3) Follow-up with cardiology 4) Refer to outpatient RD/CDCES for weight management 5) Continue to monitor I&O, labs, and skin integrity Expected Outcomes/Goals: 1) appetite and labs to improve 2) diet to advance 3) f/u in 2-3 days Plan discussed with: Patient ANURAG HERNÁNDEZ MD Oct 26, 2024 22:27
[2024-10-27] VITALS (8 sets, daily range): BP systolic 110–132; BP diastolic 63–79; PULSE 66–81; RESP 17–19; TEMP 97.3–98.7; O2SAT 96–99
--- NOTE | 2024-10-27 16:33 | DVHPN2 ---
Subjective Overnight events noted. CT angio shows no evidence of PE but there are left- sided pulmonary nodules. Patient did say that he lost weight quite a bit but his appetite is good. Patient primary physician is Dr. Ryan patient was who is the oncologist. Patient was recommended to have lung nodule workup as an outpatient NARESH. Reviewed: Care Plan Changes from previous H/P or p: No Changes Eyes: No Pain, No Vision change, No Conjunctivae inflammation, No Eyelid inflammation, No Other, No Redness ENT: No Ear pain, No Ear discharge, No Nose pain, No Nose discharge, No Nose congestion, No Mouth pain, No Mouth swelling, No Throat pain, No Throat swelling, No Other Cardiovascular: Chest Pain Respiratory: No Cough, No Dry, No Shortness of breath, No SOB with excertion, No Wheezing, No Hemoptysis, No Pleuritic Pain, No Sputum, No Other Gastrointestinal: No Nausea, No Vomiting, No Abdominal Pain, No Diarrhea, No Constipation, No Melena, No Hematochezia, No Other Genitourinary: No Dysuria, No Frequency, No Incontinence, No Hematuria, No Retention, No Other Musculoskeletal: arm pain Skin: No Rash, No Lesions, No Jaundice, No Bruising, No Other Objective Vitals Vital Signs Date Time Temp Pulse Resp B/P (MAP) Pulse Ox O2 Delivery O2 Flow Rate FiO2 10/27/24 15:45 90 20 138/73 10/27/24 13:00 98.2 99 98.2 10/27/24 08:00 Room Air* 0 21 Intake/Output Intake and Output 10/27/24 07:00 Intake Total 2100 ml Output Total 1903 ml Balance 197 ml Intake Oral 2100 ml Output Urine Total 1900 ml Stool Total 3 ml Exam HEENT pupils are reactive Neck is supple CVS S1-S2 regular rate gentleman Respiratory diminished BS on bases GI positive bowel sound Extremity no edema [employer] no motor deficits Medications Current Medications Medications Dose Ordered Sig/Mikel Route Start Time Stop Time Status Last Admin Dose Admin Acetaminophen 650 mg Q6HP PRN PO 10/21/24 22:00 10/23/24 08:45 650 MG Acetaminophen/ Hydrocodone Bitart 1 tab Q6HPRN PRN PO 10/21/24 22:00 10/26/24 00:56 1 TAB Ondansetron HCl 4 mg Q4HP PRN IV 10/21/24 22:00 Morphine Sulfate 2 mg Q4HPRN PRN IV 10/21/24 22:00 10/27/24 15:45 2 MG Enoxaparin Sodium 40 mg DAILY SC 10/22/24 10:00 10/27/24 09:14 40 MG Nitroglycerin 0.4 mg Q5MINP PRN SL 10/21/24 22:00 10/22/24 06:31 0.4 MG Morphine Sulfate 2 mg Q30M PRN IV 10/21/24 22:00 10/22/24 01:47 2 MG Aspirin 81 mg DAILY PO 10/22/24 10:00 10/27/24 09:13 81 MG Atorvastatin Calcium 20 mg DAILY PO 10/22/24 10:00 10/27/24 09:14 20 MG Hydralazine HCl 10 mg Q4HPRN PRN IV 10/21/24 22:00 Diagnostic Test (Pha) 1 strip ACHS 10/21/24 22:00 10/27/24 16:01 1 STRIP Insulin Human Regular ACHS SC 10/21/24 22:00 10/27/24 16:05 3 UNITS Dextrose 50 ml UD PRN IV 10/21/24 22:00 Levetiracetam 500 mg BID PO 10/22/24 22:00 Cancel Gabapentin 100 mg DAILY PO 10/23/24 10:00 10/27/24 09:14 100 MG Levetiracetam 750 mg BID PO 10/22/24 22:00 10/27/24 09:14 750 MG Apixaban 5 mg BIDPC PO 10/23/24 19:00 Hold Laboratory Results Laboratory Tests 10/25/24 06:23 10/25/24 10:09 Urinalysis Test 10/22/24 02:00 Urine Color Yellow (Yellow) Urine Clarity Clear (Clear) Urine pH 5.5 (5.0-9.0) Urine Specific [place] 1.024 (1.001-1.035) Urine Protein Negative (Negative) Urine Ketones Trace (Negative) Urine Blood Negative /uL (Negative) Urine Nitrite Negative (Negative) Urine Bilirubin Negative (Negative) Urine Urobilinogen Normal mg/dL (Negative) Urine Leukocyte Esterase Negative /uL (Negative) Urine RBC <1 /hpf (0 - 3) Urine Microscopic WBC 1 /HPF (0-3) Urine Squamous Epithelial Cells Few /hpf (<5) Urine Bacteria None seen /hpf (None Seen) Urine Mucus Few (None Seen) Urine Glucose Normal mg/dL (Normal) Assessment/Plan Assessment/Plan 64-year-old male with known history of diabetes mellitus type 2, hypertension, coronary artery disease, congestive heart failure, COPD, chronic insomnia who initially presented to the hospice chest pain as well as right shoulder pain and right upper extremity numbness found to have 1. Chest pain ruled out [place] 2. Right shoulder pain with upper extremity numbness rule out cervical myelopathy 3. Right shoulder pain possibly degenerative joint disease 4. Diabetes mellitus type 2 5. Hypertension 6. Chronic insomnia 7. Lung nodules, -lung biopsy by IR on Saturday. -lung nodules workup, pulmonary consultation -CT angio ruled out PE . -social service technician consultation for discharge plan. Plan discussed with: Patient Date of Service: Oct 27, 2024 Billing Provider: OVIDIO GONSALVES MD Common Visit Codes: NOT BILLABLE OVIDIO GONSALVES MD Oct 27, 2024 16:33
--- NOTE | 2024-10-27 19:37 | DVHPN2 ---
Progress Note - Dictate Date Seen: Oct 27, 2024 Medical Necessity Reason Pt with a Central, PICC or Fol: No Subjective Patient seen and examined at bedside. Breathing comfortably on room air. Overnight events reviewed. vital signs Vital Sign Date Time Temp Pulse Resp B/P (MAP) Pulse Ox O2 Delivery O2 Flow Rate FiO2 10/27/24 17:36 72 18 123/78 10/27/24 16:54 97.9 97 97.9 10/27/24 08:00 Room Air* 0 21 Total Intake and Output 10/26/24 10/26/24 10/27/24 15:00 23:00 07:00 Intake Total 1200 ml 900 ml Output Total 803 ml 1100 ml Balance 397 ml -200 ml medications Current Medications Medications Dose Ordered Sig/Mikel Route Start Time Stop Time Status Last Admin Dose Admin Acetaminophen 650 mg Q6HP PRN PO 10/21/24 22:00 10/23/24 08:45 650 MG Acetaminophen/ Hydrocodone Bitart 1 tab Q6HPRN PRN PO 10/21/24 22:00 10/26/24 00:56 1 TAB Ondansetron HCl 4 mg Q4HP PRN IV 10/21/24 22:00 Morphine Sulfate 2 mg Q4HPRN PRN IV 10/21/24 22:00 10/27/24 15:45 2 MG Enoxaparin Sodium 40 mg DAILY SC 10/22/24 10:00 10/27/24 09:14 40 MG Nitroglycerin 0.4 mg Q5MINP PRN SL 10/21/24 22:00 10/22/24 06:31 0.4 MG Morphine Sulfate 2 mg Q30M PRN IV 10/21/24 22:00 10/22/24 01:47 2 MG Aspirin 81 mg DAILY PO 10/22/24 10:00 10/27/24 09:13 81 MG Atorvastatin Calcium 20 mg DAILY PO 10/22/24 10:00 10/27/24 09:14 20 MG Hydralazine HCl 10 mg Q4HPRN PRN IV 10/21/24 22:00 Diagnostic Test (Pha) 1 strip ACHS 10/21/24 22:00 10/27/24 16:01 1 STRIP Insulin Human Regular ACHS SC 10/21/24 22:00 10/27/24 16:05 3 UNITS Dextrose 50 ml UD PRN IV 10/21/24 22:00 Levetiracetam 500 mg BID PO 10/22/24 22:00 Cancel Gabapentin 100 mg DAILY PO 10/23/24 10:00 10/27/24 09:14 100 MG Levetiracetam 750 mg BID PO 10/22/24 22:00 10/27/24 09:14 750 MG Apixaban 5 mg BIDPC PO 10/23/24 19:00 Hold objective Gen.: Patient lying in bed in no apparent distress. Breathing on room air. Head: Normocephalic, atraumatic. Eyes: EOMI/PERRLA. Ears: Normal hearing. Normal anatomy. Neck/trachea: Trachea midline, supple. Nose: Normal external anatomy. Mouth: Moist mucous membranes. Chest: Decreased air entry bilaterally. No wheezing or rhonchi. Cardiovascular: Positive S1, positive S2. Regular rate and rhythm. Abdomen: Positive bowel sounds in all 4 quadrants. Soft, non-tender, non- distended. : Deferred. Rectal: Deferred. Skin: Warm, dry. Intact. Extremities: 2+ radial pulses bilaterally. Right AKA. No lower extremity edema on left. Neuro: Awake, alert, oriented x3. No gross motor or sensory deficits. Cranial nerves II through XII intact. Gait not assessed. laboratory and microbiology Laboratory Tests 10/25/24 10:09 10/25/24 06:23 Test 10/25/24 06:23 Range/Units Serum Glucose 127 H 74-106 mg/dL Assessment/Plan Impression: Chest pain Pulmonary nodules DM type II Hyperlipidemia Obesity, BMI 30.6 History of right AKA. Events: Breathing comfortably on room air Supplemental oxygen PRN No new events Awaiting lung biopsy Incentive spirometry Antiepileptic medication Pain control Avoid oversedation Accu-Cheks, ISS. Plan for lung biopsy in AM by IR. Labs and imaging reviewed. Rest of plan as noted below. Plan: Supplemental oxygen PRN Titrate to keep O2 sats above 92%. CT angio demonstrated no pulmonary embolism. Multiple pulmonary nodules throughout the left chest, possible metastatic disease. See report for full details. Consulted IR for pulmonary nodules - awaiting lung biopsy. Echo reviewed Cardiology recommendations appreciated On statin Accu-Cheks, ISS. Monitor renal function. Monitor electrolytes. Supplement as necessary. Monitor ins and outs. Diet and lifestyle modifications for weight reduction Obesity - complicates all care DVT prophylaxis - Lovenox SC. Prognosis: Poor given patient's multiple co-morbidities. Rest of plan per hospitalist and other consultants. Thank you, MARIA LUISA Polk, for allowing me to participate in this patient's care. Further recommendations will depend on the patient's clinical course. Please do not hesitate to contact me if you have any questions or concerns. This medical document was created using an electronic medical record system with [employer] dictation system. Although these documentations are being carefully reviewed, there may still be some phonetic and typographical changes. The errors are purely typographical, due to imperfection on the software program, and do not reflect any compromise in the patient's medical care. Dietary Evaluation Review Recommendations by RD: Dietary education by RD Comments: 1) Continue to encourage optimal PO intake 2) Collect HbA1c d/t elevated POC glucose 3) Follow-up with cardiology 4) Refer to outpatient RD/CDCES for weight management 5) Continue to monitor I&O, labs, and skin integrity Expected Outcomes/Goals: 1) appetite and labs to improve 2) diet to advance 3) f/u in 2-3 days Plan discussed with: Patient, Other (NADIYA Baker) JOHNNY WILDE MD Oct 27, 2024 19:37
--- NOTE | 2024-10-27 21:56 | DVHPN2 ---
Progress Note - Dictate Date Seen: Oct 27, 2024 Medical Necessity Reason Pt with a Central, PICC or Fol: No Subjective Patient was seen and evaluated in follow up. No overnight events. Patient is complaining of generalized pain. BS are elevated in the 190s. Telemetry reviewed. vital signs Vital Sign Date Time Temp Pulse Resp B/P (MAP) Pulse Ox O2 Delivery O2 Flow Rate FiO2 10/27/24 21:11 76 18 125/70 10/27/24 21:00 97.3 98 97.3 10/27/24 20:00 Room Air* 0 21 Total Intake and Output 10/26/24 10/26/24 10/27/24 15:00 23:00 07:00 Intake Total 1200 ml 900 ml Output Total 803 ml 1100 ml Balance 397 ml -200 ml medications Current Medications Medications Dose Ordered Sig/Mikel Route Start Time Stop Time Status Last Admin Dose Admin Acetaminophen 650 mg Q6HP PRN PO 10/21/24 22:00 10/23/24 08:45 650 MG Acetaminophen/ Hydrocodone Bitart 1 tab Q6HPRN PRN PO 10/21/24 22:00 10/26/24 00:56 1 TAB Ondansetron HCl 4 mg Q4HP PRN IV 10/21/24 22:00 Morphine Sulfate 2 mg Q4HPRN PRN IV 10/21/24 22:00 10/27/24 21:11 2 MG Enoxaparin Sodium 40 mg DAILY SC 10/22/24 10:00 10/27/24 09:14 40 MG Nitroglycerin 0.4 mg Q5MINP PRN SL 10/21/24 22:00 10/22/24 06:31 0.4 MG Morphine Sulfate 2 mg Q30M PRN IV 10/21/24 22:00 10/22/24 01:47 2 MG Aspirin 81 mg DAILY PO 10/22/24 10:00 10/27/24 09:13 81 MG Atorvastatin Calcium 20 mg DAILY PO 10/22/24 10:00 10/27/24 09:14 20 MG Hydralazine HCl 10 mg Q4HPRN PRN IV 10/21/24 22:00 Diagnostic Test (Pha) 1 strip ACHS 10/21/24 22:00 10/27/24 21:23 1 STRIP Insulin Human Regular ACHS SC 10/21/24 22:00 10/27/24 21:22 3 UNITS Dextrose 50 ml UD PRN IV 10/21/24 22:00 Levetiracetam 500 mg BID PO 10/22/24 22:00 Cancel Gabapentin 100 mg DAILY PO 10/23/24 10:00 10/27/24 09:14 100 MG Levetiracetam 750 mg BID PO 10/22/24 22:00 10/27/24 21:07 750 MG Apixaban 5 mg BIDPC PO 10/23/24 19:00 Hold objective GENERAL: Awake, alert, oriented. LUNGS: Clear. CARDIOVASCULAR: Heart sounds are good. ABDOMEN: Soft. EXT: Right AKA. laboratory and microbiology Laboratory Tests 10/25/24 10:09 10/25/24 06:23 Test 10/25/24 06:23 Range/Units Serum Glucose 127 H 74-106 mg/dL Problem List Chest pain. Right shoulder pain with upper extremity numbness. Hypertension. Diabetes mellitus type 2. History of right AKA. Chronic insomnia. Assessment/Plan Continued all current supportive medical care. Morphine and [place] for pain management. Aspirin, Lipitor. DVT prophylactics. IV Hydralazine for an SBP > 160. Additional plan as per the hospital course. Dietary Evaluation Review Recommendations by RD: Dietary education by RD Comments: 1) Continue to encourage optimal PO intake 2) Collect HbA1c d/t elevated POC glucose 3) Follow-up with cardiology 4) Refer to outpatient RD/[facility] for weight management 5) Continue to monitor I&O, labs, and skin integrity Expected Outcomes/Goals: 1) appetite and labs to improve 2) diet to advance 3) f/u in 2-3 days Plan discussed with: Patient ANURAG HERNÁNDEZ MD Oct 27, 2024 21:56
[2024-10-28] VITALS (7 sets, daily range): BP systolic 99–156; BP diastolic 42–78; PULSE 62–82; RESP 18–20; TEMP 36.4; O2SAT 97–99
[2024-10-28] MEDS: LIDOCAINE 2%HCL (LOCAL ANESTH.) INJ 10ml MDV ONE (07:41)
[2024-10-28] MEDS: fentaNYL CITRATE 100 MCG/2 ML VL IV ONE (07:45)
[2024-10-28] MEDS: MIDAZOLAM HCL 2MG/2ML 2ml VIAL (1mg/ml) IV ONE (07:45)
--- NOTE | 2024-10-28 10:01 | DVH ---
CT CHEST WITHOUT CONTRAST, HISTORY: LUNG BX PROCEDURE: Informed consent was obtained. The patient was placed prone on the CT scanner. A limited l ocalization CT scan of the lung was obtained. The skin overlying the lesion was prepped with chlorhex idine which was allowed to dry and draped in sterile fashion. Time out was performed. The skin and so ft tissues were infiltrated with Xylocaine, and IV sedation was administered. With intermittent CT gu idance, a 19 gauge Temno outer coaxial guiding needle was advanced to the right lung nodule. The need le position was confirmed with CT scan. Attempted to obtain core biopsies using Temno inner 20 gauge biopsy needle. Samples were unable to be obtained because of the peripherally rim calcification and the needle was unable to penetrate through the calcification. A visceral blood patch was applied as the needle was withdrawn the needle was withdrawn, and post procedural CT obtained through the biopsy region. No immediate complication was identified was noted, and patient was transport to recovery in stable condition without respiratory distress. DLP = 1887 mGy-cm. SEDATION: Dr. Moses Lees was personally responsible for the administration of moderate sedation during the procedure performed, including the use of an independent trained observer who had no other duties during the procedure. The drugs utilized were IV fentanyl and versed (see nursing log for details). The total time of supervision by the attending physician was approximately 45 minutes. FINDINGS: Limited CT scan demonstrates a peripherally calcified soft tissue nodule in the right lung and the biopsy needle within the margin of the lung mass. No significant post biopsy hemorrhage or pn eumothorax is noted. IMPRESSION/PLAN: Attempted CT guided lung biopsy. Samples were unable to be obtained because of the peripherally rim c alcification and the needle was unable to penetrate through the calcification. will follow up CXRs. Bedrest until cleared by IR following post-biopsy CXRs.
--- NOTE | 2024-10-28 16:32 | DVHDS2 ---
Discharge Summary Date of Admission Oct 21, 2024 at 21:50 Date of Discharge: Oct 28, 2024 Labs/Diagnostic Data: Laboratory Results Test 10/28/24 11:03 10/26/24 08:31 10/25/24 10:09 10/25/24 06:23 POC Glucose 149 mg/dl (70-106) Prothrombin Time 10.7 sec (9.3-11.8) Prothrombin Time INR 1.01 (0.9-1.15) Activated Partial Thromboplast Time 22.2 SEC (24.5-34.5) White Blood Count 4.6 10^3/uL (4.4-10.8) Red Blood Count 4.76 10^6/uL (4.5-5.90) Hemoglobin 14.7 g/dL (13.5-17.5) Hematocrit 45.1 % (41.0-53.0) Mean Corpuscular Volume 94.7 fL (80.0-100.0) Mean Corpuscular Hemoglobin 30.8 pg (28.0-32.0) Mean Corpuscular Hemoglobin Concent 32.5 g/dL (32.0-36.0) Red Cell Distribution Width 13.7 % (11.8-14.3) Platelet Count 178 10^3/uL (140-450) Mean Platelet Volume 6.6 fL (6.9-10.8) Neutrophils (%) (Auto) 51.1 % (37.0-80.0) Lymphocytes (%) (Auto) 31.1 % (10.0-50.0) Monocytes (%) (Auto) 15.8 % (0.0-12.0) Eosinophils (%) (Auto) 1.5 % (0.0-7.0) Basophils (%) (Auto) 0.5 % (0.0-2.0) Neutrophils # (Auto) 2.3 10 ^3/uL (1.6-8.6) Lymphocytes # (Auto) 1.4 10 ^3/uL (0.4-5.4) Monocytes # (Auto) 0.7 10 ^3/uL (0-1.3) Eosinophils # (Auto) 0.1 10 ^3/uL (0-0.8) Basophils # (Auto) 0 10 ^3/uL (0-0.2) Nucleated Red Blood Cells 0.1 % Sodium Level 137 mmol/L (136-145) Potassium Level 4.4 mmol/L (3.5-5.1) Chloride Level 104 mmol/L (98-107) Carbon Dioxide Level 25 mmol/L (20-31) Anion Gap 8 (5-15) Blood Urea Nitrogen 14 mg/dL (9-23) Creatinine 0.69 mg/dL (0.700-1.30) Glomerular Filtration Rate Calc 103 mL/min (>90) BUN/Creatinine Ratio 20.3 (10.0-20.0) Serum Glucose 127 mg/dL (74-106) Calcium Level 9.5 mg/dL (8.7-10.4) Test 10/22/24 02:00 10/21/24 15:20 10/21/24 14:10 Urine Color Yellow (Yellow) Urine Clarity Clear (Clear) Urine pH 5.5 (5.0-9.0) Urine Specific [place] 1.024 (1.001-1.035) Urine Protein Negative (Negative) Urine Ketones Trace (Negative) Urine Blood Negative /uL (Negative) Urine Nitrite Negative (Negative) Urine Bilirubin Negative (Negative) Urine Urobilinogen Normal mg/dL (Negative) Urine Leukocyte Esterase Negative /uL (Negative) Urine RBC <1 /hpf (0 - 3) Urine Microscopic WBC 1 /HPF (0-3) Urine Squamous Epithelial Cells Few /hpf (<5) Urine Bacteria None seen /hpf (None Seen) Urine Mucus Few (None Seen) Urine Glucose Normal mg/dL (Normal) Troponin I High Sensitivity 4 ng/L (</=54) B-Type Natriuretic Peptide 27.83 pg/mL (0-100) Other Laboratory Tests 10/25/24 10:09 10/25/24 06:23 Brief Hx & Hospital Course: 64-year-old male with known history of diabetes mellitus type 2, hypertension, coronary artery disease, congestive heart failure, COPD, chronic insomnia who initially presented to the hospice chest pain as well as right shoulder pain and right upper extremity numbness found to have right shoulder pain with the upper extremity numbness ruled out for cervical myelopathy. Patient is also complaining of chest pain eventually cardiology was consulted no intervention was recommended. Patient's hospital course was eventful for recurrent chest pain eventually CT angio shows no evidence of PE but there was evidence of lung nodules. IR was consulted, status post lung biopsy today which was unsuccessful because of calcification of the lung nodes peripheral. Patient will be discharged home with close follow up as an outpatient at higher level of care for lung biopsy to make sure there is no underlying lung cancer. The patient is currently understand verbalized understanding and agreeable to plan. customer services manager has been called who will be arranging the higher level of care at some facility for lung biopsy to rule out cancer. Condition at Discharge: Stable Final Diagnosis/Problems List 64-year-old male with known history of diabetes mellitus type 2, hypertension, coronary artery disease, congestive heart failure, COPD, chronic insomnia who initially presented to the hospice chest pain as well as right shoulder pain and right upper extremity numbness found to have 1. Chest pain ruled out [place] 2. Right shoulder pain with upper extremity numbness rule out cervical myelopathy 3. Right shoulder pain possibly degenerative joint disease 4. Diabetes mellitus type 2 5. Hypertension 6. Chronic insomnia 7. Lung nodules, Discharge Disposition: Home SNF Discharge Will this Physician continue t: No Discharge Instruct/Medications Diet: Cardiac 2g Na,low cholest Activity: No Restrictions, As Tolerated Follow Up/Referral: With the PCP in 1-2 weeks Follow up with outpatient higher level of care for lung biopsy with a in one week to 10 days Medications: Resume home medications Discharge Statement: "Patient was advised to return to the ER or call 911 if any headaches, dizziness, shortness of breath, chest pain, abdominal pain, bleeding, fevers, or worsening of medical condition. Patient was counseled about treatment plan, medications, possible side effects, patientverbalized understanding. All questions were answered to the best of my ability. This discharge took greater then 30 minutes in planning, reviewing documentation, counseling the patient, and discussing with other team members." ASSESSMENT ASSESSMENT Assessment 64-year-old male with known history of diabetes mellitus type 2, hypertension, coronary artery disease, congestive heart failure, COPD, chronic insomnia who initially presented to the hospice chest pain as well as right shoulder pain and right upper extremity numbness found to have 1. Chest pain ruled out [place] 2. Right shoulder pain with upper extremity numbness rule out cervical myelopathy 3. Right shoulder pain possibly degenerative joint disease 4. Diabetes mellitus type 2 5. Hypertension 6. Chronic insomnia 7. Lung nodules, Date of Service: Oct 28, 2024 Billing Provider: OVIDIO GONSALVES MD Common Visit Codes: NOT BILLABLE OVIDIO GONSALVES MD Oct 28, 2024 16:32
--- NOTE | 2024-10-28 21:29 | DVHPN2 ---
Progress Note - Dictate Date Seen: Oct 28, 2024 Medical Necessity Reason Pt with a Central, PICC or Fol: No Subjective Patient seen and examined at bedside. Breathing comfortably on room air. Overnight events reviewed. vital signs Vital Sign Date Time Temp Pulse Resp B/P (MAP) Pulse Ox O2 Delivery O2 Flow Rate FiO2 10/28/24 17:35 36.4 10/28/24 16:42 71 20 130/78 (95) 98 10/28/24 08:00 Room Air* 0 21 Total Intake and Output 10/27/24 10/27/24 10/28/24 15:00 23:00 07:00 Intake Total 1300 ml Output Total 1200 ml 1500 ml Balance 100 ml -1500 ml medications Current Medications Medications Dose Ordered Sig/Mikel Route Start Time Stop Time Status Last Admin Dose Admin Levetiracetam 500 mg BID PO 10/22/24 22:00 Cancel objective Gen.: Patient lying in bed in no apparent distress. Breathing on room air. Head: Normocephalic, atraumatic. Eyes: EOMI/PERRLA. Ears: Normal hearing. Normal anatomy. Neck/trachea: Trachea midline, supple. Nose: Normal external anatomy. Mouth: Moist mucous membranes. Chest: Decreased air entry bilaterally. No wheezing or rhonchi. Cardiovascular: Positive S1, positive S2. Regular rate and rhythm. Abdomen: Positive bowel sounds in all 4 quadrants. Soft, non-tender, non- distended. : Deferred. Rectal: Deferred. Skin: Warm, dry. Intact. Extremities: 2+ radial pulses bilaterally. Right AKA. No lower extremity edema on left. Neuro: Awake, alert, oriented x3. No gross motor or sensory deficits. Cranial nerves II through XII intact. Gait not assessed. laboratory and microbiology Laboratory Tests 10/25/24 10:09 10/25/24 06:23 Test 10/25/24 06:23 Range/Units Serum Glucose 127 H 74-106 mg/dL Assessment/Plan Impression: Chest pain Pulmonary nodules DM type II Hyperlipidemia Obesity, BMI 30.6 History of right AKA. Events: Breathing comfortably on room air Supplemental oxygen PRN No new events IR attempted to perform lung biopsy, unsuccessful. Appreciate IR input. Patient is stable for discharge from the pulmonary standpoint. Follow up with outpatient higher level of care for lung biopsy within 1 week to 10 days Incentive spirometry Antiepileptic medication Pain control Avoid oversedation Labs and imaging reviewed. Rest of plan as noted below. Plan: Supplemental oxygen PRN Titrate to keep O2 sats above 92%. CT angio demonstrated no pulmonary embolism. Multiple pulmonary nodules throughout the left chest, possible metastatic disease. See report for full details. IR attempted lung biopsy. Echo reviewed Cardiology recommendations appreciated On statin Accu-Cheks, ISS PRN Monitor renal function. Monitor electrolytes. Supplement as necessary. Monitor ins and outs. Diet and lifestyle modifications for weight reduction Obesity - complicates all care DVT prophylaxis - Lovenox SC. Prognosis: Poor given patient's multiple co-morbidities. Rest of plan per hospitalist and other consultants. Thank you, MARIA LUISA Polk, for allowing me to participate in this patient's care. Further recommendations will depend on the patient's clinical course. Please do not hesitate to contact me if you have any questions or concerns. This medical document was created using an electronic medical record system with [employer] dictation system. Although these documentations are being carefully reviewed, there may still be some phonetic and typographical changes. The errors are purely typographical, due to imperfection on the software program, and do not reflect any compromise in the patient's medical care. Dietary Evaluation Review Recommendations by RD: Dietary education by RD Comments: 1) Continue to encourage optimal PO intake 2) Collect HbA1c d/t elevated POC glucose 3) Follow-up with cardiology 4) Refer to outpatient RD/CDCES for weight management 5) Continue to monitor I&O, labs, and skin integrity Expected Outcomes/Goals: 1) appetite and labs to improve 2) diet to advance 3) f/u in 2-3 days Plan discussed with: Patient, Other (NADIYA Baker) JOHNNY WILDE MD Oct 28, 2024 21:29
--- NOTE | 2024-10-28 23:58 | DVHPN2 ---
Progress Note - Dictate Date Seen: Oct 28, 2024 Medical Necessity Reason Pt with a Central, PICC or Fol: No Subjective Patient was seen and evaluated in follow up. Patient is complaining of generalized pain. Per IR, lung biopsy was unable to be performed and was recommended to transfer patient to [facility]. Transfer was denied as patient can have lung biopsy outpatient. Patient is cardiac stable for discharge. Telemetry reviewed. vital signs Vital Sign Date Time Temp Pulse Resp B/P (MAP) Pulse Ox O2 Delivery O2 Flow Rate FiO2 10/28/24 09:51 68 18 124/64 10/28/24 08:00 99 Room Air* 0 21 10/28/24 07:52 97.8 97.8 Total Intake and Output 10/27/24 10/27/24 10/28/24 14:59 22:59 06:59 Intake Total 1300 ml Output Total 1200 ml 1500 ml Balance 100 ml -1500 ml medications Current Medications Medications Dose Ordered Sig/Mikel Route Start Time Stop Time Status Last Admin Dose Admin Acetaminophen 650 mg Q6HP PRN PO 10/21/24 22:00 10/23/24 08:45 650 MG Acetaminophen/ Hydrocodone Bitart 1 tab Q6HPRN PRN PO 10/21/24 22:00 10/26/24 00:56 1 TAB Ondansetron HCl 4 mg Q4HP PRN IV 10/21/24 22:00 Morphine Sulfate 2 mg Q4HPRN PRN IV 10/21/24 22:00 10/28/24 09:51 2 MG Enoxaparin Sodium 40 mg DAILY SC 10/22/24 10:00 10/28/24 09:50 40 MG Nitroglycerin 0.4 mg Q5MINP PRN SL 10/21/24 22:00 10/22/24 06:31 0.4 MG Morphine Sulfate 2 mg Q30M PRN IV 10/21/24 22:00 10/22/24 01:47 2 MG Aspirin 81 mg DAILY PO 10/22/24 10:00 10/28/24 09:49 81 MG Atorvastatin Calcium 20 mg DAILY PO 10/22/24 10:00 10/28/24 09:50 20 MG Hydralazine HCl 10 mg Q4HPRN PRN IV 10/21/24 22:00 Diagnostic Test (Pha) 1 strip ACHS 10/21/24 22:00 10/28/24 11:04 1 STRIP Insulin Human Regular ACHS SC 10/21/24 22:00 10/28/24 11:07 2 UNITS Dextrose 50 ml UD PRN IV 10/21/24 22:00 Levetiracetam 500 mg BID PO 10/22/24 22:00 Cancel Gabapentin 100 mg DAILY PO 10/23/24 10:00 10/28/24 09:50 100 MG Levetiracetam 750 mg BID PO 10/22/24 22:00 10/28/24 09:50 750 MG Apixaban 5 mg BIDPC PO 10/23/24 19:00 Hold objective GENERAL: Awake, alert, oriented. LUNGS: Clear. CARDIOVASCULAR: Heart sounds are good. ABDOMEN: Soft. EXT: Right AKA. laboratory and microbiology Laboratory Tests 10/25/24 10:09 10/25/24 06:23 Test 10/25/24 06:23 Range/Units Serum Glucose 127 H 74-106 mg/dL Problem List Chest pain. Right shoulder pain with upper extremity numbness. Hypertension. Diabetes mellitus type 2. History of right AKA. Chronic insomnia. Assessment/Plan Continued all current supportive medical care. Morphine and [place] for pain management. Aspirin, Lipitor. DVT prophylactics. IV Hydralazine for an SBP > 160. Additional plan as per the hospital course. Dietary Evaluation Review Recommendations by RD: Dietary education by RD Comments: 1) Continue to encourage optimal PO intake 2) Collect HbA1c d/t elevated POC glucose 3) Follow-up with cardiology 4) Refer to outpatient RD/CD[facility] for weight management 5) Continue to monitor I&O, labs, and skin integrity Expected Outcomes/Goals: 1) appetite and labs to improve 2) diet to advance 3) f/u in 2-3 days Plan discussed with: Patient ANURAG HERNÁNDEZ MD Oct 28, 2024 12:57
== END 2024-10-28 18:14 | disposition home or self-care (01) | DRG 206 ==
LOC: ER 14:09 → OVERFLOW 21:50 → TELE-CENTR 23:48
PROVIDERS: ADMIT Internal Medicine; ATTEND Internal Medicine
PROC: 0BJK3ZZ Inspection of Right Lung, Percutaneous Approach (ICD-10-PCS; principal; 2024-10-28)
DX: M94.0 Chondrocostal junction syndrome [Tietze] (principal); J98.4 Other disorders of lung; E78.5 Hyperlipidemia, unspecified; E66.9 Obesity, unspecified; E11.9 Type 2 diabetes mellitus without complications; F51.04 Psychophysiologic insomnia; I25.10 Atherosclerotic heart disease of native coronary artery without angina pectoris; I50.9 Heart failure, unspecified; I11.0 Hypertensive heart disease with heart failure; Z68.30 Body mass index [BMI] 30.0-30.9, adult; Z88.3 Allergy status to other anti-infective agents; Z79.4 Long term (current) use of insulin; Z79.84 Long term (current) use of oral hypoglycemic drugs; Z82.49 Family history of ischemic heart disease and other diseases of the circulatory system; Z88.6 Allergy status to analgesic agent; Z89.611 Acquired absence of right leg above knee; Z68.28 Body mass index [BMI] 28.0-28.9, adult
CPT/HCPCS: 10005; 36415; 70450; 71046; 71250; 71275; 72127; 73200; 77012; 80048; 81001; 82962; 83880; 84484; 85025; 85610; 85730; 93005; 93306; G0378; J1815; J2003; J2250; J2405

== ENCOUNTER 2025-01-15 17:02 | Inpatient (IN) | payer OTHER, MEDICAID ==
[~2025-01-15] VITALS: Ht 167.6 cm; Wt 94.1 kg
[~2025-01-15 17:02] MED LIST changes: -APIX5TAB PO; -ATOR20TA50 PO; +ATOR40TA52 PO; +GABA-1308 PO; +KEP500T PO; +PANT40TA2 PO
--- NOTE | 2025-01-15 17:10 | ECG ---
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
--- NOTE | 2025-01-15 17:14 | ED.PDOC ---
HPI Comments This is a 64 year old male presenting to the ED with chief complaint of chest pain. Patient reports that he has been experiencing left sided chest pain with associated numbness/tingling to his neck and left arm for the past week. Patient relays that he is still experiencing pain at this time and Nitroglycerin has not provided him any relief in the past when he has had chest pain. Patient denies any N/V, SOB, dizziness, headache, fever, or chills. Vital signs were stable at arrival. Chief Complaint: Chest Pain Time Seen by MD: 17:12 Primary Care Provider: ELLIS Reviewed Notes: Nurses Notes, Medications, Allergies Allergies: Coded Allergies: Ibuprofen (Verified Allergy, Unknown, RASH, 12/14/15) Home Meds Active Scripts Hydrocodone-Acetaminophen (Hydrocodone/Acetaminophen 5-325 mg) 1 Tab Tab, 1 TAB PO [id number] PRN for 5 Days, #10 TAB Prov:NAVEEN LAN DO 01/17/23 Insulin Regular (Human) (Novolin R) 100 Unit/Ml Inj, 0 UNITS SC AC for 30 Days, #30 INJ As per aggressive sliding scale Prov:ELENA JAVIER MD 01/14/23 Insulin Glargine (Lantus) 100 Unit/Ml Inj, 15 UNIT SC DAILY for 30 Days, #30 INJ Prov:ELENA JAVIER MD 01/14/23 Metformin Hydrochloride (Metformin Hcl) 500 Mg Tab, 2 TAB PO BID, #120 TAB 3 Refills Prov:ELENA JAVIER MD 01/14/23 Amitriptyline Hcl (Amitriptyline Hcl) 25 Mg Tab, 1 TAB PO QPM, #30 TAB 5 Refills Prov:ELENA JAVIER MD 01/14/23 Dexamethasone (Decadron) 4 Mg Tb, 4 TAB PO DAILY, #8 TAB Prov:ELENA JAVIER MD 01/14/23 Oxybutynin Chloride (Ditropan Xl) 5 Mg Tab, 5 MG PO BID, #60 TAB Prov:NISHANT JANE MD 11/04/22 Tamsulosin Hcl (Flomax) 0.4 Mg Cap, 0.4 MG PO QPM for 30 Days, #30 CAP Prov:ANTOINE PETERSON MD 09/25/22 Clotrimazole (Lotrimin) 1 Applic Ap, 1 APPLIC TOP Q12HR for 7 Days, #1 APPLIC Prov:ANTOINE PETERSON MD 09/25/22 Reported Medications Metformin Hydrochloride (Metformin Hcl) 500 Mg Tab, 500 MG PO DAILY for 30 Days, MG 11/09/24 Gabapentin (Gabapentin) 100 Mg Cap, 100 MG PO DAILY for 30 Days, MG 11/09/24 Pantoprazole Sodium Sesquihydr (Protonix) 40 Mg Tab, 40 MG PO DAILY, #30 TAB 11/09/24 Atorvastatin Calcium (ATORVASTATIN CALCIUM) 40 Mg Tab, 1 TAB PO DAILY, #30 TAB 5 Refills 11/09/24 Levetiracetam (KEPPRA TABLET) 500 Mg Tb, 750 MG PO BID, TAB 10/22/24 Zolpidem Tartrate (Ambien) 10 Mg Tab, 1 TAB PO QPM, #30 TAB 5 Refills 11/08/22 Potassium Chloride (Potassium Chloride ER) 10 Meq Tab, 10 MEQ PO BID, TAB 02/27/22 Aspirin (Aspir-Low) 81 Mg Tab, 81 MG PO DAILY, MG 02/27/22 Enalapril Maleate (Enalapril Maleate) 10 Mg Tab, 5 MG PO DAILY, TAB 02/27/22 Cholecalciferol (D3) 2,000 Unit Tab, 1 TAB PO DAILY 05/09/21 Furosemide (Lasix) 20 Mg Tb, 10 MG PO DAILY, #90 TAB 3 Refills 08/07/19 Hydrocodone-Acetaminophen (Hydrocodone Bitartrate/AC 10-325 mg) 1 Tab Tab, 1 TAB PO Q6HP PRN for PAIN, TAB FOR CHRONIC ACUTE TO SEVERE PAIN 08/07/19 Information Source: Patient Mode of Arrival: Ambulatory Severity: Moderate Timing: Weeks Duration: Since onset Prehospital treatment: None Location: Chest (L) Radiation: Neck, Arm (L) Quality: Sharp, Stabbing Onset: At Rest Cardiac Risk Factors: Hyperlipidemia, HTN, Diabetes PE Risk Factors: None History of: Similar pain in past, [place] Past Medical History PAST MEDICAL HISTORY: Anxiety, CAD, CHF, COPD, Depression, DM, High Lipids, HTN, [place], PE, Thyroid Surgical History: AKA, Pacemaker, PTCA Family History Family History: Reviewed,noncontributory to illness, Family hx of DM, Family hx of Cancer, Family hx of HTN Social History Smoker: Non-Smoker Alcohol: Occasionally Drugs: Denies Drug Use Lives In: Home Constitutional: denies: chills, diaphoresis, fatigue, fever, malaise, sweats, weakness, others EENTM: denies: blurred vision, double vision, ear bleeding, ear discharge, ear drainage, ear pain, ear ringing, eye pain, eye redness, hearing loss, mouth pain, mouth swelling, nasal discharge, nose bleeding, nose congestion, nose pain, photophobia, tearing, throat pain, throat swelling, voice changes, others Respiratory: denies: cough, hemoptysis, orthopnea, SOB at rest, shortness of breath, SOB with excertion, stridor, wheezing, others Cardiovascular: reports: chest pain, left arm pain; denies: dizzy spells, diaphoresis, Dyspnea on exertion, edema, irregular heart beat, lightheadedness, palpitations, PND, syncope, others Gastrointestinal: denies: abdomen distended, abdominal pain, blood streaked bowels, constipated, diarrhea, dysphagia, difficulty swallowing, hematemesis, melena, nausea, poor appetite, poor fluid intake, rectal bleeding, rectal pain, vomiting, others Genitourinary: denies: burning, dysuria, flank pain, frequency, hematuria, incontinence, penile discharge, penile sore, pain, testicle pain, testicle swelling, urgency, others Neurological: reports: numbness, tingling; denies: dizziness, fainting, headache, left sided numbness, left sided weakness, paresthesia, pre-existing deficit, right sided numbness, right sided weakness, seizure, speech problems, tremors, weakness, others Musculoskeletal: denies: back pain, gout, joint pain, joint swelling, muscle pain, muscle stiffness, neck pain, others Integumetry: denies: bruises, change in color, change in hair/nails, dryness, laceration, lesions, lumps, rash, wounds, others Allergic/Immunocompromised: denies: Difficulty Healing, Frequent Infections, Hives, Itching, others Hematologic/Lymphatic: denies: anemia, blood clots, easy bleeding, easy bruising, swollen glands, others Endocrine: denies: excessive hunger, excessive sweating, excessive thirst, excessive urination, flushing, intolerance to cold, intolerance to heat, unexplained weight gain, unexplained weight loss, others Psychiatric: denies: anxiety, bipolar disorder, depression, hopeless, panic disorder, schizophrenia, sleepless, suicidal, others All Other Systems: Reviewed and Negative Physical Exam General Appearance: Moderate Distress (Patient appears to be in moderate distress at time of evaluation due to chest pain concerns.), Obese HEENT: Normal ENT Inspection, Pharynx Normal, TMs Normal Neck: Full Range of Motion, Non-Tender, Normal, Normal Inspection Respiratory: Lungs Clear, No Accessory Muscle Use, No Respiratory Distress, N ormal Breath Sounds, Other (Unable to definitively elicit additional pain on palpation.) Cardiovascular: No Edema, No JVD, No Murmur, No Gallop, Normal Peripheral Pulses, Regular Rate/Rhythm Breast Exam: Deferred Gastrointestinal: No Organomegaly, Non Tender, No Pulsatile Mass, Normal Bowel Sounds, Soft Genitalia: Deferred Pelvic: Deferred Rectal: Deferred Extremities: Other (Patient has a right leg amputation.) Neurologic: Alert, Normal Affect, Normal Mood Cerebellar Function: NOT DONE Reflexes: NOT DONE Skin: Dry, Normal Color, Warm Lymphatic: No Adenopathy Was a procedure done? Was a procedure done?: No CP Differential Dx Differential Diagnosis: A-fib, A-Flutter, Anxiety / Panic Attack, Atrial Dysrhythmia, AV Block 1st Degree, [place], Pulmonary Embolus Differential Diagnosis: CHF, HTN Essential Differential Diagnosis: Angina, Chest Wall Pain X-Ray, Labs, Meds, VS Vital Signs Date Time Temp Pulse Resp B/P (MAP) Pulse Ox O2 Delivery O2 Flow Rate FiO2 01/15/25 21:09 73 20 141/81 01/15/25 18:24 63 17 106/68 (81) 100 01/15/25 18:23 63 17 106/68 01/15/25 18:10 81 01/15/25 17:50 98.5 86 17 113/77 (89) 99 98.5 01/15/25 17:50 86 17 99 Room Air 01/15/25 17:49 86 17 99 Room Air* 0 21 01/15/25 17:47 86 17 113/77 01/15/25 17:08 98.3 89 18 108/74 (85) 94 98.3 Lab Test 01/15/25 18:49 01/15/25 17:27 Range/Units Troponin I High Sensitivity 4 4 </=54 ng/L White Blood Count 6.1 4.4-10.8 10^3/uL Red Blood Count 4.94 4.5-5.90 10^6/uL Hemoglobin 15.2 13.5-17.5 g/dL Hematocrit 45.1 41.0-53.0 % Mean Corpuscular Volume 91.2 80.0-100.0 fL Mean Corpuscular Hemoglobin 30.8 28.0-32.0 pg Mean Corpuscular Hemoglobin Concent 33.7 32.0-36.0 g/dL Red Cell Distribution Width 14.2 11.8-14.3 % Platelet Count 242 140-450 10^3/uL Mean Platelet Volume 6.7 L 6.9-10.8 fL Neutrophils (%) (Auto) 53.8 37.0-80.0 % Lymphocytes (%) (Auto) 33.7 10.0-50.0 % Monocytes (%) (Auto) 10.6 0.0-12.0 % Eosinophils (%) (Auto) 1.1 0.0-7.0 % Basophils (%) (Auto) 0.8 0.0-2.0 % Neutrophils # (Auto) 3.3 1.6-8.6 10 ^3/uL Lymphocytes # (Auto) 2.1 0.4-5.4 10 ^3/uL Monocytes # (Auto) 0.6 0-1.3 10 ^3/uL Eosinophils # (Auto) 0.1 0-0.8 10 ^3/uL Basophils # (Auto) 0 0-0.2 10 ^3/uL Nucleated Red Blood Cells 0.4 % D-Dimer, Quantitative 0.70 H 0.0-0.49 mg/L FEU Sodium Level 140 136-145 mmol/L Potassium Level 4.3 3.5-5.1 mmol/L Chloride Level 106 98-107 mmol/L Carbon Dioxide Level 24 20-31 mmol/L Anion Gap 10 5-15 Blood Urea Nitrogen 13 9-23 mg/dL Creatinine 0.72 0.700-1.30 mg/dL Glomerular Filtration Rate Calc 102 >90 mL/min BUN/Creatinine Ratio 18.1 10.0-20.0 Serum Glucose 114 H 74-106 mg/dL Calcium Level 9.6 8.7-10.4 mg/dL Total Bilirubin 0.3 0.2-1.0 mg/dL Aspartate Amino Transferase (AST) 15 <34 U/L Alanine Aminotransferase (ALT) 19 7-40 U/L Alkaline Phosphatase 114 46-116 U/L B-Type Natriuretic Peptide 23.41 0-100 pg/mL Total Protein 7.3 5.7-8.2 g/dL Albumin 4.4 3.2-4.8 g/dL Lipase 45 12-53 U/L Current Medications Medications (Trade) Dose Ordered Sig/Mikel Route Start Time Stop Time Status Last Admin Aspirin 81 mg ONCE ONCE PO 01/15/25 17:15 01/15/25 17:16 DC 01/15/25 17:46 Ondansetron HCl (Zofran Po) 4 mg ONCE ONCE PO 01/15/25 17:15 01/15/25 17:16 DC 01/15/25 17:46 Morphine Sulfate 2 mg ONCE ONCE IV 01/15/25 17:15 01/15/25 17:16 DC 01/15/25 17:47 Morphine Sulfate 2 mg ONCE ONCE IV 01/15/25 21:00 01/15/25 21:01 DC 01/15/25 21:09 X-Ray, Labs, Meds, VS Comment Patient had relief of symptoms status post medication dispensed, but the pain relief was only short lived and additional medication was required. All studies performed the ED were evaluated by me personally. Laboratories were relatively unremarkable except for a mildly elevated D-dimer. Chest x-ray revealed a cardiomegaly. Left brachiocephalic and SVC stent was noted. Lungs demonstrated some patchy left lung airspace opacities. Multiple left flank calcifications and nodules. EKG revealed a sinus rhythm with left axis deviation and age indeterminate anterior lateral infarct. Rate of 81 mother via, [place] interval of 195 and QT interval of 362. Second EKG was remarkable for additional findings of possible right ventricular hypertrophy. Due to the patient's chest pain concerns and questionable imaging and EKGs studies, patient will be admitted for a cardiac evaluation and consult. Time of 1ST Reevaluation: 21:23 Reevaluation 1ST: Improved Patient Education/Counseling: Diagnosis, Treatment Family Education/Counseling: No Family Present SEPSIS Sepsis Screen Recent Procedure: No On Antibiotic Therapy: No Respiratory Rate >20: No Heart Rate >90: No Temp<36 C (96.8 F) or >38.3 C: No SBP <90 or MAP <65 mmHG: No New Acute Mental Status Change: No Is the patient on CPAP, BIPAP,: No IV fluid challenge completed?: No Physician Orders Electrocardigram (01/15/25 18:05) Electrocardigram (01/15/25 20:05) Chest Portable (01/15/25 17:11) Heplock Iv (01/15/25 17:11) Vital Signs Date Time Temp Pulse Resp B/P (MAP) Pulse Ox O2 Delivery O2 Flow Rate FiO2 01/15/25 21:09 73 20 141/81 01/15/25 18:24 63 17 106/68 (81) 100 01/15/25 18:23 63 17 106/68 01/15/25 18:10 81 01/15/25 17:50 98.5 86 17 113/77 (89) 99 98.5 01/15/25 17:50 86 17 99 Room Air 01/15/25 17:49 86 17 99 Room Air* 0 21 01/15/25 17:47 86 17 113/77 01/15/25 17:08 98.3 89 18 108/74 (85) 94 98.3 Laboratory Tests Test 01/15/25 17:27 White Blood Count 6.1 10^3/uL (4.4-10.8) Medications Medications Dose Ordered Sig/Mikel Route Start Time Stop Time Status Last Admin Dose Admin Aspirin 81 mg ONCE ONCE PO 01/15/25 17:15 01/15/25 17:16 DC 01/15/25 17:46 Morphine Sulfate 2 mg ONCE ONCE IV 01/15/25 17:15 01/15/25 17:16 DC 01/15/25 17:47 Morphine Sulfate 2 mg ONCE ONCE IV 01/15/25 21:00 01/15/25 21:01 DC 01/15/25 21:09 Ondansetron HCl 4 mg ONCE ONCE PO 01/15/25 17:15 01/15/25 17:16 DC 01/15/25 17:46 Departure 1 Departure Time of Disposition: 21:24 Impression: Primary Impression: Acute coronary syndromes Additional Impression: Pleural effusion Disposition: ADMITTED INPATIENT Condition: Stable Discharged With: Self Critical Care Note Critical Care Time?: No Stability Stability form required: No Heart Score Heart Score: Heart Score Response (Comments) Value History Highly Suspicious 2 EKG Normal 0 Age 45-64 1 Risk Factors >3 or Hx ASHD 2 Troponin Normal limit 0 Total 5 I personally scribed for TOVA MCINTOSH PAC ([email or web address]) on 01/15/25 at 17:14. Electronically submitted by Gabriel Mir ([email or web address]). TOVA MCINTOSH PAC Jan 15, 2025 17:14
[2025-01-15] MEDS: ONDANSETRON ODT 4 MG TAB PO ONE (17:46)
[2025-01-15] MEDS: ASPirin 81 mg TAB PO ONE (17:46)
[2025-01-15] MEDS: MORPHINE SULFATE INJ 2 MG/ml SYRG IV ONE ×2 (17:47→21:09)
[2025-01-15 17:49] VITALS: PULSE 86; RESP 17; O2SAT 99
[2025-01-15 18:13] LABS: Basophils # (auto) 0 10 ^3/uL (0-0.2); Eosinophils # (auto) 0.1 10 ^3/uL (0-0.8); White Blood Cell 6.1 10^3/uL (4.4-10.8)
[2025-01-15 18:16] LABS: Basophils % (auto) 0.8 % (0.0-2.0); Eosinophils % (auto) 1.1 % (0.0-7.0); Hematocrit 45.1 % (41.0-53.0); Hemoglobin 15.2 g/dL (13.5-17.5); Lymphocytes # (auto) 2.1 10 ^3/uL (0.4-5.4); Lymphocytes % (auto) 33.7 % (10.0-50.0); Mean Corpuscular Hemoglobin 30.8 pg (28.0-32.0); Mean Corpuscular Hgb Conc. 33.7 g/dL (32.0-36.0); Mean Corpuscular Volume 91.2 fL (80.0-100.0); Monocytes # (auto) 0.6 10 ^3/uL (0-1.3); Monocytes % (auto) 10.6 % (0.0-12.0); Neutrophils # (auto) 3.3 10 ^3/uL (1.6-8.6); Neutrophils % (auto) 53.8 % (37.0-80.0); Nucleated Red Blood Cells % 0.4 %; Platelet Count (auto) 242 10^3/uL (140-450); Red Blood Cells 4.94 10^6/uL (4.5-5.90); Red Cell Distribution Width 14.2 % (11.8-14.3)
[2025-01-15 18:17] LABS: Alanine Aminotransferase 19 U/L (7-40); Albumin 4.4 g/dL (3.2-4.8); Alkaline Phosphatase 114 U/L (46-116); Anion Gap 10 (5-15); Aspartate Aminotransferase 15 U/L (<34); BUN/Creatinine Ratio 18.1 (10.0-20.0); Bilirubin, Total 0.3 mg/dL (0.2-1.0); Blood Urea Nitrogen 13 mg/dL (9-23); Calcium 9.6 mg/dL (8.7-10.4); Carbon Dioxide 24 mmol/L (20-31); Chloride 106 mmol/L (98-107); Glucose 114 mg/dL (74-106); Lipase 45 U/L (12-53); Potassium 4.3 mmol/L (3.5-5.1); Sodium 140 mmol/L (136-145); Total Protein 7.3 g/dL (5.7-8.2)
--- NOTE | 2025-01-15 18:25 | DVH ---
CHEST RADIOGRAPH Indication: Shortness of breath Technique: Single frontal view of the chest was obtained Comparison: 11/08/2024 FINDINGS: The cardiac silhouette is enlarged. Left brachiocephalic and SVC stent. The lungs demonstrate patchy left lung airspace opacities most pronounced within the mid to lowerm lung. Multiple left lung calc ified nodules measuring up to 2.5 cm. The pulmonary vasculature is prominent. Small to moderate left pleural effusion. There is no pneumothorax. IMPRESSION: As above
[2025-01-16] VITALS (8 sets, daily range): BP systolic 95–133; BP diastolic 62–83; PULSE 63–74; RESP 11–18; TEMP 97.4–98.8; O2SAT 98–100
[2025-01-16] MEDS: ASPirin 81 mg TAB PO ONE (01:28)
[2025-01-16] MEDS: levETIRAcetam 500 MG TAB PO ONE (01:28)
[2025-01-16] MEDS: ATORVASTATIN 20 MG TAB PO ONE (01:28)
[2025-01-16] MEDS: MORPHINE SULFATE INJ 2 MG/ml SYRG IV PRN ×2 (01:29→03:31)
--- NOTE | 2025-01-16 05:28 | DVHHPRES ---
History of Present Illness Resident Creating Document: JHAMPARO ARCHER RESIDENT History of Present Illness Patient is a 64-year-old male with a past medical history of congestive heart failure, coronary artery disease status post angioplasty, ?pulmonary embolism/DVT, hypertension, eow-aibqoyv-bkschhndz type diabetes mellitus, s laverntravis presented to the ED with a chief complaint of chest pain for last 1 week. Patient reported he started to have chest pain substernal to left side of the chest, radiating to the neck and bilateral arms associated with a mild shortness of breath, lightheadedness. It was tolerable for the past week but today he had intense episode of pain following which she came to the hospital for further evaluation. Initial 12 lead ECG showed sinus rhythm with left axis deviation with possible left ventricular hypertrophy, T-wave inversion in V1 but no other acute ST or T-wave changes. Patient has a pacemaker and loop recorder and previously underwent a left brachiocephalic and SVC stent following he was diagnosed with a clot and was on Eliquis but according to patient it was stopped is not currently taking Eliquis. Patient is following up with Dr. Michelle Cali in the outpatient cardiology clinic. 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, pacemaker Social history: Patient denies smoking, alcohol, drug use Home medications: Metformin 500 mg once daily, enalapril 5 mg daily, Keppra 750 b.i.d., Lasix 20 mg PRN, atorvastatin 40 mg Review of Systems Review of Systems Patient seen and examined at the bedside Reports of chest pain substernal to left side associated with numbness of the miller nds No shortness a breath or palpitations No other acute complaints Allergies: Coded Allergies: Ibuprofen (Verified Allergy, Unknown, RASH, 12/14/15) Medications Current Medications Medications Dose Ordered Sig/Mikel Route Start Time Stop Time Status Last Admin Dose Admin Nitroglycerin 0.4 mg Q5MINP PRN SL 01/15/25 23:30 Morphine Sulfate 2 mg Q30M PRN IV 01/15/25 23:30 01/16/25 03:31 2 MG Aspirin 81 mg DAILY PO 01/16/25 10:00 Morphine Sulfate 2 mg Q4HPRN PRN IV 01/16/25 00:45 01/16/25 01:29 2 MG Levetiracetam 750 mg BID PO 01/16/25 10:00 Enalapril Maleate 5 mg DAILY PO 01/16/25 10:00 Atorvastatin Calcium 40 mg HS PO 01/16/25 22:00 Exam Vital Signs Vital Signs Date Time Temp Pulse Resp B/P (MAP) Pulse Ox O2 Delivery O2 Flow Rate FiO2 01/16/25 04:04 75 11 114/65 01/16/25 04:00 93 01/16/25 02:50 Room Air* 0 21 01/16/25 02:48 98.0 98.0 Exam Gen - no pallor, no icterus, no cyanosis, no clubbing, no LAD, no edema . Skin - Patients skin is warm and dry. HEENT - normocephalic, atraumatic, moist mucous membranes. Neck - full ROM, no LAD, no JVD Pulmonary - B/L equal breath sounds, no crackles, no wheezing, no stridor. cardiovascular - regular S1,S2 heard, no added sounds, no murmurs heard. GI - soft, nontender abdomen. no hepatospleenomegaly. Bowel sounds normoactive Neurological - Patient is A/O X 3 . Bilateral upper extremity strength 5/5, left lower extremity strength 5/5, no facial droop, normal speech, no tremor, no sensory deficiets. Labs/Xrays Labs Test 01/15/25 18:49 01/15/25 17:27 Range/Units Troponin I High Sensitivity 4 </=54 ng/L White Blood Count 6.1 4.4-10.8 10^3/uL Red Blood Count 4.94 4.5-5.90 10^6/uL Hemoglobin 15.2 13.5-17.5 g/dL Hematocrit 45.1 41.0-53.0 % Mean Corpuscular Volume 91.2 80.0-100.0 fL Mean Corpuscular Hemoglobin 30.8 28.0-32.0 pg Mean Corpuscular Hemoglobin Concent 33.7 32.0-36.0 g/dL Red Cell Distribution Width 14.2 11.8-14.3 % Platelet Count 242 140-450 10^3/uL Mean Platelet Volume 6.7 L 6.9-10.8 fL Neutrophils (%) (Auto) 53.8 37.0-80.0 % Lymphocytes (%) (Auto) 33.7 10.0-50.0 % Monocytes (%) (Auto) 10.6 0.0-12.0 % Eosinophils (%) (Auto) 1.1 0.0-7.0 % Basophils (%) (Auto) 0.8 0.0-2.0 % Neutrophils # (Auto) 3.3 1.6-8.6 10 ^3/uL Lymphocytes # (Auto) 2.1 0.4-5.4 10 ^3/uL Monocytes # (Auto) 0.6 0-1.3 10 ^3/uL Eosinophils # (Auto) 0.1 0-0.8 10 ^3/uL Basophils # (Auto) 0 0-0.2 10 ^3/uL Nucleated Red Blood Cells 0.4 % D-Dimer, Quantitative 0.70 H 0.0-0.49 mg/L FEU Sodium Level 140 136-145 mmol/L Potassium Level 4.3 3.5-5.1 mmol/L Chloride Level 106 98-107 mmol/L Carbon Dioxide Level 24 20-31 mmol/L Anion Gap 10 5-15 Blood Urea Nitrogen 13 9-23 mg/dL Creatinine 0.72 0.700-1.30 mg/dL Glomerular Filtration Rate Calc 102 >90 mL/min BUN/Creatinine Ratio 18.1 10.0-20.0 Serum Glucose 114 H 74-106 mg/dL Hemoglobin A1c 6.7 H <5.7 % A1C Calcium Level 9.6 8.7-10.4 mg/dL Total Bilirubin 0.3 0.2-1.0 mg/dL Aspartate Amino Transferase (AST) 15 <34 U/L Alanine Aminotransferase (ALT) 19 7-40 U/L Alkaline Phosphatase 114 46-116 U/L B-Type Natriuretic Peptide 23.41 0-100 pg/mL Total Protein 7.3 5.7-8.2 g/dL Albumin 4.4 3.2-4.8 g/dL Lipase 45 12-53 U/L Assessment/Plan Assessment/Plan Assessment Acute chest pain Rule out ACS H/o coronary artery disease s/p angioplasty Hypertensive heart disease with diastolic heart failure S/p left brachiocephalic and SVC stent H/o pulmonary nodules H/o seizure disorder - ECG does not show any significant ST segment or T-wave changes ( T-wave inversion in V1 seen, aVL criteria for left ventricular hypertrophy) , troponins normal - echocardiogram from September 2024 shows LVEF 65% mild LVH and mild LV diastolic dysfunction, moderately dilated RV and RA - according to the records in the hospital patient's last left heart catheterization was done in March 2022 which did not show any occlusive coronary artery disease - CT chest in October 20 shows multiple pulmonary nodules throughout the left chest following which biopsy was attempted in October 2024 but because of the p eripheral rim calcification it was not able to be done and the patient was advised to get the biopsy done at [facility] outpatient Plan - aspirin and atorvastatin - morphine for pain control - Keppra 750 b.i.d. - enalapril 5 mg - cardiology consulted with Dr. Michelle Cali - PE less likely with a Wells score < 4 - left lower extremity venous Doppler pending PUD prophylaxis: Protonix DVT prophylaxis: Enoxaparin Goals of care discussed with the patient for over 23 minutes. Full code Time spent: 41 minute Plan discussed with Dr. Schmid Plan discussed with: Patient My Orders Orders - AMPARO DAVIS Procedure Category Date Status Time Admit ADMIT 01/15/25 Transmitted 23:25 Nitroglycerin PHA 01/15/25 In Process Sublingual (Ntrostat 23:30 Morphine Sulfate PHA 01/15/25 In Process Injection 23:30 Oxygen By Nasal RT 01/15/25 Transmitted Cannula 23:25 Stat Ekg For Chest LISA 01/15/25 In Process Pain 23:25 Notify Md Of Changes LISA 01/15/25 In Process From Base 23:25 Derrick Man For LISA 01/15/25 In Process 24 Hours 23:25 Emergency Dysrhythmia LISA 01/15/25 In Process Protocol 23:25 Aspirin Tablet PHA 01/16/25 In Process 10:00 Morphine Sulfate PHA 01/16/25 In Process Injection 00:45 Levetiracetam Tablet PHA 01/16/25 In Process (Keppra Tablet) 10:00 Enalapril Tablet PHA 01/16/25 In Process (Vasotec Tablet) 10:00 Urinalysis LAB 01/16/25 Logged 00:31 Atorvastatin (Lipitor) PHA 01/16/25 In Process 22:00 Date of Service: Jan 15, 2025 Billing Provider: AMPARO DAVIS Common Visit Codes: 25823-[id number] INP/OBS CARE (HIGH) Secondary Visit Codes: 58724-[id number] CARE PLAN 30 MINUTES AMPARO DAVIS RESIDENT Jan 16, 2025 05:28
[2025-01-16] MEDS ORDERED: DEXTROSE (50%) 50ML SYRG IV PRN (05:30)
[2025-01-16] MEDS: PANTOPRAZOLE 40 MG TAB PO SCH (06:03)
[2025-01-16] MEDS: ACCU-CHEK COMFORT CURVE STRIP VI SCH (06:36)
[2025-01-16] MEDS: InsuLIN REG 1unit/0.01ml Soln (100units/ml) SC SCH (06:38)
[2025-01-16 08:40] LABS: Urine Bacteria None Seen /hpf (None Seen)
[2025-01-16 08:48] LABS: Urine Blood Negative /uL (Negative); Urine Clarity Clear (Clear); Urine Color Light-Yellow (Yellow); Urine Protein, UAD Negative (Negative); Urine Specific Gravity 1.013 (1.001-1.035); Urine Squamous Epithelial Cell None Seen /hpf (<5); Urine Urobilinogen Normal (Negative); Urine WBC < 1 /HPF (0-3); Urine pH 5.5 (5.0-9.0)
--- NOTE | 2025-01-16 09:50 | DVH ---
Left lower extremity venous duplex Clinical History: r/o dvt Comparison: US LT LOWER DVT on DOS: 11/02/22, LLDVT on DOS: 04/11/22 Technique: Duplex Doppler evaluation of the deep venous system of the left lower extremity from the common femor al vein to the popliteal vein including color Doppler and spectral/pulsed waveform analysis was perfo rmed. Findings: The common femoral vein demonstrates appropriate compressibility and waveform variability. There is compressibility/patency of the great saphenous vein at the proximal thigh. The femoral vein demonstrates appropriate compressibility and waveform variability. The deep femoral vein demonstrates appropriate compressibility and waveform variability. The popliteal vein demonstrates appropriate compressibility and waveform variability. There is normal compressibility at the tibioperoneal trunk. Impression: 1. No left femoropopliteal venous thrombosis.
[2025-01-16] MEDS: ASPirin 81 mg TAB PO SCH (10:11)
[2025-01-16] MEDS: ENALAPRIL MALEATE 2.5 MG TAB PO SCH (10:14)
[2025-01-16] MEDS: levETIRAcetam 500 MG TAB PO SCH (10:15)
[2025-01-16] MEDS: ENOXAPARIN SOD 40 MG/0.4 ML SYRINGE SC SCH (10:15)
[2025-01-16] MEDS: ENALAPRIL MALEATE 10 MG TAB ONE (10:25)
--- NOTE | 2025-01-16 13:36 | DVHINCON2 ---
Date Seen: Jan 16, [address] Noyola Reason for Consultation acute chest pain History of Present Illness 64-year-old male with significant cardiac history presents to the emergency department with a chief complaint of chest pain ongoing for the past week. The patient described the pain as substernal, radiating to the left side of the chest, neck, and both arms. He also endorses associated shortness of breath. He is currently under the care of a practice office associate, Dr. Michelle Cali, and reports a history of coronary artery disease with coronary stent placed 2-3 years ago at [facility]. He recalls undergoing a stress test approximately 3-4 years ago. The patient has known pacemaker and loop recorder in place. He also underwent stenting of the left brachiocephalic pain and SV see in the past due to a clot, for which he was previously on Eliquis. However, the patient states that the anticoagulant was discontinued and he is not currently taking it. In the emergency department, a 12 lead ECG showed normal sinus rhythm with left axis deviation and possible left ventricular hypertrophy. T-wave inversion was noted in V1, but no acute ST elevation or other ischemic T-wave changes were observed. Other past medical history includes CHF, CAD status post stent, history of brachiocephalic/SVC stent placement, hypertension, diabetes type 2, s/p right AKA, and seizure disorder. Past Medical History As stated in HPI Past Surgical History PTCA Brachiocephalic stent placement Family History: Cardiovascular disease G8 FATHER FH: cancer of digestive organ G8 MOTHER, Onset:60 years & older FH: uterine cancer Hypertension G8 FATHER Family History Reviewed, non-contributory to the management of this case. Social History The patient lives at home, denies smoking, alcohol or illicit drugs abuse. Allergies: Coded Allergies: Ibuprofen (Verified Allergy, Unknown, RASH, 12/14/15) Home Meds Active Scripts Hydrocodone-Acetaminophen (Hydrocodone/Acetaminophen 5-325 mg) 1 Tab Tab, 1 TAB PO [id number] PRN for 5 Days, #10 TAB Prov:NAVEEN LAN DO 01/17/23 Insulin Regular (Human) (Novolin R) 100 Unit/Ml Inj, 0 UNITS SC AC for 30 Days, #30 INJ As per aggressive sliding scale Prov:ELENA JAVIER MD 01/14/23 Insulin Glargine (Lantus) 100 Unit/Ml Inj, 15 UNIT SC DAILY for 30 Days, #30 INJ Prov:ELENA JAVIER MD 01/14/23 Metformin Hydrochloride (Metformin Hcl) 500 Mg Tab, 2 TAB PO BID, #120 TAB 3 Refills Prov:ELENA JAVIER MD 01/14/23 Amitriptyline Hcl (Amitriptyline Hcl) 25 Mg Tab, 1 TAB PO QPM, #30 TAB 5 Refills Prov:ELENA JAVIER MD 01/14/23 Dexamethasone (Decadron) 4 Mg Tb, 4 TAB PO DAILY, #8 TAB Prov:ELENA JAVIER MD 01/14/23 Oxybutynin Chloride (Ditropan Xl) 5 Mg Tab, 5 MG PO BID, #60 TAB Prov:NISHANT JANE MD 11/04/22 Tamsulosin Hcl (Flomax) 0.4 Mg Cap, 0.4 MG PO QPM for 30 Days, #30 CAP Prov:ANTOINE PETERSON MD 09/25/22 Clotrimazole (Lotrimin) 1 Applic Ap, 1 APPLIC TOP Q12HR for 7 Days, #1 APPLIC Prov:ANTOINE PETERSON MD 09/25/22 Reported Medications Metformin Hydrochloride (Metformin Hcl) 500 Mg Tab, 500 MG PO DAILY for 30 Days, MG 11/09/24 Gabapentin (Gabapentin) 100 Mg Cap, 100 MG PO DAILY for 30 Days, MG 11/09/24 Pantoprazole Sodium Sesquihydr (Protonix) 40 Mg Tab, 40 MG PO DAILY, #30 TAB 11/09/24 Atorvastatin Calcium (ATORVASTATIN CALCIUM) 40 Mg Tab, 1 TAB PO DAILY, #30 TAB 5 Refills 11/09/24 Levetiracetam (KEPPRA TABLET) 500 Mg Tb, 750 MG PO BID, TAB 10/22/24 Zolpidem Tartrate (Ambien) 10 Mg Tab, 1 TAB PO QPM, #30 TAB 5 Refills 11/08/22 Potassium Chloride (Potassium Chloride ER) 10 Meq Tab, 10 MEQ PO BID, TAB 02/27/22 Aspirin (Aspir-Low) 81 Mg Tab, 81 MG PO DAILY, MG 02/27/22 Enalapril Maleate (Enalapril Maleate) 10 Mg Tab, 5 MG PO DAILY, TAB 02/27/22 Cholecalciferol (D3) 2,000 Unit Tab, 1 TAB PO DAILY 05/09/21 Furosemide (Lasix) 20 Mg Tb, 10 MG PO DAILY, #90 TAB 3 Refills 08/07/19 Hydrocodone-Acetaminophen (Hydrocodone Bitartrate/AC 10-325 mg) 1 Tab Tab, 1 TAB PO Q6HP PRN for PAIN, TAB FOR CHRONIC ACUTE TO SEVERE PAIN 08/07/19 Current Medications Current Medications Medications (Trade) Dose Ordered Sig/Mikel Route PRN Reason Start Time Stop Time Status Last Admin Nitroglycerin (Ntrostat Sublingual) 0.4 mg Q5MINP PRN SL FOR CHEST PAIN 01/15/25 23:30 Morphine Sulfate 2 mg Q30M PRN IV FOR CHEST PAIN 01/15/25 23:30 01/16/25 08:37 Aspirin 81 mg DAILY PO 01/16/25 10:00 01/16/25 10:11 Morphine Sulfate 2 mg Q4HPRN PRN IV SEVERE PAIN (7-10 PAIN SCALE) 01/16/25 00:45 01/16/25 01:29 Levetiracetam (Keppra Tablet) 750 mg BID PO 01/16/25 10:00 01/16/25 10:15 Enalapril Maleate (Vasotec Tablet) 5 mg DAILY PO 01/16/25 10:00 01/16/25 10:14 Atorvastatin Calcium (Lipitor) 40 mg HS PO 01/16/25 22:00 Enoxaparin Sodium (Lovenox) 40 mg DAILY SC 01/16/25 10:00 01/16/25 10:15 Pantoprazole Sodium (Protonix Tablet) 40 mg DAILY@0600 PO 01/16/25 06:00 01/16/25 06:03 Diagnostic Test (Pha) (Accu-Chek Comfort Curve T) 1 strip ACHS 01/16/25 07:00 01/16/25 11:30 Insulin Human Regular (InsuLIN R) ACHS SC 01/16/25 07:00 01/16/25 11:30 Dextrose 50 ml UD PRN IV Blood Sugar LESS THAN 60 01/16/25 05:30 Review of Systems Constitutional: No symptom reported Ears, Nose, & Throat: No symptom reported Eyes: No symptom reported Neurological: No symptoms reported Pulmonary/Respiratory: No symptom reported Cardiovascular: Positive for chest pain and shortness of breath. Denies palpitation, syncope, and left lower extremity edema Gastrointestinal: No symptom reported Genitourinary: No symptom reported Musculoskeletal: No symptom reported Skin: No symptom reported Psychiatric: No symptom reported Endocrine: No symptom reported Hemotologic/Lymphatic: No symptom reported Vital Signs Vital Signs Date Time Temp Pulse Resp B/P (MAP) Pulse Ox O2 Delivery O2 Flow Rate FiO2 01/16/25 13:14 98.8 72 11 95/62 (73) 98.8 01/16/25 10:15 99 01/16/25 08:04 Room Air* 0 21 Physical Exam INITIAL VITAL SIGNS: Reviewed by me GENERAL: Alert and interactive. No acute distress. HEAD: Head is normocephalic and atraumatic. EYES: EOMI, PERRL. No scleral icterus. No conjunctival injection. ENT: Moist mucous membranes. NECK: Supple, No masses, Full range of motion. RESPIRATORY: No tachypnea. Clear breath sounds bilaterally. No wheezing, rales, rhonchi. CV: Normal S1/S2, no murmurs, no rubs, no JVD, no edema on left lower extremity GI/: Active bowel sounds, soft, nondistended, nontender. No guarding. No rebound. No masses. No CVA tenderness. INTEGUMENTARY: Warm and dry. No obvious rashes. Status post right AKA NEUROLOGIC: Alert and oriented. Face is symmetric. Speech is normal. Moves all extremities equally. Labs/Diagnostic Data Labs Test 01/16/25 06:45 01/16/25 06:33 01/15/25 18:49 01/15/25 17:27 Range/Units Urine Color Light-yellow Yellow Urine Clarity Clear Clear Urine pH 5.5 5.0-9.0 Urine Specific [place] 1.013 1.001-1.035 Urine Protein Negative Negative Urine Ketones Negative Negative Urine Blood Negative Negative /uL Urine Nitrite Negative Negative Urine Bilirubin Negative Negative Urine Urobilinogen Normal Negative mg/dL Urine Leukocyte Esterase Negative Negative /uL Urine RBC <1 0 - 3 /hpf Urine Microscopic WBC < 1 0-3 /HPF Urine Squamous Epithelial Cells None seen <5 /hpf Urine Bacteria None seen None Seen /hpf Urine Glucose Normal Normal mg/dL POC Glucose 164 H 70-106 mg/dl Troponin I High Sensitivity 4 </=54 ng/L White Blood Count 6.1 4.4-10.8 10^3/uL Red Blood Count 4.94 4.5-5.90 10^6/uL Hemoglobin 15.2 13.5-17.5 g/dL Hematocrit 45.1 41.0-53.0 % Mean Corpuscular Volume 91.2 80.0-100.0 fL Mean Corpuscular Hemoglobin 30.8 28.0-32.0 pg Mean Corpuscular Hemoglobin Concent 33.7 32.0-36.0 g/dL Red Cell Distribution Width 14.2 11.8-14.3 % Platelet Count 242 140-450 10^3/uL Mean Platelet Volume 6.7 L 6.9-10.8 fL Neutrophils (%) (Auto) 53.8 37.0-80.0 % Lymphocytes (%) (Auto) 33.7 10.0-50.0 % Monocytes (%) (Auto) 10.6 0.0-12.0 % Eosinophils (%) (Auto) 1.1 0.0-7.0 % Basophils (%) (Auto) 0.8 0.0-2.0 % Neutrophils # (Auto) 3.3 1.6-8.6 10 ^3/uL Lymphocytes # (Auto) 2.1 0.4-5.4 10 ^3/uL Monocytes # (Auto) 0.6 0-1.3 10 ^3/uL Eosinophils # (Auto) 0.1 0-0.8 10 ^3/uL Basophils # (Auto) 0 0-0.2 10 ^3/uL Nucleated Red Blood Cells 0.4 % D-Dimer, Quantitative 0.70 H 0.0-0.49 mg/L FEU Sodium Level 140 136-145 mmol/L Potassium Level 4.3 3.5-5.1 mmol/L Chloride Level 106 98-107 mmol/L Carbon Dioxide Level 24 20-31 mmol/L Anion Gap 10 5-15 Blood Urea Nitrogen 13 9-23 mg/dL Creatinine 0.72 0.700-1.30 mg/dL Glomerular Filtration Rate Calc 102 >90 mL/min BUN/Creatinine Ratio 18.1 10.0-20.0 Serum Glucose 114 H 74-106 mg/dL Hemoglobin A1c 6.7 H <5.7 % A1C Calcium Level 9.6 8.7-10.4 mg/dL Total Bilirubin 0.3 0.2-1.0 mg/dL Aspartate Amino Transferase (AST) 15 <34 U/L Alanine Aminotransferase (ALT) 19 7-40 U/L Alkaline Phosphatase 114 46-116 U/L B-Type Natriuretic Peptide 23.41 0-100 pg/mL Total Protein 7.3 5.7-8.2 g/dL Albumin 4.4 3.2-4.8 g/dL Lipase 45 12-53 U/L PROCEDURE(s): CXRP - CHEST PORTABLE REASON: Shortness of breath ORDER NUMBER(s): [id number], ACCESSION NUMBER(s): [id number] CHEST RADIOGRAPH Indication: Shortness of breath Technique: Single frontal view of the chest was obtained Comparison: 11/08/2024 FINDINGS: The cardiac silhouette is enlarged. Left brachiocephalic and SVC stent. The crystal ngs demonstrate patchy left lung airspace opacities most pronounced within the mid to lowerm lung. Multiple left lung calcified nodules measuring up to 2.5 cm. The pulmonary vasculature is prominent. Small to moderate left pleural effusion. There is no pneumothorax. IMPRESSION: As above Assessment Chest pain--atypical/noncardiac likely Rule out progressive CAD History of congestive heart failure Presence of pacemaker and loop recorder History of venous thromboembolism s/p brachiocephalic/SVC stent Plan/Recommendation (Dr. Cali ): 1. Chest pain, likely atypical/noncardiac. Rule out progressive CAD * Recent echocardiogram in September 2024 revealed EF 65% * Serial troponins negative * BNP normal * No acute ECG change * Pain is not clearly exertional or reproductive 2. History of Congestive heart failure * BNP normal, no signs of volume overload or decompensation * Monitor weight, and intake and output 3. History of DVT/PE and SVC stent * No current signs of upper extremity swelling or venous congestion * DVT prophylaxis * Continue with aspirin Tentative plan for [facility] with Dr Michelle Cali on saturday01/18/25. Discussed plan with patient and in agreement with [facility]. This medical document was created using an electronic medical record system with voice recognition software and computerized dictation system. Although this document has been carefully reviewed, there might still be some phonetic and typographical errors. Occasional wrong-word or ``sound-alike substitutions may have occurred due to the inherent limitations of voice recognition software. These areas are purely typographical due to imperfections of the software programs and do not reflect any compromise in the patient's medical care. Please read the chart carefully and recognize, using context, where these substitutions have occurred. Plan discussed with: Patient Plan discussed with: Patient NYHA Physical activity limitations: NA Date of Service: Jan 16, 2025 Billing Provider: ANURAG CALI MD Cardiology Common Codes: CONSULT ONLY Cardiology Consultation Codes: [id number] CONSULT <45MIN ELLEN PAYTON UI LEAD DEVELOPER Jan 16, 2025 13:36
[2025-01-16] MEDS: traMADol HCL 50 MG TAB PO PRN (13:58)
[2025-01-16 18:20] LABS: INR 0.98 (0.9-1.15); Partial Thromboplastin Time 28.8 SEC (24.5-34.5); Prothrombin Time 10.4 sec (9.3-11.8)
--- NOTE | 2025-01-16 18:48 | DVHPN2 ---
Subjective Assuming the care of the patient from today onwards who was under the care of the hospitalist team. Detailed sign out obtained. Patient's presented to the hospital with the chest pain currently scheduled for left heart catheterization on Saturday. Reviewed: Care Plan Changes from previous H/P or p: No Changes Objective Vitals Vital Signs Date Time Temp Pulse Resp B/P (MAP) Pulse Ox O2 Delivery O2 Flow Rate FiO2 01/16/25 18:21 97.5 63 11 114/74 (87) 98 97.5 01/16/25 08:04 Room Air* 0 21 Exam HEENT pupils are reactive Neck is supple CV is S1-S2 regular rate and rhythm Respiratory are clear GI positive bowel sound Extremity no edema [employer]RE[employer] no motor deficit Medications Current Medications Medications Dose Ordered Sig/Mikel Route Start Time Stop Time Status Last Admin Dose Admin Nitroglycerin 0.4 mg Q5MINP PRN SL 01/15/25 23:30 Morphine Sulfate 2 mg Q30M PRN IV 01/15/25 23:30 01/16/25 14:26 2 MG Aspirin 81 mg DAILY PO 01/16/25 10:00 01/16/25 10:11 81 MG Morphine Sulfate 2 mg Q4HPRN PRN IV 01/16/25 00:45 01/16/25 01:29 2 MG Levetiracetam 750 mg BID PO 01/16/25 10:00 01/16/25 10:15 750 MG Enalapril Maleate 5 mg DAILY PO 01/16/25 10:00 01/16/25 10:14 5 MG Atorvastatin Calcium 40 mg HS PO 01/16/25 22:00 Enoxaparin Sodium 40 mg DAILY SC 01/16/25 10:00 01/16/25 10:15 40 MG Pantoprazole Sodium 40 mg DAILY@0600 PO 01/16/25 06:00 01/16/25 06:03 40 MG Diagnostic Test (Pha) 1 strip ACHS 01/16/25 07:00 01/16/25 17:00 1 STRIP Insulin Human Regular ACHS SC 01/16/25 07:00 01/16/25 11:30 2 UNITS Dextrose 50 ml UD PRN IV 01/16/25 05:30 Tramadol HCl 100 mg Q6HP PRN PO 01/16/25 13:45 01/16/25 13:58 100 MG Sodium Chloride 1,000 ml @ 75 mls/hr [id number] IV 01/16/25 17:30 UNV Laboratory Results Laboratory Tests 01/15/25 17:27 Coagulation Test 01/16/25 17:47 Prothrombin Time 10.4 sec (9.3-11.8) Prothrombin Time INR 0.98 (0.9-1.15) Activated Partial Thromboplast Time 28.8 SEC (24.5-34.5) Urinalysis Test 01/16/25 06:45 Urine Color Light-yellow (Yellow) Urine Clarity Clear (Clear) Urine pH 5.5 (5.0-9.0) Urine Specific [place] 1.013 (1.001-1.035) Urine Protein Negative (Negative) Urine Ketones Negative (Negative) Urine Blood Negative /uL (Negative) Urine Nitrite Negative (Negative) Urine Bilirubin Negative (Negative) Urine Urobilinogen Normal mg/dL (Negative) Urine Leukocyte Esterase Negative /uL (Negative) Urine RBC <1 /hpf (0 - 3) Urine Microscopic WBC < 1 /HPF (0-3) Urine Squamous Epithelial Cells None seen /hpf (<5) Urine Bacteria None seen /hpf (None Seen) Urine Glucose Normal mg/dL (Normal) Assessment/Plan Assessment/Plan 64-year-old male with a known history of CAD status post PCI, insulin-dependent diabetes mellitus type 2, hypertension, dyslipidemia, seizure disorder presented to the hospital with chest pain on and off for last two weeks with radiation to bilateral arms found to have 1. Chest pain rule out acute LA 2. CAD status post PCI 3. Hypertension 4. Insulin-dependent diabetes mellitus type 2 5. Dyslipidemia 6. Seizure disorder -continue aspirin statin, left heart catheterization as per Cardiology. Plan discussed with: Patient My Orders Orders - OVIDIO GONSALVES MD Procedure Category Date Status Time Tramadol Hcl (Ultram) PHA 01/16/25 In Process 13:45 Date of Service: Jan 16, 2025 Billing Provider: OVIDIO GONSALVES MD Common Visit Codes: [id number] INP/OBS CARE(MOD) OVIDIO GONSALVES MD Jan 16, 2025 18:48
[2025-01-16] MEDS: SODIUM CHLORIDE 0.9% 1,000 ML IV SCH (20:27)
[2025-01-16] MEDS: ATORVASTATIN 20 MG TAB PO SCH (21:56)
--- NOTE | 2025-01-16 23:31 | DVHINCON2 ---
Date Seen: Jan 16, [address] Noyola Reason for Consultation acute chest pain History of Present Illness This is a 64-year-old male with a PMH of CHF, CAD status post stent, history of brachiocephalic/SVC stent placement, hypertension, diabetes type 2, s/p right AKA, and seizure disorder who presents to the emergency department with a complaint of chest pain ongoing for the past week. Patient described the pain as substernal, radiating to the left side of the chest, neck, and both arms. He also endorses associated shortness of breath. Patient is currently under my care in the outpatient setting and reports a history of coronary artery disease with coronary stent placed 2-3 years ago at [facility]. He recalls undergoing a stress test approximately 3-4 years ago. The patient has known pacemaker and loop recorder in place. He also underwent stenting of the left brachiocephalic pain and SV see in the past due to a clot, for which he was previously on Eliquis. However, the patient states that the anticoagulant was discontinued and he is not currently taking it. n the emergency department, a 12 lead ECG showed normal sinus rhythm with left axis deviation and possible left ventricular hypertrophy. T-wave inversion was noted in V1, but no acute ST elevation or other ischemic T-wave changes were observed. D-DIMER 0.70. Chest x-ray showed the cardiac silhouette is enlarged. Left brachiocephalic and SVC stent. The milka gs demonstrate patchy left lung airspace opacities most pronounced within the mid to lower lung. Multiple left lung calcified nodules measuring up to 2.5 cm. The pulmonary vasculature is prominent. Small to moderate left pleural effusion. There is no pneumothorax. Patient was admitted to the hospital. I am asked to consult on this patient. Past Medical History As stated in HPI Past Surgical History PTCA Brachiocephalic stent placement Family History: Cardiovascular disease G8 FATHER FH: cancer of digestive organ G8 MOTHER, Onset:60 years & older FH: uterine cancer Hypertension G8 FATHER Allergies: Coded Allergies: Ibuprofen (Verified Allergy, Unknown, RASH, 12/14/15) Home Meds Active Scripts Hydrocodone-Acetaminophen (Hydrocodone/Acetaminophen 5-325 mg) 1 Tab Tab, 1 TAB PO [id number] PRN for 5 Days, #10 TAB Prov:NAVEEN LAN DO 01/17/23 Insulin Regular (Human) (Novolin R) 100 Unit/Ml Inj, 0 UNITS SC AC for 30 Days, #30 INJ As per aggressive sliding scale Prov:ELENA JAVIER MD 01/14/23 Insulin Glargine (Lantus) 100 Unit/Ml Inj, 15 UNIT SC DAILY for 30 Days, #30 INJ Prov:ELENA JAVIER MD 01/14/23 Metformin Hydrochloride (Metformin Hcl) 500 Mg Tab, 2 TAB PO BID, #120 TAB 3 Refills Prov:ELENA JAVIER MD 01/14/23 Amitriptyline Hcl (Amitriptyline Hcl) 25 Mg Tab, 1 TAB PO QPM, #30 TAB 5 Refills Prov:ELENA JAVIER MD 01/14/23 Dexamethasone (Decadron) 4 Mg Tb, 4 TAB PO DAILY, #8 TAB Prov:ELENA JAVIER MD 01/14/23 Oxybutynin Chloride (Ditropan Xl) 5 Mg Tab, 5 MG PO BID, #60 TAB Prov:NISHANT JANE MD 11/04/22 Tamsulosin Hcl (Flomax) 0.4 Mg Cap, 0.4 MG PO QPM for 30 Days, #30 CAP Prov:ANTOINE PETERSON MD 09/25/22 Clotrimazole (Lotrimin) 1 Applic Ap, 1 APPLIC TOP Q12HR for 7 Days, #1 APPLIC Prov:ANTOINE PETERSON MD 09/25/22 Reported Medications Metformin Hydrochloride (Metformin Hcl) 500 Mg Tab, 500 MG PO DAILY for 30 Days, MG 11/09/24 Gabapentin (Gabapentin) 100 Mg Cap, 100 MG PO DAILY for 30 Days, MG 11/09/24 Pantoprazole Sodium Sesquihydr (Protonix) 40 Mg Tab, 40 MG PO DAILY, #30 TAB 11/09/24 Atorvastatin Calcium (ATORVASTATIN CALCIUM) 40 Mg Tab, 1 TAB PO DAILY, #30 TAB 5 Refills 11/09/24 Levetiracetam (KEPPRA TABLET) 500 Mg Tb, 750 MG PO BID, TAB 10/22/24 Zolpidem Tartrate (Ambien) 10 Mg Tab, 1 TAB PO QPM, #30 TAB 5 Refills 11/08/22 Potassium Chloride (Potassium Chloride ER) 10 Meq Tab, 10 MEQ PO BID, TAB 02/27/22 Aspirin (Aspir-Low) 81 Mg Tab, 81 MG PO DAILY, MG 02/27/22 Enalapril Maleate (Enalapril Maleate) 10 Mg Tab, 5 MG PO DAILY, TAB 02/27/22 Cholecalciferol (D3) 2,000 Unit Tab, 1 TAB PO DAILY 05/09/21 Furosemide (Lasix) 20 Mg Tb, 10 MG PO DAILY, #90 TAB 3 Refills 08/07/19 Hydrocodone-Acetaminophen (Hydrocodone Bitartrate/AC 10-325 mg) 1 Tab Tab, 1 TAB PO Q6HP PRN for PAIN, TAB FOR CHRONIC ACUTE TO SEVERE PAIN 08/07/19 Current Medications Current Medications Medications (Trade) Dose Ordered Sig/Mikel Route PRN Reason Start Time Stop Time Status Last Admin Nitroglycerin (Ntrostat Sublingual) 0.4 mg Q5MINP PRN SL FOR CHEST PAIN 01/15/25 23:30 Morphine Sulfate 2 mg Q30M PRN IV FOR CHEST PAIN 01/15/25 23:30 01/16/25 14:26 Aspirin 81 mg DAILY PO 01/16/25 10:00 01/16/25 10:11 Morphine Sulfate 2 mg Q4HPRN PRN IV SEVERE PAIN (7-10 PAIN SCALE) 01/16/25 00:45 01/16/25 01:29 Levetiracetam (Keppra Tablet) 750 mg BID PO 01/16/25 10:00 01/16/25 10:15 Enalapril Maleate (Vasotec Tablet) 5 mg DAILY PO 01/16/25 10:00 01/16/25 10:14 Atorvastatin Calcium (Lipitor) 40 mg HS PO 01/16/25 22:00 Enoxaparin Sodium (Lovenox) 40 mg DAILY SC 01/16/25 10:00 01/16/25 10:15 Pantoprazole Sodium (Protonix Tablet) 40 mg DAILY@0600 PO 01/16/25 06:00 01/16/25 06:03 Diagnostic Test (Pha) (Accu-Chek Comfort Curve T) 1 strip ACHS 01/16/25 07:00 01/16/25 11:30 Insulin Human Regular (InsuLIN R) ACHS SC 01/16/25 07:00 01/16/25 11:30 Dextrose 50 ml UD PRN IV Blood Sugar LESS THAN 60 01/16/25 05:30 Tramadol HCl (Ultram) 100 mg Q6HP PRN PO MODERATE PAIN (4-6 PAIN SCALE) 01/16/25 13:45 01/16/25 13:58 Review of Systems Constitutional: No symptom reported Ears, Nose, & Throat: No symptom reported Eyes: No symptom reported Neurological: No symptoms reported Pulmonary/Respiratory: No symptom reported Cardiovascular: Positive for chest pain and shortness of breath. Denies palpitation, syncope, and left lower extremity edema Gastrointestinal: No symptom reported Genitourinary: No symptom reported Musculoskeletal: No symptom reported Skin: No symptom reported Psychiatric: No symptom reported Endocrine: No symptom reported Hemotologic/Lymphatic: No symptom reported Vital Signs Vital Signs Date Time Temp Pulse Resp B/P (MAP) Pulse Ox O2 Delivery O2 Flow Rate FiO2 01/16/25 14:26 65 12 104/72 01/16/25 13:14 98.8 98.8 01/16/25 10:15 99 01/16/25 08:04 Room Air* 0 21 Physical Exam GENERAL: Alert and oriented x 3. No acute distress. EYES: PERRL, EOMI. Anicteric. HENT: Moist mucous membranes. LUNGS: Clear to auscultation bilaterally. CARDIOVASCULAR: Regular rate and rhythm. ABDOMEN: Soft, nontender and nondistended. EXTREMITIES: No edema. RLE AKA. NEUROLOGIC: No focal neurological deficits. SKIN: Warm, dry. Labs/Diagnostic Data Labs Test 01/16/25 06:45 01/16/25 06:33 01/15/25 18:49 01/15/25 17:27 Range/Units Urine Color Light-yellow Yellow Urine Clarity Clear Clear Urine pH 5.5 5.0-9.0 Urine Specific [place] 1.013 1.001-1.035 Urine Protein Negative Negative Urine Ketones Negative Negative Urine Blood Negative Negative /uL Urine Nitrite Negative Negative Urine Bilirubin Negative Negative Urine Urobilinogen Normal Negative mg/dL Urine Leukocyte Esterase Negative Negative /uL Urine RBC <1 0 - 3 /hpf Urine Microscopic WBC < 1 0-3 /HPF Urine Squamous Epithelial Cells None seen <5 /hpf Urine Bacteria None seen None Seen /hpf Urine Glucose Normal Normal mg/dL POC Glucose 164 H 70-106 mg/dl Troponin I High Sensitivity 4 </=54 ng/L White Blood Count 6.1 4.4-10.8 10^3/uL Red Blood Count 4.94 4.5-5.90 10^6/uL Hemoglobin 15.2 13.5-17.5 g/dL Hematocrit 45.1 41.0-53.0 % Mean Corpuscular Volume 91.2 80.0-100.0 fL Mean Corpuscular Hemoglobin 30.8 28.0-32.0 pg Mean Corpuscular Hemoglobin Concent 33.7 32.0-36.0 g/dL Red Cell Distribution Width 14.2 11.8-14.3 % Platelet Count 242 140-450 10^3/uL Mean Platelet Volume 6.7 L 6.9-10.8 fL Neutrophils (%) (Auto) 53.8 37.0-80.0 % Lymphocytes (%) (Auto) 33.7 10.0-50.0 % Monocytes (%) (Auto) 10.6 0.0-12.0 % Eosinophils (%) (Auto) 1.1 0.0-7.0 % Basophils (%) (Auto) 0.8 0.0-2.0 % Neutrophils # (Auto) 3.3 1.6-8.6 10 ^3/uL Lymphocytes # (Auto) 2.1 0.4-5.4 10 ^3/uL Monocytes # (Auto) 0.6 0-1.3 10 ^3/uL Eosinophils # (Auto) 0.1 0-0.8 10 ^3/uL Basophils # (Auto) 0 0-0.2 10 ^3/uL Nucleated Red Blood Cells 0.4 % D-Dimer, Quantitative 0.70 H 0.0-0.49 mg/L FEU Sodium Level 140 136-145 mmol/L Potassium Level 4.3 3.5-5.1 mmol/L Chloride Level 106 98-107 mmol/L Carbon Dioxide Level 24 20-31 mmol/L Anion Gap 10 5-15 Blood Urea Nitrogen 13 9-23 mg/dL Creatinine 0.72 0.700-1.30 mg/dL Glomerular Filtration Rate Calc 102 >90 mL/min BUN/Creatinine Ratio 18.1 10.0-20.0 Serum Glucose 114 H 74-106 mg/dL Hemoglobin A1c 6.7 H <5.7 % A1C Calcium Level 9.6 8.7-10.4 mg/dL Total Bilirubin 0.3 0.2-1.0 mg/dL Aspartate Amino Transferase (AST) 15 <34 U/L Alanine Aminotransferase (ALT) 19 7-40 U/L Alkaline Phosphatase 114 46-116 U/L B-Type Natriuretic Peptide 23.41 0-100 pg/mL Total Protein 7.3 5.7-8.2 g/dL Albumin 4.4 3.2-4.8 g/dL Lipase 45 12-53 U/L Assessment Chest pain--atypical/noncardiac likely. Rule out progressive CAD. History of congestive heart failure. Presence of pacemaker and loop recorder. History of venous thromboembolism s/p brachiocephalic/SVC stent. Plan/Recommendation I agree with your ongoing assessment and care of plan. Patient has been seen by Paula Larkin NP on my behalf, her and I discussed the plan with the patient. Recent echocardiogram in September 2024 revealed EF 65%. Serial troponins negative. BNP normal. No acute ECG change. Pain is not clearly exertional or reproductive. Monitor on telemetry, if stable consider discharge with outpatient follow-up with me in my office. BNP normal, no signs of volume overload or decompensation. Monitor weight, and intake and output. No current signs of upper extremity swelling or venous congestion. DVT prophylaxis. Continue with aspirin. Additional plan as per the hospital course. Plan discussed with: Patient NYHA Physical activity limitations: NA Date of Service: Jan 16, 2025 Billing Provider: ANURAG HERNÁNDEZ MD Cardiology Common Codes: [id number] INP/OBS CARE (High) Cardiology Consultation Codes: [id number] CONSULT <60MIN ANURAG HERNÁNDEZ MD Jan 16, 2025 15:05
[2025-01-17] VITALS (8 sets, daily range): BP systolic 97–137; BP diastolic 64–74; PULSE 64–75; RESP 16–18; TEMP 97.6–98.6; O2SAT 94–100
--- NOTE | 2025-01-17 11:39 | DVHPN2 ---
Consult Progress Note Subjective Patient reports: No new complaints Objective vital signs Vital Sign Date Time Temp Pulse Resp B/P (MAP) Pulse Ox O2 Delivery O2 Flow Rate FiO2 01/17/25 09:15 64 17 118/74 01/17/25 09:00 98.0 94 98.0 01/17/25 08:00 Room Air* 0 21 Total Intake and Output 01/16/25 01/16/25 01/17/25 15:00 23:00 07:00 Intake Total 150 ml Balance 150 ml medications Current Medications Medications Dose Ordered Sig/Mikel Route Start Time Stop Time Status Last Admin Dose Admin Nitroglycerin 0.4 mg Q5MINP PRN SL 01/15/25 23:30 Morphine Sulfate 2 mg Q30M PRN IV 01/15/25 23:30 01/16/25 23:35 2 MG Aspirin 81 mg DAILY PO 01/16/25 10:00 01/17/25 08:37 81 MG Morphine Sulfate 2 mg Q4HPRN PRN IV 01/16/25 00:45 01/17/25 08:38 2 MG Levetiracetam 750 mg BID PO 01/16/25 10:00 01/17/25 08:36 750 MG Enalapril Maleate 5 mg DAILY PO 01/16/25 10:00 01/17/25 08:37 5 MG Atorvastatin Calcium 40 mg HS PO 01/16/25 22:00 01/16/25 21:56 40 MG Enoxaparin Sodium 40 mg DAILY SC 01/16/25 10:00 01/17/25 08:37 40 MG Pantoprazole Sodium 40 mg DAILY@0600 PO 01/16/25 06:00 01/17/25 06:46 40 MG Diagnostic Test (Pha) 1 strip ACHS 01/16/25 07:00 01/17/25 11:31 1 STRIP Insulin Human Regular ACHS SC 01/16/25 07:00 01/17/25 06:47 2 UNITS Dextrose 50 ml UD PRN IV 01/16/25 05:30 Tramadol HCl 100 mg Q6HP PRN PO 01/16/25 13:45 01/16/25 13:58 100 MG Sodium Chloride 1,000 ml @ 75 mls/hr [id number] IV 01/16/25 17:30 01/16/25 20:27 75 MLS/HR Examination: CVS:Normal laboratory and microbiology Laboratory Tests 01/15/25 17:27 Test 01/15/25 17:27 Range/Units Serum Glucose 114 H 74-106 mg/dL Problem List/Assessment/Plan Problem List/Assessment/Plan Chest pain--atypical/noncardiac likely Rule out progressive CAD History of congestive heart failure Presence of pacemaker and loop recorder History of venous thromboembolism s/p brachiocephalic/SVC stent Plan/Recommendation (Dr. Hernández ): 1. Chest pain, likely atypical/noncardiac. Rule out progressive CAD * Recent echocardiogram in September 2024 revealed EF 65% * Serial troponins negative * BNP normal * No acute ECG change * Pain is not clearly exertional or reproductive 2. History of Congestive heart failure * BNP normal, no signs of volume overload or decompensation * Monitor weight, and intake and output 3. History of DVT/PE and SVC stent * No current signs of upper extremity swelling or venous congestion * DVT prophylaxis * Continue with aspirin Tentative plan for [facility] with Dr Michelle Hernández on saturday01/18/25. Discussed plan with patient and in agreement with [facility]. This medical document was created using an electronic medical record system with voice recognition software and computerized dictation system. Although this document has been carefully reviewed, there might still be some phonetic and typographical errors. Occasional wrong-word or ``sound-alike substitutions may have occurred due to the inherent limitations of voice recognition software. These areas are purely typographical due to imperfections of the software programs and do not reflect any compromise in the patient's medical care. Please read the chart carefully and recognize, using context, where these substitutions have occurred. Plan discussed with: Patient Plan discussed with: Patient Plan discussed with: Patient Date of Service: Jan 17, 2025 Billing Provider: ANURAG HERNÁNDEZ MD Common Visit Codes: CONSULT ONLY Consultation Codes: [id number] CONSULT <45MIN ELLEN PAYTON CERTIFIED MEDICAL TECHNICIAN ASSISTANT Jan 17, 2025 11:39
--- NOTE | 2025-01-17 16:13 | DVHPN2 ---
Subjective Patient's presented to the hospital with the chest pain currently scheduled for left heart catheterization on Saturday. 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 Medications Current Medications Medications Dose Ordered Sig/Mikel Route Start Time Stop Time Status Last Admin Dose Admin Nitroglycerin 0.4 mg Q5MINP PRN SL 01/15/25 23:30 Morphine Sulfate 2 mg Q30M PRN IV 01/15/25 23:30 01/16/25 23:35 2 MG Aspirin 81 mg DAILY PO 01/16/25 10:00 01/17/25 08:37 81 MG Morphine Sulfate 2 mg Q4HPRN PRN IV 01/16/25 00:45 01/17/25 13:00 2 MG Levetiracetam 750 mg BID PO 01/16/25 10:00 01/17/25 08:36 750 MG Enalapril Maleate 5 mg DAILY PO 01/16/25 10:00 01/17/25 08:37 5 MG Atorvastatin Calcium 40 mg HS PO 01/16/25 22:00 01/16/25 21:56 40 MG Enoxaparin Sodium 40 mg DAILY SC 01/16/25 10:00 01/17/25 08:37 40 MG Pantoprazole Sodium 40 mg DAILY@0600 PO 01/16/25 06:00 01/17/25 06:46 40 MG Diagnostic Test (Pha) 1 strip ACHS 01/16/25 07:00 01/17/25 11:31 1 STRIP Insulin Human Regular ACHS SC 01/16/25 07:00 01/17/25 06:47 2 UNITS Dextrose 50 ml UD PRN IV 01/16/25 05:30 Tramadol HCl 100 mg Q6HP PRN PO 01/16/25 13:45 01/16/25 13:58 100 MG Sodium Chloride 1,000 ml @ 75 mls/hr [id number] IV 01/16/25 17:30 01/17/25 12:25 75 MLS/HR Laboratory Results Laboratory Tests 01/15/25 17:27 Coagulation Test 01/16/25 17:47 Prothrombin Time 10.4 sec (9.3-11.8) Prothrombin Time INR 0.98 (0.9-1.15) Activated Partial Thromboplast Time 28.8 SEC (24.5-34.5) Urinalysis Test 01/16/25 06:45 Urine Color Light-yellow (Yellow) Urine Clarity Clear (Clear) Urine pH 5.5 (5.0-9.0) Urine Specific [place] 1.013 (1.001-1.035) Urine Protein Negative (Negative) Urine Ketones Negative (Negative) Urine Blood Negative /uL (Negative) Urine Nitrite Negative (Negative) Urine Bilirubin Negative (Negative) Urine Urobilinogen Normal mg/dL (Negative) Urine Leukocyte Esterase Negative /uL (Negative) Urine RBC <1 /hpf (0 - 3) Urine Microscopic WBC < 1 /HPF (0-3) Urine Squamous Epithelial Cells None seen /hpf (<5) Urine Bacteria None seen /hpf (None Seen) Urine Glucose Normal mg/dL (Normal) Assessment/Plan Assessment/Plan 64-year-old male with a known history of CAD status post PCI, insulin-dependent diabetes mellitus type 2, hypertension, dyslipidemia, seizure disorder presented to the hospital with chest pain on and off for last two weeks with radiation to bilateral arms found to have 1. Chest pain rule out acute GA 2. CAD status post PCI 3. Hypertension 4. Insulin-dependent diabetes mellitus type 2 5. Dyslipidemia 6. Seizure disorder -continue aspirin statin, left heart catheterization as per Cardiology. Plan discussed with: Patient Date of Service: Jan 17, 2025 Billing Provider: OVIDIO GONSALVES MD Common Visit Codes: [id number] INP/OBS CARE(MOD) OVIDIO GONSALVES MD Jan 17, 2025 16:12
--- NOTE | 2025-01-17 23:28 | DVHPN2 ---
Consult Progress Note Subjective Patient reports: No new complaints Other Systems: Patient was seen and evaluated in follow up. No overnight events. Patient complains of generalized pain. BS in the 100's. Telemetry reviewed. Objective vital signs Vital Sign Date Time Temp Pulse Resp B/P (MAP) Pulse Ox O2 Delivery O2 Flow Rate FiO2 01/17/25 13:00 64 17 97/66 01/17/25 09:00 98.0 94 98.0 01/17/25 08:00 Room Air* 0 21 Total Intake and Output 01/16/25 01/16/25 01/17/25 15:00 23:00 07:00 Intake Total 150 ml Balance 150 ml medications Current Medications Medications Dose Ordered Sig/Mikel Route Start Time Stop Time Status Last Admin Dose Admin Nitroglycerin 0.4 mg Q5MINP PRN SL 01/15/25 23:30 Morphine Sulfate 2 mg Q30M PRN IV 01/15/25 23:30 01/16/25 23:35 2 MG Aspirin 81 mg DAILY PO 01/16/25 10:00 01/17/25 08:37 81 MG Morphine Sulfate 2 mg Q4HPRN PRN IV 01/16/25 00:45 01/17/25 13:00 2 MG Levetiracetam 750 mg BID PO 01/16/25 10:00 01/17/25 08:36 750 MG Enalapril Maleate 5 mg DAILY PO 01/16/25 10:00 01/17/25 08:37 5 MG Atorvastatin Calcium 40 mg HS PO 01/16/25 22:00 01/16/25 21:56 40 MG Enoxaparin Sodium 40 mg DAILY SC 01/16/25 10:00 01/17/25 08:37 40 MG Pantoprazole Sodium 40 mg DAILY@0600 PO 01/16/25 06:00 01/17/25 06:46 40 MG Diagnostic Test (Pha) 1 strip ACHS 01/16/25 07:00 01/17/25 11:31 1 STRIP Insulin Human Regular ACHS SC 01/16/25 07:00 01/17/25 06:47 2 UNITS Dextrose 50 ml UD PRN IV 01/16/25 05:30 Tramadol HCl 100 mg Q6HP PRN PO 01/16/25 13:45 01/16/25 13:58 100 MG Sodium Chloride 1,000 ml @ 75 mls/hr [id number] IV 01/16/25 17:30 01/17/25 12:25 75 MLS/HR Examination: GENERAL:Normal, HEENT:Normal, NECK:Normal, LUNGS:Normal, CVS:Normal, ABDOMEN:Normal, MSK:Normal, SKIN:Normal laboratory and microbiology Laboratory Tests 01/15/25 17:27 Test 01/15/25 17:27 Range/Units Serum Glucose 114 H 74-106 mg/dL Problem List/Assessment/Plan Problem List/Assessment/Plan Problem List/Assessment/Plan Chest pain--atypical/noncardiac likely. Rule out progressive CAD. History of congestive heart failure. Presence of pacemaker and loop recorder. History of venous thromboembolism s/p brachiocephalic/SVC stent. Plan/Recommendation Continued all current supportive medical care. Patient has been seen by Paula Larkin NP on my behalf, her and I discussed the plan with the patient. Recent echocardiogram in September 2024 revealed EF 65%. Serial troponins negative. BNP normal. No acute ECG change. Pain is not clearly exertional or reproductive. BNP normal, no signs of volume overload or decompensation. Monitor weight, and intake and output. No current signs of upper extremity swelling or venous congestion. DVT prophylaxis. Continue with aspirin. Tentative plan for [facility] on Saturday01/18/25. Discussed plan with patient and in agreement with [facility]. Additional plan as per the hospital course. Plan discussed with: Patient Date of Service: Jan 17, 2025 Billing Provider: ANURAG HERNÁNDEZ MD Cardiology Common Codes: [id number] INP/OBS CARE (High) Cardiology Consultation Codes: [id number] CONSULT <45MIN ANURAG HERNÁNDEZ MD Jan 17, 2025 13:27
[2025-01-18] VITALS (13 sets, daily range): BP systolic 99–123; BP diastolic 56–81; PULSE 63–74; RESP 10–18; TEMP 97.7–98.3; O2SAT 94–99
[2025-01-18 07:07] LABS: Albumin 3.7 g/dL (3.2-4.8); Alkaline Phosphatase 89 U/L (46-116); Anion Gap 8 (5-15); Aspartate Aminotransferase 10 U/L (<34); BUN/Creatinine Ratio 13.9 (10.0-20.0); Bilirubin, Total 0.4 mg/dL (0.2-1.0); Blood Urea Nitrogen 11 mg/dL (9-23); Calcium 9.5 mg/dL (8.7-10.4); Carbon Dioxide 24 mmol/L (20-31); Potassium 4.5 mmol/L (3.5-5.1); Sodium 140 mmol/L (136-145); Total Protein 6.3 g/dL (5.7-8.2)
[2025-01-18 07:11] LABS: Alanine Aminotransferase 9 U/L (7-40); Chloride 108 mmol/L (98-107); Glucose 132 mg/dL (74-106)
[2025-01-18] MEDS: ANGIOMAX 250 MG VIAL IV ONE (09:54)
[2025-01-18] MEDS: MIDAZOLAM HCL 2MG/2ML 2ml VIAL (1mg/ml) ONE (09:55)
[2025-01-18] MEDS: VERAPAMIL 2.5MG/ML INJ 2ML VIAL IV ONE (09:55)
[2025-01-18] MEDS: LIDOCAINE 2%HCL (LOCAL ANESTH.) INJ 20ML MDV ONE (09:55)
[2025-01-18] MEDS: fentaNYL CITRATE 100 MCG/2 ML VL ONE (09:55)
[2025-01-18] MEDS: HEPARIN SODIUM (PORCINE) 5000 UNITS/ML 1ML VIAL ONE (09:55)
[2025-01-18] MEDS: SODIUM CHL 0.9% 0 ML ONE (09:56)
[2025-01-18] MEDS: IODIXANOL 320MG/ML 100ML BTL IV ONE (10:02)
[2025-01-18] MEDS: HYDROmorphone HCL 2 MG/ML VL/or syr ONE (11:16)
--- NOTE | 2025-01-18 12:27 | ECG ---
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
--- NOTE | 2025-01-18 12:54 | DVHOP ---
DATE OF SURGERY: 01/18/2025 TECHNIQUE PERFORMED: * Ultrasound of the right radial artery. * Management of the conscious sedation. * Ultrasound-guided insertion of a 6-Sinhala arterial line from the right radial artery. * Left heart cath. * Left ventriculogram. * [place] selective left and right coronary artery angiography. COMPLICATIONS: None. ASSISTANTS: Assisted by Edil Quinn Katie, and Price. INDICATIONS: The patient has recurrent chest pain, unstable angina symptom, underlying risk factor. Risks, benefits all have been explained. The patient understands very well. DESCRIPTION OF PROCEDURE: The right radial area thoroughly cleaned with soap and Betadine. Lidocaine was given. IV versed and fentanyl were given. Ultrasound was done. 6-Sinhala arterial line was placed in a standard manner. We have given 100 mcg of nitroglycerin, 2.5 mg of verapamil, and 2000 units of heparin was given. We put a TIG catheter 5-Sinhala 4.0. It was very difficult to get in the ascending aorta. With the use of a glidewire, able to do the left coronary angiography. Subsequently, we have to change it to the unable to engage it now. Then, we put an AL1 catheter and we were able to do the right coronary angiography. Prior to that, with the help of a TIG catheter, we were also able to do the left heart cath and left ventriculogram. The procedure went well and there were no complications. IMPRESSION: * Normal left main. * Left anterior descending artery is tortuous without stenosis. * Circumflex and obtuse marginal arteries are large dominant artery, normal. * Right coronary artery is a nondominant artery and is normal. * Ejection fraction of the left ventricle is in the range of 60%, normal. CONCLUSION: * No evidence of any occlusive coronary artery disease. * Coronary arteries are very tortuous but no stenosis and these findings are consistent with hypertensive cardiomyopathy. * Ejection fraction is 60%. PLAN OF ACTION: Advised the patient for conservative medical treatment, strict control of the blood pressure and outpatient followup. Maurice Cali MD MP/EVETTE/KAPIL TID: [id number] RECEIPT: [id number] [facility]ITALEileen
[2025-01-18] MEDS: HYDROcodone-ACET 10/325MG TAB PO PRN (15:48)
--- NOTE | 2025-01-18 16:24 | DVHPN2 ---
Subjective Patient's presented to the hospital with the chest pain, status post left heart catheterization shows normal coronary arteries. 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 Medications Current Medications Medications Dose Ordered Sig/Mikel Route Start Time Stop Time Status Last Admin Dose Admin Nitroglycerin 0.4 mg Q5MINP PRN SL 01/15/25 23:30 Morphine Sulfate 2 mg Q30M PRN IV 01/15/25 23:30 01/18/25 12:03 2 MG Aspirin 81 mg DAILY PO 01/16/25 10:00 01/18/25 08:59 81 MG Levetiracetam 750 mg BID PO 01/16/25 10:00 01/18/25 09:00 750 MG Enalapril Maleate 5 mg DAILY PO 01/16/25 10:00 01/18/25 09:00 5 MG Atorvastatin Calcium 40 mg HS PO 01/16/25 22:00 01/17/25 21:05 40 MG Enoxaparin Sodium 40 mg DAILY SC 01/16/25 10:00 01/17/25 08:37 40 MG Pantoprazole Sodium 40 mg DAILY@0600 PO 01/16/25 06:00 01/18/25 05:56 40 MG Diagnostic Test (Pha) 1 strip ACHS 01/16/25 07:00 01/18/25 11:30 1 STRIP Insulin Human Regular ACHS SC 01/16/25 07:00 01/17/25 21:05 2 UNITS Dextrose 50 ml UD PRN IV 01/16/25 05:30 Tramadol HCl 100 mg Q6HP PRN PO 01/16/25 13:45 01/18/25 08:59 100 MG Sodium Chloride 1,000 ml @ 75 mls/hr [id number] IV 01/16/25 17:30 01/17/25 12:25 75 MLS/HR Acetaminophen/ Hydrocodone Bitart 1 tab Q6HP PRN PO 01/18/25 15:30 01/18/25 15:48 1 TAB Laboratory Results Laboratory Tests 01/15/25 17:27 01/18/25 06:18 Chemistry Test 01/18/25 06:18 Albumin 3.7 g/dL (3.2-4.8) Calcium Level 9.5 mg/dL (8.7-10.4) Total Protein 6.3 g/dL (5.7-8.2) LFT Test 01/18/25 06:18 Alanine Aminotransferase (ALT) 9 U/L (7-40) Alkaline Phosphatase 89 U/L (46-116) Aspartate Amino Transferase (AST) 10 U/L (<34) Total Bilirubin 0.4 mg/dL (0.2-1.0) Urinalysis Test 01/16/25 06:45 Urine Color Light-yellow (Yellow) Urine Clarity Clear (Clear) Urine pH 5.5 (5.0-9.0) Urine Specific [place] 1.013 (1.001-1.035) Urine Protein Negative (Negative) Urine Ketones Negative (Negative) Urine Blood Negative /uL (Negative) Urine Nitrite Negative (Negative) Urine Bilirubin Negative (Negative) Urine Urobilinogen Normal mg/dL (Negative) Urine Leukocyte Esterase Negative /uL (Negative) Urine RBC <1 /hpf (0 - 3) Urine Microscopic WBC < 1 /HPF (0-3) Urine Squamous Epithelial Cells None seen /hpf (<5) Urine Bacteria None seen /hpf (None Seen) Urine Glucose Normal mg/dL (Normal) Assessment/Plan Assessment/Plan 64-year-old male with a known history of CAD status post PCI, insulin-dependent diabetes mellitus type 2, hypertension, dyslipidemia, seizure disorder presented to the hospital with chest pain on and off for last two weeks with radiation to bilateral arms found to have 1. Chest pain ruled out acute NC 2. CAD status post PCI status post coronary angiogram showing normal coronaries. 3. Hypertension 4. Insulin-dependent diabetes mellitus type 2 5. Dyslipidemia 6. Seizure disorder -continue aspirin statin, patient had a normal left heart catheterization , -discharge plan. Plan discussed with: Patient My Orders Orders - OVIDIO GONSALVES MD Procedure Category Date Status Time Consistent DIET 01/18/25 [facility]Di[facility] Lunch Hydrocodone-Acet PHA 01/18/25 In Process 10/325mg Tab ([place] 15:30 Date of Service: Jan 18, 2025 Billing Provider: OVIDIO GONSALVES MD Common Visit Codes: [id number] INP/OBS CARE(MOD) OVIDIO GONSALVES MD Jan 18, 2025 16:24
--- NOTE | 2025-01-18 21:25 | DVHPN2 ---
Progress Note - Dictate Date Seen: Jan 18, 2025 Medical Necessity Reason Pt with a Central, PICC or Fol: No Subjective Patient was seen and evaluated in follow up. Patient underwent left heart cath, [place] selective left and right coronary artery angiography. No evidence of any occlusive coronary artery disease. Coronary arteries are very tortuous but no stenosis and these findings are consistent with hypertensive cardiomyopathy. Ejection fraction is 60%. Patient is advised the patient for conservative medical treatment, strict control of the blood pressure and outpatient followup. Telemetry reviewed. vital signs Vital Sign Date Time Temp Pulse Resp B/P (MAP) Pulse Ox O2 Delivery O2 Flow Rate FiO2 01/18/25 17:00 98.3 71 16 100/57 (71) 94 98.3 01/18/25 08:00 Room Air* 0 21 Total Intake and Output 01/17/25 01/17/25 01/18/25 15:00 23:00 07:00 Intake Total 1000 ml 1200 ml 600 ml Output Total 475 ml 700 ml Balance 525 ml 1200 ml -100 ml medications Current Medications Medications Dose Ordered Sig/Mikel Route Start Time Stop Time Status Last Admin Dose Admin Nitroglycerin 0.4 mg Q5MINP PRN SL 01/15/25 23:30 Morphine Sulfate 2 mg Q30M PRN IV 01/15/25 23:30 01/18/25 12:03 2 MG Aspirin 81 mg DAILY PO 01/16/25 10:00 01/18/25 08:59 81 MG Levetiracetam 750 mg BID PO 01/16/25 10:00 01/18/25 09:00 750 MG Enalapril Maleate 5 mg DAILY PO 01/16/25 10:00 01/18/25 09:00 5 MG Atorvastatin Calcium 40 mg HS PO 01/16/25 22:00 01/17/25 21:05 40 MG Enoxaparin Sodium 40 mg DAILY SC 01/16/25 10:00 01/17/25 08:37 40 MG Pantoprazole Sodium 40 mg DAILY@0600 PO 01/16/25 06:00 01/18/25 05:56 40 MG Diagnostic Test (Pha) 1 strip ACHS 01/16/25 07:00 01/18/25 17:06 1 STRIP Insulin Human Regular ACHS SC 01/16/25 07:00 01/18/25 17:07 2 UNITS Dextrose 50 ml UD PRN IV 01/16/25 05:30 Tramadol HCl 100 mg Q6HP PRN PO 01/16/25 13:45 01/18/25 08:59 100 MG Sodium Chloride 1,000 ml @ 75 mls/hr [id number] IV 01/16/25 17:30 01/17/25 12:25 75 MLS/HR Acetaminophen/ Hydrocodone Bitart 1 tab Q6HP PRN PO 01/18/25 15:30 01/18/25 15:48 1 TAB laboratory and microbiology Laboratory Tests 01/18/25 06:18 01/15/25 17:27 Test 01/18/25 06:18 Range/Units Serum Glucose 132 H 74-106 mg/dL Problem List Chest pain. History of congestive heart failure. Presence of pacemaker and loop recorder. History of venous thromboembolism s/p brachiocephalic/SVC stent. CAD status post PCI. Hypertension. Insulin-dependent diabetes mellitus type 2. Dyslipidemia. Seizure disorder. Hypertensive cardiomyopathy. Assessment/Plan Continued all current supportive medical care. Morphine and [place] for pain. Aspirin, Lipitor. Vasotec. DVT and GI prophylactics. Nitro SL. Additional plan as per the hospital course. Dietary Evaluation Review Comments: 1) CCHO 60+ cardiac diet 2) Refer CDE on DC Expected Outcomes/Goals: To meet >75% estimated needs Fu 3-5 days Plan discussed with: Patient ANURAG HERNÁNDEZ MD Jan 18, 2025 21:25
[2025-01-19] MEDS: MORPHINE SULFATE 4 MG/ML SYR/VIAL IV PRN (00:28)
[2025-01-19 01:00] VITALS: BP 102/56; PULSE 73; RESP 17; TEMP 98.2; O2SAT 95
[2025-01-19 05:00] VITALS: BP 101/56; PULSE 71; RESP 17; TEMP 97.9; O2SAT 96
[2025-01-19 08:00] VITALS: PULSE 68
[2025-01-19 08:30] VITALS: BP 123/88; PULSE 72; RESP 19; TEMP 98.2; O2SAT 99
[2025-01-19] MEDS: NITROGLYCERIN 0.4 MG SL TAB SL PRN (08:48)
--- NOTE | 2025-01-19 13:21 | ECG ---
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
--- NOTE | 2025-01-19 14:10 | ECG ---
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
--- NOTE | 2025-01-19 14:19 | DVHDS2 ---
Discharge Summary Date of Admission Jan 15, 2025 at 23:25 Date of Discharge: Jan 19, 2025 Labs/Diagnostic Data: Laboratory Results Test 01/19/25 05:46 01/18/25 06:18 01/16/25 17:47 01/16/25 06:45 POC Glucose 121 mg/dl (70-106) Sodium Level 140 mmol/L (136-145) Potassium Level 4.5 mmol/L (3.5-5.1) Chloride Level 108 mmol/L (98-107) Carbon Dioxide Level 24 mmol/L (20-31) Anion Gap 8 (5-15) Blood Urea Nitrogen 11 mg/dL (9-23) Creatinine 0.79 mg/dL (0.700-1.30) Glomerular Filtration Rate Calc 99 mL/min (>90) BUN/Creatinine Ratio 13.9 (10.0-20.0) Serum Glucose 132 mg/dL (74-106) Calcium Level 9.5 mg/dL (8.7-10.4) Total Bilirubin 0.4 mg/dL (0.2-1.0) Aspartate Amino Transferase (AST) 10 U/L (<34) Alanine Aminotransferase (ALT) 9 U/L (7-40) Alkaline Phosphatase 89 U/L (46-116) Total Protein 6.3 g/dL (5.7-8.2) Albumin 3.7 g/dL (3.2-4.8) Prothrombin Time 10.4 sec (9.3-11.8) Prothrombin Time INR 0.98 (0.9-1.15) Activated Partial Thromboplast Time 28.8 SEC (24.5-34.5) Urine Color Light-yellow (Yellow) Urine Clarity Clear (Clear) Urine pH 5.5 (5.0-9.0) Urine Specific [place] 1.013 (1.001-1.035) Urine Protein Negative (Negative) Urine Ketones Negative (Negative) Urine Blood Negative /uL (Negative) Urine Nitrite Negative (Negative) Urine Bilirubin Negative (Negative) Urine Urobilinogen Normal mg/dL (Negative) Urine Leukocyte Esterase Negative /uL (Negative) Urine RBC <1 /hpf (0 - 3) Urine Microscopic WBC < 1 /HPF (0-3) Urine Squamous Epithelial Cells None seen /hpf (<5) Urine Bacteria None seen /hpf (None Seen) Urine Glucose Normal mg/dL (Normal) Test 01/15/25 18:49 01/15/25 17:27 Troponin I High Sensitivity 4 ng/L (</=54) White Blood Count 6.1 10^3/uL (4.4-10.8) Red Blood Count 4.94 10^6/uL (4.5-5.90) Hemoglobin 15.2 g/dL (13.5-17.5) Hematocrit 45.1 % (41.0-53.0) Mean Corpuscular Volume 91.2 fL (80.0-100.0) Mean Corpuscular Hemoglobin 30.8 pg (28.0-32.0) Mean Corpuscular Hemoglobin Concent 33.7 g/dL (32.0-36.0) Red Cell Distribution Width 14.2 % (11.8-14.3) Platelet Count 242 10^3/uL (140-450) Mean Platelet Volume 6.7 fL (6.9-10.8) Neutrophils (%) (Auto) 53.8 % (37.0-80.0) Lymphocytes (%) (Auto) 33.7 % (10.0-50.0) Monocytes (%) (Auto) 10.6 % (0.0-12.0) Eosinophils (%) (Auto) 1.1 % (0.0-7.0) Basophils (%) (Auto) 0.8 % (0.0-2.0) Neutrophils # (Auto) 3.3 10 ^3/uL (1.6-8.6) Lymphocytes # (Auto) 2.1 10 ^3/uL (0.4-5.4) Monocytes # (Auto) 0.6 10 ^3/uL (0-1.3) Eosinophils # (Auto) 0.1 10 ^3/uL (0-0.8) Basophils # (Auto) 0 10 ^3/uL (0-0.2) Nucleated Red Blood Cells 0.4 % D-Dimer, Quantitative 0.70 mg/L FEU (0.0-0.49) Hemoglobin A1c 6.7 % A1C (<5.7) B-Type Natriuretic Peptide 23.41 pg/mL (0-100) Lipase 45 U/L (12-53) Other Laboratory Tests 01/18/25 06:18 6/20/25 17:27 Brief Hx & Hospital Course: 64-year-old male with a known history of CAD status post PCI, insulin-dependent diabetes mellitus type 2, hypertension, dyslipidemia, seizure disorder presented to the hospital with chest pain on and off for last two weeks with radiation to bilateral arms found to have Eventually patient was admitted. Cardiology was consulted patient underwent left heart catheterization which shows normal coronary arteries. Patient does have calcified lung nodules as well as left brachiocephalic and SVC stent. Patient's kept complaining of chest pain which was noncardiac. Patient is currently being discharged under stable condition. He is already has [place] MPI medication at home. Please follow up with the PCP, Pulmonary as an outpatient. Condition at Discharge: Stable Final Diagnosis/Problems List 64-year-old male with a known history of CAD status post PCI, insulin-dependent diabetes mellitus type 2, hypertension, dyslipidemia, seizure disorder presented to the hospital with chest pain on and off for last two weeks with radiation to bilateral arms found to have 1. Chest pain ruled out acute DC 2. CAD status post coronary angiogram showing normal coronaries. 3. Hypertension 4. Insulin-dependent diabetes mellitus type 2 5. Dyslipidemia 6. Seizure disorder Discharge Disposition: Home SNF Discharge Will this Physician continue t: No Discharge Instruct/Medications Diet: Cardiac 2g Na,low cholest Diet comment: 1800 ADA diet Activity: Light activity Medications: Resume home medications Discharge Statement: "Patient was advised to return to the ER or call 911 if any headaches, dizziness, shortness of breath, chest pain, abdominal pain, bleeding, fevers, or worsening of medical condition. Patient was counseled about treatment plan, medications, possible side effects, patientverbalized understanding. All questions were answered to the best of my ability. This discharge took greater then 30 minutes in planning, reviewing documentation, counseling the patient, and discussing with other team members." ASSESSMENT ASSESSMENT Assessment 64-year-old male with a known history of CAD status post PCI, insulin-dependent diabetes mellitus type 2, hypertension, dyslipidemia, seizure disorder presented to the hospital with chest pain on and off for last two weeks with radiation to bilateral arms found to have 1. Chest pain ruled out acute DC 2. CAD status post coronary angiogram showing normal coronaries. 3. Hypertension 4. Insulin-dependent diabetes mellitus type 2 5. Dyslipidemia 6. Seizure disorder Date of Service: Jan 19, 2025 Billing Provider: OVIDIO GONSALVES MD Common Visit Codes: [id number] DISCH DAY >30min OVIDIO GONSALVES MD Jan 19, 2025 14:19
[2025-01-19 14:26] VITALS: BP 110/74; PULSE 71; RESP 18; TEMP 98; O2SAT 99
--- NOTE | 2025-01-19 14:56 | ECG ---
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
[2025-01-19 15:26] VITALS: BP 123/88
--- NOTE | 2025-01-19 23:33 | DVHPN2 ---
Progress Note - Dictate Date Seen: Jan 19, 2025 Medical Necessity Reason Pt with a Central, PICC or Fol: No Subjective Patient was seen and evaluated in follow up. Patient has no new complaints at this time. Patient denies any cardiac symptoms. Patient is cardiac stable for discharge. Telemetry reviewed. vital signs Vital Sign Date Time Temp Pulse Resp B/P (MAP) Pulse Ox O2 Delivery O2 Flow Rate FiO2 01/19/25 14:26 98.0 71 18 110/74 (86) 99 98.0 01/19/25 08:00 Room Air* 0 21 Total Intake and Output 01/18/25 01/18/25 01/19/25 15:00 23:00 07:00 Intake Total 1040 ml 650 ml Output Total 600 ml 1400 ml Balance 440 ml -750 ml laboratory and microbiology Laboratory Tests 01/18/25 06:18 01/15/25 17:27 Test 01/18/25 06:18 Range/Units Serum Glucose 132 H 74-106 mg/dL Problem List Chest pain. History of congestive heart failure. Presence of pacemaker and loop recorder. History of venous thromboembolism s/p brachiocephalic/SVC stent. CAD status post PCI. Hypertension. Insulin-dependent diabetes mellitus type 2. Dyslipidemia. Seizure disorder. Hypertensive cardiomyopathy. Assessment/Plan Continued all current supportive medical care. Morphine and [place] for pain. Aspirin, Lipitor. Vasotec. DVT and GI prophylactics. Nitro SL. Additional plan as per the hospital course. Dietary Evaluation Review Comments: 1) CCHO 60+ cardiac diet 2) Refer CDE on DC Expected Outcomes/Goals: To meet >75% estimated needs Fu 3-5 days Plan discussed with: Patient ANURAG HERNÁNDEZ MD Jan 19, 2025 23:33
--- NOTE | 2025-01-20 06:54 | ECG ---
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
== END 2025-01-19 16:00 | disposition left against medical advice (07) | DRG 287 ==
LOC: ER 17:05 → OVERFLOW 23:25 → TELE-WESTW 01-16 22:30
PROVIDERS: ADMIT Internal Medicine; ATTEND Internal Medicine
PROC: 4A023N7 Measurement of Cardiac Sampling and Pressure, Left Heart, Percutaneous Approach (ICD-10-PCS; principal; 2025-01-18)
PROC: B211YZZ Fluoroscopy of Multiple Coronary Arteries using Other Contrast (ICD-10-PCS; 2025-01-18)
PROC: 03HY32Z Insertion of Monitoring Device into Upper Artery, Percutaneous Approach (ICD-10-PCS; 2025-01-18)
PROC: B215YZZ Fluoroscopy of Left Heart using Other Contrast (ICD-10-PCS; 2025-01-18)
DX: I77.1 Stricture of artery (principal); J90 Pleural effusion, not elsewhere classified; I50.32 Chronic diastolic (congestive) heart failure; I43 Cardiomyopathy in diseases classified elsewhere; E78.5 Hyperlipidemia, unspecified; G40.909 Epilepsy, unspecified, not intractable, without status epilepticus; Z53.29 Procedure and treatment not carried out because of patient's decision for other reasons; J44.9 Chronic obstructive pulmonary disease, unspecified; I25.10 Atherosclerotic heart disease of native coronary artery without angina pectoris; E11.9 Type 2 diabetes mellitus without complications; I11.0 Hypertensive heart disease with heart failure; R91.8 Other nonspecific abnormal finding of lung field; F32.A Depression, unspecified; F41.9 Anxiety disorder, unspecified; Z88.3 Allergy status to other anti-infective agents; Z79.4 Long term (current) use of insulin; Z79.84 Long term (current) use of oral hypoglycemic drugs; Z79.82 Long term (current) use of aspirin; Z79.899 Other long term (current) drug therapy; Z89.611 Acquired absence of right leg above knee; Z95.5 Presence of coronary angioplasty implant and graft; Z82.49 Family history of ischemic heart disease and other diseases of the circulatory system; Z86.718 Personal history of other venous thrombosis and embolism; Z86.711 Personal history of pulmonary embolism; Z95.0 Presence of cardiac pacemaker
CPT/HCPCS: 36415; 71045; 80053; 81001; 82962; 83036; 83690; 83880; 84484; 85025; 85379; 85610; 85730; 86850; 86900; 86901; 93005; 93458; 93971; 96374; 99152; G0378; J1815; J2250; Q0162; Q9967